=== PATIENT | female | born 1960 | race Hispanic/Latino ===

== ENCOUNTER 2016-10-03 04:25 | Observation (INO) | payer MEDICARE, OTHER ==
[2016-10-03] MEDS ORDERED: Albuterol-Ipratrop 3 mg / 0.5 (3 ml) UD IH STA (04:49)
--- NOTE | 2016-10-03 04:57 | ED PDOC ---
Arrival/HPI <Ruslan Berry - Last Filed: 10/03/16 06:00> - General Historian: Patient <Jeremy Wei - Last Filed: 10/03/16 06:11> - General Chief Complaint: Shortness Of Breath Time Seen by Provider: 10/03/16 04:28 - History of Present Illness Narrative History of Present Illness (Text): 10/03/16 04:51 56 y/o female with hx of COPD, tobacco use, asthma presenting with complaints of shortness of breath. Patient states she has been experiencing sinus congestion and rhinorrhea for the past 2 days. However earlier this evening the patient notes wheezing, shortness of breath and a non-productive cough. She denies fever, chills or sick contacts. Patient states she is up to date with both the flu and pneumococcal vaccines. Patient states she uses an Albuterol inhaler at home however this is infrequently. She states she has other inhalers at home but cannot remember the names of these. Patient further denies chest pain, sore throat, nausea, vomiting, diarrhea of urinary changes. (Jeremy Wei) Past Medical History - Provider Review Nursing Documentation Reviewed: Yes - Infectious Disease Hx of Infectious Diseases: None - Tetanus Immunization Tetanus Immunization: Unknown - Past Medical History Past Medical History: No Previous - Cardiac Hx Cardiac Disorders: No Hx Hypertension: No - Pulmonary Hx Asthma: Yes Hx Bronchitis: Yes Hx Chronic Obstructive Pulmonary Disease (COPD): Yes Hx Tuberculosis: No - Neurological Hx Neurological Disorder: No HX Cerebrovascular Accident: No Hx Seizures: No - HEENT Hx HEENT Disorder: No - Renal Hx Renal Disorder: No - Endocrine/Metabolic Hx Endocrine Disorders: No - Hematological/Oncological Hx Blood Disorders: No Hx Cancer: No - Integumentary Hx Dermatological Disorder: No - Musculoskeletal/Rheumatological Hx Back Pain: Yes - Gastrointestinal Hx Gastrointestinal Disorders: Yes ("LAST MONTH GASTROENTERITIS") Hx Gastritis: Yes - Genitourinary/Gynecological Hx Genitourinary Disorders: No Hx Sexually Transmitted Diseases: No - Psychiatric Hx Depression: Yes Hx Substance Use: No - Surgical History Hx Hysterectomy: Yes (partial) Hx Musculoskeletal Surgery: Yes Hx Orthopedic Surgery: Yes (neck and back WITH PLATES) Other/Comment: Herniated disc repair. SURGERY FOR: BUNIONS ON BOTH FEET. 02/02: PERCUTANEOUS PINNING K.WIRE 0.62 OF LEFT HAND DISTAL RADIUS FRACTURE AND APPLICATION OF SPLINT - Anesthesia Hx Anesthesia: Yes Hx Anesthesia Reactions: Yes (N&V) Hx Malignant Hyperthermia: No - Suicidal Assessment Feels Threatened In Home Enviroment: No <Jeremy Wei - Last Filed: 10/03/16 06:11> Family/Social History Family/Social History: Unknown Family HX Smoking Status: Heavy Smoker > 10 Cigarettes Daily Hx Alcohol Use: No Hx Substance Use: No Hx Substance Use Treatment: Yes (PPD) <Jeremy Wei - Last Filed: 10/03/16 06:11> Allergies/Home Meds <JujuRuslan gonzalez - Last Filed: 10/03/16 06:00> <Jeremy Wei - Last Filed: 10/03/16 06:11> Allergies/Adverse Reactions: Allergies No Known Allergies Allergy (Verified 10/03/16 04:29) Home Medications: Home Meds Medication Instructions Recorded Confirmed Pregabalin [Lyrica] 150 mg PO TID 10/03/16 10/03/16 oxyCODONE [oxyCODONE Immediate 10 mg PO TID 10/03/16 10/03/16 Release Tab] Review of Systems - Review of Systems Constitutional: absent: Fevers, Night Sweats Eyes: Normal ENT: Rhinorrhea, Sinus Congestion. absent: Tinnitus, Sore Throat Respiratory: Cough, Wheezing. absent: Sputum Cardiovascular: absent: Chest Pain, Palpitations Gastrointestinal: absent: Abdominal Pain, Diarrhea, Nausea, Vomiting Musculoskeletal: absent: Back Pain, Neck Pain Skin: absent: Rash Neurological: absent: Headache, Dizziness, Focal Weakness Endocrine: absent: Diaphoresis Psychiatric: absent: Anxiety <Jeremy Wei - Last Filed: 10/03/16 06:11> Physical Exam Mental Status: Positive for: Alert and Oriented X 3 - Systems Exam Head: Present: Atraumatic, Normocephalic Pupils: Present: PERRL Extroacular Muscles: Present: EOMI Conjunctiva: Present: Normal Mouth: Present: Moist Mucous Membranes Pharnyx: Present: Normal. No: ERYTHEMA, EXUDATE Neck: Present: Normal Range of Motion Respiratory/Chest: Present: Wheezes (scattered diffusely ). No: Clear to Auscultation, Respiratory Distress, Accessory Muscle Use, Rhonchi, Tachypneic Abdomen: Present: Normal Bowel Sounds. No: Tenderness, Distention Back: Present: Normal Inspection Upper Extremity: Present: Normal Inspection. No: Cyanosis, Edema Lower Extremity: Present: Normal Inspection. No: Edema, CALF TENDERNESS Neurological: Present: GCS=15, CN II-XII Intact, Speech Normal Skin: Present: Warm, Dry, Rashes, Normal Color Psychiatric: Present: Alert, Oriented x 3, Normal Insight, Normal Concentration <Jeremy Wei - Last Filed: 10/03/16 06:11> Vital Signs Temp Pulse Resp BP Pulse Ox 10/03/16 05:05 20 10/03/16 04:33 97.8 F 71 18 155/97 H 99 Medical Decision Making <Ruslan Berry - Last Filed: 10/03/16 06:00> <Jeremy Wei - Last Filed: 10/03/16 06:11> ED Course and Treatment: 10/03/16 06:00 Patient seen and evaluated with resident. Patient is a 56 year old female who presents to the ed complaining of URI symptoms for 2 days and developed wheezing , SOB and non-productive cough yesterday evening. Agree with HPI, clinical findings, plan and treatment. (Ruslan Berry) 10/03/16 05:01 56 y/o female with hx of COPD, asthma, prior hx of pneumonia, bronchitis presenting with shortness of breath 2/2 viral/bacterial CAP vs acute bronchitis vs COPD exacerbation - Duonebs PRN - chest xray - routine labs - EKG 10/03/16 06:06 - chest xray reviewed. no infiltrates seen. no evidence of pneumonia. - labs reviewed. no leukocytosis - EKG with NSR no evidence of ischemia. (Jeremy Wei) - Lab Interpretations Lab Results: 10/03/16 04:49 10/03/16 05:22 Lab Results 10/03/16 05:22: Sodium 142, Potassium 4.6, Chloride 109, Carbon Dioxide 25, Anion Gap 13, BUN 11, Creatinine 0.6, Est GFR ( Amer) > 60, Est GFR (Non- Af Amer) > 60, Random Glucose 116 H, Calcium 10.1, Total Bilirubin 0.5, AST 32, ALT 28, Alkaline Phosphatase 76, Total Protein 7.1, Albumin 3.9, Globulin 3.2, Albumin/Globulin Ratio 1.2 10/03/16 04:49: WBC 10.5, RBC 4.90, Hgb 12.8, Hct 39.4, MCV 80.4, MCH 26.1, MCHC 32.5, RDW 16.3 H, Plt Count 249, MPV 11.4 H, Gran % 62.5, Lymph % (Auto) 28.9, [place] % (Auto) 6.6 H, Eos % (Auto) 1.8, Baso % (Auto) 0.2, Gran # 6.54 H, Lymph # 3.0, [place] # 0.7 H, Eos # 0.2, Baso # 0.02 - RAD Interpretation Radiology Orders: 10/03/16 04:49 CHEST PORTABLE [RAD] Stat - Medication Orders Current Medication Orders: Albuterol/Ipratropium (Duoneb 3 Mg/0.5 Mg (3 Ml) Ud) 3 ml IH Q15M ROBERTA Stop: 10/03/16 06:16 Last Admin: 10/03/16 06:05 Dose: 3 ML Levofloxacin/Dextrose (Levaquin 750mg) 150 mls @ 100 mls/hr IVPB STAT STA Stop: 10/03/16 07:33 Discontinued Medications Albuterol/Ipratropium (Duoneb 3 Mg/0.5 Mg (3 Ml) Ud) 3 ml IH STAT STA Stop: 10/03/16 04:50 Last Admin: 10/03/16 05:25 Dose: 3 ML Methylprednisolone (Solu-Medrol) 125 mg IVP STAT STA Stop: 10/03/16 05:23 Last Admin: 10/03/16 05:35 Dose: 125 MG IVP Administration Document 10/03/16 05:35 MR (Rec: 10/03/16 05:35 MR [id number]) Charges for Administration # of IVP Administrations 1 Oxycodone HCl (Oxycodone Immediate Release Tab) 10 mg PO STAT STA Stop: 10/03/16 06:00 - PA / FREIGHT ENGINEER / Resident Statement / has reviewed & agrees with the documentation as recorded. / has examined the patient and agrees with the treatment plan. <Ruslan Berry - Last Filed: 10/03/16 06:00> <Jeremy Wei - Last Filed: 10/03/16 06:11> - Scribe Statement Roseline Muthuraman All medical record entries made by the Scribe were at my direction and personally dictated by me. I have reviewed the chart and agree that the record accurately reflects my personal performance of the history, physical exam, medical decision making, and the department course for this patient. I have also personally directed, reviewed, and agree with the discharge instructions and disposition. (Ruslan Berry) Disposition/Present on Arrival <Ruslan Berry - Last Filed: 10/03/16 06:00> - Present on Arrival Any Indicators Present on Arrival: No History of DVT/PE: No History of Uncontrolled Diabetes: No Urinary Catheter: No History of Decub. Ulcer: No History Surgical Site Infection Following: None - Disposition Have Diagnosis and Disposition been Completed?: No Disposition Time: 06:11 Patient Plan: Admission <Jeremy Wei - Last Filed: 10/03/16 06:11> - Disposition Diagnosis: Acute bronchitis with chronic obstructive pulmonary disease (COPD) Patient Problems: Current Active Problems Problem Status Diagnosed Asthma Acute COPD (chronic obstructive pulmonary disease) Acute Pneumonia Acute Condition: STABLE
[2016-10-03 05:37] LABS: ALB/GLOB RATIO 1.2 (1.1-1.8); ALKALINE PHOSPHATASE 76 U/L (38-133); ALT/SGPT 28 U/L (7-56); AST/SGOT 32 U/L (15-39); BILIRUBIN,TOTAL 0.5 mg/dL (0.2-1.3); BLOOD UREA NITROGEN 11 mg/dL (7-21); CALCIUM 10.1 mg/dL (8.4-10.5); CARBON DIOXIDE 25 mmol/L (21-33); CHLORIDE 109 mmol/L (95-110); GFR AFRICAN-AMERICAN > 60; GLUCOSE,RANDOM 116 mg/dL (70-110); POTASSIUM 4.6 mmol/L (3.6-5.0); SODIUM 142 mmol/L (132-148); TOTAL PROTEIN 7.1 g/dL (5.8-8.3)
[2016-10-03 05:39] LABS: ADD MANUAL DIFF? NO; BASO # 0.02 K/mm3 (0.0-2.0); BASO % 0.2 % (0.0-3.0); EOS # 0.2 (0.0-0.7); EOS % 1.8 % (1.5-5.0); GRAN # 6.54 (1.4-6.5); GRAN % 62.5 % (50.0-68.0); HEMATOCRIT 39.4 % (36.0-48.0); LYMPH % 28.9 % (22.0-35.0); MEAN CELL VOLUME 80.4 fL (80.0-105.0); MEAN CORPUSCULAR HEMOGLOBIN 26.1 pg (25.0-35.0); MEAN CORPUSCULAR HGB CONC 32.5 g/dl (31.0-37.0); MEAN PLATELET VOLUME 11.4 fl (7.0-11.0); MONO # 0.7 (0.1-0.6); MONO % 6.6 % (1.0-6.0); PLATELET COUNT 249 10^3/uL (120.0-450.0); RED CELL DISTRIBUTION WIDTH 16.3 % (11.5-14.5); WHITE BLOOD COUNT 10.5 10^3/ul (4.5-11.0)
[2016-10-03] MEDS ORDERED: oxyCODONE 10 mg Immediate Release Tab PO STA (05:59)
[2016-10-03] MEDS: Albuterol-Ipratrop 3 mg / 0.5 (3 ml) UD IH SCH ×5 (06:05→21:29)
[2016-10-03] MEDS ORDERED: Albuterol-Ipratrop 3 mg / 0.5 (3 ml) UD IH PRN ×2 (06:07→08:47)
--- NOTE | 2016-10-03 07:17 | RAD ---
HISTORY: respiratory distress r/o pneumonia COMPARISON: 08/15/2016 AT 5:26 A.M. FINDINGS: LUNGS: . There is interval increased pulmonary vascular markings symmetrical diffuse. . The inferolateral soft tissues appear prominent some of this is likely due to summation of breast tissues. no. Blunting of either costophrenic angle is noted. PLEURA: No significant pleural effusion identified, no pneumothorax apparent. Inferolateral pleural thickening or reaction is not excluded CARDIOVASCULAR: Normal. OSSEOUS STRUCTURES: No significant abnormalities. VISUALIZED UPPER ABDOMEN: Normal. OTHER FINDINGS: Anterior cervical fusion plate present-as before IMPRESSION: Interval increased pulmonary vascular congestion. Summation of chest wall and breast soft tissues versus inferolateral pleural thickening/ pleural pathology. No gross blunting of either costophrenic angle to suggest pleural effusions.
[2016-10-03] MEDS: oxyCODONE 10 mg Immediate Release Tab PO SCH ×3 (09:09→17:07)
[2016-10-03 13:35] VITALS: BMI 39.9
[2016-10-03] MEDS ORDERED: Influenza Vaccine 45 MCG/0.5 ml IM ONE (13:35)
[2016-10-03] MEDS ORDERED: Pneumococcal 23-Valent Vaccine IM ONE (13:35)
[2016-10-03] MEDS: MethylPREDNISolone 40 mg Vial IV SCH ×2 (13:42→22:43)
--- NOTE | 2016-10-03 16:35 | CARD ---
APPROVED REPORT EKG Measurement Heart [id number] <Conclusion> Normal sinus rhythm Normal ECG
--- NOTE | 2016-10-03 16:58 | HP ---
HISTORY OF PRESENT ILLNESS: The patient is a 56-year-old, known to me from my office practice. The patient states she has not been feeling well since Saturday. She has a runny and stuffy nose. She has cough and congestion and yesterday, she became more and more short of breath, so she came [facility] for further evaluation. She did have some fever and chills at home. She denies any hemoptys is, no hematemesis, no nausea, vomiting, no diarrhea. However, she was breathing harsh and she has n onproductive cough. The patient states she has been using her inhaler at home with no significant re lief, so she decided to come to the ER. She has significant past medical history of morbid obesity, hypertension. PAST MEDICAL HISTORY: Significant for: 1. Morbid obesity. 2. History of depression. 3. Degenerative disk disease, on narcotics. 4. Hypothyroidism. 5. Hypertension. 6. Active smoking. ALLERGIES: She is not allergic to any medications. MEDICATIONS AT HOME: She is on oxycodone 10 mg 3 times a day. She is on Lyrica 150 three times a da y and Flexeril 10 mg at bedtime. SOCIAL HISTORY: She is single, lives by herself. Actively smokes, almost half a pack to 1 pack on . REVIEW OF SYSTEMS: Significant for cough, congestion and shortness of breath with walking. No signi ficant chest pain. PHYSICAL EXAMINATION: GENERAL: She is awake and alert, communicative. VITAL SIGNS: She is afebrile, pulse 85, respirations 20, blood pressure 148/77. LUNGS: Bilateral fair airflow with a few expiratory rhonchi, no crackle. HEART: S1, S2 audible. No murmur. ABDOMEN: Soft, nontender. No rebound, no guarding. NEUROLOGIC: The patient is awake and alert, communicative. Moves all extremities. LABORATORY DATA: WBC is 10.5, hemoglobin 12.8, hematocrit 39, platelet of 249. Chemistry: Sodium 1 42, potassium 4.6, chloride 109, CO2 25, BUN 11, creatinine 0.6, blood sugar of 116. TSH 5.63. Urin e tox is negative. RPR is negative. X-ray chest: Interval increase in pulmonary vascular congestio n, inflammation of chest wall and breast soft tissue versus bilateral pleural thickening. ASSESSMENT: 1. Chronic obstructive pulmonary disease exacerbation. 2. Active smoker. 3. Hypertension. 4. Chronic back pain. 5. Morbid obesity. PLAN: Currently, the patient is on nebulizer treatment. She is on Levaquin and she is on PPI. She has been started on IV steroids and she is back on her analgesic as needed. I will order for CT scan of the chest. If it is negative, we will taper down her steroid quickly and discharge her in a day or 2. Hemodynamically, she is stable. I will discontinue her telemetry. Eliu Souza MD cc: [phone] TT: 10/03/2016 16:58:00 tn
[2016-10-03] MEDS: Levothyroxine 25 MCG TAB PO SCH (17:07)
[2016-10-03] MEDS ORDERED: Oxycodone/Acetaminophen 5/325 mg Tab PO STA (23:19)
[2016-10-04] MEDS: Albuterol-Ipratrop 3 mg / 0.5 (3 ml) UD IH SCH ×4 (02:40→20:16)
[2016-10-04] MEDS: MethylPREDNISolone 40 mg Vial IV SCH ×3 (06:23→22:14)
[2016-10-04] MEDS: oxyCODONE 10 mg Immediate Release Tab PO SCH ×3 (06:23→22:14)
--- NOTE | 2016-10-04 07:37 | CT ---
PROCEDURE: CT Chest without contrast HISTORY: sob COMPARISON: None. TECHNIQUE: Contiguous axial images were obtained through the chest without intravenous contrast enhancement. Sagittal and coronal reconstructions were performed. Radiation dose (DLP): 905.90 mGy-cm. FINDINGS: LUNGS: Minimal linear scar/atelectasis in both lower lobes. No pulmonary infiltrate. No pulmonary mass identified. MEDIASTINUM: Unremarkable thoracic aorta. No aneurysm. Normal-sized heart. No pericardial effusion. Coronary arterial calcification noted. Main pulmonary artery unremarkable. No vascular congestion. No lymphadenopathy. PLEURA: No pleural fluid. No pneumothorax. BONES: No fracture. No destructive lesion. UPPER ABDOMEN: Diffuse fatty infiltration of the liver. OTHER FINDINGS: None. IMPRESSION: No pulmonary infiltrate. Fatty liver. Minor findings as above.
[2016-10-04] MEDS: Levothyroxine 25 MCG TAB PO SCH (08:00)
[2016-10-04] MEDS: Pantoprazole 40 mg EC Tab PO SCH (08:00)
--- NOTE | 2016-10-04 18:17 | PN ---
DATE: 10/04/2016 The patient is a 56-year-old, seen and examined lying in bed. Still had cough and congestion with wh eezing; better than yesterday. VITAL SIGNS: She is afebrile, pulse 110, respirations 20, blood pressure 123/67. LUNGS: Bilateral expiratory rhonchi diffuse posteriorly, and scattered. HEART: S1, S2 audible. ABDOMEN: Soft, obese, nontender, no rebound, no guarding. NEUROLOGICALLY: The patient is awake and alert, communicative. She had CT scan of the chest done that shows no pulmonary infiltrate. ASSESSMENT AND PLAN: 1. Chronic obstructive pulmonary disease exacerbation. 2. Bronchospasm. 3. Asthmatic bronchitis. 4. Morbid obesity. 5. Chronic degenerative disk disease. PLAN: Currently the patient is on Levaquin. She is getting nebulizer treatment. She is on IV stero ids. I will cut down to keep q. 12 and will reevaluate the patient in a.m. If her bronchospasm has improved will make discharge plan in a.m. Eliu Souza MD cc: [phone] TT: 10/04/2016 18:16:52 Confirmation # [id number] Dictation # [id number]
[2016-10-05] MEDS: Albuterol-Ipratrop 3 mg / 0.5 (3 ml) UD IH SCH ×2 (02:08→08:48)
[2016-10-05] MEDS: oxyCODONE 10 mg Immediate Release Tab PO SCH (06:04)
[2016-10-05] MEDS: Pantoprazole 40 mg EC Tab PO SCH (06:04)
[2016-10-05] MEDS: Levothyroxine 25 MCG TAB PO SCH (07:53)
[2016-10-05 07:57] VITALS: BP 123/75; PULSE 77; RESP 22; TEMP 97.6; O2SAT 97
[2016-10-05] MEDS: MethylPREDNISolone 40 mg Vial IV SCH (09:47)
[2016-10-05] MEDS ORDERED: levoFLOXacin 500 MG TAB PO SCH (10:00)
--- NOTE | 2016-10-05 17:16 | DS ---
The patient is a 56-year-old who came to Emergency Room because of increasing cough, congestion, and shortness of breath. She was unable to catch breath, feeling very dizzy, so she came to Emergency Ro . She has been using nebulizer at home with no significant relief, so she came to Emergency Room 0 10/03. The patient was initially admitted in telemetry for 24 hours. She was started on IV steroid, IV antibiotic, and nebulizer treatments. Started to feel better, transferred to regular floor, tamra painting on medication; was seen and examined this morning, doing well. Awake, alert, oriented. Coughing and wheezing is much better. VITAL SIGNS: She is afebrile, pulse 77, respirations 22, blood pressure 123/75. LUNGS: Bilateral good airflow. No rhonchi or crackle. HEART: S1, S2 audible. ABDOMEN: Soft, nontender, no rebound, no guarding. NEUROLOGICALLY: She is awake and alert, communicative, ambulatory. ASSESSMENT AND PLAN: 1. Chronic obstructive pulmonary disease exacerbation. CT scan chest negative for infiltrate. 2. Hypertension. 3. Depression. 4. Degenerative disk disease. PLAN: The patient is being discharged home on prednisone 20 mg twice a day for 1 week, and she was g iven Levaquin 500 daily and DuoNeb. She has nebulizer machine at home. She is given Phenergan DM q. 6 p.r.n. for cough, and she will follow up in office in a week or two. Eliu Souza MD cc: [phone] TT: 10/05/2016 17:15:41 jn
== END 2016-10-05 15:07 | disposition home or self-care (01) ==
LOC: ED 04:25 → ERH 06:06 → 2RNO 06:39 → ERH 06:55 → 2RNO 08:12 → 5RSO 18:50
PROVIDERS: ADMIT Internal Medicine; ATTEND Internal Medicine
DX: J44.1 Chronic obstructive pulmonary disease with (acute) exacerbation (principal); I10 Essential (primary) hypertension; J45.909 Unspecified asthma, uncomplicated; F32.9 Major depressive disorder, single episode, unspecified; M51.9 Unspecified thoracic, thoracolumbar and lumbosacral intervertebral disc disorder; F17.200 Nicotine dependence, unspecified, uncomplicated; E03.9 Hypothyroidism, unspecified; E66.01 Morbid (severe) obesity due to excess calories; Z68.41 Body mass index [BMI] 40.0-44.9, adult
CPT/HCPCS: 71010; 71250; 80053; 85025; 93005; 94640; 94760; 96365; 96366; 96375; 96376; 99285; G0378; J2920; J2930

== ENCOUNTER 2016-11-05 13:53 | Emergency (ER) | payer MEDICARE, OTHER ==
[2016-11-05 13:54] VITALS: BMI 39.9
[2016-11-05 14:18] VITALS: BP 143/84; PULSE 95; RESP 19; TEMP 98.3; O2SAT 97
[2016-11-05] MEDS ORDERED: Albuterol-Ipratrop 3 mg / 0.5 (3 ml) UD IH STA (14:32)
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
== END 2016-11-05 14:40 | disposition home or self-care (01) ==
LOC: ED 13:53
DX: J44.0 Chronic obstructive pulmonary disease with (acute) lower respiratory infection (principal); F17.210 Nicotine dependence, cigarettes, uncomplicated

== ENCOUNTER 2016-11-06 02:40 | Observation (INO) | payer MEDICARE, OTHER ==
[2016-11-06] MEDS: Albuterol-Ipratrop 3 mg / 0.5 (3 ml) UD IH SCH ×5 (03:15→19:12)
--- NOTE | 2016-11-06 03:33 | ED PDOC ---
Arrival/HPI - General Chief Complaint: Cough, Cold, Congestion Time Seen by Provider: 11/06/16 02:45 Historian: Patient - History of Present Illness Narrative History of Present Illness (Text): 11/06/16 03:30 Patient is a 56 year old female, with a past medical history of pneumonia, asthma, bronchitis, and COPD, presents to the emergency department complaining of mild shortness of breath associated with non-productive cough, runny nose and congestion for past 4 days. States that daughter and grand daughter are sick with similar symptoms at home. Patient was evaluated yesterday at [facility] [place], but eloped the emergency department without getting the prescriptions. Denies any fever, chills, headache, dizziness, chest pain, nausea , vomiting, diarrhea, urinary symptoms, or any other complaints at this time. PMD: Time/Duration: < week (4 days ) Symptom Onset: Gradual Symptom Course: Unchanged Severity Level: Mild Activities at Onset: Light Context: Home Past Medical History - Provider Review Nursing Documentation Reviewed: Yes - Infectious Disease Hx of Infectious Diseases: None - Tetanus Immunization Tetanus Immunization: Unknown - Reproductive Menopause: Yes - Past Medical History Past Medical History: No Previous - Cardiac Hx Cardiac Disorders: No Hx Hypertension: No - Pulmonary Hx Asthma: Yes Hx Bronchitis: Yes Hx Chronic Obstructive Pulmonary Disease (COPD): Yes Hx Tuberculosis: No Other/Comment: asthmatic bronchitis - Neurological Hx Neurological Disorder: No HX Cerebrovascular Accident: No Hx Seizures: No - HEENT Hx HEENT Disorder: No - Renal Hx Renal Disorder: No - Endocrine/Metabolic Hx Endocrine Disorders: No Hx Diabetes Mellitus Type 2: Yes - Hematological/Oncological Hx Blood Disorders: No Hx Cancer: No - Integumentary Hx Dermatological Disorder: No - Musculoskeletal/Rheumatological Hx Falls: Yes (15 yrs ago and 03/2015) - Gastrointestinal Hx Gastrointestinal Disorders: Yes Other/Comment: pt denies gastroenteritis or gastritis - Genitourinary/Gynecological Hx Genitourinary Disorders: No Hx Sexually Transmitted Diseases: No - Psychiatric Hx Depression: Yes Hx Substance Use: No - Surgical History Hx Hysterectomy: Yes (partial) Hx Musculoskeletal Surgery: Yes (bunion) Hx Orthopedic Surgery: Yes (neck and back WITH PLATES) Other/Comment: Herniated disc repair. SURGERY FOR: BUNIONS ON BOTH FEET. 02/02: PERCUTANEOUS PINNING K.WIRE 0.62 OF LEFT HAND DISTAL RADIUS FRACTURE AND APPLICATION OF SPLINT, 03/2015, pt fell over [employer] football, hardware removed 05/2016 - Anesthesia Hx Anesthesia: Yes Hx Anesthesia Reactions: Yes (N&V) Hx Malignant Hyperthermia: No - Suicidal Assessment Feels Threatened In Home Enviroment: No Family/Social History - Physician Review Nursing Documentation Reviewed: Yes Family/Social History: No Known Family HX Smoking Status: Heavy Smoker > 10 Cigarettes Daily Hx Alcohol Use: No Hx Substance Use: No Hx Substance Use Treatment: Yes (PPD) Allergies/Home Meds Allergies/Adverse Reactions: Allergies No Known Allergies Allergy (Verified 11/06/16 02:44) Home Medications: Home Meds Medication Instructions Recorded Confirmed Simvastatin [Zocor] 20 mg PO HS 11/06/16 11/06/16 metFORMIN [glucOPHAGE] 500 mg PO BID 11/06/16 11/06/16 Review of Systems - Physician Review All systems were reviewed & negative as marked: Yes - Review of Systems Constitutional: Normal. absent: Fatigue, Fevers ENT: Rhinorrhea Respiratory: SOB (mild sob ), Cough. absent: Sputum Cardiovascular: absent: Chest Pain Gastrointestinal: absent: Abdominal Pain, Diarrhea, Nausea, Vomiting Neurological: Normal. absent: Headache, Dizziness Psychiatric: Normal Physical Exam Vital Signs Reviewed: Yes Vital Signs Temp Pulse Resp BP Pulse Ox 11/06/16 05:15 110 H 11/06/16 05:14 99 F 107 H 16 152/78 H 98 11/06/16 02:47 98.0 F 107 H 18 134/96 H 98 Temperature: Afebrile Blood Pressure: Normal Pulse: Tachycardic Respiratory Rate: Normal Appearance: Positive for: Well-Appearing, Non-Toxic, Comfortable Pain Distress: None Mental Status: Positive for: Alert and Oriented X 3 - Systems Exam Head: Present: Atraumatic, Normocephalic Pupils: Present: PERRL Conjunctiva: Present: Normal Respiratory/Chest: Present: Good Air Exchange, Wheezes. No: Respiratory Distress, Accessory Muscle Use Cardiovascular: Present: Regular Rate and Rhythm, Normal S1, S2. No: Murmurs Abdomen: Present: Normal Bowel Sounds. No: Tenderness, Distention, Peritoneal Signs Upper Extremity: Present: Normal Inspection. No: Cyanosis, Edema Lower Extremity: Present: Normal Inspection. No: Edema Neurological: Present: GCS=15, CN II-XII Intact, Speech Normal, Motor Func Grossly Intact, Normal Sensory Function Skin: Present: Warm, Dry, Normal Color. No: Rashes Psychiatric: Present: Alert, Oriented x 3, Normal Insight, Normal Concentration Medical Decision Making ED Course and Treatment: 11/06/16 03:32 Impression: A 56 year old female who presents to the ed complaining of cough, runny nose and congestion for past 4 days. Plan: -- EKG -- Labs, cardiac enzymes -- CXR -- Solumedrol -- Blood Culture Progress Notes: 11/06/16 04:46 EKG reviewed by me: Sinus Tachycardia @ 104 bpm. Normal Rochelle. Normal interval. case d/w dr hernandez\n will tele obs for copd 11/08/16 23:17 - Lab Interpretations Microbiology Results: Microbiology Results 11/06/16 03:30 Blood-Venous Blood Culture - Preliminary NO GROWTH AFTER 48 HOURS 11/06/16 03:10 Blood-Venous Blood Culture - Preliminary NO GROWTH AFTER 48 HOURS Lab Results: 11/06/16 03:10 11/06/16 03:10 Lab Results 11/06/16 03:10: WBC 8.4, RBC 5.50, Hgb 14.3, Hct 43.4, MCV 78.9 L, MCH 26.0, MCHC 32.9, RDW 17.5 H, Plt Count 223, MPV 12.1 H, Gran % 58.3, Lymph % (Auto) 27.1, Roane % (Auto) 10.6 H, Eos % (Auto) 3.6, Baso % (Auto) 0.4, Gran # 4.90, Lymph # 2.3, Roane # 0.9 H, Eos # 0.3, Baso # 0.03, pO2 183 H, VBG pH 7.38, VBG pCO2 33.0 L, VBG HCO3 19.5 L, VBG Total CO2 20.5 L, VBG O2 Sat (Calc) 99.3 H, VBG Base Excess -4.7 L, VBG Potassium 4.4, Glucose 130 H, Lactate 2.2 H, FiO2 21.0, Sodium 138.0, Potassium 4.4, Chloride 111.0 H, Carbon Dioxide 20 L, Anion Gap 13, BUN 14, Creatinine 0.7, Est GFR ( Amer) > 60, Est GFR (Non-Af Amer) > 60, Random Glucose 133 H, Calcium 10.3, Total Bilirubin 0.5, AST 35, ALT 49, Alkaline Phosphatase 106, Lactate Dehydrogenase 471, Total Creatine Kinase 63, Troponin I < 0.01, NT-Pro-B Natriuret Pep 15.8, Total Protein 7.5, Albumin 4.2, Globulin 3.3, Albumin/Globulin Ratio 1.3, Venous Blood Potassium 4.4 I have reviewed the lab results: Yes - RAD Interpretation Radiology Orders: 11/06/16 02:54 CHEST PORTABLE [RAD] Stat Shirt Closer: ED Physician - EKG Interpretation Interpreted by ED Physician: Yes Type: 12 lead EKG - Medication Orders Current Medication Orders: Discontinued Medications Acetaminophen (Tylenol 325mg Tab) 650 mg PO Q4H PRN PRN Reason: Fever >100.5 F Acetaminophen (Tylenol 325mg Tab) 650 mg PO Q6H PRN PRN Reason: Fever >100.4 F Last Admin: 11/06/16 12:38 Dose: 650 MG MAR Pain/Vitals Document 11/06/16 12:38 CLA (Rec: 11/06/16 12:39 CLA [id number]) Pain Reassessment Is This A Pain ReAssessment? Yes Sleep Is patient sleeping during reassessment? No Presence of Pain Presence of Pain No Pain Scale Used Pain Scale Used Numeric Location Pain Location Body Site Generalized Description Intermittent Intensity 5 Pain Behavior Irritability Restlessness Albuterol/Ipratropium (Duoneb 3 Mg/0.5 Mg (3 Ml) Ud) 3 ml IH Q15M ROBERTA Stop: 11/06/16 03:31 Last Admin: 11/06/16 04:00 Dose: 3 ML Albuterol/Ipratropium (Duoneb 3 Mg/0.5 Mg (3 Ml) Ud) 3 ml IH Q4H PRN PRN Reason: Shortness of Breath Stop: 11/06/16 09:19 Albuterol/Ipratropium (Duoneb 3 Mg/0.5 Mg (3 Ml) Ud) 3 ml IH Q2H PRN PRN Reason: Shortness of Breath Last Admin: 11/06/16 23:34 Dose: 3 ML Albuterol/Ipratropium (Duoneb 3 Mg/0.5 Mg (3 Ml) Ud) 3 ml IH [id number] ROBERTA Last Admin: 11/07/16 13:25 Dose: Atorvastatin Calcium (Lipitor) 10 mg PO HS [facility] Last Admin: 11/06/16 21:43 Dose: 10 MG Levofloxacin/Dextrose (Levaquin 750mg) 150 mls @ 100 mls/hr IVPB STAT STA Stop: 11/06/16 06:14 Last Admin: 11/06/16 05:08 Dose: 100 MLS/HR eMAR Start Stop Document 11/06/16 05:08 SRE (Rec: 11/06/16 05:08 SRE [id number]) Intravenous Solution Start Date 11/06/16 Start Time 05:08 End Date 11/06/16 End time 06:00 Total Infusion Time 52 Insulin Human Lispro (Humalog Med) 0 units SC [facility] PRN Reason: Protocol Last Admin: 11/07/16 08:35 Dose: Not Given Non-Admin Reason: Blood Sugar Parameter MAR Blood Glucose Document 11/07/16 08:35 RV (Rec: 11/07/16 08:35 RV [id number]) Blood Glucose Finger Stick Blood Glucose (70-120) 125 Insulin Human Regular (Humulin R Med) 0 units SC [facility] PRN Reason: Protocol Last Admin: 11/06/16 23:00 Dose: Not Given Non-Admin Reason: Blood Sugar Parameter Metformin HCl (Glucophage) 500 mg PO BID [facility] Last Admin: 11/07/16 10:28 Dose: 500 MG Methylprednisolone (Solu-Medrol) 125 mg IVP ONCE ONE Stop: 11/06/16 02:55 Last Admin: 11/06/16 03:15 Dose: 125 MG IVP Administration Document 11/06/16 03:15 SRE (Rec: 11/06/16 03:21 SRE [id number]) Charges for Administration # of IVP Administrations 1 Nicotine (Nicoderm Cq) 1 patch TD DAILY [facility] Last Admin: 11/07/16 10:29 Dose: 1 PATCH MAR Patch Placement/Removal Document 11/07/16 10:29 RV (Rec: 11/07/16 10:29 RV [id number]) Patch Removal Removal of previous patch done Yes Patch Placement Left, Right or Bilateral Left Pain Location Body Site Shoulder MAR Transdermal Patch Site Document 11/07/16 10:29 RV (Rec: 11/07/16 10:29 RV [id number]) Transdermal Patch Site Transdermal Patch Site Right Shoulder Oxycodone HCl (Oxycodone Immediate Release Tab) 10 mg PO Q6H PRN PRN Reason: Pain, moderate (4-7) Last Admin: 11/07/16 06:27 Dose: 10 MG [facility] Pain Assessment Document 11/07/16 06:27 JW (Rec: 11/07/16 06:27 JW [id number]) Pain Reassessment Is this a pain reassessment? No Sleep Is patient sleeping during reassessment? No Presence of Pain Presence of Pain Yes Re-Assess: [facility] Pain Assessment Document 11/07/16 07:27 RV (Rec: 11/07/16 10:29 RV [id number]) Pain Reassessment Is this a pain reassessment? No Sleep Is patient sleeping during reassessment? No Presence of Pain Presence of Pain No Pain Scale Used Pain Scale Used Numeric Oxycodone/Acetaminophen (Percocet 5/325 Mg Tab) 1 tab PO STAT STA Stop: 11/06/16 04:48 Last Admin: 11/06/16 05:08 Dose: 1 TAB Re-Assess: [facility] Pain Assessment Document 11/06/16 06:08 AMA (Rec: 11/06/16 06:24 AMA [id number]) Pain Reassessment Is this a pain reassessment? Yes Sleep Is patient sleeping during reassessment? Yes Pain Scale Used Pain Scale Used Numeric Oxycodone/Acetaminophen (Percocet 5/325 Mg Tab) 1 tab PO Q6H PRN PRN Reason: Pain, moderate (4-7) Stop: 11/09/16 10:13 Last Admin: 11/06/16 16:34 Dose: 1 TAB [facility] Pain Assessment Document 11/06/16 16:34 MLK (Rec: 11/06/16 16:34 MLK [id number]) Pain Reassessment Is this a pain reassessment? No Presence of Pain Presence of Pain Yes Pain Scale Used Pain Scale Used Numeric Location Upper or Lower Lower Pain Location Body Site Neck Back Description Description Intermittent Intensity of Pain at present 8 Pain Behavior Facial Grimacing Alleviating Factors/Management Medication Techniques Pantoprazole Sodium (Protonix Ec Tab) 40 mg PO 0630 [facility] Last Admin: 11/07/16 06:27 Dose: 40 MG Prednisone (Prednisone Tab) 20 mg PO BID [facility]ERT[facility] Last Admin: 11/07/16 10:28 Dose: 20 MG Promethazine HCl/Codeine (Phenergan/Codeine Oral Syrup) 5 ml PO Q6 PRN PRN Reason: Cough and congestion Last Admin: 11/07/16 06:27 Dose: 5 ML - Joelibe Statement The provider has reviewed the documentation as recorded by the Pasha Pulliam Provider Attestation: All medical record entries made by the Pasha were at my direction and personally dictated by me. I have reviewed the chart and agree that the record accurately reflects my personal performance of the history, physical exam, medical decision making, and the department course for this patient. I have also personally directed, reviewed, and agree with the discharge instructions and disposition. Disposition/Present on Arrival - Present on Arrival Any Indicators Present on Arrival: No History of DVT/PE: No History of Uncontrolled Diabetes: No Urinary Catheter: No History of Decub. Ulcer: No History Surgical Site Infection Following: None - Disposition Have Diagnosis and Disposition been Completed?: Yes Diagnosis: COPD (chronic obstructive pulmonary disease) Disposition: HOSPITALIZED Disposition Time: 06:00 Patient Problems: Current Active Problems Problem Status Diagnosed Asthma Acute COPD (chronic obstructive pulmonary disease) Acute Pneumonia Acute Condition: FAIR
[2016-11-06 03:38] LABS: VENOUS BLOOD GAS BASE EXCESS -4.7 mmol/L (0.0-2.0); VENOUS BLOOD PH 7.38 (7.32-7.43)
[2016-11-06 03:39] LABS: ADD MANUAL DIFF? NO
[2016-11-06 04:03] LABS: ALB/GLOB RATIO 1.3 (1.1-1.8); ALKALINE PHOSPHATASE 106 U/L (38-133); ALT/SGPT 49 U/L (7-56); AST/SGOT 35 U/L (15-39); BILIRUBIN,TOTAL 0.5 mg/dL (0.2-1.3); BLOOD UREA NITROGEN 14 mg/dL (7-21); CALCIUM 10.3 mg/dL (8.4-10.5); CARBON DIOXIDE 20 mmol/L (21-33); CHLORIDE 107 mmol/L (98-107); GFR AFRICAN-AMERICAN > 60; GLUCOSE,RANDOM 133 mg/dL (70-110); HEMATOCRIT 43.4 % (36.0-48.0); POTASSIUM 4.4 mmol/L (3.6-5.0); SODIUM 136 mmol/L (132-148); TOTAL PROTEIN 7.5 g/dL (5.8-8.3); WHITE BLOOD COUNT 8.4 10^3/ul (4.5-11.0)
[2016-11-06 04:04] LABS: GRAN % 58.3 % (50.0-68.0); LYMPH % 27.1 % (22.0-35.0); MEAN CELL VOLUME 78.9 fL (80.0-105.0); MEAN CORPUSCULAR HGB CONC 32.9 g/dl (31.0-37.0); MEAN PLATELET VOLUME 12.1 fl (7.0-11.0); PLATELET COUNT 223 10^3/uL (120.0-450.0); RED CELL DISTRIBUTION WIDTH 17.5 % (11.5-14.5)
[2016-11-06 04:05] LABS: BASO # 0.03 K/mm3 (0.0-2.0); BASO % 0.4 % (0.0-3.0); EOS # 0.3 (0.0-0.7); EOS % 3.6 % (1.5-5.0); LYMPH # 2.3 (1.2-3.4); MONO # 0.9 (0.1-0.6); MONO % 10.6 % (1.0-6.0)
[2016-11-06 04:22] LABS: TROPONIN I < 0.01 ng/mL
[2016-11-06] MEDS ORDERED: Oxycodone/Acetaminophen 5/325 mg Tab PO STA (04:47)
[2016-11-06] MEDS ORDERED: Albuterol-Ipratrop 3 mg / 0.5 (3 ml) UD IH PRN ×2 (05:18→10:12)
[2016-11-06 06:11] VITALS: BMI 41.0
[2016-11-06] MEDS ORDERED: Pantoprazole 40 mg EC Tab PO SCH (07:30)
[2016-11-06 07:57] LABS: VENOUS BLOOD GAS BASE EXCESS -7.7 mmol/L (0.0-2.0); VENOUS BLOOD PH 7.36 (7.32-7.43)
--- NOTE | 2016-11-06 09:14 | RAD ---
HISTORY: sob COMPARISON: 10/03/2016 FINDINGS: LUNGS: No active pulmonary disease. PLEURA: No significant pleural effusion identified, no pneumothorax apparent. CARDIOVASCULAR: Normal. OSSEOUS STRUCTURES: No significant abnormalities. VISUALIZED UPPER ABDOMEN: Normal. OTHER FINDINGS: None. IMPRESSION: No active disease.
[2016-11-06] MEDS: Oxycodone/Acetaminophen 5/325 mg Tab PO PRN ×2 (10:40→16:34)
--- NOTE | 2016-11-06 12:06 | CARD ---
APPROVED REPORT EKG Measurement Heart [id number] <Conclusion> Sinus tachycardia Otherwise normal ECG
[2016-11-06] MEDS: Insulin Reg-MEDIUM-Coverage SC SCH ×3 (12:38→23:00)
[2016-11-06 14:24] VITALS: O2SAT 96
--- NOTE | 2016-11-06 18:08 | HP ---
HISTORY OF PRESENT ILLNESS: The patient is a 56-year-old, seen and examined. The patient states she was having cough, congestion, shortness of breath. Her granddaughter was recently diagnosed with pn eumonia and her daughter has been coughing and she was taking care of her granddaughter. She started to have cough, congestion, shortness of breath. There was no documented fever. Denies any nausea o r vomiting. PAST MEDICAL HISTORY: Significant for: 1. Hypertension. 2. COPD. 3. Morbid obesity. 4. History of depression. 5. Degenerative disk disease. 6. Hypertension. 7. Recently diagnosed non-insulin dependent diabetes. 8. Hyperlipidemia. 9. Chronic degenerative disk disease. ALLERGIES: She is not allergic to any medications. MEDICATIONS AT HOME: 1. She was recently diagnosed with diabetes and started on metformin 500 twice a day. 2. Oxycodone 10 mg 3 times a day. 3. Lyrica 150 three times a day. 4. Flexeril 10 mg at bedtime. SOCIAL HISTORY: She is single, lives by herself. Actively smokes almost 1 pack certain days. REVIEW OF SYSTEMS: Significant for cough and congestion. PHYSICAL EXAMINATION: GENERAL: She is awake and alert, communicative. VITAL SIGNS: She is afebrile, pulse 106, respirations 20, blood pressure 128/71. LUNGS: Bilateral few expiratory rhonchi. HEART: S1, S2 audible. ABDOMEN: Soft, nontender, no rebound, no guarding. NEUROLOGIC: The patient is awake and alert, communicative. LABORATORY DATA: WBC 8.4, hemoglobin 14, hematocrit 43, platelet 223. Chemistry: Sodium 136, potas sium 4.4, chloride 107, CO2 20, BUN 14, creatinine 0.7, blood sugar of 133. Her EKG: Sinus tachycar mehrdad, otherwise normal EKG. X-ray chest shows no active disease. ASSESSMENT: 1. Chronic obstructive pulmonary disease exacerbation. 2. Active smoking. 3. Asthmatic bronchitis. PLAN: 1. I will start her on nebulizer treatment. 2. Started her on nicotine patch. 3. Percocet as needed. 4. Will give her Protonix. 5. Will monitor blood sugar. 6. Diabetic education has been requested. 7. Will follow up patient in a.m. Elui Souza MD cc: [phone] TT: 11/06/2016 18:08:14 dn
[2016-11-06] MEDS: oxyCODONE 10 mg Immediate Release Tab PO PRN (21:43)
[2016-11-06] MEDS: Promethazine/Cod 6.25mg-10mg/5ml Syr UD PO PRN (21:55)
[2016-11-06] MEDS: Insulin Lispro (humaLOG) MEDIUM Coverage SC SCH (23:00)
[2016-11-07] MEDS: Albuterol-Ipratrop 3 mg / 0.5 (3 ml) UD IH SCH ×3 (01:23→13:25)
[2016-11-07] MEDS: oxyCODONE 10 mg Immediate Release Tab PO PRN (06:27)
[2016-11-07] MEDS: Promethazine/Cod 6.25mg-10mg/5ml Syr UD PO PRN (06:27)
[2016-11-07] MEDS ORDERED: Pantoprazole 40 mg EC Tab PO SCH (06:30)
[2016-11-07] MEDS: Insulin Lispro (humaLOG) MEDIUM Coverage SC SCH (08:35)
[2016-11-07 09:23] VITALS: BP 144/71; PULSE 92; RESP 18; TEMP 97.8
--- NOTE | 2016-11-07 10:04 | CT ---
PROCEDURE: CT Chest without contrast HISTORY: SOB/COUGH COMPARISON: 10/03/2016 TECHNIQUE: Contiguous axial images were obtained through the chest without intravenous contrast enhancement. Sagittal and coronal reconstructions were performed. Radiation dose (DLP): 835 mGy-cm. This CT exam was performed using one or more of the following dose reduction techniques: Automated exposure control, adjustment of the mA and/or kV according to patient size, and/or use of iterative reconstruction technique. FINDINGS: LUNGS: There is trace right middle lobe bronchiectasis with a trace ground-glass nonspecific associated inflammatory changes. These findings are similar. No interval progressive infiltrate suggested Most of the few prior posterior lung base discoid like atelectatic changes have re-expanded MEDIASTINUM: Unremarkable thoracic aorta. No aneurysm. Normal sized heart. Main pulmonary artery unremarkable. No vascular congestion. No lymphadenopathy. Incidental coronary artery few calcifications noted PLEURA: No pleural fluid. No pneumothorax. BONES: No fracture. No destructive lesion. Cervical anterior fusion hardware UPPER ABDOMEN: Grossly unremarkable. OTHER FINDINGS: None. IMPRESSION: No interval infiltrate. The prior posterior scored like atelectatic changes appear re-expanded The minimal right middle lobe bronchiectatic changes with trace associated inflammatory changes appear similar.
--- NOTE | 2016-11-07 14:15 | DS ---
The patient is a 56-year-old, seen and examined, lying in bed, still has cough and congestion. No fe thalia, no chills, no nausea, no vomiting, no diarrhea. PHYSICAL EXAMINATION: VITAL SIGNS: She is afebrile, pulse 92, respirations 18, blood pressure 144/71. LUNGS: Bilateral good airflow, no rhonchi or crackle. A few expiratory rhonchi, diffusely scattered posteriorly. HEART: S1, S2 audible. ABDOMEN: Soft, nontender, no rebound, no guarding. NEUROLOGIC: The patient is awake and alert, communicative, ambulatory. LABORATORY EXAM: Blood sugar is 311. ASSESSMENT: 1. Chronic obstructive pulmonary disease exacerbation. 2. Active smoker. 3. Hypertension. 4. Degenerative disk disease. PLAN: The patient will be discharged home on Levaquin 500 daily. She is strongly advised to quit sm oking. Analgesic as needed. She is given prescription of prednisone 20 mg q. 12. She will be maint ained on metformin 500 twice a day and I will reevaluate the patient next week in the office. Eliu Souza MD cc: [phone] TT: 11/07/2016 14:14:57 lisa
== END 2016-11-07 13:37 | disposition home or self-care (01) ==
LOC: ED 02:40 → ERH 04:43 → CCU 05:41 → 3RNO 14:58
PROVIDERS: ADMIT Internal Medicine; ATTEND Internal Medicine
DX: J44.1 Chronic obstructive pulmonary disease with (acute) exacerbation (principal); J45.909 Unspecified asthma, uncomplicated; F17.200 Nicotine dependence, unspecified, uncomplicated; I10 Essential (primary) hypertension; E11.9 Type 2 diabetes mellitus without complications; E78.5 Hyperlipidemia, unspecified; M51.9 Unspecified thoracic, thoracolumbar and lumbosacral intervertebral disc disorder; F32.9 Major depressive disorder, single episode, unspecified; E66.01 Morbid (severe) obesity due to excess calories; Z68.41 Body mass index [BMI] 40.0-44.9, adult; Z79.84 Long term (current) use of oral hypoglycemic drugs
CPT/HCPCS: 71010; 71250; 80053; 82550; 82803; 82948; 83615; 83880; 84484; 85025; 87040; 93005; 94640; 96365; 96374; 99283; G0378; J2930

== ENCOUNTER 2016-11-10 19:58 | Observation (INO) | payer MEDICARE, OTHER ==
[~2016-11-10 19:58] MED LIST: Albuterol-Ipratrop 3 mg / 0.5 (3 ml) UD IH SCH
[2016-11-10 20:05] VITALS: BMI 38.7
--- NOTE | 2016-11-10 20:31 | ED PDOC ---
Arrival/HPI - General Chief Complaint: Shortness Of Breath Time Seen by Provider: 11/10/16 20:02 Historian: Patient - History of Present Illness Narrative History of Present Illness (Text): 11/10/16 20:17 Nannette Gandara is a 56 year old female, whose past medical history includes with a past medical history of pneumonia, asthma, bronchitis, and COPD, who presents to the emergency department complaining of wheezing since yesterday afternoon. Patient was recently discharged from recent admission for COPD exacerbation reportedly. She was discharged three days ago, admits that she has been smoking a pack a day since discharge, states she has been more short of breath since this morning and nebulizers at home are not helping her. Denies fever. Denies hemoptysis. Denies chest pain or pleuritic discomfort. Denies acute calf pain or swelling. PMD: Dr. Souza 11/10/16 22:26 Time/Duration: 24 hours Symptom Onset: Gradual Symptom Course: Worsening Severity Level: Mild Activities at Onset: Rest Context: Home Past Medical History - Provider Review Nursing Documentation Reviewed: Yes - Infectious Disease Hx of Infectious Diseases: None - Tetanus Immunization Tetanus Immunization: Unknown - Past Medical History Past Medical History: No Previous - Cardiac Hx Cardiac Disorders: No Hx Hypertension: No - Pulmonary Hx Asthma: Yes Hx Bronchitis: Yes Hx Chronic Obstructive Pulmonary Disease (COPD): Yes Hx Tuberculosis: No Other/Comment: asthmatic bronchitis - Neurological Hx Neurological Disorder: No HX Cerebrovascular Accident: No Hx Seizures: No - HEENT Hx HEENT Disorder: No - Renal Hx Renal Disorder: No - Endocrine/Metabolic Hx Endocrine Disorders: No Hx Diabetes Mellitus Type 2: Yes - Hematological/Oncological Hx Blood Disorders: No Hx Cancer: No - Integumentary Hx Dermatological Disorder: No - Musculoskeletal/Rheumatological Hx Falls: Yes (15 yrs ago and 03/2015) - Gastrointestinal Hx Gastrointestinal Disorders: Yes Other/Comment: pt denies gastroenteritis or gastritis - Genitourinary/Gynecological Hx Genitourinary Disorders: No Hx Sexually Transmitted Diseases: No - Psychiatric Hx Depression: Yes Hx Substance Use: No - Surgical History Hx Hysterectomy: Yes (partial) Hx Musculoskeletal Surgery: Yes (bunion) Hx Orthopedic Surgery: Yes (neck and back WITH PLATES) Other/Comment: Herniated disc repair. SURGERY FOR: BUNIONS ON BOTH FEET. 02/02: PERCUTANEOUS PINNING K.WIRE 0.62 OF LEFT HAND DISTAL RADIUS FRACTURE AND APPLICATION OF SPLINT, 03/2015, pt fell over grandson's football, hardware removed 05/2016 - Anesthesia Hx Anesthesia: Yes Hx Anesthesia Reactions: Yes (N&V) Hx Malignant Hyperthermia: No - Suicidal Assessment Feels Threatened In Home Enviroment: No Family/Social History - Physician Review Nursing Documentation Reviewed: Yes Family/Social History: No Known Family HX Smoking Status: Heavy Smoker > 10 Cigarettes Daily Hx Alcohol Use: No Hx Substance Use: No Hx Substance Use Treatment: Yes (PPD) Allergies/Home Meds Allergies/Adverse Reactions: Allergies No Known Allergies Allergy (Verified 11/06/16 02:44) Home Medications: Home Meds Medication Instructions Recorded Confirmed Simvastatin [Zocor] 20 mg PO HS 11/06/16 11/06/16 metFORMIN [glucOPHAGE] 500 mg PO BID 11/06/16 11/06/16 Review of Systems - Review of Systems Constitutional: Fatigue. absent: Fevers, Night Sweats Eyes: absent: Vision Changes, Eye Pain ENT: Rhinorrhea, Sinus Congestion. absent: Hearing Changes, Voice Changes, Sore Throat Respiratory: SOB, Cough, Sputum, Wheezing Cardiovascular: CHAIDEZ. absent: Chest Pain, Edema, Calf Pain, Syncope Gastrointestinal: absent: Abdominal Pain Genitourinary Female: absent: Dysuria, Frequency, Urine Output Changes Musculoskeletal: Back Pain. absent: Neck Pain Skin: absent: Rash Neurological: absent: Headache, Dizziness, Focal Weakness Hemo/Lymphatic: absent: Easy Bleeding Psychiatric: absent: Depression, Suicidal Ideation Physical Exam - Physical Exam Narrative Physical Exam (Text): Head: Atraumatic. Normocephalic. Eyes: PERRL. EOMI. Conjunctivae are not pale. ENT: Mucous membranes are moist and intact. Oropharynx is clear and symmetric. No pharyngeal erythema or exudates. Neck: Supple. Full ROM. No JVD. No lymphadenopathy. No meningeal signs. Cardiovascular: Regular rate. Regular rhythm. Systolic murmur. Distal pulses intact. Pulmonary/Chest: bilateral wheezing with rhonchi. No stridor. No accessory muscle usage. Abdominal: Soft and non-distended. There is no tenderness. No rebound, guarding, or rigidity. No organomegaly. Good bowel sounds. Back: No CVA tenderness. Paraspinal lumbar tenderness, no pain with straight leg testing. Extremities: No edema. No cyanosis. No clubbing. Full range of motion in all extremities. No calf tenderness. Skin: Skin is warm and dry. No petechiae. No purpura. Neurological: Alert, awake, and oriented to person, place, time, and situation. Normal speech. Motor and sensory intact. Ambulates with steady gait. Cranial nerves intact. Psychiatric: Good eye contact. Normal interaction, affect, and behavior. Denies suicidal ideation. Vital Signs Reviewed: Yes Vital Signs Temp Pulse Resp BP Pulse Ox 11/10/16 20:20 20 11/10/16 20:06 97.6 F 109 H 20 120/81 98 Temperature: Afebrile Blood Pressure: Hypertensive Pulse: Tachycardic Respiratory Rate: Normal Appearance: Positive for: Well-Appearing, Non-Toxic, Comfortable Pain Distress: Moderate Mental Status: Positive for: Alert and Oriented X 3 Medical Decision Making ED Course and Treatment: 11/10/16 Impression: 56 year old female complaining of cough and shortness of breath, hx of copd Differential Diagnosis included but are not limited to: Pneumonia vs. COPD exacerbation Plan: -- EKG -- Chest X-ray -- Blood Culture -- Labs -- Duoneb, Solu-medrol -- Reassess and disposition Prior Visits: Notes and results from previous visits were reviewed. Patient last seen in the ED on 11/06/16 for mild shortness of breath associated with non-productive cough , runny nose and congestion for past 4 days. Progress Notes: 11/10/16 20:45 Reviewed past radiology taken on 11/06/16, impression showed no interval infiltrate. The prior posterior scored like atelectatic changes appear re- expanded. The minimal right middle lobe bronchiectatic changes with trace associated inflammatory changes appear similar. 11/10/16 22:29 On evaluation patient with diffuse wheezing, sats 96% on supplemental oxygen. She has taken nebulizers at home without relief. On initial examination she has no chest pain or fever. Cannot exclude infiltrate vs. chronic changes on cxr. Multiple nebs and iv solumedrol given with persistent wheezing on re-examination. Case d/w Dr. Hunt covering for PMD, will admit patient to telemetry due to frequent nebulizer requirement. She has been extensively counseled on risks of continued smoking and need for smoking cessation. Currently persistent wheezing but no accessory muscle usage, no retractions, patient states she is feeling better. - Critical Care Critical Care Minutes: 30 minutes - Lab Interpretations Lab Results: 11/10/16 20:40 11/10/16 20:40 Lab Results 11/10/16 21:05: Influenza Typ A,B (EIA) Negative for flu a/b 11/10/16 20:40: WBC 13.3 H D, RBC 5.34, Hgb 14.3, Hct 41.8, MCV 78.3 L, MCH 26.8 , MCHC 34.2, RDW 16.0 H, Plt Count 258, MPV 11.3 H, Gran % 88.9 H, Lymph % (Auto ) 9.4 L, Terrell % (Auto) 1.5, Eos % (Auto) 0.1 L, Baso % (Auto) 0.1, Gran # 11.79 H, Lymph # 1.2, Terrell # 0.2, Eos # 0.0, Baso # 0.01, PT 9.9, INR 0.92 L, APTT 23.8, Sodium 141, Potassium 4.4, Chloride 105, Carbon Dioxide 22, Anion Gap 18, BUN 15, Creatinine 0.6, Est GFR ( Amer) > 60, Est GFR (Non-Af Amer) > 60 , Random Glucose 241 H, Calcium 10.5, Total Bilirubin 0.4, AST 28, ALT 42, Alkaline Phosphatase 91, Lactate Dehydrogenase 398, Total Creatine Kinase 29 L, Troponin I < 0.01, NT-Pro-B Natriuret Pep 22.1, Total Protein 7.4, Albumin 4.2, Globulin 3.2, Albumin/Globulin Ratio 1.3 I have reviewed the lab results: Yes - RAD Interpretation Radiology Orders: 11/10/16 20:26 CHEST PORTABLE [RAD] Stat - EKG Interpretation EKG Interpretation (Text): 11/10/16 22:29 EKG at 20:28 sinus tachycardia rate of 103, possible left atrial enlargement Interpreted by ED Physician: Yes Type: 12 lead EKG - Medication Orders Current Medication Orders: Azithromycin (Zithromax 500mg In Ns) 250 mls @ 166.667 mls/hr IVPB STAT STA PRN Reason: Protocol Stop: 11/10/16 23:51 Ceftriaxone Sodium (Rocephin 1 Gram Ivpb) 100 mls @ 200 mls/hr IVPB ONCE STA PRN Reason: Protocol Stop: 11/10/16 22:51 Discontinued Medications Albuterol/Ipratropium (Duoneb 3 Mg/0.5 Mg (3 Ml) Ud) 3 ml IH Q15M ROBERTA Stop: 11/10/16 21:01 Last Admin: 11/10/16 21:13 Dose: 3 ML Methylprednisolone (Solu-Medrol) 125 mg IVP STAT STA Stop: 11/10/16 20:28 Last Admin: 11/10/16 20:51 Dose: 125 MG IVP Administration Document 11/10/16 20:51 OCS (Rec: 11/10/16 20:51 OCS [id number]) Charges for Administration # of IVP Administrations 1 - Scribe Statement The provider has reviewed the documentation as recorded by the Scribe Patito Masterson Provider Scribe Attestation: All medical record entries made by the Scribe were at my direction and personally dictated by me. I have reviewed the chart and agree that the record accurately reflects my personal performance of the history, physical exam, medical decision making, and the department course for this patient. I have also personally directed, reviewed, and agree with the discharge instructions and disposition. Disposition/Present on Arrival - Present on Arrival Any Indicators Present on Arrival: No History of DVT/PE: No History of Uncontrolled Diabetes: No Urinary Catheter: No History of Decub. Ulcer: No History Surgical Site Infection Following: None - Disposition Have Diagnosis and Disposition been Completed?: Yes Diagnosis: COPD (chronic obstructive pulmonary disease) with acute bronchitis Disposition Time: 22:34 Patient Plan: Admission, Telemetry Patient Problems: Current Active Problems Problem Status Diagnosed Asthma Acute COPD (chronic obstructive pulmonary disease) with acute bronchitis Acute Pneumonia Acute Condition: SERIOUS
[2016-11-10] MEDS: Albuterol-Ipratrop 3 mg / 0.5 (3 ml) UD IH SCH ×2 (20:51→21:13)
[2016-11-10 20:58] LABS: ADD MANUAL DIFF? NO
[2016-11-10 21:05] LABS: BASO # 0.01 K/mm3 (0.0-2.0); BASO % 0.1 % (0.0-3.0); EOS % 0.1 % (1.5-5.0); GRAN # 11.79 (1.4-6.5); GRAN % 88.9 % (50.0-68.0); HEMATOCRIT 41.8 % (36.0-48.0); LYMPH # 1.2 (1.2-3.4); LYMPH % 9.4 % (22.0-35.0); MEAN CELL VOLUME 78.3 fL (80.0-105.0); MEAN CORPUSCULAR HEMOGLOBIN 26.8 pg (25.0-35.0); MEAN CORPUSCULAR HGB CONC 34.2 g/dl (31.0-37.0); MEAN PLATELET VOLUME 11.3 fl (7.0-11.0); MONO # 0.2 (0.1-0.6); MONO % 1.5 % (1.0-6.0); PLATELET COUNT 258 10^3/uL (120.0-450.0); WHITE BLOOD COUNT 13.3 10^3/ul (4.5-11.0)
[2016-11-10 21:18] LABS: ALB/GLOB RATIO 1.3 (1.1-1.8); ALKALINE PHOSPHATASE 91 U/L (38-133); ALT/SGPT 42 U/L (7-56); AST/SGOT 28 U/L (15-39); BILIRUBIN,TOTAL 0.4 mg/dL (0.2-1.3); BLOOD UREA NITROGEN 15 mg/dL (7-21); CALCIUM 10.5 mg/dL (8.4-10.5); CARBON DIOXIDE 22 mmol/L (21-33); CHLORIDE 105 mmol/L (98-107); GFR AFRICAN-AMERICAN > 60; GLUCOSE,RANDOM 241 mg/dL (70-110); POTASSIUM 4.4 mmol/L (3.6-5.0); SODIUM 141 mmol/L (132-148); TOTAL PROTEIN 7.4 g/dL (5.8-8.3)
[2016-11-10 21:24] LABS: INR 0.92 (0.93-1.08); PARTIAL THROMBOPLASTIN TIME 23.8 Seconds (23.7-30.8)
[2016-11-10 21:43] LABS: TROPONIN I < 0.01 ng/mL
[2016-11-10] MEDS ORDERED: Azithromycin 500MG/NS 250ml 250 ML IVPB STA (22:22)
[2016-11-10] MEDS ORDERED: cefTRIAXone 1 gm 100 ML IVPB STA (22:22)
[2016-11-10] MEDS ORDERED: Non Formulary Medication (Simvastatin [Zocor] 20 MG) PO SCH (22:45)
[2016-11-10] MEDS ORDERED: Albuterol-Ipratrop 3 mg / 0.5 (3 ml) UD IH PRN (22:48)
[2016-11-10 23:50] LABS: IRON 83 ug/dL (45-180)
--- NOTE | 2016-11-11 00:22 | CP.PCM.PN ---
Subjective - Date & Time of Evaluation Date of Evaluation: 11/11/16 Time of Evaluation: 00:08 - Subjective Subjective: States that she has history of neck pain and lower back pain, sometimes there is tingling in left hip area. Gets Oxycodone 10 mg at Home for pain, has pain management physician (?) who gives her this pain medication, had recently steroid injection in right shoulder.Has no other acute symptoms now. 56 year old woman was admitted for cough , congestion, sob, COPD exacerbation. Has PMH of COPD,asthmatic bronchitis, chronic back pain, tobacco dependence. Objective - Vital Signs/Intake and Output Vital Signs (last 24 hours): Temp Pulse Resp BP Pulse Ox 97.6 F 109 H 20 120/81 98 11/10/16 20:06 11/10/16 20:06 11/10/16 20:20 11/10/16 20:06 11/10/16 20:06 - Medications Medications: Current Medications Albuterol/Ipratropium (Duoneb 3 Mg/0.5 Mg (3 Ml) Ud) 3 ml IH Q2 PRN PRN Reason: Cough and congestion Stop: 11/11/16 04:01 Atorvastatin Calcium (Lipitor) 10 mg PO HS ROBERTA Azithromycin (Zithromax) 250 mg PO DAILY ROBERTA PRN Reason: Protocol Stop: 11/14/16 10:00 Famotidine (Pepcid) 20 mg IVP DAILY ROBERTA Ceftriaxone Sodium (Rocephin 1 Gram Ivpb) 100 mls @ 100 mls/hr IVPB DAILY ROBERTA PRN Reason: Protocol Insulin Human Lispro (Humalog Med) 0 units SC ACHS ROBERTA PRN Reason: Protocol Metformin HCl (Glucophage) 500 mg PO BID ROBERTA Methylprednisolone (Solu-Medrol) 20 mg IVP Q12 ROBERTA - Labs Labs: PT 9.9 Seconds (9.9-11.8) 11/10/16 20:40 INR 0.92 (0.93-1.08) L 11/10/16 20:40 APTT 23.8 Seconds (23.7-30.8) 11/10/16 20:40 - Constitutional Appears: Well, No Acute Distress - Head Exam Head Exam: ATRAUMATIC, NORMAL INSPECTION, NORMOCEPHALIC - Eye Exam Eye Exam: Normal appearance - ENT Exam ENT Exam: Normal External Ear Exam - Neck Exam Neck Exam: Normal Inspection - Respiratory Exam Respiratory Exam: NORMAL BREATHING PATTERN - Cardiovascular Exam Cardiovascular Exam: absent: JVD - GI/Abdominal Exam GI & Abdominal Exam: absent: Distended - Rectal Exam Rectal Exam: Deferred - Extremities Exam Extremities Exam: Normal Inspection - Back Exam Back Exam: NORMAL INSPECTION - Neurological Exam Neurological Exam: Alert, Awake, Oriented x3 - Psychiatric Exam Psychiatric exam: Normal Affect, Normal Mood - Skin Skin Exam: Normal Color Assessment and Plan - Assessment and Plan (Free Text) Assessment: A/P:Low back pain. COPD exacerbation. Asthmatic bronchitis. Oxycodone 10 mg PO now. Continue present medications.
[2016-11-11] MEDS ORDERED: oxyCODONE 10 mg Immediate Release Tab PO STA (00:27)
[2016-11-11 06:43] LABS: ADD MANUAL DIFF? NO
[2016-11-11 06:53] LABS: BASO # 0.01 K/mm3 (0.0-2.0); BASO % 0.1 % (0.0-3.0); EOS % 0.1 % (1.5-5.0); GRAN % 89.4 % (50.0-68.0); HEMATOCRIT 40.6 % (36.0-48.0); LYMPH # 1.6 (1.2-3.4); LYMPH % 8.9 % (22.0-35.0); MEAN CELL VOLUME 79.3 fL (80.0-105.0); MEAN CORPUSCULAR HEMOGLOBIN 26.2 pg (25.0-35.0); MEAN PLATELET VOLUME 11.1 fl (7.0-11.0); MONO # 0.3 (0.1-0.6); MONO % 1.5 % (1.0-6.0); PLATELET COUNT 237 10^3/uL (120.0-450.0); RED CELL DISTRIBUTION WIDTH 16.3 % (11.5-14.5); WHITE BLOOD COUNT 17.8 10^3/ul (4.5-11.0)
[2016-11-11 07:02] LABS: BLOOD UREA NITROGEN 13 mg/dL (7-21); CALCIUM 10.5 mg/dL (8.4-10.5); CARBON DIOXIDE 20 mmol/L (21-33); CHLORIDE 107 mmol/L (98-107); GFR AFRICAN-AMERICAN > 60; GLUCOSE,RANDOM 188 mg/dL (70-110); POTASSIUM 5.2 mmol/L (3.6-5.0); SODIUM 141 mmol/L (132-148)
[2016-11-11] MEDS: Insulin Lispro (humaLOG) MEDIUM Coverage SC SCH ×4 (08:12→21:49)
--- NOTE | 2016-11-11 08:26 | RAD ---
PROCEDURE: CHEST RADIOGRAPH, 1 VIEW HISTORY: sob COMPARISON: None available. FINDINGS: LUNGS: Clear. PLEURA: No pneumothorax or pleural fluid seen. CARDIOVASCULAR: Normal. OSSEOUS STRUCTURES: No significant abnormalities. VISUALIZED UPPER ABDOMEN: Normal. OTHER FINDINGS: Status post cervical spine surgery. IMPRESSION: No active disease.
[2016-11-11] MEDS ORDERED: Albuterol-Ipratrop 3 mg / 0.5 (3 ml) UD IH PRN (08:32)
[2016-11-11] MEDS: oxyCODONE 10 mg Immediate Release Tab PO PRN ×2 (09:15→16:59)
[2016-11-11] MEDS: cefTRIAXone 1 gm 100 ML IVPB SCH (09:17)
[2016-11-11] MEDS: MethylPREDNISolone 40 mg Vial IVP SCH ×2 (09:17→21:44)
--- NOTE | 2016-11-11 12:11 | HP ---
HISTORY OF PRESENT ILLNESS: The patient is a 56-year-old female, presented to the ED with shortness of breath. She was recently discharged for COPD exacerbation. She was on oral steroids at home. She was found to have diffuse bronchospasm bilaterally. She is a chronic smoker, smokes 1 pack a day and has been smoking until admission. She also has history of chronic anemia with microcytosis. Denies any chest pain. She has history of recurrent pneumonia. She also has history of diabetes mellitus type 2. Sugars are not controlled because she is on oral steroids at home. She has chronic back pain, has herniated disk repair. She takes oxycodone 10 mg 3 times a day p.r.n. for pain. Complaining of back pain now. Shortness of breath has improved since admission. PAST MEDICAL HISTORY: COPD, recurrent pneumonias, diabetes mellitus type 2, chronic back pain, herniated disk, recurrent falls, depression. PAST SURGICAL HISTORY: Hysterectomy, bunion repair, herniated disk repair. PERSONAL HISTORY: Heavy smoker, smokes more than 10 cigarettes a day. No history of alcohol abuse. FAMILY HISTORY: Not pertinent mother, father. ALLERGIES: No known drug allergies. SOCIAL HISTORY: Lives at home. HOME MEDICATIONS: Zocor 20 mg at bedtime, metformin 500 mg p.o. b.i.d., prednisone 40 mg daily, nebulizer p.r.n. REVIEW OF SYSTEMS: As per HPI. Rest of 12-point reviewed and negative. PHYSICAL EXAMINATION: GENERAL: Comfortable in bed, in no acute distress. VITAL SIGNS: Heart rate is 98 per minute, blood pressure 120/80, respiratory rate 20 per minute, temperature 98.7. HEENT: Normal. NECK: No lymphadenopathy. CHEST: Air entry present, equal bilateral. No added sound. CARDIOVASCULAR: S1, S2 normal. No murmur, no gallop. ABDOMEN: Soft, nontender, no hepatosplenomegaly. EXTREMITIES: No edema. CENTRAL NERVOUS SYSTEM: Alert, oriented x 3. No sensorimotor deficit. SKIN: No petechia, no rash. LABORATORIES: White count 13.3, hemoglobin 14.1, hematocrit 41.8, platelet count 258. Sodium 141, potassium 4.1, BUN 15, creatinine 0.6, glucose 241. INR 0.9. Creatine kinase 29. LDH 398. Chest x-ray: No infiltrate. EKG: Sinus tachycardia at heart rate of 103 per minute. ASSESSMENT: 1. Chronic obstructive pulmonary disease exacerbation. 2. Leukocytosis. 3. Microcytosis. 4. Recurrent pneumonia. 5. Uncontrolled diabetes mellitus. 6. Chronic back pain, herniated disk. PLAN: She will be admitted on telemetry. We will give Solu-Medrol 20 mg IV q. 12. She received 1 dose of Solu-Medrol 125 mg IV in the ER. We will give empiric antibiotic for chronic obstructive pulmonary disease exacerbation, ceftriaxone 1 gram daily and Zithromax 250 mg p.o. daily. She received a dose in the ER. Continue Lipitor 10 mg daily, DuoNeb q. 6 hours scheduled and q. 2 hours p.r.n., oxycodone 10 mg 3 times a day p.r.n. for back pain. We will give metformin 500 mg twice a day. Glucose fingerstick at bedtime, medium dose sliding scale coverage with Humalog. Dai Hunt MD cc: [id number] TT: 11/11/2016 12:11:20 en MTDD
[2016-11-11 12:21] LABS: FOLATE 16.6 ng/mL
--- NOTE | 2016-11-11 13:28 | CARD ---
APPROVED REPORT EKG Measurement Heart [id number] MD [id number] <Conclusion> Sinus tachycardia Possible Left atrial enlargement Borderline ECG
[2016-11-11] MEDS: Albuterol-Ipratrop 3 mg / 0.5 (3 ml) UD IH SCH ×2 (14:06→19:35)
[2016-11-12] MEDS: oxyCODONE 10 mg Immediate Release Tab PO PRN ×3 (00:52→16:52)
[2016-11-12] MEDS: Albuterol-Ipratrop 3 mg / 0.5 (3 ml) UD IH SCH ×4 (01:26→19:54)
[2016-11-12 06:19] VITALS: RESP 20
[2016-11-12] MEDS: MethylPREDNISolone 40 mg Vial IVP SCH ×2 (09:20→22:05)
[2016-11-12] MEDS: Insulin Lispro (humaLOG) MEDIUM Coverage SC SCH ×4 (09:21→22:05)
[2016-11-12] MEDS: cefTRIAXone 1 gm 100 ML IVPB SCH (09:22)
[2016-11-12] MEDS ORDERED: Sod Polystyrene Sulf 15 gm/60 ml Oral Susp PO ONE (11:53)
--- NOTE | 2016-11-12 12:38 | PN ---
DATE: 11/12/2016 The patient is a 56-year-old, seen and examined. Still has cough and congestion with harsh expirator y wheezing. No chest pain, no dizziness. PHYSICAL EXAMINATION: VITAL SIGNS: She is afebrile, pulse 91, respirations 20, blood pressure 109/71. 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 HEART: S1, S2 audible. ABDOMEN: Soft, obese, nontender. No hepatosplenomegaly. NEUROLOGIC: The patient is awake and alert, communicative, ambulatory. LABORATORY EXAMINATION: WBCs 17.8, hemoglobin 13, hematocrit 40, platelets 237. Chemistry: Sodium 141, potassium 5. , chloride 107, CO2 20, BUN 13, creatinine 0.6, blood sugar of 188. Influenza test is negative. Blood cultures are negative. X-ray chest is negative for pneumonia. ASSESSMENT: 1. Chronic obstructive pulmonary disease exacerbation. 2. Asthmatic bronchitis. 3. Hypertension. 4. Morbid obesity. 5. Degenerative disk disease. 6. Anxiety disorder. 7. Asthmatic bronchitis. PLAN: Continue patient on nebulizer treatment. She is on statin. She is on Pepcid. Continue her o n Rocephin and Zithromax. She is getting metformin. I will give her 1 dose of Kayexalate. She will use Percocet as needed. Eliu Souza MD cc: [phone] TT: 11/12/2016 12:38:41 Confirmation # [id number] Dictation # [id number] en
[2016-11-13] MEDS: oxyCODONE 10 mg Immediate Release Tab PO PRN ×3 (00:54→17:01)
[2016-11-13] MEDS: Albuterol-Ipratrop 3 mg / 0.5 (3 ml) UD IH SCH ×4 (01:45→20:50)
[2016-11-13 07:25] LABS: ADD MANUAL DIFF? NO
[2016-11-13 07:30] LABS: BASO # 0.02 K/mm3 (0.0-2.0); BASO % 0.1 % (0.0-3.0); GRAN # 13.97 (1.4-6.5); GRAN % 82.8 % (50.0-68.0); HEMATOCRIT 38.2 % (36.0-48.0); LYMPH # 2.3 (1.2-3.4); LYMPH % 13.4 % (22.0-35.0); MEAN CELL VOLUME 79.6 fL (80.0-105.0); MEAN CORPUSCULAR HEMOGLOBIN 25.6 pg (25.0-35.0); MEAN CORPUSCULAR HGB CONC 32.2 g/dl (31.0-37.0); MONO # 0.6 (0.1-0.6); MONO % 3.7 % (1.0-6.0); PLATELET COUNT 243 10^3/uL (120.0-450.0); RED CELL DISTRIBUTION WIDTH 16.6 % (11.5-14.5); WHITE BLOOD COUNT 16.9 10^3/ul (4.5-11.0)
[2016-11-13] MEDS: Insulin Lispro (humaLOG) MEDIUM Coverage SC SCH ×4 (07:54→21:29)
[2016-11-13 08:15] LABS: ALB/GLOB RATIO 1.4 (1.1-1.8); ALKALINE PHOSPHATASE 77 U/L (38-133); ALT/SGPT 28 U/L (7-56); AST/SGOT 19 U/L (15-39); BILIRUBIN,TOTAL 0.3 mg/dL (0.2-1.3); BLOOD UREA NITROGEN 18 mg/dL (7-21); CALCIUM 10.1 mg/dL (8.4-10.5); CARBON DIOXIDE 26 mmol/L (21-33); CHLORIDE 103 mmol/L (95-110); GFR AFRICAN-AMERICAN > 60; GLUCOSE,RANDOM 125 mg/dL (70-110); POTASSIUM 4.5 mmol/L (3.6-5.0); SODIUM 140 mmol/L (132-148); TOTAL PROTEIN 6.8 g/dL (5.8-8.3)
[2016-11-13] MEDS: MethylPREDNISolone 40 mg Vial IVP SCH ×2 (09:15→21:29)
[2016-11-13] MEDS: cefTRIAXone 1 gm 100 ML IVPB SCH (09:16)
[2016-11-13 16:44] VITALS: O2SAT 94
--- NOTE | 2016-11-13 20:11 | PN ---
DATE: 11/13/2016 SUBJECTIVE: The patient is a 56-year-old, seen and examined, lying in bed, still coughing, has harsh wheezing audible. PHYSICAL EXAMINATION: VITAL SIGNS: She is afebrile, pulse 77, respirations 20, blood pressure 123/83. LUNGS: Bilateral good airflow, no rhonchi or crackle. HEART: S1, S2 audible. ABDOMEN: Soft, nontender, no rebound, no guarding. NEUROLOGIC: The patient is awake and alert, communicative. LABORATORY EXAMINATION: WBC 16.9, hemoglobin 12.3, hematocrit 38.2, platelet 243. Chemistry: Sodiu m 140, potassium 4.5, chloride 103, CO2 of 26, BUN 18, creatinine 0.86, blood sugar 125. ASSESSMENT AND PLAN: 1. Asthma exacerbation. 2. Asthmatic bronchitis. 3. Hypertension. 4. Hyperlipidemia. PLAN: We will continue the patient on nebulizer treatment. Continue her on metformin. Continue on nebulizer treatment. Continue on steroid. We will follow up the patient in a.m. Eliu Souza MD cc: [phone] TT: 11/13/2016 20:10:21 Confirmation # [id number] Dictation # [id number] stefania
[2016-11-14] MEDS: oxyCODONE 10 mg Immediate Release Tab PO PRN ×2 (01:21→09:15)
[2016-11-14] MEDS: Albuterol-Ipratrop 3 mg / 0.5 (3 ml) UD IH SCH ×3 (01:31→13:15)
[2016-11-14] MEDS: Insulin Lispro (humaLOG) MEDIUM Coverage SC SCH ×2 (07:30→11:53)
[2016-11-14 07:32] VITALS: BP 136/83; PULSE 69; TEMP 97.5
[2016-11-14] MEDS: MethylPREDNISolone 40 mg Vial IVP SCH (09:16)
[2016-11-14] MEDS: cefTRIAXone 1 gm 100 ML IVPB SCH (09:19)
--- NOTE | 2016-11-15 08:03 | DS ---
The patient is a 56-year-old, seen and examined, doing much better. No more cough or congestion. Bernardo s some expiratory wheezes. PHYSICAL EXAMINATION: VITAL SIGNS: The patient is afebrile, pulse 69, respirations 20, blood pressure 136/83. LUNGS: Bilateral few occasional expiratory rhonchi. HEART: S1, S2 audible. ABDOMEN: Soft, nontender, no rebound, no guarding. NEUROLOGIC: The patient is awake and alert, communicative, ambulatory. ASSESSMENT: 1. Chronic obstructive pulmonary disease exacerbation. 2. Bronchospasm. 3. Resolving bronchitis. 4. Hypertension. 5. Degenerative disk disease. 6. Anxiety disorder. PLAN: The patient is being discharged home. She has already antibiotic that was given on her last a dmission, that is Levaquin 500 daily, Medrol Dosepak and antitussive. She will take her usual medica tion as prior to admission including Xanax and Percocet. She will follow up with me in a week or so. Eliu Souza MD cc: [phone] TT: 11/15/2016 08:03:14 en
== END 2016-11-14 14:25 | disposition home or self-care (01) ==
LOC: ED 19:58 → ERH 22:24 → INTOOBSV 22:24 → ERH 22:44 → 2RNO 23:56 → 5RNO 11-12 12:42
PROVIDERS: ADMIT Internal Medicine Medical Oncology; ATTEND Internal Medicine
DX: J44.1 Chronic obstructive pulmonary disease with (acute) exacerbation (principal); J45.901 Unspecified asthma with (acute) exacerbation; E11.65 Type 2 diabetes mellitus with hyperglycemia; I10 Essential (primary) hypertension; F17.210 Nicotine dependence, cigarettes, uncomplicated; F41.9 Anxiety disorder, unspecified; E66.01 Morbid (severe) obesity due to excess calories; M51.9 Unspecified thoracic, thoracolumbar and lumbosacral intervertebral disc disorder; E78.5 Hyperlipidemia, unspecified; Z68.38 Body mass index [BMI] 38.0-38.9, adult; Z79.84 Long term (current) use of oral hypoglycemic drugs
CPT/HCPCS: 36415; 71010; 80048; 80053; 82550; 82607; 82728; 82746; 82948; 83540; 83550; 83615; 83880; 84484; 85025; 85610; 85730; 87040; 87804; 93005; 94640; 94760; 96374; 99285; G0378; G0480; J0456; J0696; J2920; J2930

== ENCOUNTER 2017-01-27 20:21 | Inpatient (IN) | payer MEDICARE, OTHER ==
[2017-01-27 20:22] VITALS: BMI 38.7
--- NOTE | 2017-01-27 21:08 | ED PDOC ---
Arrival/HPI - General Chief Complaint: Shortness Of Breath Time Seen by Provider: 01/27/17 20:36 Historian: Patient - History of Present Illness Narrative History of Present Illness (Text): 01/27/17 20:50 Nannette Gandara is a 56 year old female, whose past medical history includes pneumonia, asthma, bronchitis, and COPD, who presents to the Emergency department complaining of fever and shortness of breath. Patient notes she recently had a stimulator placed in her back last week. Patient denies any chest pain, nausea, vomiting, diarrhea, urinary symptoms, back pain, neck pain, headache, dizziness, or any other complaints. PMD: Dr. Souza Symptom Onset: Gradual Symptom Course: Unchanged Activities at Onset: Rest, Light Context: Home Past Medical History - Provider Review Nursing Documentation Reviewed: Yes - Infectious Disease Hx of Infectious Diseases: None - Tetanus Immunization Tetanus Immunization: Unknown - Past Medical History Past Medical History: No Previous - Cardiac Hx Cardiac Disorders: No Hx Hypertension: No - Pulmonary Hx Asthma: Yes Hx Bronchitis: Yes Hx Chronic Obstructive Pulmonary Disease (COPD): Yes Hx Tuberculosis: No Other/Comment: asthmatic bronchitis - Neurological Hx Neurological Disorder: No HX Cerebrovascular Accident: No Hx Seizures: No - HEENT Hx HEENT Disorder: No - Renal Hx Renal Disorder: No - Endocrine/Metabolic Hx Endocrine Disorders: No Hx Diabetes Mellitus Type 2: Yes - Hematological/Oncological Hx Blood Disorders: No Hx Cancer: No - Integumentary Hx Dermatological Disorder: No - Musculoskeletal/Rheumatological Hx Falls: Yes - Gastrointestinal Hx Gastrointestinal Disorders: Yes - Genitourinary/Gynecological Hx Genitourinary Disorders: No Hx Sexually Transmitted Diseases: No - Psychiatric Hx Depression: Yes Hx Substance Use: Yes - Surgical History Hx Hysterectomy: Yes (partial) Hx Musculoskeletal Surgery: Yes (bunion) Hx Orthopedic Surgery: Yes (neck and back WITH PLATES) Other/Comment: Herniated disc repair. SURGERY FOR: BUNIONS ON BOTH FEET. 02/02: PERCUTANEOUS PINNING K.WIRE 0.62 OF LEFT HAND DISTAL RADIUS FRACTURE AND APPLICATION OF SPLINT, 03/2015, pt fell over [employer], hardware removed 05/2016. Spinal stimulator 01/23/17 - Anesthesia Hx Anesthesia: Yes Hx Anesthesia Reactions: Yes (N&V) Hx Malignant Hyperthermia: No - Suicidal Assessment Feels Threatened In Home Enviroment: No Family/Social History - Physician Review Nursing Documentation Reviewed: Yes Family/Social History: Unknown Family HX Smoking Status: Heavy Smoker > 10 Cigarettes Daily Hx Alcohol Use: No Hx Substance Use: Yes Hx Substance Use Treatment: Yes (PPD) Allergies/Home Meds Allergies/Adverse Reactions: Allergies No Known Allergies Allergy (Verified 01/27/17 20:46) Home Medications: Home Meds Medication Instructions Recorded Confirmed Simvastatin [Zocor] 20 mg PO HS 11/06/16 11/11/16 metFORMIN [glucOPHAGE] 500 mg PO BID 11/06/16 11/11/16 oxyCODONE 10 mg PO TID PRN 11/11/16 11/11/16 buPROPion [Wellbutrin] 01/27/17 traZODone [Desyrel] 150 PO HS 01/28/17 Review of Systems - Physician Review All systems were reviewed & negative as marked: Yes - Review of Systems Constitutional: Fevers Eyes: Normal ENT: Normal Respiratory: SOB Cardiovascular: Normal. absent: Chest Pain Gastrointestinal: Normal. absent: Abdominal Pain, Diarrhea, Nausea, Vomiting Genitourinary Female: Normal. absent: Dysuria, Hematuria, Urine Output Changes Musculoskeletal: Normal. absent: Neck Pain Skin: Normal Neurological: Normal. absent: Headache, Dizziness Endocrine: Normal Hemo/Lymphatic: Normal Psychiatric: Normal Physical Exam Vital Signs Reviewed: Yes Vital Signs Temp Pulse Resp BP Pulse Ox 01/27/17 23:19 99.7 F H 99 H 17 101/59 L 95 01/27/17 21:20 20 97 01/27/17 21:00 101.8 F H 01/27/17 20:47 101.9 F H 119 H 18 115/56 L 81 L Temperature: Febrile Blood Pressure: Normal Pulse: Regular Respiratory Rate: Normal Appearance: Positive for: Well-Appearing, Non-Toxic, Comfortable Pain Distress: None Mental Status: Positive for: Alert and Oriented X 3 - Systems Exam Head: Present: Atraumatic, Normocephalic Pupils: Present: PERRL Extroacular Muscles: Present: EOMI Conjunctiva: Present: Normal Mouth: Present: Moist Mucous Membranes Neck: Present: Normal Range of Motion Respiratory/Chest: Present: Clear to Auscultation, Good Air Exchange. No: Respiratory Distress, Accessory Muscle Use Cardiovascular: Present: Regular Rate and Rhythm, Normal S1, S2. No: Murmurs Abdomen: Present: Normal Bowel Sounds. No: Tenderness, Distention, Peritoneal Signs Back: Present: Normal Inspection Upper Extremity: Present: Normal Inspection. No: Cyanosis, Edema Lower Extremity: Present: Normal Inspection. No: Edema Neurological: Present: GCS=15, CN II-XII Intact, Speech Normal Skin: Present: Warm, Dry, Normal Color. No: Rashes Psychiatric: Present: Alert, Oriented x 3, Normal Insight, Normal Concentration Medical Decision Making ED Course and Treatment: 01/27/17 20:50 Impression: 56 year old female complaining of fever and shortness of breath. Differential Diagnosis included but are not limited to: sepsis vs. COPD vs. pneumonia Plan: -- EKG -- CXR -- Labs, VBG, troponin, blood cultures -- UA, urine culture -- IV fluids -- Reassess and disposition Prior Visits: Notes and results from previous visits were reviewed. On 11/10/2016, pt was seen in the Emergency department for wheezing and shortness of breath. Pt was admitted to the hospital for further evaluation. Progress Notes: Reviewed EKG, sinus tachycardia at [address]-segment elevations or depressions, no T-wave inversions, normal intervals. 01/27/17 21:43 Reviewed radiology, Chest X-ray shows questionable right lower lobe infiltrate. 01/27/17 23:[address] Souza, who is aware and agrees with plan. Accepts pt in to her service. Pt will be admitted to Telemetry for sepsis and COPD. Requests Dr. Morgan on consult. Pt in stable condition. Discussed results and hospital admission plan with pt, who is aware and verbalizes understanding. - Lab Interpretations Microbiology Results: Microbiology Results 01/27/17 21:35 Blood Blood Culture - Preliminary NO GROWTH AFTER 24 HOURS 01/27/17 21:19 Blood Blood Culture - Preliminary NO GROWTH AFTER 24 HOURS Lab Results: 01/27/17 21:19 01/27/17 21:19 Lab Results 01/27/17 21:19: Sodium 134, Chloride 99, Potassium 4.4, Carbon Dioxide 26, Anion Gap 13, BUN 13, Creatinine 0.7, Est GFR ( Amer) > 60, Est GFR (Non- Af Amer) > 60, Random Glucose 160 H, Calcium 10.2, Phosphorus 2.4 L, Magnesium 1.8, Total Bilirubin 1.0, AST 84 H, ALT 40, Alkaline Phosphatase 77, Total Protein 7.0, Albumin 4.1, Globulin 3.0, Albumin/Globulin Ratio 1.4 01/27/17 21:19: pO2 45, VBG pH 7.40, VBG pCO2 43.0, VBG HCO3 26.6, VBG Total CO2 27.9, VBG O2 Sat (Calc) 86.9 H, VBG Base Excess 1.5, VBG Potassium 4.4, Sodium 133.0, Chloride 102.0, Glucose 161 H, Lactate 1.7, FiO2 21.0, Venous Blood Potassium 4.4 01/27/17 21:19: PT 12.0 H, INR 1.11 H, APTT 29.6 01/27/17 21:19: WBC 20.5 H D, RBC 4.32, Hgb 11.3 L, Hct 34.2 L, MCV 79.2 L, MCH 26.2, MCHC 33.0, RDW 14.5, Plt Count 197, MPV 11.1 H, Neutrophils % (Manual) 86 H, Band Neutrophils % 2, Lymphocytes % (Manual) 7 L, Atypical Lymphs % 0, Monocytes % (Manual) 4, Eosinophils % (Manual) 1 I have reviewed the lab results: Yes - RAD Interpretation Radiology Orders: 01/27/17 20:52 CHEST PORTABLE [RAD] Stat Bindery Cutter Operator: ED Physician - EKG Interpretation Interpreted by ED Physician: Yes Type: 12 lead EKG - Medication Orders Current Medication Orders: Acetaminophen (Tylenol 325mg Tab) 650 mg PO Q4H PRN PRN Reason: Fever >100.5 F Albuterol/Ipratropium (Duoneb 3 Mg/0.5 Mg (3 Ml) Ud) 3 ml IH Q2H PRN PRN Reason: Shortness of Breath Last Admin: 01/28/17 16:43 Dose: 3 ml Albuterol/Ipratropium (Duoneb 3 Mg/0.5 Mg (3 Ml) Ud) 3 ml IH [id number] ROBERTA Last Admin: 01/28/17 19:36 Dose: 3 ml Atorvastatin Calcium (Lipitor) 10 mg PO HS ROBERTA Last Admin: 01/28/17 21:07 Dose: 10 mg Azithromycin (Zithromax) 500 mg PO DAILY ROBERTA PRN Reason: Protocol Last Admin: 01/28/17 10:50 Dose: 500 mg Bupropion HCl (Wellbutrin) 75 mg PO BID ROBERTA Last Admin: 01/28/17 17:50 Dose: 75 mg Sodium Chloride (Sodium Chloride 0.9%) 1,000 mls @ 80 mls/hr IV .[id number] ROBERTA Last Admin: 01/28/17 16:00 Dose: 80 mls/hr Cefepime HCl (Maxipime 2gm) 2 gm in 100 mls @ 100 mls/hr IVPB Q8 ROBERTA PRN Reason: Protocol Stop: 02/04/17 06:16 Last Admin: 01/28/17 23:17 Dose: 100 mls/hr Vancomycin HCl (Vancomycin 1gm) 1 gm in 250 mls @ 167 mls/hr IVPB Q12H ROBERTA PRN Reason: Protocol Last Admin: 01/28/17 21:14 Dose: 167 mls/hr Insulin Human Lispro (Humalog Med) 0 units SC ACHS ROBERTA PRN Reason: Protocol Last Admin: 01/28/17 22:04 Dose: Not Given Non-Admin Reason: Blood Sugar Parameter Oxycodone HCl (Oxycodone Immediate Release Tab) 10 mg PO Q6H PRN PRN Reason: Pain, moderate (4-7) Last Admin: 01/28/17 20:09 Dose: 10 mg Re-Assess: [facility] Pain Assessment Document 01/28/17 21:09 BM (Rec: 01/29/17 00:57 BM [id number]) Pain Reassessment Is this a pain reassessment? Yes Sleep Is patient sleeping during reassessment? No Presence of Pain Presence of Pain No Pantoprazole Sodium (Protonix Ec Tab) 40 mg PO 0630 REPLACED BY [facility] Discontinued Medications Acetaminophen (Tylenol 325mg Tab) 650 mg PO STAT STA Stop: 01/27/17 22:32 Last Admin: 01/27/17 22:53 Dose: 650 mg Re-Assess: [facility] Pain/Vitals Document 01/27/17 23:53 RD (Rec: 01/28/17 00:22 RD [id number]) Pain Reassessment Is This A Pain ReAssessment? No Sleep Is patient sleeping during reassessment? Yes Albuterol/Ipratropium (Duoneb 3 Mg/0.5 Mg (3 Ml) Ud) 3 ml IH Q4H PRN PRN Reason: Shortness of Breath Last Admin: 01/28/17 08:11 Dose: 3 ml Vancomycin HCl (Vancomycin 1gm) 1 gm in 250 mls @ 167 mls/hr IVPB STAT STA PRN Reason: Protocol Stop: 01/27/17 23:12 Last Admin: 01/27/17 22:22 Dose: 167 mls/hr Piperacillin Sod/Tazobactam Sod (Zosyn 3.375 In Ns 100ml) 100 mls @ 200 mls/hr IVPB STAT STA PRN Reason: Protocol Stop: 01/28/17 00:36 Last Admin: 01/28/17 00:46 Dose: 200 mls/hr Insulin Human Regular (Humulin R Low) 0 units SC ACHS ROBERTA PRN Reason: Protocol Last Admin: 01/28/17 07:55 Dose: Not Given Non-Admin Reason: Blood Sugar Parameter Nicotine (Nicoderm Cq) 1 patch TD ONCE ONE Stop: 01/28/17 10:01 Last Admin: 01/28/17 10:48 Dose: 1 patch Oxycodone HCl (Oxycodone Immediate Release Tab) 10 mg PO STAT STA Stop: 01/28/17 03:13 Last Admin: 01/28/17 03:22 Dose: 10 mg Re-Assess: [facility] Pain Assessment Document 01/28/17 04:22 FDE (Rec: 01/28/17 04:29 FDE [id number]) Pain Reassessment Is this a pain reassessment? Yes Sleep Is patient sleeping during reassessment? Yes Oxycodone/Acetaminophen (Percocet 5/325 Mg Tab) 1 tab PO Q4H PRN PRN Reason: Pain, moderate (4-7) Stop: 01/31/17 09:25 Last Admin: 01/28/17 10:48 Dose: 1 tab Re-Assess: MAR Pain Assessment Document 01/28/17 11:48 RDS (Rec: 01/28/17 14:01 RDS [id number]) Pain Reassessment Is this a pain reassessment? Yes Sleep Is patient sleeping during reassessment? No Presence of Pain Presence of Pain Yes Description Pain not relieved and LIP/MD was Yes: Pain management was notified changed to Oxycodone 10mg every 6 hours PRN - Scribe Statement The provider has reviewed the documentation as recorded by the Scribe Jory Cano All medical record entries made by the Scribe were at my direction and personally dictated by me. I have reviewed the chart and agree that the record accurately reflects my personal performance of the history, physical exam, medical decision making, and the department course for this patient. I have also personally directed, reviewed, and agree with the discharge instructions and disposition. Disposition/Present on Arrival - Present on Arrival Any Indicators Present on Arrival: No History of DVT/PE: No History of Uncontrolled Diabetes: Yes Urinary Catheter: No History of Decub. Ulcer: No History Surgical Site Infection Following: None - Disposition Have Diagnosis and Disposition been Completed?: Yes Diagnosis: COPD (chronic obstructive pulmonary disease), Pneumonia, Sepsis Disposition: HOSPITALIZED Disposition Time: 01:00 Condition: FAIR
[2017-01-27] MEDS: Sodium Chloride 0.9% 1,000 ML IV SCH (21:27)
[2017-01-27 21:34] LABS: HEMOGLOBIN 11.3 gm/dL (12.0-16.0); MEAN CELL VOLUME 79.2 fL (80.0-105.0); MEAN CORPUSCULAR HEMOGLOBIN 26.2 pg (25.0-35.0); MEAN PLATELET VOLUME 11.1 fl (7.0-11.0); PLATELET COUNT 197 10^3/uL (120.0-450.0); RBC 4.32 10^6/uL (3.5-6.1); RED CELL DISTRIBUTION WIDTH 14.5 % (11.5-14.5); WHITE BLOOD COUNT 20.5 10^3/ul (4.5-11.0)
[2017-01-27 21:39] LABS: VENOUS BLOOD GAS BASE EXCESS 1.5 mmol/L (0.0-2.0); VENOUS BLOOD GAS PO2 45 mm/Hg (30-55)
[2017-01-27] MEDS ORDERED: Vancomycin 1gm in NS 250ml 1 GM/250 ML BAG IVPB STA (21:43)
[2017-01-27 21:48] LABS: ALB/GLOB RATIO 1.4 (1.1-1.8); ALBUMIN 4.1 g/dL (3.0-4.8); ALT/SGPT 40 U/L (7-56); AST/SGOT 84 U/L (15-39); BLOOD UREA NITROGEN 13 mg/dL (7-21); CALCIUM 10.2 mg/dL (8.4-10.5); GFR AFRICAN-AMERICAN > 60; GFR NON-AFRICAN AMERICAN > 60; MAGNESIUM 1.8 mg/dL (1.7-2.2)
[2017-01-27 21:52] LABS: INR 1.11 (0.93-1.08); PARTIAL THROMBOPLASTIN TIME 29.6 Seconds (23.7-30.8)
[2017-01-27 22:18] LABS: ATYPICAL LYMPHOCYTE 0 % (0.0-0.0); BAND 2 % (0-2); LYMPHOCYTE 7 % (22.0-35.0); MONOCYTE 4 % (1.0-6.0); NEUTROPHIL 86 % (50.0-70.0)
[2017-01-27 22:19] LABS: EOSINOPHIL 1 % (0.0-3.0)
[2017-01-28] MEDS ORDERED: Piperacillin/Tazobact 3.375 gm 100 ML IVPB STA (00:07)
[2017-01-28] MEDS ORDERED: Naloxone 0.4 mg/ml Inj (Adult) IVP STA (00:57)
[2017-01-28 01:43] LABS: PH,URINE 6.5 (4.7-8.0); URINE BILIRUBIN NEGATIVE (NEGATIVE); URINE BLOOD TRACE-LYSED (NEGATIVE); URINE GLUCOSE (UA) NEGATIVE (NEGATIVE); URINE LEUKOCYTE ESTERASE SMALL Leu/uL (NEGATIVE); URINE NITRATE NEGATIVE (NEGATIVE); URINE PROTEIN NEGATIVE mg/dL (<30 mg/dL); URINE UROBILINOGEN 0.2 E.U./dL (<1 E.U./dL)
[2017-01-28 01:46] LABS: URINE APPEARANCE SL CLOUDY (CLEAR); URINE COLOR YELLOW (YELLOW)
[2017-01-28 02:00] LABS: URINE BACTERIA RARE (NEG); URINE RBC 0 - 2 /hpf (0-2)
[2017-01-28] MEDS: Albuterol-Ipratrop 3 mg / 0.5 (3 ml) UD IH PRN ×3 (02:20→16:43)
[2017-01-28] MEDS ORDERED: oxyCODONE 10 mg Immediate Release Tab PO STA (03:12)
--- NOTE | 2017-01-28 03:20 | CP.PCM.PN ---
Subjective - Date & Time of Evaluation Date of Evaluation: 01/28/17 Time of Evaluation: 03:11 - Subjective Subjective: Patient was seen at bedside. Complains of low back pain, chronic pain. States that she had TENS stimulator inserted in lower back. Takes oxycodone at home for pain. This 56 year old white woman came in with sob ,cough congestion, fever ,?PNA. Has PMH of DM II , recurrent PNA, COPD, chronic back pain, herniated disc, depression, obesity. Objective - Vital Signs/Intake and Output Vital Signs (last 24 hours): Temp Pulse Resp BP Pulse Ox 98.7 F 87 20 144/73 91 L 01/28/17 02:26 01/28/17 02:26 01/28/17 02:26 01/28/17 02:26 01/28/17 02:19 - Medications Medications: Current Medications Acetaminophen (Tylenol 325mg Tab) 650 mg PO Q4H PRN PRN Reason: Fever >100.5 F Albuterol/Ipratropium (Duoneb 3 Mg/0.5 Mg (3 Ml) Ud) 3 ml IH Q4H PRN PRN Reason: Shortness of Breath Last Admin: 01/28/17 02:20 Dose: 3 ml Sodium Chloride (Sodium Chloride 0.9%) 1,000 mls @ 80 mls/hr IV .[id number] ROBERTA Last Admin: 01/27/17 21:27 Dose: 80 mls/hr Insulin Human Regular (Humulin R Low) 0 units SC ACHS ROBERTA PRN Reason: Protocol - Labs Labs: PT 12.0 Seconds (9.9-11.8) H 01/27/17 21:19 INR 1.11 (0.93-1.08) H 01/27/17 21:19 APTT 29.6 Seconds (23.7-30.8) 01/27/17 21:19 Most Recent Lab Values WBC 20.5 10^3/ul (4.5-11.0) H D 01/27/17 21:19 RBC 4.32 10^6/uL (3.5-6.1) 01/27/17 21:19 Hgb 11.3 gm/dL (12.0-16.0) L 01/27/17 21:19 Hct 34.2 % (36.0-48.0) L 01/27/17 21:19 MCV 79.2 fL (80.0-105.0) L 01/27/17 21: MCH 26.2 pg (25.0-35.0) 01/27/17 21: MCHC 33.0 g/dl (31.0-37.0) 01/27/17 21:19 RDW 14.5 % (11.5-14.5) 01/27/17 21:19 Plt Count 197 10^3/uL (120.0-450.0) 01/27/17 21:19 MPV 11.1 fl (7.0-11.0) H 01/27/17 21:19 Neutrophils % (Manual) 86 % (50.0-70.0) H 01/27/17 21: Band Neutrophils % 2 % (0-2) 01/27/17 21:19 Lymphocytes % (Manual) 7 % (22.0-35.0) L 01/27/17 21: Atypical Lymphs % 0 % (0.0-0.0) 01/27/17 21:19 Monocytes % (Manual) 4 % (1.0-6.0) 01/27/17 21:19 Eosinophils % (Manual) 1 % (0.0-3.0) 01/27/17 21: PT 12.0 Seconds (9.9-11.8) H 01/27/17 21: INR 1.11 (0.93-1.08) H 01/27/17 21: APTT 29.6 Seconds (23.7-30.8) 01/27/17 21: pO2 45 mm/Hg (30-55) 01/27/17 21:19 VBG pH 7.40 (7.32-7.43) 01/27/17 21: VBG pCO2 43.0 (40-60) 01/27/17 21: VBG HCO3 26.6 mmol/l (21-28) 01/27/17 21: VBG Total CO2 27.9 mmol.L (22-28) 01/27/17 21:19 VBG O2 Sat (Calc) 86.9 % (40-65) H 01/27/17 21: VBG Base Excess 1.5 mmol/L (0.0-2.0) 01/27/17 21:19 VBG Potassium 4.4 mmol/L (3.6-5.2) 01/27/17 21:19 Sodium 133.0 mmol/L (132-148) 01/27/17 21:19 Chloride 102.0 mmol/L (98-107) 01/27/17 21:19 Glucose 161 mg/dl (65-105) H 01/27/17 21:19 Lactate 1.7 mmol/L (0.7-2.1) 01/27/17 21:19 FiO2 21.0 % 01/27/17 21:19 Sodium 134 mmol/L (132-148) 01/27/17 21:19 Potassium 4.4 mmol/L (3.6-5.0) 01/27/17 21:19 Chloride 99 mmol/L (98-107) 01/27/17 21:19 Carbon Dioxide 26 mmol/L (21-33) 01/27/17 21:19 Anion Gap 13 (10-20) 01/27/17 21:19 BUN 13 mg/dL (7-21) 01/27/17 21:19 Creatinine 0.7 mg/dL (0.5-1.4) 01/27/17 21:19 Est GFR ( Amer) > 60 01/27/17 21:19 Est GFR (Non-Af Amer) > 60 01/27/17 21:19 Random Glucose 160 mg/dL (70-110) H 01/27/17 21:19 Calcium 10.2 mg/dL (8.4-10.5) 01/27/17 21:19 Phosphorus 2.4 mg/dL (2.5-4.5) L 01/27/17 21:19 Magnesium 1.8 mg/dL (1.7-2.2) 01/27/17 21:19 Total Bilirubin 1.0 mg/dL (0.2-1.3) 01/27/17 21:19 AST 84 U/L (15-39) H 01/27/17 21:19 ALT 40 U/L (7-56) 01/27/17 21:19 Alkaline Phosphatase 77 U/L (38-133) 01/27/17 21:19 Total Protein 7.0 g/dL (5.8-8.3) 01/27/17 21:19 Albumin 4.1 g/dL (3.0-4.8) 01/27/17 21:19 Globulin 3.0 gm/dL 01/27/17 21:19 Albumin/Globulin Ratio 1.4 (1.1-1.8) 01/27/17 21:19 Venous Blood Potassium 4.4 mmol/L (3.6-5.2) 01/27/17 21:19 Urine Color Yellow (YELLOW) 01/28/17 01:30 Urine Appearance Sl cloudy (CLEAR) 01/28/17 01:30 Urine pH 6.5 (4.7-8.0) 01/28/17 01:30 Ur Specific [place] <= 1.005 (1.005-1.035) 01/28/17 01:30 Urine Protein Negative mg/dL (<30 mg/dL) 01/28/17 01:30 Urine Glucose (UA) Negative mg/dL (NEGATIVE) 01/28/17 01:30 Urine Ketones Negative mg/dL (NEGATIVE) 01/28/17 01:30 Urine Blood Trace-lysed (NEGATIVE) H 01/28/17 01:30 Urine Nitrate Negative (NEGATIVE) 01/28/17 01:30 Urine Bilirubin Negative (NEGATIVE) 01/28/17 01:30 Urine Urobilinogen 0.2 E.U./dL (<1 E.U./dL) 01/28/17 01:30 Ur Leukocyte Esterase Small Peg/uL (NEGATIVE) H 01/28/17 01:30 Urine RBC 0 - 2 /hpf (0-2) 01/28/17 01:30 Urine WBC 1 - 3 /hpf (0-6) 01/28/17 01:30 Ur Epithelial Cells 1 - 3 /hpf (0-5) 01/28/17 01:30 Urine Bacteria Rare (NEG) 01/28/17 01:30 - Constitutional Appears: Well, No Acute Distress - Head Exam Head Exam: ATRAUMATIC, NORMAL INSPECTION, NORMOCEPHALIC Additional comments: Obese. - Eye Exam Eye Exam: Normal appearance - ENT Exam ENT Exam: Normal External Ear Exam - Neck Exam Neck Exam: Normal Inspection - Respiratory Exam Respiratory Exam: NORMAL BREATHING PATTERN - Cardiovascular Exam Cardiovascular Exam: absent: JVD - GI/Abdominal Exam GI & Abdominal Exam: absent: Distended - Rectal Exam Rectal Exam: Deferred - Exam Additional comments: Deferred. - Extremities Exam Extremities Exam: Normal Inspection - Back Exam Additional comments: Surgical scar in lower back. - Neurological Exam Neurological Exam: Alert, Oriented x3 - Psychiatric Exam Psychiatric exam: Normal Affect, Normal Mood - Skin Skin Exam: Normal Color Assessment and Plan - Assessment and Plan (Free Text) Assessment: Lower back pain. PNA. Obesity. DM II. COPD. Herniated disc history. Plan: Oxycodone 10 mg PO stat. Continue management as per PMD.
[2017-01-28] MEDS ORDERED: Insulin Reg-LOW-Coverage SC SCH (07:30)
[2017-01-28] MEDS: Cefepime IV 2 gm in NS 2 GM/100 ML BAG IVPB SCH ×3 (07:44→23:17)
--- NOTE | 2017-01-28 08:21 | RAD ---
HISTORY: Sepsis Patient COMPARISON: 11/10/2016 FINDINGS: LUNGS: The central pulmonary vasculature is increased. Rule out pulmonary edema/ CHF versus atelectasis developing pneumonia could be excluded with followup radiographs. PLEURA: No significant pleural effusion identified, no pneumothorax apparent. CARDIOVASCULAR: Normal. OSSEOUS STRUCTURES: Re- demonstrated is multilevel ACDF plate again noted over the cervical spine . Questionable overlying artifact versus in situ spine stimulator electrodes over the mid thoracic region VISUALIZED UPPER ABDOMEN: Normal. OTHER FINDINGS: None. IMPRESSION: The central pulmonary vasculature is increased. Rule out pulmonary edema/ CHF versus pneumonia.
[2017-01-28] MEDS ORDERED: Oxycodone/Acetaminophen 5/325 mg Tab PO PRN (09:24)
[2017-01-28] MEDS: Sodium Chloride 0.9% 1,000 ML IV SCH ×2 (09:30→16:00)
--- NOTE | 2017-01-28 10:04 | CARD ---
APPROVED REPORT EKG Measurement Heart [id number] <Conclusion> Sinus tachycardia No change
[2017-01-28] MEDS: Vancomycin 1gm in NS 250ml 1 GM/250 ML BAG IVPB SCH ×2 (10:49→21:14)
--- NOTE | 2017-01-28 10:49 | CT ---
PROCEDURE: CT Chest without contrast HISTORY: fever/sob COMPARISON: 11/06/2016 TECHNIQUE: Contiguous axial images were obtained through the chest without intravenous contrast enhancement. Sagittal and coronal reconstructions were performed. Radiation dose (DLP): 895 mGy-cm. This CT exam was performed using one or more of the following dose reduction techniques: Automated exposure control, adjustment of the mA and/or kV according to patient size, and/or use of iterative reconstruction technique. FINDINGS: LUNGS: Extensive bilateral interstitial infiltrates are seen. Findings are consistent with pneumonia. The previous study was unremarkable. MEDIASTINUM: Unremarkable thoracic aorta. No aneurysm. Coronary artery calcifications are seen. The heart is normal in size Main pulmonary artery unremarkable. No vascular congestion. No lymphadenopathy. PLEURA: No pleural fluid. No pneumothorax. BONES: No fracture. No destructive lesion. UPPER ABDOMEN: Grossly unremarkable. OTHER FINDINGS: None. IMPRESSION: Extensive bilateral interstitial infiltrates consistent with pneumonia
[2017-01-28] MEDS: Insulin Lispro (humaLOG) MEDIUM Coverage SC SCH ×3 (11:52→22:04)
[2017-01-28] MEDS: oxyCODONE 10 mg Immediate Release Tab PO PRN ×2 (14:01→20:09)
[2017-01-28] MEDS: Albuterol-Ipratrop 3 mg / 0.5 (3 ml) UD IH SCH ×2 (14:39→19:36)
--- NOTE | 2017-01-28 18:10 | CP.PCM.CON ---
History of Present Illness - History of Present Illness History of Present Illness: 56 year old female with PMH of asthma, history of bronchitis, history of pneumonia, COPD, S/P stimulator implantation in her back last week, DM, lumbar disc herniation, obesity with BMI 37 came in to [facility] complaining of fever and SOB associated with cough. She denies headache or dizziness, no chest pain, no abdominal pain, no diarrhea, no dysuria, no sore throat, no rhinorrhea. CT chest has been done which shows bilateral interstitial infiltrates. Infectious Diseases consult is requested to further evaluate and manage. Review of Systems - Review of Systems All systems: reviewed and no additional remarkable complaints except (as per HPI ) Past Patient History - Infectious Disease Hx of Infectious Diseases: None - Tetanus Immunizations Tetanus Immunization: Unknown - Past Medical History & Family History Past Medical History?: Yes - Past Social History Smoking Status: Current Some Days Smoker - CARDIAC Hx Cardiac Disorders: No Hx Hypercholesterolemia: Yes - PULMONARY Hx Respiratory Disorders: Yes Hx Asthma: Yes Hx Bronchitis: Yes Hx Chronic Obstructive Pulmonary Disease (COPD): Yes Hx Tuberculosis: No - NEUROLOGICAL Hx Neurological Disorder: No - HEENT Hx HEENT Problems: No - RENAL Hx Chronic Kidney Disease: No - ENDOCRINE/METABOLIC Hx Endocrine Disorders: Yes Hx Diabetes Mellitus Type 2: Yes - HEMATOLOGICAL/ONCOLOGICAL Hx Blood Disorders: No - INTEGUMENTARY Hx Dermatological Problems: No - MUSCULOSKELETAL/RHEUMATOLOGICAL Hx Falls: No - GASTROINTESTINAL Hx Gastrointestinal Disorders: No - GENITOURINARY/GYNECOLOGICAL Hx Genitourinary Disorders: No Hx Sexually Transmitted Disorders: No - PSYCHIATRIC Hx Substance Use: No - SURGICAL HISTORY Hx Surgeries: Yes Hx Hysterectomy: Yes (partial) Hx Orthopedic Surgery: Yes (neck and back WITH PLATES) Other/Comment: Herniated disc repair. SURGERY FOR: BUNIONS ON BOTH FEET. 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 Spinal stimulator 01/23/17 - ANESTHESIA Hx Anesthesia: Yes Hx Anesthesia Reactions: Yes (N&V) Hx Malignant Hyperthermia: No Meds Allergies/Adverse Reactions: Allergies Allergy/AdvReac Type Severity Reaction Status Date / Time No Known Allergies Allergy Verified 01/27/17 20:46 - Medications Medications: Current Medications Acetaminophen (Tylenol 325mg Tab) 650 mg PO Q4H PRN PRN Reason: Fever >100.5 F Albuterol/Ipratropium (Duoneb 3 Mg/0.5 Mg (3 Ml) Ud) 3 ml IH Q4H PRN PRN Reason: Shortness of Breath Last Admin: 01/28/17 02:20 Dose: 3 ml Sodium Chloride (Sodium Chloride 0.9%) 1,000 mls @ 80 mls/hr IV .[id number] ROBERTA Last Admin: 01/27/17 21:27 Dose: 80 mls/hr Insulin Human Regular (Humulin R Low) 0 units SC ACHS ROBERTA PRN Reason: Protocol Physical Exam - Constitutional Appears: Non-toxic, No Acute Distress - Head Exam Head Exam: NORMAL INSPECTION - Neck Exam Neck exam: Negative for: Meningismus - Respiratory Exam Respiratory Exam: Decreased Breath Sounds - Cardiovascular Exam Cardiovascular Exam: +S1, +S2 - GI/Abdominal Exam GI & Abdominal Exam: Soft. absent: Tenderness Results - Vital Signs Recent Vital Signs: Last Vital Signs Temp 98.7 F 01/28/17 02:26 Pulse 90 01/28/17 05:30 Resp 20 01/28/17 02:26 BP 144/73 01/28/17 02:26 Pulse Ox 91 L 01/28/17 02:19 - Labs Result Diagrams: 01/27/17 21:19 01/27/17 21:19 Labs: Laboratory Results - last 24 hr 01/28/17 01:30 Urine Color Yellow Urine Appearance Sl cloudy Urine pH 6.5 Ur Specific [place] <= 1.005 Urine Protein Negative Urine Glucose (UA) Negative Urine Ketones Negative Urine Blood Trace-lysed H Urine Nitrate Negative Urine Bilirubin Negative Urine Urobilinogen 0.2 Ur Leukocyte Esterase Small H Urine RBC 0 - 2 Urine WBC 1 - 3 Ur Epithelial Cells 1 - 3 Urine Bacteria Rare Assessment & Plan - Assessment and Plan (Free Text) Plan: Assessment Sepsis due to bilateral healthcare-associated pneumonia with possible gram positive cocci and/or gram negative bacilli asthma history of bronchitis history of pneumonia COPD S/P stimulator implantation in her back last week DM lumbar disc herniation obesity with BMI 37 Plan started patient on Cefepime, Vancomycin and Zithromax pending blood, sputum cx, PCT, urine Legionella Ag; reviewed CT chest results will follow clinically
[2017-01-29 00:48] VITALS: RESP 20
[2017-01-29] MEDS: oxyCODONE 10 mg Immediate Release Tab PO PRN ×2 (02:09→08:17)
[2017-01-29] MEDS: Albuterol-Ipratrop 3 mg / 0.5 (3 ml) UD IH SCH ×4 (02:25→20:26)
[2017-01-29] MEDS: Albuterol-Ipratrop 3 mg / 0.5 (3 ml) UD IH PRN ×2 (06:15→17:51)
[2017-01-29] MEDS: Sodium Chloride 0.9% 1,000 ML IV SCH ×2 (06:23→22:47)
[2017-01-29] MEDS: Pantoprazole 40 mg EC Tab PO SCH (06:24)
[2017-01-29] MEDS: Cefepime IV 2 gm in NS 2 GM/100 ML BAG IVPB SCH ×3 (06:24→22:00)
[2017-01-29] MEDS: Insulin Lispro (humaLOG) MEDIUM Coverage SC SCH ×4 (08:59→22:24)
[2017-01-29] MEDS: Vancomycin 1gm in NS 250ml 1 GM/250 ML BAG IVPB SCH ×2 (09:03→22:02)
[2017-01-29 09:20] LABS: BASO # 0.01 K/mm3 (0.0-2.0); BASO % 0.1 % (0.0-3.0); EOS # 0.2 (0.0-0.7); EOS % 2.2 % (1.5-5.0); GRAN # 7.83 (1.4-6.5); GRAN % 82.4 % (50.0-68.0); HEMOGLOBIN 10.6 gm/dL (12.0-16.0); LYMPH % 10.9 % (22.0-35.0); MEAN CELL VOLUME 79.4 fL (80.0-105.0); MEAN CORPUSCULAR HEMOGLOBIN 26.6 pg (25.0-35.0); MEAN CORPUSCULAR HGB CONC 33.4 g/dl (31.0-37.0); MEAN PLATELET VOLUME 10.9 fl (7.0-11.0); MONO # 0.4 (0.1-0.6); MONO % 4.4 % (1.0-6.0); PLATELET COUNT 149 10^3/uL (120.0-450.0); RBC 3.99 10^6/uL (3.5-6.1); RED CELL DISTRIBUTION WIDTH 14.6 % (11.5-14.5); WHITE BLOOD COUNT 9.5 10^3/ul (4.5-11.0)
[2017-01-29 09:31] LABS: ALB/GLOB RATIO 1.1 (1.1-1.8); ALBUMIN 3.2 g/dL (3.0-4.8); ALT/SGPT 37 U/L (7-56); AST/SGOT 48 U/L (15-39); BLOOD UREA NITROGEN 6 mg/dL (7-21); CALCIUM 9.2 mg/dL (8.4-10.5); GFR AFRICAN-AMERICAN > 60; GFR NON-AFRICAN AMERICAN > 60
--- NOTE | 2017-01-29 11:06 | CP.PCM.PN ---
Subjective - Date & Time of Evaluation Date of Evaluation: 01/29/17 Time of Evaluation: 10:15 - Subjective Subjective: Comfortable in bed, afebrile, not in distress. Objective - Vital Signs/Intake and Output Vital Signs (last 24 hours): Temp Pulse Resp BP Pulse Ox 99.2 F 93 H 20 140/67 91 L 01/29/17 00:01 01/29/17 00:01 01/29/17 00:01 01/29/17 00:01 01/28/17 06:00 Intake and Output: 01/28/17 01/29/17 18:59 06:59 Intake Total 100 Output Total 0 Balance 100 - Medications Medications: Current Medications Acetaminophen (Tylenol 325mg Tab) 650 mg PO Q4H PRN PRN Reason: Fever >100.5 F Albuterol/Ipratropium (Duoneb 3 Mg/0.5 Mg (3 Ml) Ud) 3 ml IH Q2H PRN PRN Reason: Shortness of Breath Last Admin: 01/29/17 06:15 Dose: 3 ml Albuterol/Ipratropium (Duoneb 3 Mg/0.5 Mg (3 Ml) Ud) 3 ml IH [id number] ROBERTA Last Admin: 01/29/17 02:25 Dose: 3 ml Atorvastatin Calcium (Lipitor) 10 mg PO HS ROBERTA Last Admin: 01/28/17 21:07 Dose: 10 mg Azithromycin (Zithromax) 500 mg PO DAILY ROBERTA PRN Reason: Protocol Last Admin: 01/28/17 10:50 Dose: 500 mg Bupropion HCl (Wellbutrin) 75 mg PO BID ROBERTA Last Admin: 01/28/17 17:50 Dose: 75 mg Sodium Chloride (Sodium Chloride 0.9%) 1,000 mls @ 80 mls/hr IV .[id number] ROBERTA Last Admin: 01/28/17 16:00 Dose: 80 mls/hr Cefepime HCl (Maxipime 2gm) 2 gm in 100 mls @ 100 mls/hr IVPB Q8 ROBERTA PRN Reason: Protocol Stop: 02/04/17 06:16 Last Admin: 01/28/17 23:17 Dose: 100 mls/hr Vancomycin HCl (Vancomycin 1gm) 1 gm in 250 mls @ 167 mls/hr IVPB Q12H ROBERTA PRN Reason: Protocol Last Admin: 01/28/17 21:14 Dose: 167 mls/hr Insulin Human Lispro (Humalog Med) 0 units SC ACHS ROBERTA PRN Reason: Protocol Last Admin: 01/28/17 22:04 Dose: Not Given Oxycodone HCl (Oxycodone Immediate Release Tab) 10 mg PO Q6H PRN PRN Reason: Pain, moderate (4-7) Last Admin: 01/29/17 02:09 Dose: 10 mg Pantoprazole Sodium (Protonix Ec Tab) 40 mg PO 0630 [facility] - Labs Labs: PT 12.0 Seconds (9.9-11.8) H 01/27/17 21:19 INR 1.11 (0.93-1.08) H 01/27/17 21:19 APTT 29.6 Seconds (23.7-30.8) 01/27/17 21:19 - Constitutional Appears: Non-toxic, No Acute Distress - Head Exam Head Exam: NORMAL INSPECTION - Respiratory Exam Respiratory Exam: Decreased Breath Sounds - Cardiovascular Exam Cardiovascular Exam: +S1, +S2 - GI/Abdominal Exam GI & Abdominal Exam: Soft. absent: Tenderness Assessment and Plan - Assessment and Plan (Free Text) Plan: Assessment Sepsis due to bilateral healthcare-associated pneumonia with possible gram positive cocci and/or gram negative bacilli asthma history of bronchitis history of pneumonia COPD S/P stimulator implantation in her back last week DM lumbar disc herniation obesity with BMI 37 Plan continue Cefepime, Vancomycin and Zithromax pending final blood, sputum cx results; PCT is elevated at 0.92; will also follow up urine Legionella Ag; reviewed CT chest results will continue to follow clinically
[2017-01-29] MEDS: oxyCODONE 15 mg Immediate Release Tab PO PRN ×2 (12:20→18:35)
[2017-01-29] MEDS: MethylPREDNISolone 40 mg Vial IV SCH ×2 (12:58→22:01)
[2017-01-30] MEDS: oxyCODONE 15 mg Immediate Release Tab PO PRN ×5 (00:49→23:51)
[2017-01-30] MEDS: Albuterol-Ipratrop 3 mg / 0.5 (3 ml) UD IH SCH ×4 (02:00→20:20)
[2017-01-30] MEDS: Albuterol-Ipratrop 3 mg / 0.5 (3 ml) UD IH PRN ×3 (03:57→17:02)
--- NOTE | 2017-01-30 04:09 | CP.PCM.PN ---
Subjective - Date & Time of Evaluation Date of Evaluation: 01/30/17 Time of Evaluation: 04:09 - Subjective Subjective: Patient was seen because she requested cough medicine with codeine. States that she can't get her cough out. Denies sob , chest pain. Has no other complaints. ROS:Negative except as mentioned above. Medical record was reviewed. This 56 year old white woman is here with sob ,cough congestion, fever ,?PNA. Has PMH of DM II , COPD, obesity , recurrent PNA, chronic back pain, herniated disc, depression. Objective - Vital Signs/Intake and Output Vital Signs (last 24 hours): Temp Pulse Resp BP Pulse Ox 98.3 F 83 20 136/74 97 01/29/17 18:00 01/29/17 18:00 01/29/17 18:00 01/29/17 18:00 01/29/17 06:00 Intake and Output: 01/29/17 01/30/17 18:59 06:59 Intake Total 720 Balance 720 - Medications Medications: Current Medications Acetaminophen (Tylenol 325mg Tab) 650 mg PO Q4H PRN PRN Reason: Fever >100.5 F Albuterol/Ipratropium (Duoneb 3 Mg/0.5 Mg (3 Ml) Ud) 3 ml IH Q2H PRN PRN Reason: Shortness of Breath Last Admin: 01/30/17 03:57 Dose: 3 ml Albuterol/Ipratropium (Duoneb 3 Mg/0.5 Mg (3 Ml) Ud) 3 ml IH [id number] [facility] Last Admin: 01/30/17 02:00 Dose: Not Given Atorvastatin Calcium (Lipitor) 10 mg PO HS [facility] Last Admin: 01/29/17 22:01 Dose: 10 mg Azithromycin (Zithromax) 500 mg PO DAILY ROBERTA PRN Reason: Protocol Last Admin: 01/29/17 10:38 Dose: 500 mg Bupropion HCl (Wellbutrin) 75 mg PO BID [facility] Last Admin: 01/29/17 17:00 Dose: 75 mg Cefepime HCl (Maxipime 2gm) 2 gm in 100 mls @ 100 mls/hr IVPB Q8 ROBERTA PRN Reason: Protocol Stop: 02/04/17 06:16 Last Admin: 01/29/17 22:00 Dose: 100 mls/hr Vancomycin HCl (Vancomycin 1gm) 1 gm in 250 mls @ 167 mls/hr IVPB Q12H ROBERTA PRN Reason: Protocol Last Admin: 01/29/17 22:02 Dose: 167 mls/hr Sodium Chloride (Sodium Chloride 0.9%) 1,000 mls @ 60 mls/hr IV .[id number] [facility] Last Admin: 01/29/17 22:47 Dose: 60 mls/hr Insulin Human Lispro (Humalog Med) 0 units SC ACHS [facility] PRN Reason: Protocol Last Admin: 01/29/17 22:24 Dose: Not Given Methylprednisolone (Solu-Medrol) 30 mg IV Q12 [facility] Last Admin: 01/29/17 22:01 Dose: 30 mg Oxycodone HCl (Oxycodone Immediate Release Tab) 15 mg PO Q6H PRN PRN Reason: Pain, moderate (4-7) Last Admin: 01/30/17 00:49 Dose: 15 mg Pantoprazole Sodium (Protonix Ec Tab) 40 mg PO 0630 [facility] Last Admin: 01/29/17 06:24 Dose: 40 mg - Labs Labs: 01/29/17 09:00 01/29/17 09:00 PT 12.0 Seconds (9.9-11.8) H 01/27/17 21:19 INR 1.11 (0.93-1.08) H 01/27/17 21:19 APTT 29.6 Seconds (23.7-30.8) 01/27/17 21:19 Microbiology Studies 01/27/17 21:35 Blood Culture - Preliminary Blood NO GROWTH AFTER 48 HOURS 01/27/17 21:19 Blood Culture - Preliminary Blood NO GROWTH AFTER 48 HOURS 01/28/17 01:30 Urine Culture - Final Urine,Clean Catch No Growth (<1,000 CFU/ML) Lab Studies 01/29/17 01/29/17 01/29/17 Range/Units 16:11 11:24 09:00 WBC (4.5-11.0) 10^3/ul RBC (3.5-6.1) 10^6/uL Hgb (12.0-16.0) gm/dL Hct (36.0-48.0) % MCV (80.0-105.0) fL MCH (25.0-35.0) pg MCHC (31.0-37.0) g/dl RDW (11.5-14.5) % Plt Count (120.0-450.0) 10^3/uL MPV (7.0-11.0) fl Gran % (50.0-68.0) % Lymph % (Auto) (22.0-35.0) % Cotton % (Auto) (1.0-6.0) % Eos % (Auto) (1.5-5.0) % Baso % (Auto) (0.0-3.0) % Gran # (1.4-6.5) Lymph # (1.2-3.4) Cotton # (0.1-0.6) Eos # (0.0-0.7) Baso # (0.0-2.0) K/mm3 Sodium 142 (132-148) mmol/L Potassium 3.3 L (3.6-5.0) mmol/L Chloride 110 H (98-107) mmol/L Carbon Dioxide 22 (21-33) mmol/L Anion Gap 13 (10-20) BUN 6 L (7-21) mg/dL Creatinine 0.5 (0.5-1.4) mg/dL Est GFR ( Amer) > 60 Est GFR (Non-Af Amer) > 60 POC Glucose (mg/dL) 231 H 156 H (65-110) mg/dL Random Glucose 146 H (70-110) mg/dL Calcium 9.2 (8.4-10.5) mg/dL Total Bilirubin 0.5 (0.2-1.3) mg/dL AST 48 H (15-39) U/L ALT 37 (7-56) U/L Alkaline Phosphatase 69 (38-133) U/L Total Protein 6.0 (5.8-8.3) g/dL Albumin 3.2 (3.0-4.8) g/dL Globulin 2.9 gm/dL Albumin/Globulin Ratio 1.1 (1.1-1.8) 01/29/17 01/29/17 Range/Units 09:00 08:02 WBC 9.5 D (4.5-11.0) 10^3/ul RBC 3.99 (3.5-6.1) 10^6/uL Hgb 10.6 L (12.0-16.0) gm/dL Hct 31.7 L (36.0-48.0) % MCV 79.4 L (80.0-105.0) fL MCH 26.6 (25.0-35.0) pg MCHC 33.4 (31.0-37.0) g/dl RDW 14.6 H (11.5-14.5) % Plt Count 149 (120.0-450.0) 10^3/uL MPV 10.9 (7.0-11.0) fl Gran % 82.4 H (50.0-68.0) % Lymph % (Auto) 10.9 L (22.0-35.0) % Cotton % (Auto) 4.4 (1.0-6.0) % Eos % (Auto) 2.2 (1.5-5.0) % Baso % (Auto) 0.1 (0.0-3.0) % Gran # 7.83 H (1.4-6.5) Lymph # 1.0 L (1.2-3.4) Cotton # 0.4 (0.1-0.6) Eos # 0.2 (0.0-0.7) Baso # 0.01 (0.0-2.0) K/mm3 Sodium (132-148) mmol/L Potassium (3.6-5.0) mmol/L Chloride (98-107) mmol/L Carbon Dioxide (21-33) mmol/L Anion Gap (10-20) BUN (7-21) mg/dL Creatinine (0.5-1.4) mg/dL Est GFR ( Amer) Est GFR (Non-Af Amer) POC Glucose (mg/dL) 118 H (65-110) mg/dL Random Glucose (70-110) mg/dL Calcium (8.4-10.5) mg/dL Total Bilirubin (0.2-1.3) mg/dL AST (15-39) U/L ALT (7-56) U/L Alkaline Phosphatase (38-133) U/L Total Protein (5.8-8.3) g/dL Albumin (3.0-4.8) g/dL Globulin gm/dL Albumin/Globulin Ratio (1.1-1.8) - Constitutional Appears: Well, In Acute Distress - Head Exam Head Exam: NORMAL INSPECTION, NORMOCEPHALIC - Eye Exam Eye Exam: Normal appearance - ENT Exam ENT Exam: Normal External Ear Exam - Neck Exam Neck Exam: Normal Inspection - Respiratory Exam Respiratory Exam: NORMAL BREATHING PATTERN - Cardiovascular Exam Cardiovascular Exam: absent: JVD - GI/Abdominal Exam GI & Abdominal Exam: absent: Distended - Rectal Exam Rectal Exam: Deferred - Exam Additional comments: Deferred. - Extremities Exam Extremities Exam: Normal Inspection - Back Exam Back Exam: NORMAL INSPECTION - Neurological Exam Neurological Exam: Alert, Awake, Oriented x3 - Psychiatric Exam Psychiatric exam: Normal Affect, Normal Mood - Skin Skin Exam: Normal Color Assessment and Plan - Assessment and Plan (Free Text) Assessment: Cough . PNA. Obesity. DM II. COPD. Back pain. Depression. Plan: Robitussin with codeine 10 ml PO now. Continue present management as per PMD.
[2017-01-30] MEDS ORDERED: guaiFENesin-Codeine 100-10mg/5ml Syrup (5 ml) UD PO STA (04:11)
[2017-01-30] MEDS: Cefepime IV 2 gm in NS 2 GM/100 ML BAG IVPB SCH ×3 (05:46→23:51)
[2017-01-30] MEDS: Pantoprazole 40 mg EC Tab PO SCH (05:47)
[2017-01-30] MEDS: Insulin Lispro (humaLOG) MEDIUM Coverage SC SCH ×4 (08:30→23:33)
[2017-01-30] MEDS: Vancomycin 1gm in NS 250ml 1 GM/250 ML BAG IVPB SCH (08:57)
[2017-01-30] MEDS: MethylPREDNISolone 40 mg Vial IV SCH (09:03)
--- NOTE | 2017-01-30 11:13 | CP.PCM.PN ---
Subjective - Date & Time of Evaluation Date of Evaluation: 01/30/17 Time of Evaluation: 10:15 - Subjective Subjective: Comfortable in bed, afebrile, not in distress. Objective - Vital Signs/Intake and Output Vital Signs (last 24 hours): Temp Pulse Resp BP Pulse Ox 98.3 F 83 20 136/74 97 01/29/17 18:00 01/29/17 18:00 01/29/17 18:00 01/29/17 18:00 01/29/17 06:00 Intake and Output: 01/30/17 01/30/17 06:59 18:59 Intake Total 1040 Balance 1040 - Medications Medications: Current Medications Acetaminophen (Tylenol 325mg Tab) 650 mg PO Q4H PRN PRN Reason: Fever >100.5 F Albuterol/Ipratropium (Duoneb 3 Mg/0.5 Mg (3 Ml) Ud) 3 ml IH Q2H PRN PRN Reason: Shortness of Breath Last Admin: 01/30/17 03:57 Dose: 3 ml Albuterol/Ipratropium (Duoneb 3 Mg/0.5 Mg (3 Ml) Ud) 3 ml IH [id number] ROBERTA Last Admin: 01/30/17 07:20 Dose: 3 ml Atorvastatin Calcium (Lipitor) 10 mg PO HS [facility] Last Admin: 01/29/17 22:01 Dose: 10 mg Azithromycin (Zithromax) 500 mg PO DAILY ROBERTA PRN Reason: Protocol Last Admin: 01/29/17 10:38 Dose: 500 mg Bupropion HCl (Wellbutrin) 75 mg PO BID [facility] Last Admin: 01/29/17 17:00 Dose: 75 mg Cefepime HCl (Maxipime 2gm) 2 gm in 100 mls @ 100 mls/hr IVPB Q8 ROBERTA PRN Reason: Protocol Stop: 02/04/17 06:16 Last Admin: 01/30/17 05:46 Dose: 100 mls/hr Vancomycin HCl (Vancomycin 1gm) 1 gm in 250 mls @ 167 mls/hr IVPB Q12H ROBERTA PRN Reason: Protocol Last Admin: 01/29/17 22:02 Dose: 167 mls/hr Sodium Chloride (Sodium Chloride 0.9%) 1,000 mls @ 60 mls/hr IV .[id number] ROBERTA Last Admin: 01/29/17 22:47 Dose: 60 mls/hr Insulin Human Lispro (Humalog Med) 0 units SC ACHS ROBERTA PRN Reason: Protocol Last Admin: 01/29/17 22:24 Dose: Not Given Methylprednisolone (Solu-Medrol) 30 mg IV Q12 [facility] Last Admin: 01/29/17 22:01 Dose: 30 mg Oxycodone HCl (Oxycodone Immediate Release Tab) 15 mg PO Q6H PRN PRN Reason: Pain, moderate (4-7) Last Admin: 01/30/17 05:51 Dose: 15 mg Pantoprazole Sodium (Protonix Ec Tab) 40 mg PO 0630 [facility] Last Admin: 01/30/17 05:47 Dose: 40 mg - Labs Labs: 01/29/17 09:00 01/29/17 09:00 PT 12.0 Seconds (9.9-11.8) H 01/27/17 21:19 INR 1.11 (0.93-1.08) H 01/27/17 21:19 APTT 29.6 Seconds (23.7-30.8) 01/27/17 21:19 - Constitutional Appears: Non-toxic, No Acute Distress - Head Exam Head Exam: NORMAL INSPECTION - Respiratory Exam Respiratory Exam: Decreased Breath Sounds - Cardiovascular Exam Cardiovascular Exam: +S1, +S2 - GI/Abdominal Exam GI & Abdominal Exam: Soft. absent: Tenderness Assessment and Plan - Assessment and Plan (Free Text) Plan: Assessment Sepsis due to bilateral healthcare-associated pneumonia asthma history of bronchitis history of pneumonia COPD S/P stimulator implantation in her back last week DM lumbar disc herniation obesity with BMI 37 Plan continue Cefepime and Zithromax day 3; blood cx are negative - will d/c IV Vancomycin; PCT is elevated at 0.92; will also follow up urine Legionella Ag; reviewed CT chest results - should target 4-7 days of therapy will continue to follow clinically
[2017-01-30] MEDS: guaiFENesin DM 100 mg-10 mg/5 ml UD PO PRN ×2 (13:21→22:01)
[2017-01-30] MEDS: Sodium Chloride 0.9% 1,000 ML IV SCH ×2 (17:40→21:00)
[2017-01-30 20:38] LABS: URINE BILIRUBIN NEGATIVE (NEGATIVE); URINE BLOOD NEGATIVE (NEGATIVE); URINE GLUCOSE (UA) NEGATIVE (NEGATIVE); URINE LEUKOCYTE ESTERASE NEGATIVE Leu/uL (NEGATIVE); URINE NITRATE NEGATIVE (NEGATIVE); URINE PROTEIN NEGATIVE mg/dL (<30 mg/dL); URINE UROBILINOGEN 0.2 E.U./dL (<1 E.U./dL)
[2017-01-30 20:40] LABS: URINE APPEARANCE CLEAR (CLEAR); URINE COLOR YELLOW (YELLOW)
[2017-01-31] MEDS: Albuterol-Ipratrop 3 mg / 0.5 (3 ml) UD IH SCH ×4 (01:41→20:40)
[2017-01-31] MEDS: MethylPREDNISolone 40 mg Vial IV SCH ×3 (03:55→21:21)
[2017-01-31] MEDS: Albuterol-Ipratrop 3 mg / 0.5 (3 ml) UD IH PRN ×2 (04:57→10:11)
[2017-01-31] MEDS: Cefepime IV 2 gm in NS 2 GM/100 ML BAG IVPB SCH ×3 (04:59→21:21)
[2017-01-31] MEDS: guaiFENesin DM 100 mg-10 mg/5 ml UD PO PRN (05:00)
[2017-01-31] MEDS: Pantoprazole 40 mg EC Tab PO SCH (05:51)
[2017-01-31] MEDS: oxyCODONE 15 mg Immediate Release Tab PO PRN ×3 (05:51→18:22)
[2017-01-31] MEDS: Insulin Lispro (humaLOG) MEDIUM Coverage SC SCH ×4 (07:59→22:42)
[2017-01-31] MEDS ORDERED: Acetylcysteine 20% Inhal Sol (30ml) IH SCH (11:45)
--- NOTE | 2017-01-31 12:38 | CT ---
PROCEDURE: CT Lumbar Spine without contrast HISTORY: s/p stimulter placement r/oabcess COMPARISON: None. TECHNIQUE: Axial computed tomography images were obtained of the lumbar spine without the use of intravenous contrast. Coronal and sagittal reformatted images were created and reviewed. Radiation dose: Total exam DLP = 1436 mGy-cm. This CT exam was performed using one or more of the following dose reduction techniques: Automated exposure control, adjustment of the mA and/or kV according to patient size, and/or use of iterative reconstruction technique. FINDINGS: VERTEBRAE: Unremarkable. No fracture. Normal alignment. DISCS/SPINAL CANAL/NEURAL FORAMINA: L1-2: Unremarkable. L2-3: Unremarkable. L3-4: Unremarkable. L4-5: There is moderate facet arthropathy L5-S1: There is fusion at L5-S1 with pedicle screws and intradiscal fusion. There is also a laminectomy. PARASPINAL SOFT TISSUES: Epidural leads are seen entering the spinal canal at the L1 level directed superiorly. No evidence of abscess formation OTHER FINDINGS: None. IMPRESSION: No evidence of abscess. Fusion and laminectomy at L5-S1
[2017-01-31] MEDS: Acetylcysteine 20% Inhal Soln (4ml) IH SCH ×3 (15:46→20:40)
[2017-01-31] MEDS: Sodium Chloride 0.9% 1,000 ML IV SCH (16:58)
[2017-02-01] MEDS: oxyCODONE 15 mg Immediate Release Tab PO PRN ×5 (00:21→23:27)
[2017-02-01] MEDS: Acetylcysteine 20% Inhal Soln (4ml) IH SCH ×2 (01:12→07:18)
[2017-02-01] MEDS: Albuterol-Ipratrop 3 mg / 0.5 (3 ml) UD IH SCH ×4 (01:12→20:39)
[2017-02-01] MEDS: Pantoprazole 40 mg EC Tab PO SCH (05:55)
[2017-02-01] MEDS: Cefepime IV 2 gm in NS 2 GM/100 ML BAG IVPB SCH ×3 (05:55→21:22)
[2017-02-01] MEDS: Albuterol-Ipratrop 3 mg / 0.5 (3 ml) UD IH PRN ×2 (06:19→11:09)
[2017-02-01] MEDS: Insulin Lispro (humaLOG) MEDIUM Coverage SC SCH ×4 (08:33→22:31)
--- NOTE | 2017-02-01 09:05 | PN ---
HISTORY: The patient is 56 years old, seen and examined, says that she is still coughing a lot; complaining of chest discomfort on coughing; complaining of poor appetite, but feels better than before. PHYSICAL EXAMINATION: VITAL SIGNS: She is afebrile, pulse 77, respirations 20, blood pressure 151/81. LUNGS: Bilateral fair air flow; however, she has scattered rhonchi and crackles posteriorly middle and the low lung area. HEART: S1 and S2 audible. ABDOMEN: Soft, nontender; no rebound; no guarding. NEUROLOGIC: The patient is awake and alert, *------*, ambulatory. LABORATORY DATA: Blood sugar is 231. Her blood culture and urine cultures are negative. ASSESSMENT: 1. Bilateral interstitial pneumonia. 2. Asthmatic bronchitis. 3. Active smoker. 4. Recent spine stimulator placement. 5. Srp-llzipyg-exvybydxr diabetes. PLAN: We will add Mucomyst. She had CT scan of the lumbar area done. There is no *------* noted. We will continue the patient on current antibiotic, nebulizer treatment and analgesic as needed and we will reevaluate the patient in a.m.
--- NOTE | 2017-02-01 09:15 | PN ---
SUBJECTIVE: The patient is in bed. No acute distress. In room #568, bed 1. No fevers and chills. PHYSICAL EXAMINATION VITAL SIGNS: Temperature is 97, blood pressure is 150/80, respiratory rate of 18. HEENT: Unremarkable. NECK: Supple. CARDIOPULMONARY: Heart sounds normal S1, S2. LUNGS: Decreased breath sounds. ABDOMEN: Soft, nontender. No organomegaly. No rebound. No guarding. LABORATORY DATA: Reveals a white count is around at 9.5, hemoglobin of 10, platelets of 149. Chemistry has revealed BUN of 6, creatinine of 0.5 and a procalcitonin of 0.92. Urinalysis is noted, and urine for leaking nil. Antigen is negative. Blood cultures no growth in three days. Urine culture is negative. The patient had a CAT scan of the lumbar spine today which showed no evidence of abscess or effusion of laminectomy at L5 and S1. The patient also had a CAT scan of the chest, extensive bilateral interstitial infiltrates consistent with pneumonia. Review of orders reveals the patient to have p.o. azithromycin and IV cefepime. The patient is also on Solu-Medrol. ASSESSMENT AND PLAN: This is a 56-year-old female with sepsis, bilateral healthcare associated probable bacterial gram-positive versus gram-negative kaitlynn elevated procalcitonin pneumonia in a patient with asthma and history of bronchitis and history of pneumonia and history of diabetes, lumbar disc herniation, obesity, BMI of 37 with a status post stimulator implantation last week, on day #4 of Zithromax and cefepime and target 4-7 days of antibiotic. We will repeat a procalcitonin today to guide her duration and we will follow with you. Mendez Morgan MD
[2017-02-01] MEDS: MethylPREDNISolone 40 mg Vial IV SCH ×2 (10:03→21:23)
[2017-02-01] MEDS: Sodium Chloride 0.9% 1,000 ML IV SCH (10:24)
[2017-02-01 10:48] LABS: HEMOGLOBIN 10.3 gm/dL (12.0-16.0); MEAN CELL VOLUME 79.1 fL (80.0-105.0); MEAN CORPUSCULAR HEMOGLOBIN 25.7 pg (25.0-35.0); MEAN CORPUSCULAR HGB CONC 32.5 g/dl (31.0-37.0); MEAN PLATELET VOLUME 11.2 fl (7.0-11.0); RBC 4.01 10^6/uL (3.5-6.1); WHITE BLOOD COUNT 10.6 10^3/ul (4.5-11.0)
[2017-02-01 10:53] LABS: ALB/GLOB RATIO 1.1 (1.1-1.8); ALBUMIN 3.2 g/dL (3.0-4.8); ALT/SGPT 44 U/L (7-56); AST/SGOT 21 U/L (15-39); BLOOD UREA NITROGEN 13 mg/dL (7-21); CALCIUM 9.5 mg/dL (8.4-10.5); GFR AFRICAN-AMERICAN > 60; GFR NON-AFRICAN AMERICAN > 60
--- NOTE | 2017-02-01 11:22 | CP.PCM.PN ---
Subjective - Date & Time of Evaluation Date of Evaluation: 02/01/17 Time of Evaluation: 10:25 - Subjective Subjective: Comfortable, afebrile, not in distress, breathing better, feeling better. Objective - Vital Signs/Intake and Output Vital Signs (last 24 hours): Temp Pulse Resp BP Pulse Ox 98.1 F 74 20 169/87 H 95 01/31/17 16:30 01/31/17 16:30 01/31/17 16:30 01/31/17 16:30 01/31/17 16:30 Intake and Output: 02/01/17 02/01/17 06:59 18:59 Intake Total 660 Balance 660 - Medications Medications: Current Medications Acetaminophen (Tylenol 325mg Tab) 650 mg PO Q4H PRN PRN Reason: Fever >100.5 F Acetylcysteine (Acetylcysteine 20%) 4 ml IH [id number] [facility] Last Admin: 02/01/17 07:18 Dose: Not Given Albuterol/Ipratropium (Duoneb 3 Mg/0.5 Mg (3 Ml) Ud) 3 ml IH Q2H PRN PRN Reason: Shortness of Breath Last Admin: 02/01/17 06:19 Dose: 3 ml Albuterol/Ipratropium (Duoneb 3 Mg/0.5 Mg (3 Ml) Ud) 3 ml IH [id number] [facility] Last Admin: 02/01/17 07:19 Dose: Not Given Atorvastatin Calcium (Lipitor) 10 mg PO HS [facility] Last Admin: 01/31/17 21:22 Dose: 10 mg Azithromycin (Zithromax) 500 mg PO DAILY [facility] PRN Reason: Protocol Last Admin: 01/31/17 09:49 Dose: 500 mg Bupropion HCl (Wellbutrin) 75 mg PO BID [facility] Last Admin: 01/31/17 16:59 Dose: 75 mg Guaifenesin/Dextromethorphan (Robitussin Dm) 10 ml PO Q4H PRN PRN Reason: Cough Last Admin: 01/31/17 05:00 Dose: 10 ml Cefepime HCl (Maxipime 2gm) 2 gm in 100 mls @ 100 mls/hr IVPB Q8 [facility] PRN Reason: Protocol Stop: 02/04/17 06:16 Last Admin: 02/01/17 05:55 Dose: 100 mls/hr Sodium Chloride (Sodium Chloride 0.9%) 1,000 mls @ 60 mls/hr IV .[id number] [facility] Last Admin: 01/31/17 16:58 Dose: 60 mls/hr Insulin Human Lispro (Humalog Med) 0 units SC ACHS [facility] PRN Reason: Protocol Last Admin: 02/01/17 08:33 Dose: Not Given Methylprednisolone (Solu-Medrol) 30 mg IV Q12 [facility] Last Admin: 01/31/17 21:21 Dose: 30 mg Nicotine (Nicoderm Cq) 1 patch TD DAILY [facility] Last Admin: 01/31/17 09:49 Dose: 1 patch Oxycodone HCl (Oxycodone Immediate Release Tab) 15 mg PO Q6H PRN PRN Reason: Pain, moderate (4-7) Last Admin: 02/01/17 06:32 Dose: 15 mg Pantoprazole Sodium (Protonix Ec Tab) 40 mg PO 0630 [facility] Last Admin: 02/01/17 05:55 Dose: 40 mg - Labs Labs: 01/29/17 09:00 01/29/17 09:00 PT 12.0 Seconds (9.9-11.8) H 01/27/17 21:19 INR 1.11 (0.93-1.08) H 01/27/17 21:19 APTT 29.6 Seconds (23.7-30.8) 01/27/17 21:19 - Constitutional Appears: Non-toxic, No Acute Distress - Head Exam Head Exam: NORMAL INSPECTION - ENT Exam ENT Exam: Mucous Membranes Moist - Neck Exam Neck Exam: absent: Meningismus - Respiratory Exam Respiratory Exam: Decreased Breath Sounds - Cardiovascular Exam Cardiovascular Exam: +S1, +S2 - GI/Abdominal Exam GI & Abdominal Exam: Soft. absent: Tenderness Assessment and Plan - Assessment and Plan (Free Text) Plan: Assessment Sepsis due to bilateral healthcare-associated pneumonia, clinically improving asthma history of bronchitis history of pneumonia COPD S/P stimulator implantation in her back last week DM lumbar disc herniation obesity with BMI 37 Plan continue Cefepime and Zithromax day 5; blood cx are negative - PCT was elevated at 0.92; reviewed CT chest results - should target 4-7 days of therapy - if she continue to improve by tomorrow, we can switch to PO Levaquin for another 2- 3 days will continue to follow clinically while the patient is in the hospital
[2017-02-01] MEDS: guaiFENesin DM 100 mg-10 mg/5 ml UD PO PRN (21:22)
[2017-02-02] MEDS: Albuterol-Ipratrop 3 mg / 0.5 (3 ml) UD IH SCH ×4 (03:50→18:59)
[2017-02-02] MEDS: oxyCODONE 15 mg Immediate Release Tab PO PRN ×4 (05:34→23:46)
[2017-02-02] MEDS: Cefepime IV 2 gm in NS 2 GM/100 ML BAG IVPB SCH ×3 (05:34→21:33)
[2017-02-02] MEDS: Pantoprazole 40 mg EC Tab PO SCH (05:34)
[2017-02-02] MEDS: guaiFENesin DM 100 mg-10 mg/5 ml UD PO PRN (05:36)
[2017-02-02] MEDS: Insulin Lispro (humaLOG) MEDIUM Coverage SC SCH ×4 (07:45→21:33)
[2017-02-02] MEDS: MethylPREDNISolone 40 mg Vial IV SCH ×2 (09:20→21:32)
--- NOTE | 2017-02-02 11:41 | PN ---
DATE: 02/01/2017 SUBJECTIVE: The patient is 57 years old seen and examined for coughing, congestion, and short of breath. Did not like Mucomyst, still very congested. PHYSICAL EXAMINATION: VITAL SIGNS: She is afebrile, pulse 68, respiration 20, blood pressure 169/85. LUNGS: Bilateral diffuse rhonchi anteriorly and more pronounced posteriorly. HEART: S1 and S2 audible. ABDOMEN: Soft, obese, nontender. No rebound, no guarding. NEUROLOGIC: The patient is awake and alert, communicative, ambulatory. LABORATORY EXAMINATION: WBC is 10.6, hemoglobin 10.3, hematocrit 31.7, platelet 195. Chemistry: Sodium 139, potassium 3.7, chloride 108, CO2 22, BUN 13, creatinine 0.6, blood sugar 166, procalcitonin is 0.11. Legionella titers are negative. ASSESSMENT: 1. Community-acquired pneumonia. 2. Non-insulin dependent diabetes. 3. Recent spinal stimulator placement. 4. Morbid obesity. 5. Hypertension. PLAN: We will continue the patient on current medical regimen. We will monitor her blood sugar. The patient is on nebulizer treatment. She is refusing to have Mucomyst. Continue her on nebulizer treatment. Continue on Lipitor. She is on cefepime and discontinue her IV fluid. She is on 30 mg twice a day of Solu-Medrol, we will continue that. She is on Zithromax and we will reevaluate the patient in a.m. and make discharge plan if she is better than today. Eliu Souza MD
[2017-02-02] MEDS: POLYETHYLENE GLYCOL 3350 17 GM/Dose PACKET PO SCH (11:51)
--- NOTE | 2017-02-02 12:33 | CP.PCM.PN ---
Subjective - Date & Time of Evaluation Date of Evaluation: 02/02/17 Time of Evaluation: 11:40 - Subjective Subjective: Feeling better, afebrile, not in distress. Objective - Vital Signs/Intake and Output Vital Signs (last 24 hours): Temp Pulse Resp BP Pulse Ox 98.5 F 70 20 160/62 H 94 L 02/02/17 07:46 02/02/17 07:46 02/02/17 07:46 02/02/17 07:46 02/02/17 07:46 Intake and Output: 02/02/17 02/02/17 06:59 18:59 Intake Total 560 Balance 560 - Medications Medications: Current Medications Acetaminophen (Tylenol 325mg Tab) 650 mg PO Q4H PRN PRN Reason: Fever >100.5 F Albuterol/Ipratropium (Duoneb 3 Mg/0.5 Mg (3 Ml) Ud) 3 ml IH Q2H PRN PRN Reason: Shortness of Breath Last Admin: 02/01/17 11:09 Dose: 3 ml Albuterol/Ipratropium (Duoneb 3 Mg/0.5 Mg (3 Ml) Ud) 3 ml IH [id number] [facility] Last Admin: 02/02/17 07:28 Dose: 3 ml Atorvastatin Calcium (Lipitor) 10 mg PO HS [facility] Last Admin: 02/01/17 21:23 Dose: 10 mg Azithromycin (Zithromax) 500 mg PO DAILY [facility] PRN Reason: Protocol Last Admin: 02/02/17 09:19 Dose: 500 mg Bupropion HCl (Wellbutrin) 75 mg PO BID [facility] Last Admin: 02/02/17 09:19 Dose: 75 mg Guaifenesin/Dextromethorphan (Robitussin Dm) 10 ml PO Q4H PRN PRN Reason: Cough Last Admin: 02/02/17 05:36 Dose: 10 ml Cefepime HCl (Maxipime 2gm) 2 gm in 100 mls @ 100 mls/hr IVPB Q8 [facility] PRN Reason: Protocol Stop: 02/04/17 06:16 Last Admin: 02/02/17 05:34 Dose: 100 mls/hr Insulin Human Lispro (Humalog Med) 0 units SC ACHS [facility] PRN Reason: Protocol Last Admin: 02/02/17 07:45 Dose: Not Given Methylprednisolone (Solu-Medrol) 30 mg IV Q12 [facility] Last Admin: 02/02/17 09:20 Dose: 30 mg Nicotine (Nicoderm Cq) 1 patch TD DAILY [facility] Last Admin: 02/02/17 09:21 Dose: 1 patch Oxycodone HCl (Oxycodone Immediate Release Tab) 15 mg PO Q6H PRN PRN Reason: Pain, moderate (4-7) Last Admin: 02/02/17 05:34 Dose: 15 mg Pantoprazole Sodium (Protonix Ec Tab) 40 mg PO 0630 [facility] Last Admin: 02/02/17 05:34 Dose: 40 mg - Labs Labs: 02/01/17 10:30 02/01/17 10:30 PT 12.0 Seconds (9.9-11.8) H 01/27/17 21:19 INR 1.11 (0.93-1.08) H 01/27/17 21:19 APTT 29.6 Seconds (23.7-30.8) 01/27/17 21:19 - Constitutional Appears: Non-toxic, No Acute Distress - Head Exam Head Exam: NORMAL INSPECTION - Respiratory Exam Respiratory Exam: Decreased Breath Sounds - Cardiovascular Exam Cardiovascular Exam: +S1, +S2 - GI/Abdominal Exam GI & Abdominal Exam: Soft. absent: Tenderness Assessment and Plan - Assessment and Plan (Free Text) Plan: Assessment Sepsis due to bilateral healthcare-associated pneumonia, clinically improving asthma history of bronchitis history of pneumonia COPD S/P stimulator implantation in her back last week DM lumbar disc herniation obesity with BMI 37 Plan on Cefepime and Zithromax day 6; blood cx are negative - PCT was elevated at 0.92; reviewed CT chest results - should target 4-7 days of therapy - we can switch to PO Levaquin for another 2-3 days will continue to follow clinically while the patient is in the hospital
[2017-02-03] MEDS: Albuterol-Ipratrop 3 mg / 0.5 (3 ml) UD IH SCH ×3 (02:03→13:19)
[2017-02-03] MEDS: Pantoprazole 40 mg EC Tab PO SCH (05:56)
[2017-02-03] MEDS: oxyCODONE 15 mg Immediate Release Tab PO PRN ×2 (05:56→12:27)
[2017-02-03] MEDS: Cefepime IV 2 gm in NS 2 GM/100 ML BAG IVPB SCH (06:09)
[2017-02-03 07:37] VITALS: BP 115/84; PULSE 57; TEMP 98.1; O2SAT 96
[2017-02-03] MEDS: Insulin Lispro (humaLOG) MEDIUM Coverage SC SCH ×2 (07:56→12:29)
[2017-02-03] MEDS: MethylPREDNISolone 40 mg Vial IV SCH (09:44)
[2017-02-03] MEDS: POLYETHYLENE GLYCOL 3350 17 GM/Dose PACKET PO SCH (09:44)
--- NOTE | 2017-02-03 10:54 | PN ---
SUBJECTIVE: The patient is 57-year-old seen and examined. She states she feels a lot better and anxious to take shower; otherwise, her appetite seems to be improving. Cough is less. Able to ambulate without getting much short of breath. PHYSICAL EXAMINATION: VITAL SIGNS: She is afebrile. Pulse 74, respiration 20, blood pressure 158/68. CARDIOPULMONARY: Heart has S1 and S2 audible. LUNGS: Bilateral end-expiratory rhonchi. ABDOMEN: Soft, obese, and nontender. No rebound, no guarding. NEUROLOGIC: The patient is awake and alert, communicable. EXTREMITIES: Bilateral legs, no edema, no ulcers. LABORATORY DATA: Blood culture and urine cultures are negative. ASSESSMENT: 1. Community-acquired pneumonia. 2. Asthmatic bronchitis. 3. Active smoker. 4. Chronic obstructive pulmonary distress. 5. Ist-btlovus-okuggmhbv diabetes. PLAN: Currently, the patient is on IV steroid. She is on cefepime. She complained of constipation probably secondary to being on narcotic. I will give her a dose of Relistor and maintain her on MiraLax, and she is allowed to take shower and I will reevaluate the patient in a.m. If her respiratory status is stable, possible discharge in a.m. or Saturday. Eliu Souza MD
[2017-02-03] MEDS ORDERED: Magnesium Citrate Oral SOL (300 ml) PO ONE (11:00)
--- NOTE | 2017-02-04 06:17 | DS ---
HISTORY OF PRESENT ILLNESS: The patient is 57 years old seen and examined, doing well, eating and tolerating, ambulating. PHYSICAL EXAMINATION: VITAL SIGNS: The patient is afebrile, pulse 57, respirations 20, and blood pressure 115/84. LUNGS: Bilateral fair airflow. No rhonchi or crackle. HEART: S1 and S2 audible. ABDOMEN: Soft and nontender. No rebound. No guarding. NEUROLOGIC: She is awake and alert, communicative, and ambulatory. LABORATORY DATA: Blood culture and urine cultures are negative. ASSESSMENT: 1. Community-acquired pneumonia. 2. Zcr-liaxeie-eviodzpeb diabetes. 3. Asthmatic bronchitis. 4. Constipation secondary to narcotics. PLAN: The patient was given Relistor and magnesium citrate. She has good bowel movement. She is being discharged home on p.o. Levaquin. She will resume her nebulizer treatment, and I will follow her as an outpatient. Eliu Souza MD
== END 2017-02-03 16:03 | disposition home or self-care (01) | DRG 871 ==
LOC: ED 20:21 → ERH 01-28 00:10 → 2RNO 01-28 01:36 → 5RNO 01-29 21:07
PROVIDERS: ADMIT Internal Medicine; ATTEND Internal Medicine
DX: A41.9 Sepsis, unspecified organism (principal); J18.9 Pneumonia, unspecified organism; J44.0 Chronic obstructive pulmonary disease with (acute) lower respiratory infection; E11.9 Type 2 diabetes mellitus without complications; I10 Essential (primary) hypertension; K59.03 Drug induced constipation; T40.605A Adverse effect of unspecified narcotics, initial encounter; M51.26 Other intervertebral disc displacement, lumbar region; G89.29 Other chronic pain; F17.200 Nicotine dependence, unspecified, uncomplicated; E78.00 Pure hypercholesterolemia, unspecified; F32.9 Major depressive disorder, single episode, unspecified; E66.01 Morbid (severe) obesity due to excess calories; Z68.37 Body mass index [BMI] 37.0-37.9, adult; Y95 Nosocomial condition; Z79.84 Long term (current) use of oral hypoglycemic drugs

== ENCOUNTER 2017-05-03 04:27 | Emergency (ER) | payer MEDICARE, OTHER ==
[2017-05-03 04:28] VITALS: BMI 38.7
[2017-05-03] MEDS ORDERED: Albuterol-Ipratrop 3 mg / 0.5 (3 ml) UD ONE (04:37)
--- NOTE | 2017-05-03 04:48 | ED PDOC ---
Arrival/HPI - General Chief Complaint: Cough, Cold, Congestion Time Seen by Provider: 05/03/17 04:31 Historian: Patient - History of Present Illness Narrative History of Present Illness (Text): Nannette Gandara is a 57 year old female, whose past medical history includes COPD and pneumonia, who presents to the emergency department complaining of sinus congestion, rhinorrhea, cough, and chest congestions for one week. Patient states that she just got her flu shot last week around the time her sx started. She saw her pmd at that time and was rx levaquin which she just finished. Patient states that she has been using breathing treatments and her inhaler. Patient denies any fevers or any other complaints at this time. Time/Duration: 1 week Symptom Onset: Gradual Symptom Course: Worsening Severity Level: Mild Activities at Onset: Light Context: Home Past Medical History - Provider Review Nursing Documentation Reviewed: Yes - Infectious Disease Hx of Infectious Diseases: None - Tetanus Immunization Tetanus Immunization: Unknown - Past Medical History Past Medical History: No Previous - Cardiac Hx Cardiac Disorders: No Hx Hypertension: No - Pulmonary Hx Chronic Obstructive Pulmonary Disease (COPD): Yes - Neurological HX Cerebrovascular Accident: No - HEENT Hx HEENT Disorder: No - Renal Hx Renal Disorder: No - Endocrine/Metabolic Hx Diabetes Mellitus Type 2: Yes - Hematological/Oncological Hx Blood Disorders: No Hx Cancer: No - Integumentary Hx Dermatological Disorder: No - Musculoskeletal/Rheumatological Hx Falls: Yes - Gastrointestinal Hx Gastrointestinal Disorders: Yes - Genitourinary/Gynecological Hx Genitourinary Disorders: No Hx Sexually Transmitted Diseases: No - Psychiatric Hx Depression: Yes Hx Substance Use: Yes - Surgical History Hx Hysterectomy: Yes (partial) Hx Musculoskeletal Surgery: Yes (bunion) Hx Orthopedic Surgery: Yes (neck and back WITH PLATES) Other/Comment: Herniated disc repair. SURGERY FOR: BUNIONS ON BOTH FEET. 02/02: PERCUTANEOUS PINNING K.WIRE 0.62 OF LEFT HAND DISTAL RADIUS FRACTURE AND APPLICATION OF SPLINT, 03/2015, pt fell over [employer] football, hardware removed 05/2016. Spinal stimulator 01/23/17 - Anesthesia Hx Anesthesia: Yes Hx Anesthesia Reactions: Yes (N&V) Hx Malignant Hyperthermia: No - Suicidal Assessment Feels Threatened In Home Enviroment: No Family/Social History - Physician Review Nursing Documentation Reviewed: Yes Family/Social History: No Known Family HX Smoking Status: Heavy Smoker > 10 Cigarettes Daily Hx Alcohol Use: No Hx Substance Use: Yes Hx Substance Use Treatment: Yes (PPD) Allergies/Home Meds Allergies/Adverse Reactions: Allergies No Known Allergies Allergy (Verified 01/27/17 20:46) Home Medications: Home Meds Medication Instructions Recorded Confirmed Simvastatin [Zocor] 20 mg PO HS 11/06/16 05/03/17 buPROPion [Wellbutrin] 150 mg PO BID 01/27/17 05/03/17 traZODone [Desyrel] 150 mg PO HS 01/28/17 05/03/17 Glimepiride [amaRYL] 2 mg PO ACBD 02/03/17 05/03/17 Meclizine [Antivert] 12.5 mg PO TID 02/03/17 05/03/17 Review of Systems - Review of Systems Constitutional: absent: Fevers, Night Sweats Eyes: absent: Vision Changes ENT: Rhinorrhea, Sinus Congestion. absent: Hearing Changes Respiratory: Cough, Wheezing Cardiovascular: absent: Chest Pain Gastrointestinal: absent: Abdominal Pain Genitourinary Female: absent: Dysuria, Frequency, Urine Output Changes Musculoskeletal: absent: Arthralgias, Back Pain, Neck Pain Skin: absent: Rash, Pruritis Neurological: absent: Headache Endocrine: absent: Diaphoresis Hemo/Lymphatic: absent: Adenopathy Psychiatric: absent: Anxiety, Depression Physical Exam Vital Signs Temp Pulse Resp BP Pulse Ox 05/03/17 06:42 86 18 132/78 98 05/03/17 04:48 98.1 F 98 H 18 134/80 98 - Systems Exam Head: Present: Atraumatic, Normocephalic Pupils: Present: PERRL Extroacular Muscles: Present: EOMI Conjunctiva: Present: Normal Mouth: Present: Moist Mucous Membranes Neck: Present: Normal Range of Motion Respiratory/Chest: Present: Wheezes (bilaterally) Cardiovascular: Present: Regular Rate and Rhythm, Normal S1, S2. No: Murmurs Abdomen: Present: Normal Bowel Sounds. No: Tenderness, Distention, Peritoneal Signs Back: Present: Normal Inspection Upper Extremity: Present: Normal Inspection. No: Cyanosis, Edema Lower Extremity: Present: Normal Inspection. No: Edema Neurological: Present: GCS=15, CN II-XII Intact, Speech Normal Skin: Present: Warm, Dry, Normal Color. No: Rashes Psychiatric: Present: Alert, Oriented x 3, Normal Insight, Normal Concentration Medical Decision Making ED Course and Treatment: 05/03/17 06:20 pt reports feeling better and is comfortable w going home. she already has an appt w her pmd today and will return if worse. - Lab Interpretations Lab Results: 05/03/17 05:20 05/03/17 05:20 Lab Results 05/03/17 05:20: Influenza Typ A,B (EIA) Negative for flu a/b 05/03/17 05:20: Sodium 142, Potassium 4.3, Chloride 109, Carbon Dioxide 26, Anion Gap 11, BUN 17, Creatinine 0.6 L, Est GFR ( Amer) > 60, Est GFR ( Non-Af Amer) > 60, Random Glucose 108, Calcium 9.6, Total Bilirubin 0.5, AST 40 H, ALT 32, Alkaline Phosphatase 74, Total Protein 6.5, Albumin 3.9, Globulin 2.5 , Albumin/Globulin Ratio 1.6 05/03/17 05:20: WBC 10.8, RBC 4.34, Hgb 11.4 L, Hct 34.8 L, MCV 80.2, MCH 26.3, MCHC 32.8, RDW 16.8 H, Plt Count 157, MPV 10.6, Gran % 57.6, Lymph % (Auto) 31.4 , [place] % (Auto) 6.5 H, Eos % (Auto) 4.2, Baso % (Auto) 0.3, Gran # 6.24, Lymph # 3.4, [place] # 0.7 H, Eos # 0.5, Baso # 0.03 - RAD Interpretation Radiology Orders: 05/03/17 04:44 CHEST PORTABLE [RAD] Stat - Medication Orders Current Medication Orders: Discontinued Medications Albuterol/Ipratropium (Duoneb 3 Mg/0.5 Mg (3 Ml) Ud) 3 ml IH Q15M [facility] Stop: 05/03/17 05:16 Last Admin: 05/03/17 05:30 Dose: 3 ml Methylprednisolone (Solu-Medrol) 125 mg IVP STAT STA Stop: 05/03/17 04:45 Last Admin: 05/03/17 05:06 Dose: 125 mg IVP Administration Document 05/03/17 05:06 SC (Rec: 05/03/17 05:06 [place] [id number]) Charges for Administration # of IVP Administrations 1 - Scribe Statement The provider has reviewed the documentation as recorded by the Joelibaliza Masterson Provider Scribe Attestation: All medical record entries made by the Scribe were at my direction and personally dictated by me. I have reviewed the chart and agree that the record accurately reflects my personal performance of the history, physical exam, medical decision making, and the department course for this patient. I have also personally directed, reviewed, and agree with the discharge instructions and disposition. Disposition/Present on Arrival - Present on Arrival Any Indicators Present on Arrival: Yes History of DVT/PE: No History of Uncontrolled Diabetes: Yes Urinary Catheter: No History of Decub. Ulcer: No History Surgical Site Infection Following: None - Disposition Have Diagnosis and Disposition been Completed?: Yes Diagnosis: COPD exacerbation Disposition: HOME/ ROUTINE Disposition Time: 06:20 Condition: IMPROVED Additional Instructions: Please follow up with your doctor today. Return to the ER for any worsening symptoms or for any other concerns. Prescriptions: Prednisone 50 mg PO DAILY #4 tab Referrals: Eliu Souza MD [Primary Care Provider] - Follow up with primary Forms: [employer] (Serbian)
[2017-05-03 04:49] VITALS: RESP 18; TEMP 98.1; O2SAT 98
[2017-05-03] MEDS: Albuterol-Ipratrop 3 mg / 0.5 (3 ml) UD IH SCH ×3 (05:06→05:30)
[2017-05-03 05:39] LABS: BASO # 0.03 K/mm3 (0.0-2.0); BASO % 0.3 % (0.0-3.0); EOS # 0.5 (0.0-0.7); EOS % 4.2 % (1.5-5.0); GRAN # 6.24 (1.4-6.5); GRAN % 57.6 % (50.0-68.0); HEMATOCRIT 34.8 % (36.0-48.0); LYMPH # 3.4 (1.2-3.4); LYMPH % 31.4 % (22.0-35.0); MEAN CELL VOLUME 80.2 fl (80.0-105.0); MEAN CORPUSCULAR HEMOGLOBIN 26.3 pg (25.0-35.0); MEAN CORPUSCULAR HGB CONC 32.8 g/dl (31.0-37.0); MEAN PLATELET VOLUME 10.6 fl (7.0-11.0); MONO # 0.7 (0.1-0.6); MONO % 6.5 % (1.0-6.0); RED CELL DISTRIBUTION WIDTH 16.8 % (11.5-14.5); WHITE BLOOD COUNT 10.8 10^3/ul (4.5-11.0)
[2017-05-03 05:48] LABS: ALB/GLOB RATIO 1.6 (1.1-1.8); ALKALINE PHOSPHATASE 74 U/L (38-126); ALT/SGPT 32 U/L (7-56); AST/SGOT 40 U/L (14-36); BILIRUBIN,TOTAL 0.5 mg/dL (0.2-1.3); BLOOD UREA NITROGEN 17 mg/dL (7-21); CALCIUM 9.6 mg/dL (8.4-10.5); CARBON DIOXIDE 26 mmol/L (21-33); CHLORIDE 109 mmol/L (95-110); GFR AFRICAN-AMERICAN > 60; GLUCOSE,RANDOM 108 mg/dL (70-110); POTASSIUM 4.3 mmol/L (3.6-5.0); SODIUM 142 mmol/L (132-148); TOTAL PROTEIN 6.5 g/dL (5.8-8.3)
[2017-05-03 06:43] VITALS: BP 132/78; PULSE 86
--- NOTE | 2017-05-03 08:13 | RAD ---
HISTORY: cough COMPARISON: Chest x-ray performed 01/27/17 TECHNIQUE: Chest, one view. FINDINGS: Examination limited by habitus. LUNGS: Mild bilateral interstitial infiltrates. Please note that chest x-ray has limited sensitivity for the detection of pulmonary masses. PLEURA: No significant pleural effusion identified. No definite pneumothorax . CARDIOVASCULAR: Heart size appears top normal. OSSEOUS STRUCTURES: Cervical fusion hardware. Dorsal thoracic spinal stimulator. Degenerative changes of the spine. VISUALIZED UPPER ABDOMEN: Unremarkable. OTHER FINDINGS: None. IMPRESSION: Mild bilateral interstitial infiltrates.
== END 2017-05-03 06:46 | disposition home or self-care (01) ==
LOC: ED 04:27
DX: J44.1 Chronic obstructive pulmonary disease with (acute) exacerbation (principal); F17.210 Nicotine dependence, cigarettes, uncomplicated
CPT/HCPCS: 71010; 80053; 85025; 87804; 96374; 99283; J2930

== ENCOUNTER 2017-05-05 14:21 | Inpatient (IN) | payer MEDICARE, OTHER ==
[2017-05-05 14:31] VITALS: BMI 37.4
[2017-05-05] MEDS ORDERED: guaiFENesin 200 mg/10 ml Syrup UD PO STA (15:04)
[2017-05-05] MEDS ORDERED: Levalbuterol 1.25 MG/3 ML Inhal Soln UD IH STA ×2 (15:04→15:05)
[2017-05-05] MEDS ORDERED: Ipratropium 0.02% Inhal Soln (0.5 mg/2.5 ml) UD IH STA (15:05)
--- NOTE | 2017-05-05 15:07 | ED PDOC ---
Arrival/HPI - General Chief Complaint: Shortness Of Breath Time Seen by Provider: 05/05/17 14:32 Historian: Patient - History of Present Illness Narrative History of Present Illness (Text): 05/05/17 15:05 57 year old female, whose past medical history includes COPD, diabetes, and pneumonia, presents to the emergency department complaining of shortness of breath associated with coughing, that has worsen over the past 9 days. Patient was seen in the ED on 05/03/17 with similar symptoms and was given iv solumedrol and a script for prednisone, which she did not fill. She did just finish 7 days of levaquin 2 days ago. Patient reports her sob and CHAIDEZ have worsened even more over the past 2 days. She states to have a appetite change, but denies any fever, chills, rihinorrhea, shortness of breath, nausea, vomiting , diarrhea, urinary symptoms, back pain, neck pain, headache, dizziness, or any other complaints. PMD: Dr. Souza Time/Duration: Other (9 days ago) Symptom Onset: Gradual Symptom Course: Unchanged, Worsening Activities at Onset: Light Context: Home Past Medical History - Provider Review Nursing Documentation Reviewed: Yes - Infectious Disease Hx of Infectious Diseases: None - Tetanus Immunization Tetanus Immunization: Unknown - Past Medical History Past Medical History: No Previous - Cardiac Hx Cardiac Disorders: Yes Hx Hypertension: No - Pulmonary Hx Respiratory Disorders: Yes Hx Asthma: Yes Hx Bronchitis: Yes Hx Chronic Obstructive Pulmonary Disease (COPD): Yes - Neurological HX Cerebrovascular Accident: No - HEENT Hx HEENT Disorder: No - Renal Hx Renal Disorder: No - Endocrine/Metabolic Hx Diabetes Mellitus Type 2: Yes Hx Hypothyroidism: Yes - Hematological/Oncological Hx Blood Disorders: No Hx Cancer: No - Integumentary Hx Dermatological Disorder: No - Musculoskeletal/Rheumatological Hx Falls: Yes - Gastrointestinal Hx Gastrointestinal Disorders: Yes - Genitourinary/Gynecological Hx Genitourinary Disorders: No Hx Sexually Transmitted Diseases: No - Psychiatric Hx Depression: Yes Hx Substance Use: Yes - Surgical History Hx Hysterectomy: Yes (partial) Hx Musculoskeletal Surgery: Yes (bunion) Hx Orthopedic Surgery: Yes (neck and back WITH PLATES) Other/Comment: Herniated disc repair. SURGERY FOR: BUNIONS ON BOTH FEET. 02/02: PERCUTANEOUS PINNING K.WIRE 0.62 OF LEFT HAND DISTAL RADIUS FRACTURE AND APPLICATION OF SPLINT, 03/2015, pt fell over [employer] football, hardware removed 05/2016. Spinal stimulator 01/23/17 - Anesthesia Hx Anesthesia: Yes Hx Anesthesia Reactions: Yes (N&V) Hx Malignant Hyperthermia: No - Suicidal Assessment Feels Threatened In Home Enviroment: No Family/Social History - Physician Review Nursing Documentation Reviewed: Yes Family/Social History: No Known Family HX Smoking Status: Heavy Smoker > 10 Cigarettes Daily Hx Alcohol Use: No Hx Substance Use: Yes Hx Substance Use Treatment: Yes (PPD) Allergies/Home Meds Allergies/Adverse Reactions: Allergies No Known Allergies Allergy (Verified 05/05/17 14:31) Home Medications: Home Meds Medication Instructions Recorded Confirmed Simvastatin [Zocor] 20 mg PO HS 11/06/16 05/05/17 Glimepiride [amaRYL] 2 mg PO ACBD 02/03/17 05/05/17 Albuterol HFA [Ventolin HFA 90 2 puff IH PRN PRN 05/05/17 05/05/17 mcg/actuation (8 g)] Levothyroxine [Synthroid] 1 tab PO DAILY 05/05/17 05/05/17 oxyCODONE [oxyCODONE Immediate 5 mg PO TID 05/05/17 05/05/17 Release Tab] Review of Systems - Physician Review All systems were reviewed & negative as marked: Yes - Review of Systems Constitutional: absent: Fevers, Other (Chills) ENT: absent: Rhinorrhea, Sinus Congestion Respiratory: SOB, Cough Cardiovascular: CHAIDEZ. absent: Chest Pain Gastrointestinal: Appetite Changes. absent: Diarrhea, Nausea, Vomiting Musculoskeletal: absent: Back Pain, Neck Pain Neurological: absent: Headache, Dizziness Physical Exam Vital Signs Reviewed: Yes Vital Signs Temp Pulse Resp BP Pulse Ox 05/05/17 18:00 74 18 145/71 97 05/05/17 16:22 75 18 148/75 97 05/05/17 14:53 20 05/05/17 14:50 98.3 F 84 18 153/89 H 95 Temperature: Afebrile Blood Pressure: Normal Pulse: Regular Respiratory Rate: Normal Appearance: Positive for: Well-Appearing, Non-Toxic, Comfortable Pain Distress: None Mental Status: Positive for: Alert and Oriented X 3 - Systems Exam Head: Present: Atraumatic, Normocephalic Pupils: Present: PERRL Conjunctiva: Present: Normal Mouth: Present: Moist Mucous Membranes Pharnyx: Present: Normal. No: ERYTHEMA, EXUDATE Neck: Present: Normal Range of Motion Respiratory/Chest: Present: Wheezes (Diffuse wheezing bilaterally ), Decreased Breath Sounds, Rhonchi (scattered), Tachypneic. No: Accessory Muscle Use Cardiovascular: Present: Regular Rate and Rhythm, Normal S1, S2. No: Murmurs Abdomen: Present: Normal Bowel Sounds. No: Tenderness, Distention, Peritoneal Signs Back: Present: Normal Inspection Upper Extremity: Present: Normal Inspection. No: Cyanosis, Edema Lower Extremity: Present: Normal Inspection. No: Edema Neurological: Present: GCS=15, CN II-XII Intact, Speech Normal Skin: Present: Warm, Dry, Normal Color. No: Rashes Psychiatric: Present: Alert, Oriented x 3, Normal Insight, Normal Concentration Medical Decision Making ED Course and Treatment: 05/05/17 15:05 Impression: 57 year old female presents with shortness of breath associated with coughing s/ p finishing levaquin course and not filling steroids prescribed. Differential: pneumonia vs COPD exacerbation Plan: -- CT Chest -- EKG -- Atrovent -- Robitussin -- SOLU-Medrol -- Xopenex -- Reassess and disposition Prior Visits: Notes and results from previous visits were reviewed. On 05/03/17 patient came in complaining of sinus congestion, rhinorrhea, cough, and chest congestions for one week. Patient was admitted. Progress Notes: EKG shows NSR at 80 BPM with normal intervals, normal axis. No ST/T changes. Interpreted by me. PROCEDURE: CT chest dated 05/05/2017 Dictated: Ricardo Marion MD Report Date : 05/05/2017 17:06:53 IMPRESSION: There are scattered bilateral upper and lower lobe ground-glass opacities. Rule out air trapping. Rule out pneumonitis. Early mild interstitial edema should be at considered. Atelectatic and or scarring changes both lung bases left greater than right including the left lingular region. 05/05/17 18:[address] with no definite pneumonia; having already just finished a 7 day course of levaquin, will hold on additional abx. Patient with sob and wheezing consistent with copd exacerbation; given iv steroids in the ED and nebs in the ED with minimal improvement - she will need further evaluation and treatment in the hospital as well as pulmonary consult. Discussed with Dr. Coffey for placement on her service. - Lab Interpretations Lab Results: 05/05/17 15:12 05/05/17 15:12 Lab Results 05/05/17 15:12: Sodium 142, Potassium 4.4, Chloride 107, Carbon Dioxide 28, Anion Gap 11, BUN 12, Creatinine 0.6 L, Est GFR ( Amer) > 60, Est GFR ( Non-Af Amer) > 60, Random Glucose 115 H, Calcium 10.0, Magnesium 2.0, Total Bilirubin 0.4, AST 32, ALT 32, Alkaline Phosphatase 80, Lactate Dehydrogenase 567, Total Creatine Kinase 99, Troponin I < 0.01, NT-Pro-B Natriuret Pep 272, Total Protein 6.9, Albumin 4.0, Globulin 2.9, Albumin/Globulin Ratio 1.4, Lipase 19 L 05/05/17 15:12: WBC 7.4 D, RBC 4.84, Hgb 12.6, Hct 38.3, MCV 79.1 L, MCH 26.0, MCHC 32.9, RDW 16.5 H, Plt Count 198, MPV 10.1, Gran % 56.9, Lymph % (Auto) 30.8 , [place] % (Auto) 5.4, Eos % (Auto) 6.6 H, Baso % (Auto) 0.3, Gran # 4.21, Lymph # 2.3, [place] # 0.4, Eos # 0.5, Baso # 0.02 05/05/17 15:12: PT 10.4, INR 0.96, APTT 26.1 - RAD Interpretation Radiology Orders: 05/05/17 15:05 CHEST W/O CONTRAST [CT] Stat - EKG Interpretation Interpreted by ED Physician: Yes Type: 12 lead EKG - Medication Orders Current Medication Orders: Discontinued Medications Guaifenesin (Robitussin) 400 mg PO ONCE STA Stop: 05/05/17 15:05 Last Admin: 05/05/17 15:30 Dose: 400 mg Ipratropium [place] (Atrovent) 0.5 mg IH STAT STA Stop: 05/05/17 15:06 Last Admin: 05/05/17 15:18 Dose: 0.5 mg Levalbuterol HCl (Xopenex) 1.25 mg IH STAT STA Stop: 05/05/17 15:05 Last Admin: 05/05/17 15:18 Dose: 1.25 mg Levalbuterol HCl (Xopenex) 1.25 mg IH STAT STA Stop: 05/05/17 15:06 Last Admin: 05/05/17 15:30 Dose: 1.25 mg Methylprednisolone (Solu-Medrol) 125 mg IVP STAT STA Stop: 05/05/17 15:05 Last Admin: 05/05/17 15:30 Dose: 125 mg IVP Administration Document 05/05/17 15:30 GMD (Rec: 05/05/17 15:30 GMD [facility] [id number] Charges for Administration # of IVP Administrations 1 Oxycodone HCl (Oxycodone Immediate Release Tab) 5 mg PO STAT STA Stop: 05/05/17 18:19 - Scribe Statement The provider has reviewed the documentation as recorded by the Pasha Arellano All medical record entries made by the Joelibaliza were at my direction and personally dictated by me. I have reviewed the chart and agree that the record accurately reflects my personal performance of the history, physical exam, medical decision making, and the department course for this patient. I have also personally directed, reviewed, and agree with the discharge instructions and disposition. Disposition/Present on Arrival - Present on Arrival Any Indicators Present on Arrival: Yes History of DVT/PE: No History of Uncontrolled Diabetes: Yes Urinary Catheter: No History of Decub. Ulcer: No History Surgical Site Infection Following: None - Disposition Have Diagnosis and Disposition been Completed?: Yes Diagnosis: COPD exacerbation Disposition: HOSPITALIZED Disposition Time: 17:40 Patient Plan: Observation Condition: FAIR
[2017-05-05 15:26] LABS: BASO # 0.02 K/mm3 (0.0-2.0); BASO % 0.3 % (0.0-3.0); EOS # 0.5 (0.0-0.7); EOS % 6.6 % (1.5-5.0); GRAN # 4.21 (1.4-6.5); GRAN % 56.9 % (50.0-68.0); HEMATOCRIT 38.3 % (36.0-48.0); LYMPH # 2.3 (1.2-3.4); LYMPH % 30.8 % (22.0-35.0); MEAN CELL VOLUME 79.1 fl (80.0-105.0); MEAN CORPUSCULAR HGB CONC 32.9 g/dl (31.0-37.0); MEAN PLATELET VOLUME 10.1 fl (7.0-11.0); MONO # 0.4 (0.1-0.6); MONO % 5.4 % (1.0-6.0); RED CELL DISTRIBUTION WIDTH 16.5 % (11.5-14.5); WHITE BLOOD COUNT 7.4 10^3/ul (4.5-11.0)
[2017-05-05 15:38] LABS: INR 0.96 (0.93-1.08); PARTIAL THROMBOPLASTIN TIME 26.1 Seconds (23.7-30.8)
[2017-05-05 15:40] LABS: ALB/GLOB RATIO 1.4 (1.1-1.8); ALKALINE PHOSPHATASE 80 U/L (38-126); ALT/SGPT 32 U/L (7-56); AST/SGOT 32 U/L (14-36); BILIRUBIN,TOTAL 0.4 mg/dL (0.2-1.3); BLOOD UREA NITROGEN 12 mg/dL (7-21); CARBON DIOXIDE 28 mmol/L (21-33); CHLORIDE 107 mmol/L (98-107); GFR AFRICAN-AMERICAN > 60; GLUCOSE,RANDOM 115 mg/dL (70-110); LIPASE 19 U/L (23-300); POTASSIUM 4.4 mmol/L (3.6-5.0); SODIUM 142 mmol/L (132-148); TOTAL PROTEIN 6.9 g/dL (5.8-8.3)
[2017-05-05 16:02] LABS: TROPONIN I < 0.01 ng/mL
--- NOTE | 2017-05-05 17:17 | CT ---
PROCEDURE: CT chest dated 05/05/2017 HISTORY: sob despite abx; h/o pna - r/o pneumonia COMPARISON: Comparison made with CT chest 01/28/2017 and chest radiograph dated 05/03/2017 TECHNIQUE: Contiguous axial images were obtained through the chest without intravenous contrast enhancement. Sagittal and coronal reconstructions were performed. Radiation dose (DLP): 819.16 mGy-cm. This CT exam was performed using one or more of the following dose reduction techniques: Automated exposure control, adjustment of the mA and/or kV according to patient size, and/or use of iterative reconstruction technique. FINDINGS: LUNGS: Current study reveals patchy ground-glass opacities seen in the upper and lower lobes bilaterally nonspecific. Rule out air trapping and/or pneumonitis. Possibility of mild early interstitial pulmonary edema to be excluded. Clinical correlation recommended. Minor atelectasis and or scarring changes both lung bases left greater than right including the lingular region. MEDIASTINUM: Heart size is within range of normal. No significant pericardial effusion. Ascending thoracic aorta measures approximately 3.0 cm and descending thoracic aorta measures approximately 2.4 cm. Pulmonary trunk measures approximately 2.8 cm. Central airways are midline and patent with no significant endoluminal lesions. There are a few small nonspecific mediastinal lymph nodes. Evaluation for hilar adenopathy limited due to the lack of circulating intravenous contrast material. No significant central endoluminal lesions Small hiatal hernia with slight wall thickening of the distal esophagus likely due to protrusion of gastric mucosa. Possibility of esophagitis not excluded. Clinical correlation recommended PLEURA: No pleural fluid. No pneumothorax. BONES: Re- demonstrated is a multi level ACDF plate in the lower cervical spine. . Additionally, there is an in situ metallic pain stimulator electrode which appears to enter the dorsal aspect of the spinal canal at approximately the L1 level and extends superiorly to approximately upper T6 level. . Mild multilevel degenerative spondylosis of the thoracic spine. There are no acute compression fractures nor retropulsed fragments. UPPER ABDOMEN: There appears to be some minimal fatty hepatic infiltration however the remaining visualized upper abdominal structures otherwise unremarkable. Visualized upper abdominal structures appear grossly unremarkable. OTHER FINDINGS: None. IMPRESSION: There are scattered bilateral upper and lower lobe ground-glass opacities. Rule out air trapping. Rule out pneumonitis. Early mild interstitial edema should be at considered. Atelectatic and or scarring changes both lung bases left greater than right including the left lingular region See above discussion for additional details and findings. .
[2017-05-05] MEDS ORDERED: oxyCODONE 5 mg Immediate Release Tab PO STA (18:18)
[2017-05-05] MEDS ORDERED: Albuterol-Ipratrop 3 mg / 0.5 (3 ml) UD IH STA (18:41)
[2017-05-05 19:53] LABS: URINE BILIRUBIN NEGATIVE (NEGATIVE); URINE BLOOD NEGATIVE (NEGATIVE); URINE GLUCOSE (UA) NEGATIVE (NEGATIVE); URINE KETONE NEGATIVE (NEGATIVE); URINE LEUKOCYTE ESTERASE NEGATIVE Leu/uL (NEGATIVE); URINE PROTEIN NEGATIVE mg/dL (<30 mg/dL); URINE UROBILINOGEN 0.2 E.U./dL (<1 E.U./dL)
[2017-05-05 20:03] LABS: URINE APPEARANCE CLEAR (CLEAR); URINE COLOR YELLOW (YELLOW)
[2017-05-05] MEDS ORDERED: Albuterol-Ipratrop 3 mg / 0.5 (3 ml) UD IH PRN (21:54)
[2017-05-05] MEDS: Insulin Reg-HIGH-Coverage SC SCH (22:23)
[2017-05-06] MEDS ORDERED: Albuterol-Ipratrop 3 mg / 0.5 (3 ml) UD IH SCH (02:00)
[2017-05-06] MEDS: Levalbuterol 1.25 MG/3 ML Inhal Soln UD IH SCH ×4 (03:00→20:00)
[2017-05-06] MEDS: oxyCODONE 5 mg Immediate Release Tab PO PRN ×4 (03:03→21:47)
--- NOTE | 2017-05-06 03:17 | HP ---
HISTORY OF PRESENT ILLNESS: The patient is a 57-year-old known to me from multiple previous admission, was seen in my office almost 2-week ago with cough, congestion. No hemoptysis. No fever. She was given tapering dose of steroid. She finish her Levaquin and has been using her nebulizer, but the patient is heavy active smoker, smokes more than 1 pack a day. She states she felt a little better, but started to have shortness of breath again to the point that she was unable to catch her breath, so she came to emergency room for further evaluation. Cough is productive. The patient came to emergency room on 05/03/2017 with similar complaints. She was given IV steroid and tapering dose of steroid. She states she never felt has been using her nebulizers with no significant relief. No history of fever or chills. No history of nausea or vomiting. Does complain of generalized weakness. PAST MEDICAL HISTORY: Significant for: 1. Noninsulin-dependent diabetes. 2. History of depression. 3. Chronic degenerative disk disease, recently had diskectomy done. 4. Hypothyroidism. 5. Hyperlipidemia. ALLERGIES: SHE IS NOT ALLERGIC TO ANY MEDICATIONS. MEDICATIONS AT HOME: She is on Zocor 20 mg daily, levothyroxine 25 mcg daily, glimepiride 2 mg twice a day, oxycodone 5 mg q. 6 hours p.r.n. SOCIAL HISTORY: She lives with her daughter, actively smoke, socially drinks. REVIEW OF SYSTEMS: Significant for cough, congestion and shortness of breath. PHYSICAL EXAMINATION: GENERAL: She is awake, alert, oriented, mild shortness of breath. VITAL SIGNS: She is afebrile, pulse 83, respirations 20, blood pressure 122/72. HEART: S1 and S2, audible. LUNGS: Bilateral expiratory rhonchi. ABDOMEN: Soft, nontender. No rebound. No guarding. NEUROLOGIC: She is awake, alert, oriented, communicative. LABORATORY DATA: WBC 7.4, hemoglobin 12.6, hematocrit 38.3, platelets 199. PT 10.4 and INR 0.96. Chemistry; sodium 142, potassium 4.4, chloride 107, CO2 of 28, BUN 12, creatinine 0.6, blood sugar of 115. LFTs are within normal limit. Urinalysis is unremarkable. CT scan of the chest that shows patchy ground-glass opacity in the upper and lower lobe bilaterally, mild interstitial edema. ASSESSMENT: 1. Heavy active smoker. 2. Chronic obstructive pulmonary disease. 3. Hypothyroidism. 4. Chronic degenerative disk disease. 5. Noninsulin-dependent diabetes. PLAN: The patient will be admitted, will give IV steroid, IV antibiotic, nebulizer treatment. I will start IV steroid. Monitor her blood sugar. Pulmonary consult by Dr. Beard has been requested and will reevaluate the patient in a.m. Eliu Souza MD
[2017-05-06 05:38] VITALS: RESP 20
[2017-05-06] MEDS: Pantoprazole 40 mg EC Tab PO SCH (05:56)
[2017-05-06] MEDS: Levothyroxine 25 MCG TAB PO SCH (05:56)
[2017-05-06] MEDS: Insulin Reg-HIGH-Coverage SC SCH ×4 (07:52→23:13)
[2017-05-06] MEDS: MethylPREDNISolone 40 mg Vial IV SCH ×2 (09:49→22:47)
[2017-05-06] MEDS ORDERED: Levothyroxine 25 MCG TAB PO SCH (10:00)
[2017-05-06] MEDS: Fluticasone Nasal 50 mcg/Spray NS SCH (11:15)
[2017-05-06] MEDS: cefTRIAXone 1 gm 1 GM/100 ML BAG IVPB SCH (11:16)
--- NOTE | 2017-05-06 11:22 | CON ---
PULMONARY CONSULTATION DATE: 05/06/2017 REFERRING PHYSICIAN: Eliu Souza MD REASON FOR CONSULTATION: Chronic obstructive pulmonary disease. HISTORY OF PRESENT ILLNESS: The patient is a 57-year-old female, with past medical history significant for chronic obstructive pulmonary disease, extensive smoking history - still smokes, severe bilateral pneumonia (01/2017), fibroid disease, and diabetes mellitus, who presents to [facility] with a 1-week history of worsening shortness of breath at rest, dyspnea on exertion, cough, and sputum production. There is no history of chest pain, coughing up of blood, or chest pain - made worse with deep respirations. There is no history of temperatures, chills, or infectious exposure. There is no history of night sweats, weight loss, or appetite change prior to the above events. No history of leg or calf pains. No history of syncope or diaphoresis. No history of recent travel or trauma. REVIEW OF SYSTEMS: The patient does complain of a runny nose with postnasal drip over the past week. No nausea, vomiting, or diarrhea. No acute urinary symptoms. No new neurological or musculoskeletal complaints. Rest of the review of systems is negative. ALLERGIES: NO KNOWN DEMONSTRABLE ALLERGIES. SOCIAL HISTORY: Positive for extensive tobacco usage - still smokes, also positive for social alcohol usage. FAMILY HISTORY: No inheritable diseases. HOME MEDICATIONS: Include Zocor, Synthroid, Amaryl, albuterol HFA, and oxycodone. PHYSICAL EXAMINATION: GENERAL: The patient appears comfortable at rest. She is not short of breath. She is not using accessory muscles for breathing. VITAL SIGNS: Temperature is 97.5, pulse on the monitor is 78, respiratory rate 18, and blood pressure 129/68. Oxygen saturation on nasal cannula is 95%. HEENT: Normocephalic and atraumatic. NECK: No JVD. CARDIOVASCULAR: Positive S1 and S2. No S3 or gallop. LUNGS: Decreased breath sounds at the bases. Scattered bilateral rhonchi and wheezing are appreciated. EXTREMITIES: No clubbing, cyanosis, or edema. Calves are nontender to palpation. GASTROINTESTINAL: Abdomen is soft, nontender, and nondistended. Bowel sounds are positive. SKIN: No acute rash. NEUROLOGIC: Limited at the present time. PERTINENT LABORATORY DATA: CAT scan of the chest was done yesterday and reviewed. There are some mild bilateral interstitial infiltrates noted. There is no significant lymphadenopathy. When compared with the CAT scan of 01/28/2017, the most current CAT scan is significantly improved. There are significantly less infiltrates noted on the current CAT scan, compared to the CAT scan of 01/28/2017. CBC: White count 7.4, hemoglobin 12.6, hematocrit 38.3, and platelets of 198. Complete metabolic profile: Glucose 115. Rest of the metabolic profiles within normal limits. IMPRESSION: 1. Acute, recurrent bronchitis. 2. Chronic obstructive pulmonary disease. 3. Acute rhinitis. 4. Diabetes mellitus. PLAN: The patient presents to [facility] with a 1-week history of worsening pulmonary symptoms. In addition, she also complains of a runny nose with postnasal drip over the past week. There is no history of fevers. There is no history of infectious exposure. There is no history of weight loss. I did review the CAT scan of the chest done yesterday. Compared to the CAT scan of 01/28/2017, the most current CAT scan is significantly improved - with significantly less infiltrates. As above, there is no significant adenopathy. On physical exam, there is [id number] bronchospasm noted. I will continue with the current nebulizer treatments and current intravenous steroids for now. I will also add inhaled steroids (Pulmicort), as well as nasal steroids. Again, there is no history of temperatures. There is no leukocytosis. The patient has been started on antibiotic therapy. Cultures are pending. I will also order a procalcitonin level to be done on a stat basis. The patient does feel better, and is clinically improved this morning. She is strongly advised to stop smoking. Additional pulmonary intervention will be based on the clinical status of the patient. I will discuss the above with Dr. Souza later this morning. Thank you very much for this pulmonary consultation. Didier Beard MD KATIE
--- NOTE | 2017-05-06 12:22 | CARD ---
APPROVED REPORT EKG Measurement Heart [id number] <Conclusion> Normal sinus rhythm Normal ECG
--- NOTE | 2017-05-06 15:05 | PN ---
SUBJECTIVE: The patient is 57 years old seen and examined today, still has cough, congestion and wheezing. The patient admits actively smoking, heavy almost one pack a day. PHYSICAL EXAMINATION: VITAL SIGNS: She is afebrile, pulse 72, respirations 20, blood pressure 129/68. LUNGS: Bilateral fair airflow, but has bilateral soft crackles and expiratory rhonchi. HEART: S1 and S2, audible. ABDOMEN: Soft, obese, nontender. No rebound. No guarding. NEUROLOGIC: The patient is awake, alert, oriented, communicative and ambulatory. LABORATORY DATA: Blood sugar is 148. She had CT scan of the chest done that shows ground-glass appearance in upper lung regions along with lower lobes. ASSESSMENT: 1. Chronic obstructive pulmonary disease exacerbation. 2. Bronchospasm. 3. Asthmatic bronchitis. 4. Active smoking. 5. Non-insulin dependent diabetes. PLAN: The patient is hemodynamically stable. Discontinue telemetry. We will continue her on steroid, nebulizer treatment, out of bed to chair. Advised her to quit smoking. She states she is seriously thinking about it and we will start Chantix as soon as she get out of the hospital. We will reevaluate the patient in a.m. Eliu Souza MD
[2017-05-06] MEDS: Budesonide 0.5 mg/2 ml Inhal Susp UD IH SCH (20:00)
[2017-05-07] MEDS: Levalbuterol 1.25 MG/3 ML Inhal Soln UD IH SCH (01:45)
[2017-05-07] MEDS: oxyCODONE 5 mg Immediate Release Tab PO PRN ×4 (03:39→22:06)
[2017-05-07] MEDS: Levothyroxine 25 MCG TAB PO SCH (06:29)
[2017-05-07] MEDS: Pantoprazole 40 mg EC Tab PO SCH (06:32)
[2017-05-07] MEDS ORDERED: Albuterol-Ipratrop 3 mg / 0.5 (3 ml) UD IH PRN (07:01)
[2017-05-07] MEDS: Budesonide 0.5 mg/2 ml Inhal Susp UD IH SCH ×2 (07:16→19:55)
[2017-05-07] MEDS: Albuterol-Ipratrop 3 mg / 0.5 (3 ml) UD IH SCH ×3 (07:16→19:55)
[2017-05-07] MEDS: Insulin Reg-HIGH-Coverage SC SCH ×4 (07:34→22:31)
--- NOTE | 2017-05-07 07:55 | PN ---
SUBJECTIVE: The patient appears comfortable this morning. She is not short of breath at rest. PHYSICAL EXAMINATION: VITAL SIGNS: Temperature is 98.0, pulse is 79, respirations 18-20, blood pressure 134/90. Oxygen saturation on nasal cannula is 94% to 95%. HEENT: Normocephalic, atraumatic. NECK: No JVD. CARDIOVASCULAR: Positive S1, S2. No S3 gallop. LUNGS: Improved breath sounds at the bases. Still with scattered bilateral rhonchi and wheezing-possibly slightly less. EXTREMITIES: No clubbing, cyanosis or edema. Calves are nontender to palpation. GASTROINTESTINAL: Abdomen is soft, nontender and nondistended. Bowel sounds are positive. SKIN: No acute rash. NEUROLOGIC: Limited at the present time. IMPRESSION: 1. Acute, recurrent bronchitis. 2. Chronic obstructive pulmonary disease. 3. Acute rhinitis. 4. Diabetes mellitus. PLAN: The patient appears comfortable this morning. She is not short of breath at rest. She does state to feeling better overall. On physical exam, her bronchospasm is possibly slightly less. I will continue the current intravenous steroids for now. However, the patient has not been tachycardic, and I will change the nebulizer treatments to DuoNeb (instead of Xopenex). I will also continue with the nasal steroids and inhaled steroids. The patient remains on antibiotic therapy. Procalcitonin done yesterday is negative. We can probably shorten the course of antibiotic therapy at this point in time. Cultures are so far negative. Clinical status of the patient is certainly improved-compared to her initial presentation. The patient is advised again to be out of bed as much as possible. I will discuss the above with the attending physician later this morning. Didier Beard MD MTDOsvaldo
[2017-05-07] MEDS: MethylPREDNISolone 40 mg Vial IV SCH ×2 (09:03→21:27)
[2017-05-07] MEDS: cefTRIAXone 1 gm 1 GM/100 ML BAG IVPB SCH (09:05)
[2017-05-07] MEDS: guaiFENesin DM 200 mg-20 mg/10 ml UD PO PRN ×2 (09:08→21:33)
[2017-05-07] MEDS: Fluticasone Nasal 50 mcg/Spray NS SCH (12:36)
--- NOTE | 2017-05-07 14:49 | IP.NPCORE ---
COPD Progress Note - COPD Progress Note Spirometry Assessment Completed:: No Symptoms:: Increase in Dyspnea, Cough Nebulizers Q2-4 hrs:: Duonebs/Albuterol Therapy Antibiotics (Name/Dose/Frequency):: Rocephin 1gm IV daily/Doxycycline 100mg IVC q12h Systemic Steroids w/ methylprednisolone Name/Dose/Frequency:: Solumedrol 30mg q12h Oxygen Delivery Method: Nasal Cannula Oxygen Flow Rate: 2 Smoking cessation counseling all stages copd exacerbation: Yes
--- NOTE | 2017-05-07 20:07 | PN ---
DATE: SUBJECTIVE: The patient is 57-year-old seen and examined. Still has cough, congestion, still short of breath. PHYSICAL EXAMINATION: VITAL SIGNS: She is afebrile, pulse 82, respiration 20, blood pressure 133/83. LUNGS: Bilateral dense crackles, both posteriorly and inferiorly. Few expiratory rhonchi. HEART: S1 and S2 audible. ABDOMEN: Soft and nontender. No rebound and no guarding. NEUROLOGIC: The patient is awake, alert, and oriented, communicative. LABORATORY DATA: Her blood sugar is 176. ASSESSMENT: 1. Chronic obstructive pulmonary disease exacerbation. 2. Bronchospasm. 3. Non-insulin dependent diabetes. 4. Morbid obesity. 5. Degenerative disk disease. PLAN: Currently, the patient is on doxycycline. She is getting nebulizer treatment. She is on Rocephin. She is on IV steroids. She is being followed by the newspaper journalist also. We will continue current management. We will reevaluate in a.m. Eliu Souza MD
[2017-05-08] MEDS: Albuterol-Ipratrop 3 mg / 0.5 (3 ml) UD IH SCH ×4 (01:32→19:34)
[2017-05-08] MEDS: oxyCODONE 5 mg Immediate Release Tab PO PRN ×4 (04:29→23:30)
[2017-05-08] MEDS: Levothyroxine 25 MCG TAB PO SCH (06:01)
[2017-05-08] MEDS: Pantoprazole 40 mg EC Tab PO SCH (06:01)
[2017-05-08] MEDS: Budesonide 0.5 mg/2 ml Inhal Susp UD IH SCH ×2 (07:23→19:34)
[2017-05-08] MEDS: Insulin Reg-HIGH-Coverage SC SCH ×4 (07:45→21:23)
--- NOTE | 2017-05-08 08:51 | PN ---
SUBJECTIVE: The patient appears comfortable this morning. She is not short of breath at rest. PHYSICAL EXAMINATION: VITAL SIGNS: Temperature is 97.7, pulse 68, respirations 18, blood pressure 120/63. Oxygen saturation on room air is 94% to 97%. HEENT: Normocephalic, atraumatic. NECK: No JVD. CARDIOVASCULAR: Positive S1, S2. No S3 gallop. LUNGS: Improved breath sounds at the bases. Significant decrease in the rhonchi and wheezing bilaterally. EXTREMITIES: No clubbing, cyanosis or edema. Calves are nontender to palpation. GASTROINTESTINAL: Abdomen is soft, nontender and nondistended. Bowel sounds are positive. SKIN: No acute rash. NEUROLOGIC: Limited at the present time. IMPRESSION: 1. Acute, recurrent bronchitis. 2. Chronic obstructive pulmonary disease. 3. Acute rhinitis. 4. Diabetes mellitus. PLAN: The patient appears very comfortable this morning. She is not short of breath at rest. Her cough is much less. She does state to feeling much better overall. On physical exam, there is significantly less bronchospasm. In addition, there is no significant alveolar-arterial gradient. I will continue with the current nebulizer treatments, and decrease the intravenous steroids this morning. The patient remains on nasal and inhaled steroids. The patient also remains on antibiotic therapy. There are no temperatures noted. There is no leukocytosis. Clinical status of the patient is significantly improved. The patient is advised to be out of bed and ambulating today. Hopefully, she can be discharged in the near future. I will discuss the above with Dr. Souza. Didire Beard MD MTDD
[2017-05-08] MEDS: guaiFENesin DM 200 mg-20 mg/10 ml UD PO PRN (09:59)
[2017-05-08] MEDS: Fluticasone Nasal 50 mcg/Spray NS SCH (09:59)
[2017-05-08] MEDS: MethylPREDNISolone 40 mg Vial IVP SCH ×2 (09:59→21:23)
[2017-05-08] MEDS: cefTRIAXone 1 gm 1 GM/100 ML BAG IVPB SCH (10:00)
[2017-05-08] MEDS: POLYETHYLENE GLYCOL 3350 17 GM/Dose PACKET PO SCH (12:00)
--- NOTE | 2017-05-08 18:51 | PN ---
DATE: SUBJECTIVE: The patient is a 57-year-old lying in bed, seems to be comfortable. Still has cough, congestion, bilateral wheezing, otherwise, she is eating and tolerating. PHYSICAL EXAMINATION: VITAL SIGNS: She is afebrile, pulse 60, respiration 20, blood pressure 119/75. LUNGS: Bilateral crackles. Bilateral expiratory rhonchi. HEART: S1 and S2 audible. ABDOMEN: Soft, obese, and nontender. No rebound. No guarding. NEUROLOGIC: She is awake, alert, and oriented. Communicative and ambulatory. LABORATORY DATA: Blood sugar is 197. ASSESSMENT: 1. Chronic obstructive lung disease exacerbation. 2. Active smoker. 3. Eqa-dinzgpk-fackrplli diabetes. 4. Hyperlipidemia. 5. Degenerative disk disease. PLAN: The patient is still wheezing and coughing and get hypoxic on ambulation, pulse ox of 90%, so plan is we will continue the patient on steroids, IV antibiotic, nebulizer treatment. I will reevaluate in a.m. Next, we can switch to p.o. and send her home. If she is still having crackles, she might need prolonged IV steroid and inhaler. Eliu Souza MD
[2017-05-09] MEDS: Albuterol-Ipratrop 3 mg / 0.5 (3 ml) UD IH SCH ×3 (01:34→13:24)
[2017-05-09] MEDS: Levothyroxine 25 MCG TAB PO SCH (05:24)
[2017-05-09] MEDS: oxyCODONE 5 mg Immediate Release Tab PO PRN ×2 (05:25→11:34)
[2017-05-09] MEDS: Pantoprazole 40 mg EC Tab PO SCH (05:25)
[2017-05-09] MEDS: Budesonide 0.5 mg/2 ml Inhal Susp UD IH SCH (07:25)
[2017-05-09] MEDS: Insulin Reg-HIGH-Coverage SC SCH ×2 (08:38→12:12)
[2017-05-09] MEDS: Fluticasone Nasal 50 mcg/Spray NS SCH (09:03)
[2017-05-09] MEDS: cefTRIAXone 1 gm 1 GM/100 ML BAG IVPB SCH (09:03)
[2017-05-09] MEDS: POLYETHYLENE GLYCOL 3350 17 GM/Dose PACKET PO SCH (09:03)
[2017-05-09] MEDS: MethylPREDNISolone 40 mg Vial IVP SCH (09:35)
--- NOTE | 2017-05-09 09:45 | PN ---
DATE: 05/09/2017 PULMONARY PROGRESS NOTE SUBJECTIVE: The patient appears comfortable this morning. She is not short of breath at rest. She is still somewhat dyspneic on exertion. PHYSICAL EXAMINATION: VITAL SIGNS: Temperature is 97.9, pulse is 57, respirations are 18/20, and blood pressure is 122/73. Oxygen saturation on nasal cannula is 95%. HEENT: Normocephalic and atraumatic. NECK: No JVD. CARDIOVASCULAR: Positive S1 and S2. No S3 gallop. LUNGS: Still with mild rhonchi and wheezing bilaterally - but overall less. EXTREMITIES: No clubbing, cyanosis or edema. Calves are nontender to palpation. GASTROINTESTINAL: Abdomen is soft, nontender and nondistended. Bowel sounds are positive. SKIN: No acute rash. NEUROLOGIC: Exam limited at the present time. IMPRESSION 1. Acute, recurrent bronchitis. 2. Chronic obstructive pulmonary disease. 3. Acute rhinitis. 4. Diabetes mellitus. PLAN: The patient appears comfortable this morning. She is not short of breath at rest. She is still somewhat dyspneic on exertion. She does state to feeling much better overall. On physical exam, her bronchospasm persists - although less overall. In addition, upon review of the vitals, the patient's oxygen saturation did drop to 90% on room air yesterday. Thus, I will continue the current nebulizer treatments and current intravenous steroids for now. The patient remains on antibiotic therapy. There are no temperatures noted. There is no leukocytosis. Culture results are negative. Clinical status of the patient continues to slowly improve. The patient is advised to be out of bed most of the day. I will discuss the above with Dr. Souza. Didier Beard MD MTDD
--- NOTE | 2017-05-09 15:16 | DS ---
HISTORY OF PRESENT ILLNESS: The patient is a 57 years old, seen and examined, lying in bed, still has cough, congestion and shortness of breath. PHYSICAL EXAMINATION: VITAL SIGNS: She is afebrile. Pulse 58, respirations 20, blood pressure 141/85. LUNGS: Bilateral fair airflow. Positive bilateral soft crackles and expiratory rhonchi. HEART: S1 and S2, audible. ABDOMEN: Soft, nontender. No rebound. No guarding. NEUROLOGIC: The patient is awake, alert, oriented, communicative and ambulatory. LABORATORY DATA: Blood sugar is 115. ASSESSMENT: 1. Chronic obstructive pulmonary disease exacerbation. 2. Active smoker. 3. Asthmatic bronchitis. 4. Non-insulin dependent diabetes. PLAN: The patient is a very heavy smoke. She need IV steroid and antibiotic. I am afraid if she gets discharged, she is going to go back to smoking and then it will be hard to monitor her blood sugar, so she presented to TCU. She is accepted, she can be transferred to TCU, where we can monitor her closely and that might help her habit of smoking also. We will taper down steroids slowly and revaluate. Eliu Souza MD
[2017-05-09 16:56] VITALS: BP 119/74; PULSE 73; TEMP 98.1; O2SAT 93
== END 2017-05-09 18:10 | DRG 192 ==
LOC: ED 14:21 → ERH 17:51 → 2RNO 05-06 06:07 → OBSVTOIN 05-06 11:20 → 5RSO 05-06 14:37
PROVIDERS: ADMIT Internal Medicine; ATTEND Internal Medicine
DX: J44.1 Chronic obstructive pulmonary disease with (acute) exacerbation (principal); E66.01 Morbid (severe) obesity due to excess calories; E03.9 Hypothyroidism, unspecified; E11.9 Type 2 diabetes mellitus without complications; E78.5 Hyperlipidemia, unspecified; F17.210 Nicotine dependence, cigarettes, uncomplicated; J00 Acute nasopharyngitis [common cold]; Z79.84 Long term (current) use of oral hypoglycemic drugs; Z79.899 Other long term (current) drug therapy; Z90.710 Acquired absence of both cervix and uterus; M51.36 Other intervertebral disc degeneration, lumbar region; Z87.01 Personal history of pneumonia (recurrent); Z68.37 Body mass index [BMI] 37.0-37.9, adult

== ENCOUNTER 2017-05-09 18:16 | Inpatient (IN) | payer MEDICARE, OTHER ==
[2017-05-09] MEDS ORDERED: Albuterol-Ipratrop 3 mg / 0.5 (3 ml) UD IH PRN (18:38)
[2017-05-09] MEDS ORDERED: guaiFENesin DM 200 mg-20 mg/10 ml UD PO PRN (18:50)
[2017-05-09 19:12] VITALS: BMI 37.2
[2017-05-09] MEDS: Insulin Reg-HIGH-Coverage SC SCH (21:56)
[2017-05-09] MEDS ORDERED: Non Formulary Medication (Doxycycline Hyclate [Vibramycin] 100 MG) IVPB SCH (22:00)
[2017-05-09] MEDS ORDERED: MethylPREDNISolone 40 mg Vial IVP SCH (22:00)
[2017-05-09] MEDS: oxyCODONE 5 mg Immediate Release Tab PO PRN (22:42)
[2017-05-10] MEDS: Albuterol-Ipratrop 3 mg / 0.5 (3 ml) UD IH SCH ×4 (01:35→20:18)
[2017-05-10] MEDS: Levothyroxine 25 MCG TAB PO SCH (05:12)
[2017-05-10] MEDS: Pantoprazole 40 mg EC Tab PO SCH (05:12)
[2017-05-10] MEDS: MethylPREDNISolone 40 mg Vial IVP SCH ×2 (05:13→17:02)
[2017-05-10] MEDS: oxyCODONE 5 mg Immediate Release Tab PO PRN ×3 (05:13→18:15)
[2017-05-10] MEDS ORDERED: Levothyroxine 25 MCG TAB PO SCH (06:00)
[2017-05-10] MEDS: Insulin Reg-HIGH-Coverage SC SCH ×4 (06:39→21:59)
[2017-05-10] MEDS: Budesonide 0.5 mg/2 ml Inhal Susp UD IH SCH ×2 (07:12→20:18)
--- NOTE | 2017-05-10 09:07 | PN ---
DATE: 05/10/2017 SUBJECTIVE: The patient appears comfortable at rest. She is not short of breath. OBJECTIVE: VITALS (last noted in the computer): Temperature is 98.5, pulse 82, respirations 18, blood pressure 120/67. Last oxygen saturation measured on room air - 93%. HEENT: Normocephalic, atraumatic. No JVD. CARDIOVASCULAR: Positive S1, S2. No S3 gallop. LUNGS: Minimal rhonchi, minimal wheezing - less overall. EXTREMITIES: No clubbing, cyanosis or edema. Calves are nontender to palpation. GASTROINTESTINAL: Abdomen is soft, nontender and nondistended. Bowel sounds are positive. SKIN: No acute rash. NEUROLOGIC EXAM: Limited at the present time. IMPRESSION: 1. Acute, recurrent bronchitis. 2. Chronic obstructive pulmonary disease. 3. Acute rhinitis. 4. Diabetes mellitus. PLAN: The patient appears comfortable this morning. She is not short of breath at rest. She is less dyspneic on exertion. She does state to feeling much better overall. On physical exam, mild bronchospasm persists. Thus, I will continue the current nebulizer treatments and intravenous steroids for now. The patient remains on antibiotic therapy. There are no temperatures noted. There is no leukocytosis. Clinical status of the patient continues to slowly improve. The patient is now on the transitional unit-- where she will participate with physical therapy. I have reminded her to be out of bed most of the day. I will discuss the above with Dr. Souza. Didier Beard MD MTDD
[2017-05-10] MEDS: POLYETHYLENE GLYCOL 3350 17 GM/Dose PACKET PO SCH (10:28)
[2017-05-10] MEDS: cefTRIAXone 1 gm 1 GM/100 ML BAG IVPB SCH (10:29)
[2017-05-10] MEDS: Fluticasone Nasal 50 mcg/Spray NS SCH (12:23)
--- NOTE | 2017-05-10 18:12 | HP ---
HISTORY OF PRESENT ILLNESS: The patient is a 57 years old, seen and examined, still has cough, congestion, shortness of breath, better than before. The patient was admitted because of COPD exacerbation. She is also having asthmatic bronchitis. PAST MEDICAL HISTORY: She has past medical history of non-insulin dependent diabetes, morbid obesity, active smoking and hypertension. ALLERGIES: SHE IS NOT ALLERGIC TO ANY MEDICATIONS. PHYSICAL EXAMINATION: GENERAL: Today, she is ambulatory, eating and tolerating. VITAL SIGNS: She is afebrile, pulse 82, respirations 18, blood pressure 120/67. LUNGS: Bilateral expiratory rhonchi. HEART: S1 and S2, audible. ABDOMEN: Soft, obese, nontender. No rebound. No guarding. NEUROLOGIC: She is awake, alert, oriented, communicative, ambulatory. LABORATORY DATA: Blood sugar is 130. ASSESSMENT: 1. Chronic obstructive pulmonary disease exacerbation. 2. Bilateral basal infiltrate. 3. Asthmatic bronchitis. 4. Hypertension. 5. Hyperlipidemia. 6. Noninsulin-dependent diabetes. PLAN: We will continue the patient on nebulizer treatment and oral hypoglycemic. We will slowly taper down her steroid analgesic as needed. We will followup this patient in a.m. Eliu Souza MD
[2017-05-11 00:43] VITALS: BP 112/62; PULSE 68; TEMP 99.2; O2SAT 94
[2017-05-11] MEDS: oxyCODONE 5 mg Immediate Release Tab PO PRN ×2 (00:48→06:40)
[2017-05-11] MEDS: Albuterol-Ipratrop 3 mg / 0.5 (3 ml) UD IH SCH ×2 (03:16→07:22)
[2017-05-11] MEDS: MethylPREDNISolone 40 mg Vial IVP SCH (06:11)
[2017-05-11] MEDS: Pantoprazole 40 mg EC Tab PO SCH (06:14)
[2017-05-11] MEDS: Levothyroxine 25 MCG TAB PO SCH (06:15)
[2017-05-11] MEDS: Insulin Reg-HIGH-Coverage SC SCH ×2 (06:49→12:05)
[2017-05-11] MEDS: Budesonide 0.5 mg/2 ml Inhal Susp UD IH SCH (07:22)
--- NOTE | 2017-05-11 07:53 | PN ---
DATE: 05/11/2017 PULMONARY PROGRESS NOTE SUBJECTIVE: The patient appears very comfortable this morning. She is not short of breath at rest. PHYSICAL EXAMINATION: VITAL SIGNS (Last noted in the computer): Temperature is 99.2, pulse is 68, respirations are 18, blood pressure is 112/62. Oxygen saturation on room air is 94% to 98%. HEENT: Normocephalic and atraumatic. NECK: No JVD. CARDIOVASCULAR: Positive S1 and S2. No S3 gallop. LUNGS: Much less/minimal rhonchi. No wheezing this morning. EXTREMITIES: No clubbing, cyanosis or edema. Calves are nontender to palpation. GASTROINTESTINAL: Abdomen is soft, nontender and nondistended. Bowel sounds are positive. SKIN: No acute rash. NEUROLOGIC: Exam is limited at the present time. IMPRESSION 1. Acute, recurrent bronchitis. 2. Chronic obstructive pulmonary disease. 3. Acute rhinitis. 4. Diabetes mellitus. PLAN: The patient appears very comfortable this morning. She is not short of breath at rest. She is much less dyspneic on exertion. She also states to feeling much much better overall. On physical exam, her bronchospasm is significantly less. In addition, the alveolar arterial gradient is also significantly less. I will continue with the current nebulizer treatments, and change to oral steroids this morning. The patient remains on antibiotic therapy - as per Dr. Souza. We did do a procalcitonin during this admission - negative. We can probably taper the antibiotic regimen at this point in time. Clinical status of the patient is significantly improved overall. I will discuss the above with Dr. Souza. Didier Beard MD KATIE
[2017-05-11] MEDS: POLYETHYLENE GLYCOL 3350 17 GM/Dose PACKET PO SCH (09:14)
[2017-05-11] MEDS: Fluticasone Nasal 50 mcg/Spray NS SCH (09:15)
[2017-05-11] MEDS: cefTRIAXone 1 gm 1 GM/100 ML BAG IVPB SCH (10:20)
[2017-05-11 12:02] VITALS: RESP 20
--- NOTE | 2017-05-12 04:50 | DS ---
HISTORY OF PRESENT ILLNESS: The patient is 57-year-old, seen and examined, doing well, eating and tolerating, ambulating, scanty cough. PHYSICAL EXAMINATION: VITAL SIGNS: She has temperature 99.2, pulse 68, respirations 18 and blood pressure 112/62. LUNGS: Bilateral fair airflow. No rhonchi. Scattered occasional crackle now posteriorly. HEART: S1 and S2 audible. ABDOMEN: Soft, obese and nontender. No rebound. No guarding. NEUROLOGIC: She is awake, alert, oriented, communicative and ambulatory. ASSESSMENT: 1. Asthmatic bronchitis. 2. Active smoker. 3. Hypertension. 4. Qxb-sweobgj-honnhmqxc diabetes. PLAN: The patient is going to be discharged home on doxycycline 500 twice a day, tapering dose of prednisone 20 twice a day for 3 days and then 20 daily for 5 days. She is given prescription of Chantix and Nicoderm patch. She will follow up in the office in a week or two. Eliu Souza MD
== END 2017-05-11 13:12 | disposition home or self-care (01) | DRG 192 ==
LOC: TRCU 18:16
PROVIDERS: ADMIT Internal Medicine; ATTEND Internal Medicine
PROC: F07Z9ZZ Gait Training/Functional Ambulation Treatment (ICD-10-PCS; principal; 2017-05-10)
PROC: F07M6ZZ Therapeutic Exercise Treatment of Musculoskeletal System - Whole Body (ICD-10-PCS; 2017-05-10)
DX: J44.1 Chronic obstructive pulmonary disease with (acute) exacerbation (principal); E66.01 Morbid (severe) obesity due to excess calories; I10 Essential (primary) hypertension; E11.9 Type 2 diabetes mellitus without complications; E78.5 Hyperlipidemia, unspecified; F17.200 Nicotine dependence, unspecified, uncomplicated; J00 Acute nasopharyngitis [common cold]; Z79.84 Long term (current) use of oral hypoglycemic drugs; Z68.37 Body mass index [BMI] 37.0-37.9, adult; R91.8 Other nonspecific abnormal finding of lung field

== ENCOUNTER 2017-06-15 04:16 | Observation (INO) | payer MEDICARE, OTHER ==
[2017-06-15 04:16] VITALS: BMI 40.6
--- NOTE | 2017-06-15 04:28 | ED PDOC ---
Arrival/HPI - General Time Seen by Provider: 06/15/17 04:23 Historian: Patient - History of Present Illness Narrative History of Present Illness (Text): 06/15/17 04:28 Nannette Gandara is a 57 year old female, whose past medical history includes COPD , diabetes, hypertension, and hyperlipidemia, presents to the Emergency department brought in by EMS complaining of abdominal pain since yesterday. Patient states she has been experiencing right upper abdominal pain after eating yesterday with recurrent episodes of nausea and diarrhea. Patient denies any vomiting, fever, chills, chest pain, shortness of breath, urinary problems, headache, dizziness, or any other complaints. Time/Duration: 24 hours Symptom Onset: Gradual Symptom Course: Unchanged Quality: Aching Activities at Onset: Eating Context: Home Past Medical History - Provider Review Nursing Documentation Reviewed: Yes - Infectious Disease Hx of Infectious Diseases: None - Tetanus Immunization Tetanus Immunization: Unknown - Past Medical History Past Medical History: No Previous - Cardiac Hx Cardiac Disorders: Yes - Pulmonary Hx Respiratory Disorders: Yes Hx Asthma: Yes Hx Bronchitis: Yes Hx Chronic Obstructive Pulmonary Disease (COPD): Yes Hx Pneumonia: Yes - Neurological HX Cerebrovascular Accident: No - HEENT Hx HEENT Disorder: No - Renal Hx Renal Disorder: No - Endocrine/Metabolic Hx Diabetes Mellitus Type 2: Yes Hx Hypothyroidism: Yes - Hematological/Oncological Hx Blood Disorders: No Hx Cancer: No - Integumentary Hx Dermatological Disorder: No - Musculoskeletal/Rheumatological Hx Musculoskeletal Disorders: Yes Hx Back Pain: Yes Hx Degenerative Joint Disease: Yes Hx Falls: No Other/Comment: spinal cord stimulator - Gastrointestinal Hx Gastrointestinal Disorders: No - Genitourinary/Gynecological Hx Reproductive Disorders: No - Psychiatric Hx Anxiety: Yes Hx Depression: Yes Hx Substance Use: No - Surgical History Hx Hysterectomy: Yes (partial) Hx Orthopedic Surgery: Yes (back/neck) - Anesthesia Hx Anesthesia: Yes Hx Anesthesia Reactions: Yes (N&V) Hx Malignant Hyperthermia: No - Suicidal Assessment Feels Threatened In Home Enviroment: No Family/Social History - Physician Review Nursing Documentation Reviewed: Yes Family/Social History: No Known Family HX Smoking Status: Current Some Days Smoker Hx Alcohol Use: No Hx Substance Use: No Hx Substance Use Treatment: Yes (PPD) Allergies/Home Meds Allergies/Adverse Reactions: Allergies No Known Allergies Allergy (Verified 05/05/17 14:31) Home Medications: Home Meds Medication Instructions Recorded Confirmed Glimepiride [amaRYL] 2 mg PO ACBD 02/03/17 06/15/17 Levothyroxine [Synthroid] 1 tab PO DAILY 05/05/17 06/15/17 Review of Systems - Physician Review All systems were reviewed & negative as marked: Yes - Review of Systems Constitutional: Normal. absent: Fevers (vomiting ) Eyes: Normal ENT: Normal Respiratory: Normal. absent: SOB, Cough, Wheezing Cardiovascular: Normal. absent: Chest Pain Gastrointestinal: Abdominal Pain, Diarrhea, Nausea. absent: Vomiting Genitourinary Female: Normal. absent: Dysuria, Frequency, Hematuria, Urine Output Changes Musculoskeletal: Normal. absent: Neck Pain Skin: Normal. absent: Rash Neurological: Normal. absent: Headache, Dizziness Endocrine: Normal. absent: Diaphoresis Psychiatric: Normal Physical Exam Vital Signs Reviewed: Yes Vital Signs Temp Pulse Resp BP Pulse Ox 06/15/17 06:47 81 18 134/77 95 06/15/17 06:05 84 16 143/56 L 95 06/15/17 04:25 98.1 F 93 H 18 125/86 97 Temperature: Afebrile Blood Pressure: Normal Pulse: Regular Respiratory Rate: Normal Appearance: Positive for: Well-Appearing, Non-Toxic, Comfortable Pain Distress: None Mental Status: Positive for: Alert and Oriented X 3 - Systems Exam Head: Present: Atraumatic, Normocephalic. No: Tenderness Pupils: Present: PERRL Extroacular Muscles: Present: EOMI Conjunctiva: Present: Normal Mouth: Present: Moist Mucous Membranes. No: Dry Neck: Present: Normal Range of Motion Respiratory/Chest: Present: Clear to Auscultation, Good Air Exchange. No: Respiratory Distress, Accessory Muscle Use Cardiovascular: Present: Regular Rate and Rhythm, Normal S1, S2. No: Murmurs Abdomen: Present: Tenderness (RUQ tenderness), Normal Bowel Sounds. No: Distention, Peritoneal Signs Upper Extremity: Present: Normal Inspection. No: Cyanosis, Edema Lower Extremity: Present: Normal Inspection. No: Edema Neurological: Present: GCS=15, CN II-XII Intact, Speech Normal Skin: Present: Warm, Dry, Normal Color. No: Rashes Psychiatric: Present: Alert, Oriented x 3, Normal Insight, Normal Concentration Medical Decision Making ED Course and Treatment: 06/15/17 04:28 Impression: 57 year old female presents to the Emergency department complaining of diarrhea and localized abdominal pain. Differential Diagnosis included but are not limited to: biliary colic vs. gastritis vs. gastroenteritis Plan: -- CT Abdomen and Pelvis -- Labs, Lipase -- IV Fluids -- Toradol -- Zofran -- Urinalysis -- US Gallbladder and Pancreas -- Reassess and disposition Prior Visits: Notes and results from previous visits were reviewed. On 05/29/17 patient presented to the Emergency department complaining of cough resulting from COPD. Patient was hopsitalized for further observation. Progress Notes: 06/15/17 06:23 US Abdomen reviewed, shows: Liver: Enlarged, 18.7 cm. Fatty infiltration. No mass. No intrahepatic ductal dilatation. Gallbladder: No gallstones. No wall thickening. No pericholecystic fluid. No sonographic Cruz's sign. Common bile duct: No dilatation. No stones. Pancreas: Unremarkable as visualized. Right kidney: Normal echogenicity. No hydronephrosis. IMPRESSION: 1. No acute findings. 2. Non-acute findings are described above. 06/15/17 06:33 CT Abdomen and Pelvis reviewed, shows: Limitations: Lack of intravenous contrast. Lower thorax: Minimal atelectasis/scarring. Coronary artery calcifications. Probable small hiatal hernia. ABDOMEN: Liver: Fatty infiltration. Gallbladder and bile ducts: No calcified stones. No ductal dilation. Pancreas: Unremarkable. No ductal dilation. Spleen: No splenomegaly. Adrenals: No mass. Kidneys and ureters: No renal calculi. No hydronephrosis. Stomach and bowel: Fluid within small bowel. Fluid/loose stool within colon. Apparent mild mural/fold thickening vs underdistention of few jejunal loops. No associated inflammatory stranding. Few scattered diverticula within colon. No associated inflammatory stranding. Few mildly distended loops of small bowel, likely ileus. Appendix: Normal caliber. No inflammation. PELVIS: Bladder: Unremarkable. No stones. Reproductive: Unremarkable as visualized. ABDOMEN and PELVIS: Intraperitoneal space: No significant fluid collection. No free air. Bones/joints: No acute fracture. Postsurgical changes of lumbar spine. No acute fracture. Soft tissues: Moderate-sized paraumbilical hernia containing fat. Vasculature: Mild atherosclerotic disease. No aneurysm. Lymph nodes: No pathologically enlarged lymph nodes. Tubes, lines and devices: Spinal stimulator device. IMPRESSION: 1. Possible mild enteritis. Clinical correlation is needed. 2. Incidental/non-acute findings are described above. 06/15/17 06:[address] Tobias, who is aware and agrees with plan. Accepts pt in to his service. Pt will go to [facility] observation for intractable abdominal pain. Requests Dr. Dukes on consult. - Lab Interpretations Lab Results: 06/15/17 04:35 06/15/17 04:35 Lab Results 06/15/17 04:35: WBC 10.3 D, RBC 5.48, Hgb 14.5 D, Hct 44.1, MCV 80.5, MCH 26.5 , MCHC 32.9, RDW 17.0 H, Plt Count 241, MPV 11.1 H 06/15/17 04:35: Sodium 140, Potassium 4.3, Chloride 110 H, Carbon Dioxide 18 L, Anion Gap 16, BUN 13, Creatinine 0.7, Est GFR ( Amer) > 60, Est GFR (Non- Af Amer) > 60, Random Glucose 129 H, Calcium 10.4, Total Bilirubin 0.8, AST 25, ALT 32, Alkaline Phosphatase 75, Total Protein 7.2, Albumin 4.3, Globulin 2.9, Albumin/Globulin Ratio 1.5, Lipase 112 I have reviewed the lab results: Yes - RAD Interpretation Radiology Orders: 06/15/17 04:32 GALLBLADDER & PANCREAS [US] Stat 06/15/17 05:04 ABD & PELVIS W/O PO OR IV CONT [CT] Stat [facility] Counselor: Radiologist - Medication Orders Current Medication Orders: Sodium Chloride (Sodium Chloride 0.9%) 1,000 mls @ 100 mls/hr IV .Q10H STA Stop: 06/15/17 16:40 Discontinued Medications Hydromorphone HCl (Dilaudid) 1 mg IVP STAT STA Stop: 06/15/17 06:40 Last Admin: 06/15/17 06:54 Dose: 1 mg COURTNEY Pain Assessment Document 06/15/17 06:54 YP (Rec: 06/15/17 06:54 YP [id number]) Pain Reassessment Is this a pain reassessment? Yes Sleep Is patient sleeping during reassessment? No Presence of Pain Presence of Pain Yes IVP Administration Document 06/15/17 06:54 YP (Rec: 06/15/17 06:54 YP [id number]) Charges for Administration # of IVP Administrations 1 Sodium Chloride (Sodium Chloride 0.9%) 1,000 mls @ 999 mls/hr IV .Q1H1M STA Stop: 06/15/17 05:32 Last Admin: 06/15/17 04:43 Dose: 999 mls/hr eMAR Start Stop Document 06/15/17 04:43 YP (Rec: 06/15/17 04:44 YP [id number]) Intravenous Solution Start Date 06/15/17 Start Time 04:44 End Date 06/15/17 End time 05:44 Total Infusion Time 60 Ketorolac Tromethamine (Toradol) 30 mg IVP ONCE ONE Stop: 06/15/17 04:33 Last Admin: 06/15/17 04:44 Dose: 30 mg MAR Pain Assessment Document 06/15/17 04:44 YP (Rec: 06/15/17 04:44 YP [id number]) Pain Reassessment Is this a pain reassessment? No Sleep Is patient sleeping during reassessment? No Presence of Pain Presence of Pain Yes IVP Administration Document 06/15/17 04:44 YP (Rec: 06/15/17 04:44 YP [id number]) Charges for Administration # of IVP Administrations 1 Re-Assess: MAR Pain Assessment Document 06/15/17 05:44 YP (Rec: 06/15/17 06:37 YP [id number]) Pain Reassessment Is this a pain reassessment? Yes Sleep Is patient sleeping during reassessment? No Presence of Pain Presence of Pain Yes Ondansetron HCl (Zofran Inj) 4 mg IVP ONCE ONE Stop: 06/15/17 04:33 Last Admin: 06/15/17 04:44 Dose: 4 mg IVP Administration Document 06/15/17 04:44 YP (Rec: 06/15/17 04:44 YP [id number]) Charges for Administration # of IVP Administrations 1 - Scribe Statement The provider has reviewed the documentation as recorded by the Scribe Jamil Friedman under supervision of Jory Cano. All medical record entries made by the Scribe were at my direction and personally dictated by me. I have reviewed the chart and agree that the record accurately reflects my personal performance of the history, physical exam, medical decision making, and the department course for this patient. I have also personally directed, reviewed, and agree with the discharge instructions and disposition. Disposition/Present on Arrival - Present on Arrival Any Indicators Present on Arrival: No History of DVT/PE: No History of Uncontrolled Diabetes: No Urinary Catheter: No History of Decub. Ulcer: No History Surgical Site Infection Following: None - Disposition Have Diagnosis and Disposition been Completed?: Yes Diagnosis: Intractable abdominal pain, Gastroenteritis Disposition: HOSPITALIZED Disposition Time: 06:42 Patient Plan: Observation Patient Problems: Current Active Problems Problem Status Onset Gastroenteritis Acute Intractable abdominal pain Acute Condition: STABLE
[2017-06-15] MEDS ORDERED: Sodium Chloride 0.9% 1,000 ML IV STA ×2 (04:32→06:41)
[2017-06-15 05:03] LABS: ALB/GLOB RATIO 1.5 (1.1-1.8); ALKALINE PHOSPHATASE 75 U/L (38-126); ALT/SGPT 32 U/L (7-56); AST/SGOT 25 U/L (14-36); BILIRUBIN,TOTAL 0.8 mg/dL (0.2-1.3); BLOOD UREA NITROGEN 13 mg/dL (7-21); CALCIUM 10.4 mg/dL (8.4-10.5); CARBON DIOXIDE 18 mmol/L (21-33); CHLORIDE 110 mmol/L (98-107); GFR AFRICAN-AMERICAN > 60; GLUCOSE,RANDOM 129 mg/dL (70-110); LIPASE 112 U/L (23-300); POTASSIUM 4.3 mmol/L (3.6-5.0); SODIUM 140 mmol/L (132-148); TOTAL PROTEIN 7.2 g/dL (5.8-8.3)
[2017-06-15 05:08] LABS: HEMATOCRIT 44.1 % (36.0-48.0); MEAN CELL VOLUME 80.5 fl (80.0-105.0); MEAN CORPUSCULAR HEMOGLOBIN 26.5 pg (25.0-35.0); MEAN CORPUSCULAR HGB CONC 32.9 g/dl (31.0-37.0); MEAN PLATELET VOLUME 11.1 fl (7.0-11.0); WHITE BLOOD COUNT 10.3 10^3/ul (4.5-11.0)
--- NOTE | 2017-06-15 06:20 | US ---
EXAM: US Abdomen Limited, Right Upper Quadrant CLINICAL HISTORY: 57 years old, female; Pain; Abdominal pain; Generalized; Additional info: Right upper abdominal pain TECHNIQUE: Real-time ultrasound of the right upper quadrant with image documentation. COMPARISON: CT - ABD PELVIS W/O PO OR IV CONT 2017-06-15 05:24 FINDINGS: Liver: Enlarged, 18.7 cm. Fatty infiltration. No mass. No intrahepatic ductal dilatation. Gallbladder: No gallstones. No wall thickening. No pericholecystic fluid. No sonographic Cruz's sign. Common bile duct: No dilatation. No stones. Pancreas: Unremarkable as visualized. Right kidney: Normal echogenicity. No hydronephrosis. IMPRESSION: 1.No acute findings. 2.Non-acute findings are described above.
--- NOTE | 2017-06-15 06:31 | CT ---
EXAM: CT Abdomen and Pelvis Without Intravenous Contrast CLINICAL HISTORY: 57 years old, female; Pain; Abdominal pain TECHNIQUE: Axial computed tomography images of the abdomen and pelvis without intravenous contrast. All CT scans at this facility use one or more dose reduction techniques, viz.: automated exposure control; ma/kV adjustment per patient size (including targeted exams where dose is matched to indication; i.e. head); or iterative reconstruction technique. Coronal and sagittal reformatted images were created and reviewed. COMPARISON: No relevant prior studies available. FINDINGS: Limitations: Lack of intravenous contrast. Lower thorax: Minimal atelectasis/scarring. Coronary artery calcifications. Probable small hiatal hernia. ABDOMEN: Liver: Fatty infiltration. Gallbladder and bile ducts: No calcified stones. No ductal dilation. Pancreas: Unremarkable. No ductal dilation. Spleen: No splenomegaly. Adrenals: No mass. Kidneys and ureters: No renal calculi. No hydronephrosis. Stomach and bowel: Fluid within small bowel. Fluid/loose stool within colon. Apparent mild mural/fold thickening vs underdistention of few jejunal loops. No associated inflammatory stranding. Few scattered diverticula within colon. No associated inflammatory stranding. Few mildly distended loops of small bowel, likely ileus. Appendix: Normal caliber. No inflammation. PELVIS: Bladder: Unremarkable. No stones. Reproductive: Unremarkable as visualized. ABDOMEN and PELVIS: Intraperitoneal space: No significant fluid collection. No free air. Bones/joints: No acute fracture. Postsurgical changes of lumbar spine. No acute fracture. Soft tissues: Moderate-sized paraumbilical hernia containing fat. Vasculature: Mild atherosclerotic disease. No aneurysm. Lymph nodes: No pathologically enlarged lymph nodes. Tubes, lines and devices: Spinal stimulator device. IMPRESSION: 1. Possible mild enteritis. Clinical correlation is needed. 2. Incidental/non-acute findings are described above.
[2017-06-15] MEDS ORDERED: HYDROmorphone 1 mg/ml ISec IVP STA (06:39)
[2017-06-15] MEDS ORDERED: Albuterol-Ipratrop 3 mg / 0.5 (3 ml) UD IH PRN (10:57)
[2017-06-15] MEDS: oxyCODONE 5 mg Immediate Release Tab PO PRN ×2 (11:33→17:57)
[2017-06-15] MEDS: Albuterol-Ipratrop 3 mg / 0.5 (3 ml) UD IH SCH ×2 (13:31→19:16)
[2017-06-15] MEDS: Budesonide 0.5 mg/2 ml Inhal Susp UD IH SCH (19:16)
[2017-06-15 19:29] LABS: URINE BILIRUBIN NEGATIVE (NEGATIVE); URINE BLOOD NEGATIVE (NEGATIVE); URINE GLUCOSE (UA) NEGATIVE (NEGATIVE); URINE KETONE NEGATIVE (NEGATIVE); URINE LEUKOCYTE ESTERASE NEGATIVE Leu/uL (NEGATIVE); URINE PROTEIN NEGATIVE mg/dL (<30 mg/dL); URINE UROBILINOGEN 0.2 E.U./dL (<1 E.U./dL)
[2017-06-15 19:33] LABS: URINE APPEARANCE CLEAR (CLEAR); URINE COLOR STRAW (YELLOW)
[2017-06-15] MEDS: INSULIN REGULAR SC SCH (21:41)
[2017-06-16] MEDS: oxyCODONE 5 mg Immediate Release Tab PO PRN ×4 (00:33→18:02)
[2017-06-16] MEDS: Albuterol-Ipratrop 3 mg / 0.5 (3 ml) UD IH SCH ×3 (03:00→13:39)
[2017-06-16] MEDS ORDERED: Pantoprazole 40 mg EC Tab PO SCH (06:00)
[2017-06-16] MEDS: Budesonide 0.5 mg/2 ml Inhal Susp UD IH SCH (08:10)
[2017-06-16] MEDS: INSULIN REGULAR SC SCH ×3 (08:29→17:51)
[2017-06-16 08:43] VITALS: BP 127/76; PULSE 68; RESP 20; TEMP 97.9; O2SAT 99
[2017-06-16] MEDS ORDERED: Levothyroxine 25 MCG TAB PO SCH ×2 (10:00)
[2017-06-16 10:53] LABS: INR 0.98 (0.93-1.08); PARTIAL THROMBOPLASTIN TIME 27.9 Seconds (25.1-36.5)
--- NOTE | 2017-06-16 12:48 | CON ---
DATE: 06/15/2017 REASON FOR CONSULTATION: Right upper quadrant and umbilical pain associated with nausea and diarrhea. HISTORY OF PRESENT ILLNESS: This is a 57-year-old obese female presented to the emergency room with diarrhea and nausea. No vomiting, but periumbilical and right upper quadrant pain. She came into the emergency room. She denies any other symptoms. No fever. No chills. PAST MEDICAL HISTORY: Diabetes mellitus and COPD. PAST SURGICAL HISTORY: She had cervical, sacral, and lumbar fusion, as well as left wrist surgery. ALLERGIES: NONE. MEDICATIONS AT HOME: She is using multiple inhalers. She does not remember the names. FAMILY HISTORY: Her mom of lung cancer. SOCIAL HISTORY: She smokes 5 cigarettes daily, but she used to smoke way more than that before. REVIEW OF SYSTEMS: A 15-point review of systems mainly consistent of the periumbilical pain with nausea and diarrhea. PHYSICAL EXAMINATION: GENERAL: She is alert and oriented x3 in no acute distress. VITAL SIGNS: Text. HEENT: No pallor or jaundice. NECK: Supple. Trachea in midline. No lymphadenopathy. No thyromegaly. CHEST: Clear to auscultation bilaterally. No wheezes. No crepitations. CARDIOVASCULAR: S1 and S2. No murmur. No gallop. ABDOMEN: Tender in the periumbilical area and right upper quadrant, but no rebound. No guarding. No peritonitis. EXTREMITIES: All within normal limits. LABORATORY DATA: The patient had a CT scan that was consistent with incarcerated fat inside the umbilical hernia, but no bowel. No obstruction. The plan for this patient, she want to have the surgery done, so we will proceed with the umbilical hernia repair with a mesh, possible open. Risks and benefits explained to the patient including bowel injury, possible recurrence, she understands risks and benefits and she elected the proceed. Clem Linda MD cc: Ricardo Tobias MD
--- NOTE | 2017-06-16 17:21 | PN ---
DATE: 06/16/2017 SUBJECTIVE: This patient is doing very well now. The patient is tolerating the liquid diet. No further episodes of diarrhea or vomiting. No abdominal pain now. PHYSICAL EXAMINATION: VITAL SIGNS: She remains afebrile 98.3, blood pressure is 149/59, and pulse 56. HEENT: Atraumatic. Anicteric. NECK: Supple. HEART: S1 and S2 heard. LUNGS: Bilateral air entry present. ABDOMEN: Soft. There is no tenderness. EXTREMITIES: No edema. No cyanosis. LABORATORY DATA: Hemoglobin 9.7, hematocrit 29.2, WBC 3.9, and platelets 120. BUN 7 and creatinine 0.9. IMPRESSION: This is a 57-year-old patient with history of diabetes mellitus admitted with the following dinner at the Thanksgiving at daughter's place; had an acute onset of abdominal pain, nausea, and also diarrhea. Now the pain is slowly subsiding. The patient is tolerating liquid. The patient has CAT scan done, which was reviewed, has some mild thickening of the proximal intestinal area suggestive of possible mild enteritis. reported a small paraumbilical hernia containing fat. The patient had an ultrasound scan of the abdomen done, which showed no gallstones or wall thickening, CBD normal. This patient clinically has an acute gastroenteritis, which is improved. Other comorbidities include chronic obstructive pulmonary disease, diabetes mellitus, and chronic back pain. Clinically, this patient is improved, mainly on gastrointestinal, prospective the patient can be followed up as an outpatient. The patient never had an endoscopy and colonoscopy. The patient was advised to have this done as an outpatient. We will sign off and re-consult as necessary. Colette Dukes MD
--- NOTE | 2017-06-17 00:17 | HP ---
CHIEF COMPLAINT: Abdominal pain. HISTORY OF PRESENT ILLNESS: A 57-year-old female, obese, COPD, diabetes, hypertension, hyperlipidemia, came to the Emergency Room Department complaining of abdominal pain for 1 day 24 hours. She experienced right upper quadrant pain since day before. She says that the pain is more in the right upper quadrant. She has nausea. She has vomiting. She has diarrhea, recurrent episodes, which seems resolved when she was in the Emergency Room. The patient denies any fever, any chills, any chest pain or any short of breath. PAST MEDICAL HISTORY: As I mentioned, morbid obesity, COPD, hypertension, diabetes, hypercholesterolemia, neck surgery with neck fixation, history of pneumonia in the past, bronchitis, asthma, diabetes type 2, anxiety, depression, and degenerative joint disease, she also had spinal cord stimulator. ALLERGIES: SHE HAS NO KNOWN ALLERGIES. SOCIAL HISTORY: She is a smoker, 10 cigarettes a day. She does not use any alcohol or any drugs. HOME MEDICATIONS: She does take Protonix 40 mg one a day, she takes Prednisone 20 mg b.i.d., unknown why, she has been on that. She also taking Oxycodone q. 6 hours p.r.n., Chantix, Lyrica 150 mg b.i.d., MiraLax, Protonix, Nicoderm patch recently was given while she is in the hospital, Synthroid, insulin coverage, Amaryl, nasal spray, Flonase, Colace, Pulmicort, Lipitor, nebulizer treatment, Tylenol. PHYSICAL EXAMINATION: GENERAL: The patient seems sitting comfortable. No distress. VITAL SIGNS: On that admission, temperature 98, heart rate 73, blood pressure 118/71, respirations 19, saturation 98%. HEAD AND NECK: Normal. No JVD. No thyromegaly. CHEST: Clear. Good air entry. CARDIAC: First sound and second sound normal. ABDOMEN: Obese, mild tender in the right upper quadrant. EXTREMITIES: No edema. NEUROLOGIC: Normal. LABORATORY STUDIES: Shows white count 10.3, hemoglobin 14.5, hematocrit 44.1, platelets 241. Her PTT and PT was normal. Her chemistry noted for blood sugar 129, sodium 140, potassium 4.3, chloride 110, bicarbonate 18, BUN 13, creatinine 0.7. Liver function test is normal. Lipase is normal. The patient also had a urinalysis, which was normal. While she is in Emergency Room, she had CT abdomen and pelvis, which was noted for umbilical hernia. We may just mention here. Possible mild enteritis and no acute findings. There is umbilical hernia noted on the CAT scan, but no strangulation. No other problems. Also liver shows fatty liver. Gallbladder is negative No calcified stones. No ductal dilations. Pancreas looks normal. Kidney looks normal. The stomach and bowel, no obstructions, which was within normal. Just noted moderate sized umbilical hernia containing fat and vascular mild atherosclerotic disease. There is no aneurysm. The patient had ultrasound of the liver and gallbladder, which noted . Ultrasound and gallbladder reported as no gallstones. No ductal dilatations. No Cruz sign just a fatty infiltration of the liver. No acute findings. IMPRESSION AND PLAN: This is a 57-year-old female with history of diabetes, morbid obesity, chronic obstructive pulmonary disease, on multiple medication. She is a smoker. Came with abdominal pain, nausea, vomiting, diarrhea, which seems slow down probably the patient has mild acute gastroenteritis. We will give the patient IV fluids, IV Protonix, GI consult. Also surgical consult. Evaluations ordered also hernia, which not an emergency and we will continue observation. Resume all her medications. We will keep the patient may be on clear liquid diet as per GI and will follow up with GI Dr. Dukes and surgical consult Dr. Linda. Ricardo Tobias MD
--- NOTE | 2017-06-17 03:19 | DS ---
HISTORY OF PRESENT ILLNESS AND HOSPITAL COURSE: A 57-year-old female admitted with abdominal pain. CT of the abdomen was negative for any acute findings. Ultrasound of the liver and gallbladder was negative for acute cholecystitis, negative Cruz's sign, seen by GI consultation, inpatient gastroenteritis, surgical consult. She had a fatty paraumbilical hernia, need to be done as outpatient. No emergency surgery here. The patient was clinically feeling better. No new symptoms and was discharged home to be followed in the office. PHYSICAL EXAMINATION: VITAL SIGNS: Temperature 97.9, heart rate 68, blood pressure 127/76, respirations 20, saturation 99%. HEAD AND NECK: Normal. No JVD. No thyromegaly. CHEST: Good air entry. CARDIAC: First sound and second sound normal. ABDOMEN: Soft, obese, nontender. EXTREMITIES: No edema. NEUROLOGIC: Normal. LABORATORY DATA: No further labs. DISCHARGE DIAGNOSES: 1. Acute gastroenteritis. 2. Paraumbilical hernia, containing fat. 3. Morbid obesity. 4. Possible obstructive sleep apnea, need further evaluation as outpatient by Dr. Reis's consult. 5. Chronic osteoarthritis. 6. Degenerative disk disease, seems stable. We will follow up as outpatient. 7. Chronic obstructive pulmonary disease. 8. Diabetes, type 2. 9. Hypertension. 10. Hypercholesterolemia. The patient will be discharged. Continue Protonix. Continue all other previous medications. No change. I will follow up in the office in a couple of days. Ricardo Tobias MD
--- NOTE | 2017-06-17 09:46 | CON ---
DATE: 06/15/2017 HISTORY OF PRESENT ILLNESS: This patient was seen and evaluated earlier today. This is a 57-year-old patient with a past medical history of diabetes mellitus, COPD and dyslipidemia, had an episode of acute onset of abdominal pain, nausea, vomiting, and diarrhea after she ate some lunch in her daughter's place with a turkey. No other family members had this similar problem. She had severe symptoms of diarrhea, nausea and some abdominal discomfort, presented to the emergency room. Since admission, now the patient did not have any further episodes of diarrhea, but still has some nausea. She has been started on liquid diet now. The patient has never had endoscopies and colonoscopies in the past. PAST MEDICAL HISTORY: Her other medical history significant as above, history of [id number] diabetes mellitus, COPD, diabetic neuropathy and chronic back pain. ALLERGIES: SHE HAS NO KNOWN ALLERGIES. FAMILY HISTORY: Noncontributory. SOCIAL HISTORY: Positive for smoking, alcohol socially. REVIEW OF SYSTEMS: Positive as above. Other systems reviewed negative. PHYSICAL EXAMINATION: GENERAL: The patient lying on the bed, not in acute distress. VITAL SIGNS: Temperature is 98, blood pressure is 118/71, pulse 73 , respirations 19 and O2 saturation 98%. HEENT: Atraumatic. Anicteric. NECK: Supple. HEART: S1 and S2 heard. LUNGS: Bilateral air entry present. ABDOMEN: Soft. There is a mild tenderness present in the epigastric region on deep palpation, otherwise unremarkable. EXTREMITIES: No cyanosis. No clubbing. No edema. NEUROLOGIC: Alert, oriented. Moves all the extremities LABORATORY DATA: Hemoglobin is 14.5, hematocrit 44.1, WBC 10.3, platelets 241. Chemistry is essentially unremarkable except chloride is [address] scan of the abdomen and pelvis done without p.o. or IV contrast was reviewed, which showed some mild thickening of the proximal small bowel loops noticed, acute diverticulosis, otherwise unremarkable. IMPRESSION: Probable acute gastroenteritis, clinically improving. Other comorbidities include diabetes mellitus, chronic obstructive pulmonary disease, and chronic back pain. RECOMMENDATION: The patient is to start on a clear liquid diet, slowly advance the diet as tolerated. The patient is on PPI, continue that. The patient also has history of hypothyroidism and diabetes mellitus, would recommend stool for C. diff. I had a detailed discussion with the patient, recommended elective colonoscopic evaluation. Since the patient has been on short courses of prednisone, it is reasonable to endoscopy, and she is also on chronic PPI therapy, both the endoscopy and the colonoscopy can be considered as an outpatient. Thank you very much for allowing us to participate in the care of the patient. We will continue to closely follow up her care and suggest further management based on the clinical course. Colette Dukes MD
== END 2017-06-16 19:18 | disposition home or self-care (01) ==
LOC: ED 04:16 → ERH 06:40 → 3RNO 08:20
PROVIDERS: ADMIT Internal Medicine; ATTEND Internal Medicine
DX: K52.9 Noninfective gastroenteritis and colitis, unspecified (principal); K42.9 Umbilical hernia without obstruction or gangrene; E66.01 Morbid (severe) obesity due to excess calories; G47.33 Obstructive sleep apnea (adult) (pediatric); M19.90 Unspecified osteoarthritis, unspecified site; M51.36 Other intervertebral disc degeneration, lumbar region; J44.9 Chronic obstructive pulmonary disease, unspecified; E11.40 Type 2 diabetes mellitus with diabetic neuropathy, unspecified; E03.9 Hypothyroidism, unspecified; E78.00 Pure hypercholesterolemia, unspecified; E78.5 Hyperlipidemia, unspecified; F17.210 Nicotine dependence, cigarettes, uncomplicated; G89.29 Other chronic pain; I10 Essential (primary) hypertension; I25.10 Atherosclerotic heart disease of native coronary artery without angina pectoris; K44.9 Diaphragmatic hernia without obstruction or gangrene; K56.7 Ileus, unspecified; K76.0 Fatty (change of) liver, not elsewhere classified; Z80.1 Family history of malignant neoplasm of trachea, bronchus and lung; Z87.01 Personal history of pneumonia (recurrent); Z90.710 Acquired absence of both cervix and uterus; R40.2412 Glasgow coma scale score 13-15, at arrival to emergency department; K57.90 Diverticulosis of intestine, part unspecified, without perforation or abscess without bleeding
CPT/HCPCS: 36415; 74176; 76705; 80053; 81003; 82948; 83690; 85027; 85610; 85730; 94640; 96361; 96374; 96375; 99285; G0378; J1170; J1885; J2405; J7040

== ENCOUNTER 2017-07-29 06:27 | Day surgery (SDC) | payer MEDICARE ==
[2017-07-24 08:03] VITALS: BMI 35.8
[2017-07-29 07:18] LABS: BLOOD UREA NITROGEN 15 mg/dL (7-21); CALCIUM 9.7 mg/dL (8.4-10.5); GFR AFRICAN-AMERICAN > 60; GFR NON-AFRICAN AMERICAN > 60
[2017-07-29 07:21] LABS: INR 0.89 (0.93-1.08); PARTIAL THROMBOPLASTIN TIME 27.8 Seconds (25.1-36.5); PROTHROMBIN TIME 10.2 SECONDS (9.4-12.5)
[2017-07-29] MEDS ORDERED: Bupivacaine 0.5% Inj(30mL) ONE (07:27)
[2017-07-29 07:47] LABS: BASO # 0.02 K/mm3 (0.0-2.0); BASO % 0.2 % (0.0-3.0); EOS # 0.5 (0.0-0.7); EOS % 5.1 % (1.5-5.0); GRAN # 6.17 (1.4-6.5); GRAN % 65.4 % (50.0-68.0); HEMOGLOBIN 11.8 g/dL (12.0-16.0); LYMPH # 2.2 (1.2-3.4); LYMPH % 23.8 % (22.0-35.0); MEAN CELL VOLUME 81.5 fl (80.0-105.0); MEAN CORPUSCULAR HEMOGLOBIN 26.3 pg (25.0-35.0); MEAN CORPUSCULAR HGB CONC 32.2 g/dl (31.0-37.0); MEAN PLATELET VOLUME 11.2 fl (7.0-11.0); MONO # 0.5 (0.1-0.6); MONO % 5.5 % (1.0-6.0); RBC 4.49 10^6/uL (3.5-6.1); RED CELL DISTRIBUTION WIDTH 16.2 % (11.5-14.5); WHITE BLOOD COUNT 9.4 10^3/ul (4.5-11.0)
[2017-07-29] MEDS ORDERED: Propofol 10 mg/ml Inj (20 ML) ONE (08:14)
[2017-07-29] MEDS ORDERED: Midazolam 2 MG/2 ML VIAL ONE (08:15)
[2017-07-29] MEDS ORDERED: Rocuronium 10 mg/ml (5 ml) ONE (08:27)
[2017-07-29] MEDS ORDERED: Neostigmine Methylsulfate 3mg/3ml Syringe IV ONE (08:50)
[2017-07-29] MEDS ORDERED: Glycopyrrolate 0.2 mg/ml (2ml vial) ONE (09:13)
[2017-07-29] MEDS ORDERED: Morphine 2 mg/ml ISec IVP PRN (09:21)
[2017-07-29] MEDS ORDERED: Lactated Ringer's 1,000 ML IV SCH (09:30)
--- NOTE | 2017-07-29 09:39 | PCM.SURG1 ---
Surgeon's Initial Post Op Note - Surgeon's Notes Surgeon: Dr. Howard Manufacturing Team Leader: Dr. Alarcon, PGY-3 Type of Anesthesia: General Endo Anesthesia Administered By: Dr. Benavides Pre-Operative Diagnosis: Incarcerated Incisional Hernia Operative Findings: see operative report Post-Operative Diagnosis: Same Operation Performed: Laparoscopic Incisional Hernia Repair with Mesh Specimen/Specimens Removed: none Estimated Blood Loss: EBL {In ML}: 5 Blood Products Given: N/A Drains Used: No Drains Post-Op Condition: Good Date of Surgery/Procedure: 07/29/17 Time of Surgery/Procedure: 09:39
[2017-07-29] MEDS ORDERED: Levalbuterol 1.25 MG/3 ML Inhal Soln UD ONE (09:40)
[2017-07-29] MEDS ORDERED: Oxycodone/Acetaminophen 5/325 mg Tab PO PRN (09:43)
[2017-07-29] MEDS ORDERED: Albuterol HFA 90 mcg/actuation (8 g) ONE (09:44)
[2017-07-29] MEDS ORDERED: Levalbuterol 1.25 MG/3 ML Inhal Soln UD IH ONE (09:45)
[2017-07-29] MEDS ORDERED: HYDROmorphone 0.5 mg/0.5 ml ISec ONE ×2 (09:54→11:04)
[2017-07-29] MEDS ORDERED: HYDROmorphone 0.5 mg/0.5 ml ISec IVP ONE ×3 (09:55→11:10)
[2017-07-29] MEDS ORDERED: Levalbuterol 1.25 MG/3 ML Inhal Soln UD IH STA (10:01)
[2017-07-29] MEDS ORDERED: HYDROmorphone 0.5 mg/0.5 ml ISec IVP PRN (10:01)
[2017-07-29] MEDS ORDERED: Morphine 2 mg/ml ISec ONE ×2 (10:04→10:19)
[2017-07-29] MEDS ORDERED: Morphine 2 mg/ml ISec IVP ONE ×2 (10:10→10:25)
[2017-07-29] MEDS ORDERED: HYDROmorphone 0.5 mg/0.5 ml ISec IM STA (10:38)
[2017-07-29 14:01] VITALS: RESP 20; TEMP 98; O2SAT 94
[2017-07-29] MEDS ORDERED: Oxycodone/Acetaminophen 5/325 mg Tab ONE (14:04)
[2017-07-29 15:00] VITALS: BP 134/69; PULSE 99
--- NOTE | 2017-07-29 20:04 | OP ---
PROCEDURE DATE: 07/29/2017 PREOPERATIVE DIAGNOSIS: Incarcerated incisional hernia. POSTOPERATIVE DIAGNOSIS: Incarcerated incisional hernia. PROCEDURE: Laparoscopic repair of the incarcerated incisional hernia with Symbotex mesh. SURGEON: Joseph Howard MD DOWN FILLER: Dr. Alarcon. ANESTHESIA ADMINISTERED BY: Dr. Benavides. TYPE OF ANESTHESIA: General endotracheal anesthesia. ESTIMATED BLOOD LOSS: Minimal. SPECIMEN: None. INDICATIONS FOR PROCEDURE: The patient is a 57-year-old morbidly obese female with history of laparoscopic tubal ligation who comes in with a large incarcerated incisional hernia at the port site. The patient was scheduled for the laparoscopic repair of the hernia. DESCRIPTION OF PROCEDURE: The patient was brought to the operating room and placed on the operating table in a supine position. The patient was connected to the EKG, blood pressure, and pulse oximetry monitors. The patient then underwent general endotracheal anesthesia and was prepped and draped in usual sterile fashion. First, a standard time-out procedure took place and everybody in the room agreed as to the patient's identity, diagnosis, and procedure to be performed. Using lidocaine mixed with Marcaine, the area of the left upper subcostal margin was infiltrated and an incision was made in the skin in order to access the abdominal cavity with 10-mm Visiport trocar under direct visualization with the scope. Careful incision was done through the last layers and into the abdominal cavity. Once the tip of the trocar was in the abdominal cavity, pneumoperitoneum was obtained and a careful evaluation of abdominal cavity revealed presence of the incarcerated incisional hernia through the trocar site with contents of omentum. There was no other abnormalities noted within in the abdominal cavity. The second 5-mm trocar was inserted in the anterior axillary line just below the costal margin and careful dissection was done in order to free up the omentum from the edges of the hernia sac. Once this was done, the omentum was carefully teased out and removed from the hernia sac. The hernia sac itself was cauterized in the multiple places with Harmonic scalpel in order to improve the chance of scarring and closing the defect. I then proceeded placing a 12-mm Symbotex round mesh into the abdominal cavity with attached suture and then pulled it with a rasp surface towards the abdominal wall using the closure needle. Once this was done, I then pulled the mesh against the defect and placed three rows of absorbable tackers around the defect and around the edges of the mesh and in between in order to hold it in place. There was excellent repair noted. No bleeding was noted. The abdominal cavity was carefully evaluated for the trocar sites and there was no bleeding from the trocars sites and therefore pneumoperitoneum was released, trocars removed, and the wounds were closed using 0 Vicryl for the fascia, 3-0 Vicryl for subcutaneous tissue and 4-0 Monocryl for skin. A sterile Dermabond dressing was applied to all the wounds. The patient tolerated the procedure well, and there was no complications. The patient was awakened and transferred to the recovery room for further observation. Joseph Howard MD [facility] # [id number]
== END 2017-07-29 16:00 | disposition home or self-care (01) ==
LOC: SDS 06:27
PROVIDERS: ATTEND General Practice
DX: K43.0 Incisional hernia with obstruction, without gangrene (principal); E66.01 Morbid (severe) obesity due to excess calories; E11.9 Type 2 diabetes mellitus without complications; Z98.51 Tubal ligation status
CPT/HCPCS: 36415; 49655; 80048; 85025; 85610; 85730; C1781; J0690; J1170; J2001; J2250; J2270; J2405; J2704; J2710; J3010; J7120 ×2

== ENCOUNTER 2017-08-02 08:15 | Inpatient (IN) | payer MEDICARE, OTHER ==
[2017-08-02 08:21] VITALS: BMI 36.2
[2017-08-02] MEDS ORDERED: Albuterol 0.083% Inhal Sol (2.5 mg/3 mL) UD INH STA (08:37)
[2017-08-02] MEDS ORDERED: cefTRIAXone 1 gm 1 GM/100 ML BAG IVPB STA (08:39)
[2017-08-02] MEDS ORDERED: Azithromycin 500MG/NS 250ml 500 MG/250 ML BAG IVPB STA (08:39)
--- NOTE | 2017-08-02 08:40 | ED PDOC ---
Arrival/HPI - General Chief Complaint: Cough, Cold, Congestion Time Seen by Provider: 08/02/17 08:34 Historian: Patient - History of Present Illness Narrative History of Present Illness (Text): 08/02/17 08:30 Nannette Gandara is a 57 year old female, whose past medical history includes COPD , diabetes, and hypothyroidism, who presents to the emergency department complaining of coughing and shortness of breath since last night. Patient reports she had surgery for her hernia 4 days ago and admits to smoking recently. Patient denies fever, chest pain, abdominal pain, headache, dysuria, nausea, vomiting, or other complaints. Patient also reports using nebulizer at home. PMD: Dr. Tobias Time/Duration: 24 hours Symptom Onset: Sudden Symptom Course: Unchanged Context: Home Past Medical History - Provider Review Nursing Documentation Reviewed: Yes - Infectious Disease Hx of Infectious Diseases: None - Tetanus Immunization Tetanus Immunization: Unknown - Reproductive Menopause: Yes - Past Medical History Past Medical History: No Previous - Cardiac Hx Pacemaker: No - Pulmonary Hx Respiratory Disorders: Yes Hx Asthma: Yes Hx Bronchitis: Yes Hx Chronic Obstructive Pulmonary Disease (COPD): Yes Hx Pneumonia: Yes - Neurological Hx Paralysis: No - HEENT Hx HEENT Disorder: No - Renal Hx Renal Disorder: No - Endocrine/Metabolic Hx Diabetes Mellitus Type 2: Yes Hx Hypothyroidism: Yes - Hematological/Oncological Hx Blood Transfusions: No - Integumentary Hx Dermatological Disorder: No - Musculoskeletal/Rheumatological Hx Musculoskeletal Disorders: Yes - Gastrointestinal Hx Gastrointestinal Disorders: No - Genitourinary/Gynecological Hx Genitourinary Disorders: No - Psychiatric Hx Substance Use: No - Surgical History Hx Hysterectomy: Yes (partial) Hx Orthopedic Surgery: Yes (back/neck) - Anesthesia Hx Anesthesia Reactions: Yes (N&V) Hx Malignant Hyperthermia: No - Suicidal Assessment Feels Threatened In Home Enviroment: No Family/Social History - Physician Review Nursing Documentation Reviewed: Yes Family/Social History: Unknown Family HX Smoking Status: Light Smoker < 10 Cigarettes Daily Hx Alcohol Use: No Hx Substance Use: No Hx Substance Use Treatment: Yes (PPD) Allergies/Home Meds Allergies/Adverse Reactions: Allergies No Known Allergies Allergy (Verified 05/05/17 14:31) Home Medications: Home Meds Medication Instructions Recorded Confirmed Glimepiride [amaRYL] 4 mg PO ACBD PRN 02/03/17 07/29/17 Levothyroxine [Synthroid] 25 mcg PO QAM 07/18/17 07/29/17 Simvastatin [Zocor] 20 mg PO QPM 07/18/17 07/29/17 Albuterol/Ipratropium [Duoneb 3 1 inh INH Q6 PRN 07/29/17 07/29/17 mg/0.5 mg (3 ml) UD] Docusate [Colace] 100 mg PO BID 07/29/17 07/29/17 Fluticasone/Vilanterol [Breo 1 inh INH DAILY 07/29/17 07/29/17 Ellipta 100-25 Mcg INH] Gabapentin [Neurontin] 800 mg PO TID 07/29/17 07/29/17 Pantoprazole Sodium [Protonix] 40 mg PO DAILY 07/29/17 07/29/17 Umeclidinium [place] [Incruse 1 inh INH DAILY 07/29/17 07/29/17 Ellipta] traMADol [Ultram] 50 mg PO Q6H PRN 07/29/17 07/29/17 Review of Systems - Review of Systems Constitutional: absent: Fevers ENT: absent: Sore Throat, Sinus Congestion Respiratory: SOB, Cough Cardiovascular: absent: Chest Pain Gastrointestinal: absent: Abdominal Pain, Diarrhea, Vomiting Genitourinary Female: absent: Dysuria, Frequency Musculoskeletal: absent: Back Pain Skin: absent: Rash Neurological: absent: Headache, Dizziness Endocrine: absent: Diaphoresis Physical Exam Vital Signs Reviewed: Yes Vital Signs Temp Pulse Resp BP Pulse Ox 08/02/17 11:15 90 18 129/77 96 08/02/17 08:16 98.4 F 74 19 164/95 H 95 Temperature: Afebrile Blood Pressure: Hypertensive Pulse: Regular Respiratory Rate: Normal Appearance: Positive for: Well-Appearing, Non-Toxic, Comfortable Pain Distress: None Mental Status: Positive for: Alert and Oriented X 3 - Systems Exam Head: Present: Atraumatic, Normocephalic Pupils: Present: PERRL Extroacular Muscles: Present: EOMI Conjunctiva: Present: Normal Mouth: Present: Moist Mucous Membranes Respiratory/Chest: Present: Wheezes (bilateral wheezing). No: Clear to Auscultation, Good Air Exchange, Respiratory Distress, Accessory Muscle Use, Retracting, Rhonchi Cardiovascular: Present: Regular Rate and Rhythm, Normal S1, S2. No: Murmurs Abdomen: Present: Normal Bowel Sounds, Hernias. No: Tenderness, Distention, Peritoneal Signs, Rebound, Guarding Upper Extremity: Present: Normal Inspection, Normal ROM, NORMAL PULSES, Neurovascularly Intact, Capillary Refill < 2s. No: Cyanosis, Edema, Tenderness , Swelling, Erythema, Deformity Neurological: Present: GCS=15, CN II-XII Intact, Speech Normal, Normal Sensory Function, Normal Cerebellar Funct, Memory Normal Skin: Present: Warm, Dry, Normal Color. No: Rashes Psychiatric: Present: Alert, Oriented x 3, Normal Insight, Normal Concentration Medical Decision Making ED Course and Treatment: 08/02/17 Impression: 57 year old with bilateral wheezing on exam complaining of coughing and shortness of breath since last night. Differential Diagnosis included but are not limited to: bronchitis Plan: -- Chest X-ray -- Labs -- Albuterol, Rocephin, Solumedrol, Zithromax -- Reassess and disposition Progress Notes: 08/02/17 10:15 Chest X-ray: Creator : Flavio Boland MD COMPARISON: 05/31/2017 FINDINGS: LUNGS: No active pulmonary disease. PLEURA: No significant pleural effusion identified. No pneumothorax apparent. CARDIOVASCULAR: Normal. OSSEOUS STRUCTURES: No significant abnormalities. VISUALIZED UPPER ABDOMEN: Normal. OTHER FINDINGS: Spinal stimulator leads are seen IMPRESSION: No active disease. 08/02/17 11:[address] Tobias, who is aware of plan and treatment. He advices because patient is still wheezing we can admit her for exacerbation COPD. - Lab Interpretations Lab Results: 08/02/17 09:05 08/02/17 09:05 Lab Results 08/02/17 09:05: Sodium 141, Potassium 4.2, Chloride 106, Carbon Dioxide 26, Anion Gap 14, BUN 9, Creatinine 0.6 L, Est GFR ( Amer) > 60, Est GFR (Non -Af Amer) > 60, Random Glucose 117 H, Calcium 9.7, Total Bilirubin 0.4, AST 24, ALT 30, Alkaline Phosphatase 79, Total Protein 6.2, Albumin 3.7, Globulin 2.6, Albumin/Globulin Ratio 1.4 08/02/17 09:05: WBC 6.3 D, RBC 4.80, Hgb 12.7, Hct 39.1, MCV 81.5, MCH 26.5, MCHC 32.5, RDW 15.8 H, Plt Count 184, MPV 11.4 H, Gran % 74.4 H, Lymph % (Auto) 12.5 L, [place] % (Auto) 7.1 H, Eos % (Auto) 5.7 H, Baso % (Auto) 0.3, Gran # 4.71 , Lymph # 0.8 L, [place] # 0.5, Eos # 0.4, Baso # 0.02 I have reviewed the lab results: Yes - RAD Interpretation Radiology Orders: 08/02/17 08:39 CHEST TWO VIEWS (PA/LAT) [RAD] Stat Visual Educator: Radiologist - Medication Orders Current Medication Orders: Discontinued Medications Albuterol Sulfate (Albuterol 0.083% Inhal Wilma (2.5 Mg/3 Ml) Ud) 7.5 mg INH STAT STA Stop: 08/02/17 08:38 Last Admin: 08/02/17 09:27 Dose: 7.5 mg Ceftriaxone Sodium (Rocephin 1 Gram Ivpb) 1 gm in 100 mls @ 200 mls/hr IVPB STAT STA PRN Reason: Protocol Stop: 08/02/17 09:08 Last Admin: 08/02/17 09:25 Dose: 200 mls/hr eMAR Start Stop Document 08/02/17 09:25 SRE (Rec: 08/02/17 09:25 SRE [id number]) Intravenous Solution Start Date 08/02/17 Start Time 09:00 End Date 08/02/17 End time 10:00 Total Infusion Time 60 Azithromycin (Zithromax 500mg In Ns) 500 mg in 250 mls @ 167 mls/hr IVPB STAT STA PRN Reason: Protocol Stop: 08/02/17 10:08 Last Admin: 08/02/17 09:45 Dose: 167 mls/hr eMAR Start Stop Document 08/02/17 09:45 SRE (Rec: 08/02/17 09:46 SRE [id number]) Intravenous Solution Start Date 08/02/17 Start Time 09:45 End Date 08/02/17 End time 10:45 Total Infusion Time 60 Methylprednisolone (Solu-Medrol) 125 mg IVP STAT STA Stop: 08/02/17 08:40 Last Admin: 08/02/17 09:27 Dose: 125 mg IVP Administration Document 08/02/17 09:27 SRE (Rec: 08/02/17 09:27 SRE [id number]) Charges for Administration # of IVP Administrations 1 - PA / REWORK MACHINE OPERATOR / Resident Statement MD/DO has reviewed & agrees with the documentation as recorded. - Scribe Statement The provider has reviewed the documentation as recorded by the Scribe Ella Mariee Provider Scribe Attestation: All medical record entries made by the Scribe were at my direction and personally dictated by me. I have reviewed the chart and agree that the record accurately reflects my personal performance of the history, physical exam, medical decision making, and the department course for this patient. I have also personally directed, reviewed, and agree with the discharge instructions and disposition. Disposition/Present on Arrival - Present on Arrival Any Indicators Present on Arrival: No History of DVT/PE: No History of Uncontrolled Diabetes: No Urinary Catheter: No History of Decub. Ulcer: No History Surgical Site Infection Following: None - Disposition Have Diagnosis and Disposition been Completed?: Yes Diagnosis: COPD (chronic obstructive pulmonary disease), COPD (chronic obstructive pulmonary disease) with acute bronchitis, COPD exacerbation Disposition: HOSPITALIZED Disposition Time: 11:17 Patient Plan: Admission Condition: IMPROVED Referrals: Ricardo Tobias MD [Primary Care Provider] - Follow up with primary Forms: [employer] (Kiswahili)
[2017-08-02 09:20] LABS: BASO # 0.02 K/mm3 (0.0-2.0); BASO % 0.3 % (0.0-3.0); EOS # 0.4 (0.0-0.7); EOS % 5.7 % (1.5-5.0); GRAN # 4.71 (1.4-6.5); GRAN % 74.4 % (50.0-68.0); HEMOGLOBIN 12.7 g/dL (12.0-16.0); LYMPH # 0.8 (1.2-3.4); LYMPH % 12.5 % (22.0-35.0); MEAN CELL VOLUME 81.5 fl (80.0-105.0); MEAN CORPUSCULAR HEMOGLOBIN 26.5 pg (25.0-35.0); MEAN CORPUSCULAR HGB CONC 32.5 g/dl (31.0-37.0); MEAN PLATELET VOLUME 11.4 fl (7.0-11.0); MONO # 0.5 (0.1-0.6); MONO % 7.1 % (1.0-6.0); RBC 4.8 10^6/uL (3.5-6.1); RED CELL DISTRIBUTION WIDTH 15.8 % (11.5-14.5); WHITE BLOOD COUNT 6.3 10^3/ul (4.5-11.0)
[2017-08-02 09:41] LABS: ALB/GLOB RATIO 1.4 (1.1-1.8); ALBUMIN 3.7 g/dL (3.0-4.8); ALT/SGPT 30 U/L (7-56); AST/SGOT 24 U/L (14-36); BLOOD UREA NITROGEN 9 mg/dL (7-21); CALCIUM 9.7 mg/dL (8.4-10.5); GFR AFRICAN-AMERICAN > 60; GFR NON-AFRICAN AMERICAN > 60
--- NOTE | 2017-08-02 10:13 | RAD ---
HISTORY: COUGH COMPARISON: 05/31/2017 TECHNIQUE: Chest PA and lateral FINDINGS: LUNGS: No active pulmonary disease. PLEURA: No significant pleural effusion identified. No pneumothorax apparent. CARDIOVASCULAR: Normal. OSSEOUS STRUCTURES: No significant abnormalities. VISUALIZED UPPER ABDOMEN: Normal. OTHER FINDINGS: Spinal stimulator leads are seen IMPRESSION: No active disease.
[2017-08-02] MEDS ORDERED: Albuterol-Ipratrop 3 mg / 0.5 (3 ml) UD INH PRN (13:51)
[2017-08-02] MEDS ORDERED: Non Formulary Medication (Gabapentin [Neurontin] 800 MG) PO SCH (14:00)
--- NOTE | 2017-08-02 14:57 | CP.PCM.CON ---
History of Present Illness - History of Present Illness History of Present Illness: 57 year old female with PMH of history of bronchitis, history of pneumonia, COPD , S/P stimulator implantation in her back, DM, lumbar disc herniation, obesity with BMI 36, S/P abdominal hernia repair 4 days ago came in to [facility] [place] complaining of cough and dyspnea on exertion since yesterday. She denies sputum production, no vomiting, no nausea, no headache or dizziness, no chest pain, no rhinorrhea, no blurring of vision, no sore throat, no abdominal pain, no diarrhea, on dysuria. She also denies fever or chills or known sick contacts. Infectious Diseases consult is requested to further evaluate and manage. Review of Systems - Review of Systems All systems: reviewed and no additional remarkable complaints except (as per HPI ) Past Patient History - Infectious Disease Hx of Infectious Diseases: None - Tetanus Immunizations Tetanus Immunization: Unknown - Past Medical History & Family History Past Medical History?: Yes - Past Social History Smoking Status: Light Smoker < 10 Cigarettes Daily - CARDIAC Hx Pacemaker: No - PULMONARY Hx Respiratory Disorders: Yes Hx Asthma: Yes Hx Bronchitis: Yes Hx Chronic Obstructive Pulmonary Disease (COPD): Yes Hx Pneumonia: Yes - NEUROLOGICAL Hx Paralysis: No - HEENT Hx HEENT Problems: No - RENAL Hx Chronic Kidney Disease: No - ENDOCRINE/METABOLIC Hx Diabetes Mellitus Type 2: Yes Hx Hypothyroidism: Yes - HEMATOLOGICAL/ONCOLOGICAL Hx Blood Transfusions: No - INTEGUMENTARY Hx Dermatological Problems: No - MUSCULOSKELETAL/RHEUMATOLOGICAL Hx Musculoskeletal Disorders: Yes - GASTROINTESTINAL Hx Gastrointestinal Disorders: No - GENITOURINARY/GYNECOLOGICAL Hx Genitourinary Disorders: No - PSYCHIATRIC Hx Substance Use: No - SURGICAL HISTORY Hx Hysterectomy: Yes (partial) Hx Orthopedic Surgery: Yes (back/neck) - ANESTHESIA Hx Anesthesia Reactions: Yes (N&V) Hx Malignant Hyperthermia: No Meds Allergies/Adverse Reactions: Allergies Allergy/AdvReac Type Severity Reaction Status Date / Time No Known Allergies Allergy Verified 05/05/17 14:31 - Medications Medications: Current Medications Albuterol/Ipratropium (Duoneb 3 Mg/0.5 Mg (3 Ml) Ud) 3 ml INH Q6 ROBERTA Albuterol/Ipratropium (Duoneb 3 Mg/0.5 Mg (3 Ml) Ud) 3 ml IH Q2H PRN PRN Reason: Shortness of Breath Atorvastatin Calcium (Lipitor) 10 mg PO DIN ROBERTA Docusate Sodium (Colace) 100 mg PO BID ROBERTA Gabapentin (Neurontin) 800 mg PO TID ROBERTA Glimepiride (Amaryl) 4 mg PO ACBD PRN PRN Reason: Serum glucose Insulin Human Regular (Humulin R Low) 0 units SC ACHS ROBERTA PRN Reason: Protocol Levothyroxine Sodium (Synthroid) 25 mcg PO QAM ROBERTA Methylprednisolone (Solu-Medrol) 40 mg IVP Q12 ROBERTA Pantoprazole Sodium (Protonix Ec Tab) 40 mg PO DAILY ROBERTA Physical Exam - Constitutional Appears: Non-toxic - Head Exam Head Exam: NORMAL INSPECTION - ENT Exam ENT Exam: Mucous Membranes Moist - Neck Exam Neck exam: Negative for: Meningismus - Respiratory Exam Respiratory Exam: Wheezes (expiratory, diffuse) - Cardiovascular Exam Cardiovascular Exam: +S1, +S2 - GI/Abdominal Exam GI & Abdominal Exam: Soft. absent: Tenderness Results - Vital Signs Recent Vital Signs: Last Vital Signs Temp 98.4 F 08/02/17 08:16 Pulse 90 08/02/17 11:15 Resp 18 08/02/17 11:15 BP 129/77 08/02/17 11:15 Pulse Ox 96 08/02/17 11:15 - Labs Result Diagrams: 08/02/17 09:05 08/02/17 09:05 Assessment & Plan - Assessment and Plan (Free Text) Plan: Assessment consider acute COPD exacerbation S/P abdominal hernia repair 4 days ago history of bronchitis history of pneumonia COPD S/P stimulator implantation in her back DM lumbar disc herniation obesity with BMI 36 Plan reviewed CXR which does not show pneumonia; will check blood cx, sputum cx, PCT ; patient has been given a dose of Rocephin and will give and continue Zithromax ; patient has also been started on systemic steroids follow up Pulmonary evaluation and recommendations will monitor clinically rapid HIV screen in 2013 was negative
[2017-08-02] MEDS: Albuterol-Ipratrop 3 mg / 0.5 (3 ml) UD INH SCH ×2 (15:17→22:30)
[2017-08-02] MEDS: Oxycodone/Acetaminophen 5/325 mg Tab PO PRN ×2 (16:13→22:25)
[2017-08-02] MEDS: Insulin Reg-LOW-Coverage SC SCH ×2 (16:37→21:32)
[2017-08-02] MEDS ORDERED: Pneumococcal 23-Valent Vaccine IM ONE (17:43)
[2017-08-02] MEDS ORDERED: Influenza Vaccine 60 mcg/0.5 mL SYR (4YR UP) IM ONE (17:43)
[2017-08-02] MEDS ORDERED: Non Formulary Medication (Simvastatin [Zocor] 20 MG) PO SCH (18:00)
[2017-08-02] MEDS: MethylPREDNISolone 40 mg Vial IVP SCH (21:36)
[2017-08-03] MEDS: Albuterol-Ipratrop 3 mg / 0.5 (3 ml) UD INH SCH ×4 (02:17→19:32)
--- NOTE | 2017-08-03 03:03 | CON ---
PULMONARY CONSULTATION DATE: 08/02/2017 REFERRING PHYSICIAN: Dr. Tobias. REASON FOR CONSULTATION: Cough, shortness of breath, wheezing. HISTORY OF PRESENT ILLNESS: This is a 57-year-old female with known history of chronic obstructive lung disease, diabetes, hypothyroid, obesity, may have sleep apnea syndrome, has been having URI symptom, did not get relieved at home with the home remedies, comes to the emergency room, was admitted for further workup, had IV and inhaled bronchodilator with some benefit, persistent wheezing and shortness of breath. No nausea, no vomiting or diarrhea. No leg pain or leg swelling. PAST MEDICAL HISTORY: As per history of present illness. FAMILY HISTORY: No significant cardiopulmonary disease reported. SOCIAL HISTORY: She is active smoker. Denies any alcohol abuse. ALLERGIES: NONE KNOWN. MEDICATIONS: She is on Amaryl 4 mg a.c. , Colace 100 mg twice a day, DuoNeb q. 12 hours p.r.n. q. 6 hours, [id number] insulin coverage, Lipitor 10 mg daily, gabapentin 800 mg three times a day, Nicoderm patch daily, Percocet 5/325 one tablet q. 6 hours. p.r.n, Protonix 40 mg daily, Solu-Medrol 40 mg q. 12 hours, Synthroid 75 mcg daily, Zithromax 500 mg daily. REVIEW OF SYSTEMS: No headache, has some rhinitis, postnasal drip, cough, shortness of breath, wheezing. No nausea, no vomiting, or diarrhea. No leg pain or leg swelling. Admit to snoring, daytime sleepy and tired. PHYSICAL EXAMINATION: VITAL SIGNS: Temperature is 98, heart rate 90, respiratory rate is 20, blood pressure 129/77, pulse ox 96% on room air. HEENT: Moist mucous membranes. Crowded airway. NECK: Supple. No JVD. LUNGS: Has expiratory wheezing. HEART: S1 and S2. ABDOMEN: Soft, nontender. No organomegaly. EXTREMITIES: There is no edema. NEUROLOGIC: Awake and alert. Follows simple commands. LABORATORY DATA: Shows hemoglobin 12.7, hematocrit 39.1, WBC 6.3, and platelets is 184. Sodium 141, potassium 4.2, chloride 106, bicarbonate 26, BUN 9, creatinine 0.6, glucose 117, calcium 9.7. AST 24, ALT 30. Albumin is 3.7. Chest x-ray is done on admission, shows no infiltrate or effusion. IMPRESSION AND PLAN: Chronic obstructive lung disease exacerbation, may have got triggered with the viral syndrome, diabetes, hypertension, obesity, may have sleep apnea syndrome. The patient is to stop smoking, continue IV and inhaled bronchodilator, continue antibiotics. Spoke to the nursing staff, will place on NicoDerm patch. Outpatient pulmonary function test, sleep study. Will also need cancer screening. Thank you, and we will follow with you. Mirlande Reis MD
[2017-08-03] MEDS ORDERED: guaiFENesin 200 mg/10 ml Syrup UD PO PRN (03:06)
--- NOTE | 2017-08-03 03:15 | CP.PCM.PN ---
Subjective - Date & Time of Evaluation Date of Evaluation: 08/03/17 Time of Evaluation: 03:10 - Subjective Subjective: Patient was seen for coughing . States that she has been coughing since she has come here. Cough is dry. Denies chest pain,sob. Also complains of crams in both legs.States that she takes muscle relaxant for that and requests muscle relaxant for now. Gives history of COPD,smoking. Medical record was reviewed. This 57 year old white woman was admitted with coughing ,sob,exacerbation of COPD. Has PMH of COPD ,DM II, hypothyroidism, obesity, former smoker, back and neck surgery. Objective - Vital Signs/Intake and Output Vital Signs (last 24 hours): Temp Pulse Resp BP Pulse Ox 98.4 F 90 18 129/77 96 08/02/17 17:28 08/02/17 17:28 08/02/17 17:28 08/02/17 17:28 08/02/17 11:15 Intake and Output: 08/02/17 08/03/17 18:59 06:59 Intake Total 720 Balance 720 - Medications Medications: Current Medications Albuterol/Ipratropium (Duoneb 3 Mg/0.5 Mg (3 Ml) Ud) 3 ml INH [id number] [facility] Last Admin: 08/03/17 02:17 Dose: Not Given Albuterol/Ipratropium (Duoneb 3 Mg/0.5 Mg (3 Ml) Ud) 3 ml IH Q2H PRN PRN Reason: Shortness of Breath Atorvastatin Calcium (Lipitor) 10 mg PO DIN [facility] Last Admin: 08/02/17 17:28 Dose: 10 mg Cyclobenzaprine HCl (Flexeril) 10 mg PO STAT STA Stop: 08/03/17 03:10 Docusate Sodium (Colace) 100 mg PO BID [facility] Last Admin: 08/02/17 17:28 Dose: 100 mg Gabapentin (Neurontin) 800 mg PO TID [facility] Last Admin: 08/02/17 17:23 Dose: Not Given Glimepiride (Amaryl) 4 mg PO ACBD PRN PRN Reason: Serum glucose Guaifenesin (Robitussin) 200 mg PO Q4H PRN PRN Reason: Cough and congestion Azithromycin (Zithromax 500mg In Ns) 500 mg in 250 mls @ 167 mls/hr IVPB DAILY [facility] PRN Reason: Protocol Insulin Human Regular (Humulin R Low) 0 units SC ACHS ROBERTA PRN Reason: Protocol Last Admin: 08/02/17 21:32 Dose: Not Given Levothyroxine Sodium (Synthroid) 25 mcg PO QAM ROBERTA Methylprednisolone (Solu-Medrol) 40 mg IVP Q12 ROBERTA Last Admin: 08/02/17 21:36 Dose: 40 mg Nicotine (Nicoderm Cq) 1 patch TD DAILY ROBERTA Oxycodone/Acetaminophen (Percocet 5/325 Mg Tab) 1 tab PO Q6H PRN PRN Reason: Pain, moderate (4-7) Stop: 08/05/17 15:59 Last Admin: 08/02/17 22:25 Dose: 1 tab Pantoprazole Sodium (Protonix Ec Tab) 40 mg PO DAILY [facility] - Labs Labs: Most Recent Lab Values WBC 6.3 10^3/ul (4.5-11.0) D 08/02/17 09:05 RBC 4.80 10^6/uL (3.5-6.1) 08/02/17 09:05 Hgb 12.7 g/dL (12.0-16.0) 08/02/17 09:05 Hct 39.1 % (36.0-48.0) 08/02/17 09:05 MCV 81.5 fl (80.0-105.0) 08/02/17 09:05 MCH 26.5 pg (25.0-35.0) 08/02/17 09:05 MCHC 32.5 g/dl (31.0-37.0) 08/02/17 09:05 RDW 15.8 % (11.5-14.5) H 08/02/17 09:05 Plt Count 184 10^3/uL (120.0-450.0) 08/02/17 09:05 MPV 11.4 fl (7.0-11.0) H 08/02/17 09:05 Gran % 74.4 % (50.0-68.0) H 08/02/17 09:05 Lymph % (Auto) 12.5 % (22.0-35.0) L 08/02/17 09:05 [place] % (Auto) 7.1 % (1.0-6.0) H 08/02/17 09:05 Eos % (Auto) 5.7 % (1.5-5.0) H 08/02/17 09:05 Baso % (Auto) 0.3 % (0.0-3.0) 08/02/17 09:05 Gran # 4.71 (1.4-6.5) 08/02/17 09:05 Lymph # 0.8 (1.2-3.4) L 08/02/17 09:05 [place] # 0.5 (0.1-0.6) 08/02/17 09:05 Eos # 0.4 (0.0-0.7) 08/02/17 09:05 Baso # 0.02 K/mm3 (0.0-2.0) 08/02/17 09:05 Sodium 141 mmol/L (132-148) 08/02/17 09:05 Potassium 4.2 mmol/L (3.6-5.0) 08/02/17 09:05 Chloride 106 mmol/L (98-107) 08/02/17 09:05 Carbon Dioxide 26 mmol/L (21-33) 08/02/17 09:05 Anion Gap 14 (10-20) 08/02/17 09:05 BUN 9 mg/dL (7-21) 08/02/17 09:05 Creatinine 0.6 mg/dl (0.7-1.2) L 08/02/17 09:05 Est GFR ( Amer) > 60 08/02/17 09:05 Est GFR (Non-Af Amer) > 60 08/02/17 09:05 POC Glucose (mg/dL) 170 mg/dL (65-110) H 08/02/17 21:14 Random Glucose 117 mg/dL (70-110) H 08/02/17 09:05 Calcium 9.7 mg/dL (8.4-10.5) 08/02/17 09:05 Total Bilirubin 0.4 mg/dL (0.2-1.3) 08/02/17 09:05 AST 24 U/L (14-36) 08/02/17 09:05 ALT 30 U/L (7-56) 08/02/17 09:05 Alkaline Phosphatase 79 U/L (38-126) 08/02/17 09:05 Total Protein 6.2 g/dL (5.8-8.3) 08/02/17 09:05 Albumin 3.7 g/dL (3.0-4.8) 08/02/17 09:05 Globulin 2.6 gm/dL 08/02/17 09:05 Albumin/Globulin Ratio 1.4 (1.1-1.8) 08/02/17 09:05 - Constitutional Appears: Well, No Acute Distress - Head Exam Head Exam: ATRAUMATIC, NORMAL INSPECTION, NORMOCEPHALIC - Eye Exam Eye Exam: Normal appearance - ENT Exam ENT Exam: Normal External Ear Exam - Neck Exam Neck Exam: Normal Inspection - Respiratory Exam Respiratory Exam: NORMAL BREATHING PATTERN - Cardiovascular Exam Cardiovascular Exam: absent: JVD - GI/Abdominal Exam GI & Abdominal Exam: absent: Distended - Rectal Exam Rectal Exam: Deferred - Exam Additional comments: Deferred. - Extremities Exam Extremities Exam: Normal Inspection - Back Exam Back Exam: NORMAL INSPECTION - Neurological Exam Neurological Exam: Alert, Awake, Oriented x3 - Psychiatric Exam Psychiatric exam: Normal Affect, Normal Mood - Skin Skin Exam: Normal Color Assessment and Plan - Assessment and Plan (Free Text) Assessment: Coughing. Exacerbation of COPD. Leg muscle spasm. DM II. Obesity. Hypothyroidism. Former smoker. Plan: Robitussin 10 ml PO Q4H prn cough. Flexaril 10 mg PO x 1. Continue present management.
[2017-08-03] MEDS: Oxycodone/Acetaminophen 5/325 mg Tab PO PRN ×4 (04:19→22:53)
[2017-08-03] MEDS: Albuterol-Ipratrop 3 mg / 0.5 (3 ml) UD IH PRN ×2 (05:28→11:30)
[2017-08-03] MEDS: Insulin Reg-LOW-Coverage SC SCH ×4 (08:43→22:47)
[2017-08-03] MEDS: Promethazine/Cod 6.25mg-10mg/5ml Syr UD PO PRN ×4 (09:32→22:40)
[2017-08-03] MEDS: Pantoprazole 40 mg EC Tab PO SCH (09:45)
[2017-08-03] MEDS: Levothyroxine 25 MCG TAB PO SCH (09:45)
[2017-08-03] MEDS: MethylPREDNISolone 40 mg Vial IVP SCH ×2 (09:47→22:40)
[2017-08-03] MEDS ORDERED: Azithromycin 500MG/NS 250ml 500 MG/250 ML BAG IVPB SCH (10:00)
[2017-08-03] MEDS: Enoxaparin 40 mg Syringe SC SCH (10:01)
--- NOTE | 2017-08-03 19:53 | HP ---
REASON FOR ADMISSION: A 57-year-old female who came to the Emergency Room because of cough, wheezing, and feeling sick. HISTORY OF PRESENT ILLNESS: A 57-year-old female diabetic, hypertensive, chronic back pain. She had recently abdominal wall hernia fixed laparoscopically by Dr. Howard. She came in complaining of coughing, wheezing, short of breath, and having difficult time breathing. There is no fever. May be chills occasionally, but no fever. No nausea. No vomiting. No diarrhea. No chest pain. PAST MEDICAL HISTORY: As I mentioned, she does have a history of diabetes type 2, chronic back pain, chronic osteoarthritis, disk disease, hypothyroidism, peripheral neuropathy, COPD and possible obstructive sleep apnea. ALLERGIES: SHE HAS NO KNOWN ALLERGIES. SOCIAL HISTORY: She smoke less than 10 cigarettes a day for 43 years. No alcohol. No other drug abuse. REVIEW OF SYSTEMS: She does get short of breath. She does have back pain, neck pain, arthritis of the knees. She does also have wheezing on and off because of underlying COPD. No urine incontinence. No focal weakness. She is otherwise negative. PHYSICAL EXAMINATION VITAL SIGNS: Temperature is 98.4, heart rate 74, blood pressure 129/77, respirations 18 and saturation 96% on room air. HEAD AND NECK: Normal. No JVD. No thyromegaly. CHEST: Bilateral wheezing in both lungs. CARDIAC: First sound and second sound are normal. ABDOMEN: Tender at the surgery site. There are two holes from the laparoscopic site in the left upper quadrant. Bowel sounds intact. EXTREMITIES: No edema. NEUROLOGIC: Normal. LABORATORY DATA: As follows: Her white count is 6.3, hemoglobin 12.7, hematocrit 39.1 and platelets 184. Chemistry: Sodium 141, potassium 4.2, chloride 106, bicarb 26, BUN 9, creatinine 0.6 and blood sugar 117. Liver enzymes are normal. The patient also had reports which include chest x-ray. Chest x-ray which shows no active pulmonary disease. IMPRESSION AND PLAN: 1. Acute chronic obstructive pulmonary disease exacerbation by dyspnea, wheezing. We will start the patient on IV steroids and inhaled bronchodilators. Dr. Reis will see the patient. Infectious Disease consult will see the patient. Continue current therapy for now. 2. Recent history of abdominal wall hernia, abdominal pain, chronic back pain, neck pain. We will give her Percocet p.r.n. 3. Diabetes. Resume her diabetic medication. Insulin coverage 4 times a day. 4. Hypothyroidism. Continue levothyroxine 25 mcg daily. PLAN: Continue current therapy. Continue Amaryl 4 mg a.c., breakfast, and dinner, Colace, DuoNeb, insulin coverage, Lipitor 10 mg, Neurontin, Nicoderm patch for smoking, Percocet, Protonix, and Solu-Medrol 40 IV q. 12 hours, Synthroid 25, and we will give her Zithromax IV. Continue current therapy. Continue GI and DVT prophylaxis. Followup clinically. Ricardo Tobias MD
--- NOTE | 2017-08-03 20:42 | PN ---
DATE: 08/03/2017 SUBJECTIVE: The patient is in bed, in no acute distress, nontoxic. PHYSICAL EXAMINATION: VITAL SIGNS: Temperature is 98, blood pressure is 150/70, and respiratory rate of 18. HEENT: Unremarkable. NECK: Supple. LUNGS: Decreased breath sounds. HEART: Normal S1, S2. ABDOMEN: Soft, nontender. LABORATORY DATA: Reveals a white count is 6.3 hemoglobin of 12, and platelets of 184. Chemistries are noted. Serology for influenza is positive. Microbiology reveals the blood cultures are negative. ASSESSMENT AND PLAN: This is a 57-year-old female who was seen earlier this morning with a history of bronchitis, history of pneumonia, history of chronic obstructive pulmonary disease, history of status post stimulator implant in the back, lumbar disc herniation, diabetes mellitus, obesity with a BMI of 36, abdominal hernia repair 5 days ago, complaining with cough, dyspnea exertion, and acute chronic obstructive lung disease exacerbation with influenza positive. We will isolate the patient and start the patient on Tamiflu. The patient is also on Zithromax. Infectious Disease will discontinue the IV Zithromax. The patient's chest x-ray, no active lung disease. Dr. Reis's consultation is noted. The patient had an EKG in 05/29/2017, which showed acute QTc of 418. We will place the patient on p.o. Zithromax at 250 mg dose with complete 5 days of Tamiflu. The patient may be discharge from Infectious Disease point of view. Mendez Morgan MD
[2017-08-03 22:32] VITALS: RESP 22
--- NOTE | 2017-08-03 23:54 | PN ---
DATE: 08/03/2017 PULMONARY PROGRESS NOTE REFERRING PHYSICIAN: Nisa Diego MD SUBJECTIVE: She is lying in the bed, isolated, is influenza A positive, still has cough and sputum production. No nausea, no vomiting, no diarrhea. No leg pain or leg swelling. OBJECTIVE: GENERAL: In no acute distress. VITAL SIGNS: Temperature is 98, heart rate is 52, respiratory rate is 20, blood pressure is 150/70, pulse oximetry 96% on 2 L nasal cannula. HEENT: Moist mucous membranes. Crowded airway, Mallampati score is IV. NECK: Supple. No JVD. LUNGS: Has scattered rhonchi and wheezing. HEART: S1 and S2. ABDOMEN: Soft and nontender. No organomegaly. EXTREMITIES: There is no edema. NEUROLOGIC: Awake, alert, and follows simple commands. MEDICATIONS: She is on Amaryl 4 mg a.c. p.r.n., Colace 100 mg twice a day, DuoNeb q. 12 hours p.r.n. q. 6 hours round the clock, Lipitor 10 mg daily, Lovenox 40 mg subcu daily, gabapentin 800 mg three times a day, Nicoderm patch daily, Percocet 5/325 1 tab q.6 hours. p.r.n, promethazine 5 mL q. 4 hours p.r.n, Protonix 40 mg daily, Solu-Medrol 25 daily, Tamiflu 75 mg twice a day, Zithromax 250 mg daily. LABORATORY DATA: Reviewed, noted blood sugar this morning is 155. Serology shows influenza A antibody positive. Microbiology, blood culture has been negative. IMPRESSION AND PLAN: Influenza A infection with exacerbation of chronic obstructive lung disease,diabetes, hypertension, obesity, sleep apnea syndrome. Pulmonary point of view doing okay. Continue IV and inhaled bronchodilator. Continue Tamiflu. Gastric prophylaxis. SCD to lower extremity. Thank you and we will follow with you. Mirlande Reis MD
[2017-08-04] MEDS: Albuterol-Ipratrop 3 mg / 0.5 (3 ml) UD INH SCH ×3 (01:07→14:22)
[2017-08-04] MEDS: Promethazine/Cod 6.25mg-10mg/5ml Syr UD PO PRN ×2 (04:29→12:42)
[2017-08-04] MEDS: Oxycodone/Acetaminophen 5/325 mg Tab PO PRN ×2 (06:01→12:42)
[2017-08-04 06:35] VITALS: BP 150/80; PULSE 99; TEMP 98.6; O2SAT 98
[2017-08-04] MEDS: Insulin Reg-LOW-Coverage SC SCH ×2 (08:04→13:05)
[2017-08-04] MEDS: Levothyroxine 25 MCG TAB PO SCH (11:08)
[2017-08-04] MEDS: Pantoprazole 40 mg EC Tab PO SCH (11:09)
[2017-08-04] MEDS: MethylPREDNISolone 40 mg Vial IVP SCH (11:25)
[2017-08-04] MEDS: Enoxaparin 40 mg Syringe SC SCH (12:47)
--- NOTE | 2017-08-04 21:29 | PN ---
DATE: 08/04/2017 PULMONARY PROGRESS NOTE REFERRING PHYSICIAN: Ricardo Tobias MD SUBJECTIVE: She is out of bed to chair. Feels much better. No more fever. No headache. No rhinitis. Still has a cough. No nausea or vomiting. No diarrhea. No leg pain or leg swelling. PHYSICAL EXAMINATION GENERAL: In no acute distress. VITAL SIGNS: Temperature is 98, heart rate is 99, respiratory rate is 20, blood pressure is 150/80 and pulse oximetry 98% on 2 L nasal cannula. HEENT: Moist mucous membranes. Crowded airway. NECK: Supple. No JVD. LUNGS: Has a fair air flow with few rhonchi. HEART: S1 and S2. ABDOMEN: Soft and nontender. No organomegaly. EXTREMITIES: There is no edema. NEUROLOGIC: Awake, alert and follows simple commands. MEDICATIONS: Reviewed. No new changes reported since yesterday. LABORATORY DATA: Reviewed. Blood sugar this morning is 155. IMPRESSION AND PLAN: Influenza A infection with exacerbation of chronic obstructive lung disease,diabetes, hypertension, obesity, sleep apnea syndrome. Pulmonary point of view, she is doing okay. Wants go home, being discharged. Advised her and informed her that she has influenza A virus positive. Need to avoid contact as much possible. Need to complete Tamiflu. She also urge to stop smoking. Continue gastric prophylaxis. Outpatient pulmonary function test and sleep study. High risk for sleep apnea. Has a snoring, daytime sleepy. Thank you and we will follow with you. Mirlande Reis MD
--- NOTE | 2017-08-05 00:27 | PN ---
DATE: 08/04/2017 SUBJECTIVE: The patient was seen earlier this morning. Doing better. No fever. No chills. PHYSICAL EXAMINATION: VITAL SIGNS: Temperature is 98, blood pressure is 150/80, and respirations 22. HEENT: Unremarkable. NECK: Supple. LUNGS: Decreased breath sounds. HEART: Normal S1 and S2. ABDOMEN: Soft. Nontender. LABORATORY DATA: White count is 6.3, hemoglobin 5, and platelets of 184. BUN of 9, creatinine of 0.6, and procalcitonin 0.05. Microbiology is noted. ASSESSMENT AND PLAN: This is a 57-year-old female who is seen earlier this morning in 572, bed 2, history of bronchitis, history of pneumonia, history of chronic obstructive lung disease status post stimulator implant in the back, lumbar disk herniation, diabetes, obesity with body mass index of 36, abdominal hernia and complaining of pulmonary symptoms and found to have influenza positive and would complete the p.o. Tamiflu 5 days. Mendez Morgan MD
--- NOTE | 2017-08-05 10:33 | PN ---
DATE: 08/04/2017 SUBJECTIVE: The patient is stable. No complaints. Cough is less, still coughing. No chest pain. No short of breath. No nausea. No vomiting. The patient is otherwise stable. PHYSICAL EXAMINATION: VITAL SIGNS: Temperature is 98.6, heart rate is 99, blood pressure is 150/80, respirations 22, and O2 saturation 98% on room air. HEAD AND NECK: Normal. No JVD. No thyromegaly. CHEST: Clear with good air entry. CARDIAC: First sound and second sound are normal. ABDOMEN: Soft and nontender. There is tenderness in the periumbilical area surgical site. EXTREMITIES: No edema. NEUROLOGIC: Normal. LABORATORY DATA: Chest x-ray, there is no active disease. The patient had a flu positive for the flu serology. IMPRESSION: 1. Flu syndrome or acute influenza. We will continue Tamiflu b.i.d. Continue symptomatic treatment with cough medicine . 2. Acute chronic obstructive pulmonary disease exacerbations improving, is doing much better. We will continue her steroids 20 mg to be tapered over several days. Continue inhaled bronchodilators at home. Continue cough medicine. 3. Diabetes type 2. Continue to monitor the sugar. 4. Morbid obesity. 5. Chronic back pain. Continue current medications for her hypothyroidism and followup in the office within a day or two. CURRENT MEDICATIONS: She will be getting continued oxycodone at home. Continue Zanaflex, Zocor 20 mg, Lyrica 150 b.i.d., Protonix 40, Synthroid 25 mcg a day, Amaryl 4 mg p.o. twice a day, Breo Ellipta 1 inhalation daily, Neurontin was discontinued, Colace 100 b.i.d., nebulizer treatment albuterol, prednisone 20 mg to be tapered over few days and Tamiflu 75 b.i.d. PLAN: The patient would be discharged probably tomorrow, if it is okay with IV or reevaluate tomorrow with IV, if it is okay with her. She seems doing very well. Ricardo Tobias MD
== END 2017-08-04 18:29 | disposition home or self-care (01) | DRG 192 ==
LOC: ED 08:15 → ERH 11:18 → 5RSO 13:28
PROVIDERS: ADMIT Internal Medicine; ATTEND Internal Medicine
DX: J44.1 Chronic obstructive pulmonary disease with (acute) exacerbation (principal); J10.1 Influenza due to other identified influenza virus with other respiratory manifestations; E03.9 Hypothyroidism, unspecified; M51.26 Other intervertebral disc displacement, lumbar region; E66.01 Morbid (severe) obesity due to excess calories; F17.210 Nicotine dependence, cigarettes, uncomplicated; E11.42 Type 2 diabetes mellitus with diabetic polyneuropathy; M19.90 Unspecified osteoarthritis, unspecified site; I10 Essential (primary) hypertension; G47.30 Sleep apnea, unspecified; M62.838 Other muscle spasm; Z68.36 Body mass index [BMI] 36.0-36.9, adult; Z87.01 Personal history of pneumonia (recurrent); Z79.84 Long term (current) use of oral hypoglycemic drugs

== ENCOUNTER 2017-09-07 12:33 | Emergency (ER) | payer MEDICARE, OTHER ==
[2017-09-07 12:34] VITALS: BMI 36.2
== END 2017-09-07 12:54 | disposition left against medical advice (07) ==
LOC: ED 12:33
DX: Z02.89 Encounter for other administrative examinations (principal); R11.0 Nausea

== ENCOUNTER 2017-09-08 11:33 | Inpatient (IN) | payer MEDICARE, OTHER ==
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
[2017-09-08] MEDS: Sodium Chloride 0.9% 1,000 ML IV SCH ×2 (13:15→23:00)
[2017-09-08 13:33] LABS: BASO # 0.01 K/mm3 (0.0-2.0); BASO % 0.1 % (0.0-3.0); EOS % 0.3 % (1.5-5.0); GRAN # 9.32 (1.4-6.5); GRAN % 80.6 % (50.0-68.0); LYMPH # 1.5 (1.2-3.4); LYMPH % 13.1 % (22.0-35.0); MEAN CELL VOLUME 76.1 fl (80.0-105.0); MEAN CORPUSCULAR HEMOGLOBIN 26.3 pg (25.0-35.0); MEAN CORPUSCULAR HGB CONC 34.6 g/dl (31.0-37.0); MEAN PLATELET VOLUME 11.7 fl (7.0-11.0); MONO # 0.7 (0.1-0.6); MONO % 5.9 % (1.0-6.0); RBC 5.93 10^6/uL (3.5-6.1); RED CELL DISTRIBUTION WIDTH 15.3 % (11.5-14.5); WHITE BLOOD COUNT 11.6 10^3/ul (4.5-11.0)
[2017-09-08 13:40] LABS: ALB/GLOB RATIO 1.2 (1.1-1.8); ALBUMIN 4.6 g/dL (3.0-4.8); ALT/SGPT 20 U/L (7-56); AST/SGOT 20 U/L (14-36); BLOOD UREA NITROGEN 83 mg/dL (7-21); CALCIUM 7.9 mg/dL (8.4-10.5); GFR AFRICAN-AMERICAN 13; GFR NON-AFRICAN AMERICAN 11; HEMOGLOBIN 15.6 g/dL (12.0-16.0)
[2017-09-08] MEDS ORDERED: Sodium Chloride 0.9% 1,000 ML IV STA (13:41)
[2017-09-08] MEDS ORDERED: Potassium Chloride 20 mEq ER Tab PO STA (13:41)
[2017-09-08 13:51] LABS: TROPONIN I < 0.01 ng/mL
[2017-09-08 13:58] LABS: LIPASE 4450 U/L (23-300)
--- NOTE | 2017-09-08 14:09 | CT ---
PROCEDURE: CT scan abdomen and pelvis dated 09/08/2017 HISTORY: Vomiting in a patient status post recent hernia repair COMPARISON: Comparison made with prior CT scan of the abdomen pelvis 06/15/2017. TECHNIQUE: Contiguous helical/transaxial images of the abdomen and pelvis. Oral contrast was administered. No IV contrast given. Coronal and Sagittal reformats generated. Radiation dose: Total exam DLP = This CT exam was performed using one or more of the following dose reduction techniques: Automated exposure control, adjustment of the mA and/or kV according to patient size, and/or use of iterative reconstruction technique. FINDINGS: LOWER THORAX: Mild localized bronchiectasis seen medial aspect right middle lobe. There also appears to be some minor localized scarring left lingular region. Small hiatal hernia with slight wall thickening of distal esophagus likely due to protrusion of gastric mucosa. Possibility of esophagitis not excluded. Heart size within range of normal. No significant pericardial effusion. 1st Lung bases are otherwise clear without focal consolidation or effusion. LIVER: Liver is mildly enlarged measuring just over 19 cm in CC dimension. GALLBLADDER AND BILE DUCTS: Gallbladder is markedly distended likely fasting state. PANCREAS: The pancreas is somewhat atrophic and fatty replaced. No obvious pancreatic masses collections or calcifications. SPLEEN: Unremarkable. No splenomegaly. ADRENALS: No adrenal lesions. KIDNEYS AND URETERS: Kidneys demonstrate relatively symmetric size. No evidence of nephrolithiasis or hydronephrosis. Some minor infiltration changes seen in the perinephric fat bilaterally left greater than right nonspecific. BLADDER: Urinary bladder is markedly distended ; rule out urinary retention REPRODUCTIVE: The uterus is compressed posterolaterally by the distended urinary bladder though is otherwise unremarkable. APPENDIX: Normal-appearing appendix best seen on coronal sequence image number [id number]. No periappendiceal inflammatory changes. BOWEL: Evaluation of the bowel is limited due to the lack of oral contrast. Stomach is collapsed which presumably acute accounts for for thick-walled appearance. Visualized loops of small bowel exhibit normal contour and caliber. No evidence of acute mechanical small bowel obstruction. There is a moderate amount of stool seen throughout of most of the colon particularly the cecum and at ascending colon suggesting mild fecal retention/constipation. Scattered colonic diverticular are present including few scattered right-sided colonic diverticula. No definitive radiographic evidence of acute diverticulitis. PERITONEUM: No gross free intraperitoneal air. There are no drainable intraperitoneal fluid collections. . Previously noted large right umbilical/para umbilical hernia which contained mesenteric fat on the prior study contains fluid at this time. This measures approximately 6.7 cc x 6 .3 trans x 4 .8 AP LYMPH NODES: There are a few small nonspecific retroperitoneal lymph nodes. VASCULATURE: Unremarkable. No aortic aneurysm. BONES: Bilateral laminectomy vertebral body fusion changes the 2 vertebral body accomplished by placement of short segment [place] rods which are attached to the right and left posterior elements of L5 and S1 segments. Fusion appears solid. Multilevel degenerative spondylosis of the lumbar and lower thoracic spine. Again noted is an in situ pain stimulator electrode which enters the at posterior spinal canal at the T12-L1 level on the left side and extends superiorly into the lower thoracic region. The battery pack is located within the subcutaneous fat/ soft tissues right upper buttock region OTHER FINDINGS: None. IMPRESSION: Mild hepatomegaly. The markedly distended gallbladder which could be due to nonfasting state. Scattered colonic diverticula however no radiographic evidence of acute diverticulitis. Min. No evidence of obstruction. No evidence of acute appendicitis. Markedly distended urinary bladder; rule out urinary retention. Previously noted large right parasagittal umbilical/ paraumbilical hernia which contain mesenteric fat now contains fluid. Clinical correlation recommended. Postoperative fusion and posterior fixation at changes L5-S1 level. There is an in situ spinal canal pain stimulator electrodes as above.
[2017-09-08] MEDS ORDERED: Morphine 2 mg/ml ISec IVP STA (14:23)
[2017-09-08 15:13] LABS: URINE BILIRUBIN NEGATIVE (NEGATIVE); URINE BLOOD NEGATIVE (NEGATIVE); URINE GLUCOSE (UA) 100 mg/dL (NEGATIVE); URINE LEUKOCYTE ESTERASE NEGATIVE Leu/uL (NEGATIVE); URINE NITRATE NEGATIVE (NEGATIVE); URINE PROTEIN 100 mg/dL (<30 mg/dL); URINE UROBILINOGEN 0.2 E.U./dL (<1 E.U./dL)
[2017-09-08 15:24] LABS: URINE COLOR YELLOW (YELLOW)
[2017-09-08 15:43] LABS: URINE APPEARANCE SL CLOUDY (CLEAR); URINE RBC NEGATIVE /hpf (0-2); URINE WBC 20 - 25 /hpf (0-6)
[2017-09-08 15:44] LABS: URINE BACTERIA MOD (NEG); URINE EPITHELIAL CELLS MANY /hpf (0-5)
[2017-09-08] MEDS ORDERED: cefTRIAXone 1 gm 1 GM/100 ML BAG IVPB STA (16:44)
--- NOTE | 2017-09-08 16:53 | US ---
HISTORY: Upper r abdominal pain COMPARISON: None. TECHNIQUE: Sonographic evaluation of the abdomen. FINDINGS: LIVER: Liver is enlarged measuring nearly 18 cm in CC dimension on this study. Liver demonstrates smooth contour and normal echotexture of. No obvious hepatic mass or collection seen on images presented. . No intrahepatic bile duct dilatation. GALLBLADDER: Distended. . No gallstones. COMMON BILE DUCT: Measures 4.4 mm. No stones. No dilatation. PANCREAS: Unremarkable as visualized. No mass. No ductal dilatation. RIGHT KIDNEY: Right kidney measures approximate 11.4 x 5.4 x 6.1cm. Normal echogenicity. No calculus, mass, or hydronephrosis. LEFT KIDNEY: Left kidney measures approximately 11.7 x 6.4 x 7.0cm. Normal echogenicity. No calculus, mass, or hydronephrosis. SPLEEN: Normal in size and contour. No mass. AORTA: No aneurysmal dilatation. IVC: Unremarkable. OTHER FINDINGS: None. IMPRESSION: Mild hepatomegaly. The
[2017-09-08 16:56] VITALS: BMI 31.7
[2017-09-08] MEDS: Insulin Reg-LOW-Coverage SC SCH ×2 (19:01→23:53)
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
[2017-09-08] MEDS: Morphine 2 mg/ml ISec IVP PRN (22:50)
[2017-09-09] MEDS: Morphine 2 mg/ml ISec IVP PRN ×4 (04:34→22:14)
[2017-09-09 07:19] LABS: CALCIUM 7.8 mg/dL (8.4-10.5)
[2017-09-09] MEDS: Insulin Reg-LOW-Coverage SC SCH ×4 (07:54→21:49)
[2017-09-09] MEDS: Albuterol-Ipratrop 3 mg / 0.5 (3 ml) UD IH SCH ×4 (07:54→22:19)
[2017-09-09] MEDS ORDERED: Sodium Chloride 0.9% 1,000 ML IV SCH (09:21)
--- NOTE | 2017-09-09 09:25 | CP.PCM.PN ---
Subjective - Date & Time of Evaluation Date of Evaluation: 09/09/17 Time of Evaluation: 07:30 - Subjective Subjective: Patient seen and examined at bedside in the ER. Patient states she still has epigastric abdominal pain but it is improved. Patient denies any nausea and vomiting, fevers or chills. Objective - Vital Signs/Intake and Output Vital Signs (last 24 hours): Temp Pulse Resp BP Pulse Ox 98.3 F 78 17 120/72 100 09/08/17 11:42 09/09/17 06:38 09/09/17 06:38 09/09/17 06:38 09/09/17 06:38 - Medications Medications: Current Medications Albuterol/Ipratropium (Duoneb 3 Mg/0.5 Mg (3 Ml) Ud) 3 ml IH QIDRESP [facility] Last Admin: 09/09/17 07:54 Dose: 3 ml Heparin Sodium (Porcine) (Heparin) 5,000 units SC Q12 ROBERTA PRN Reason: Protocol Last Admin: 09/08/17 22:50 Dose: 5,000 units Potassium Chloride (Potassium Chloride 20 Meq/100 Ml) 20 meq in 100 mls @ 50 mls/hr IVPB Q2H [facility] Stop: 09/09/17 11:29 Last Admin: 09/09/17 07:54 Dose: 50 mls/hr Sodium Chloride (Sodium Chloride 0.9%) 1,000 mls @ 200 mls/hr IV .Q5H [facility] Insulin Human Regular (Humulin R Low) 0 units SC ACHS ROBERTA PRN Reason: Protocol Last Admin: 09/09/17 07:54 Dose: Not Given Morphine Sulfate (Morphine) 2 mg IVP Q4 PRN PRN Reason: Pain, moderate (4-7) Last Admin: 09/09/17 04:34 Dose: 2 mg Pantoprazole Sodium (Protonix Inj) 40 mg IVP DAILY [facility] Last Admin: 09/08/17 19:00 Dose: 40 mg - Labs Labs: 09/09/17 05:40 - Constitutional Appears: Non-toxic, No Acute Distress - Head Exam Head Exam: ATRAUMATIC, NORMOCEPHALIC - Eye Exam Eye Exam: Normal appearance. absent: Conjunctival injection, Scleral icterus - ENT Exam ENT Exam: Mucous Membranes Moist, Normal Oropharynx - Respiratory Exam Respiratory Exam: NORMAL BREATHING PATTERN. absent: Accessory Muscle Use, Respiratory Distress - Cardiovascular Exam Cardiovascular Exam: RRR - GI/Abdominal Exam GI & Abdominal Exam: Soft, Tenderness (epigastrium>RUQ>LUQ), Mass (round mass in the right tristen-umbilical area). absent: Distended, Rebound - Extremities Exam Extremities Exam: absent: Calf Tenderness, Pedal Edema, Tenderness - Neurological Exam Neurological Exam: Alert, Awake, Oriented x3 - Psychiatric Exam Psychiatric exam: Normal Affect, Normal Mood - Skin Skin Exam: Dry, Intact, Normal Color, Warm Assessment and Plan - Assessment and Plan (Free Text) Assessment: 57F with abdominal pain and influenza. Pancreatitis vs. Gastroenteritis Elevated lipase, elevated Cr CT: no pancreatitis Plan: -Aggressive IV hydration--elevated lipase may be due to AB -No surgical intervention indicated at this time -Tamiflu for the flu -Follow up GI recs -May advance diet as tolerated from a surgical standpoint -Trend labs including lipase and amylase tomorrow -Patient has a seroma from remnant hernia sac from hernia repair which resolve with time without intervention Discussed with Dr. Lee Dejesus, PGY2
--- NOTE | 2017-09-09 09:46 | CARD ---
APPROVED REPORT EKG Measurement Heart [id number] [id number] <Conclusion> Normal sinus rhythm NSSTW changes Prolonged QT
[2017-09-09 10:45] LABS: BASO # 0.01 K/mm3 (0.0-2.0); BASO % 0.1 % (0.0-3.0); EOS # 0.2 (0.0-0.7); GRAN # 5.64 (1.4-6.5); GRAN % 76.7 % (50.0-68.0); LYMPH % 13.7 % (22.0-35.0); MEAN CELL VOLUME 74.5 fl (80.0-105.0); MEAN CORPUSCULAR HEMOGLOBIN 25.7 pg (25.0-35.0); MEAN CORPUSCULAR HGB CONC 34.5 g/dl (31.0-37.0); MEAN PLATELET VOLUME 11.2 fl (7.0-11.0); MONO # 0.6 (0.1-0.6); MONO % 7.5 % (1.0-6.0); RBC 5.02 10^6/uL (3.5-6.1); RED CELL DISTRIBUTION WIDTH 15.1 % (11.5-14.5); WHITE BLOOD COUNT 7.4 10^3/ul (4.5-11.0)
[2017-09-09 10:51] LABS: HEMOGLOBIN 12.9 g/dL (12.0-16.0)
[2017-09-09] MEDS: Sodium Chloride 0.9% 1,000 ML IV SCH (21:51)
--- NOTE | 2017-09-09 22:23 | CON ---
DATE: 09/09/[address] for Dr. Ricardo Tobias. REFERRING PHYSICIAN: Ricardo Tobias MD. REASON FOR CONSULTATION: Evaluation of a patient unknown to me who presents with acute renal failure in the setting of abdominal pain, nausea, and vomiting. The patient is diagnosed with acute pancreatitis. HISTORY OF PRESENT ILLNESS: The patient is a pleasant 57-year-old white female with a history of chronic neck pain and chronic lumbar spine pain in the setting of degenerative disk disease, status post surgeries. History of NIDDM, hypothyroidism, history of ASHD, COPD, currently smoking half a pack per day, history of depression and anxiety, who presents to the hospital with abdominal pain, nausea, and vomiting of several days' duration associated with decreased urine output. Initial workup shows an elevated amylase and lipase. The patient is diagnosed with acute pancreatitis and is noted to have a BUN of 83 and a creatinine of 4.3. Her baseline BUN is less than 20 with a creatinine of less than 1. She is diagnosed with acute renal failure, thought to be volume related. We are asked to evaluate the patient for elevated BUN and creatinine. Of note, the patient is also noted to be moderately hypokalemic. PAST MEDICAL HISTORY: Significant for NIDDM; history of hypothyroidism; history of ASHD with a remote NM; history of COPD, present cigarette smoker half pack per day; history of depression and anxiety; history of lumbar spine and cervical spine degenerative disk disease, status post surgeries. MEDICATIONS AT HOME: Include that of Ultram, prednisone, oxycodone, Ellipta inhaler, Zanaflex, Zocor, Lyrica, Protonix, Tamiflu, Synthroid, Amaryl, Neurontin, Breo Ellipta, Colace, and albuterol. ALLERGIES: THE PATIENT HAS NO KNOWN ALLERGIES TO MEDICATIONS. CURRENT MEDICATIONS IN HOSPITAL: Include that of normal saline at 200 mL an hour, Protonix, morphine, sliding scale insulin, subcu heparin, and DuoNeb inhaler. SOCIAL HISTORY: Positive history of cigarette smoking half-a-pack per day for greater than 40 years. No history of alcohol use. No history of substance abuse. FAMILY HISTORY: Reviewed with patient, is noncontributory. REVIEW OF SYSTEMS: GENERAL: The patient states until recent episode, appetite and weight have been stable. ENT: Denies any hearing or visual problems. PULMONARY: History of COPD but no shortness of breath. CARDIAC: History as noted above. No chest pain or palpitations. GASTROINTESTINAL: Positive for nausea, vomiting, and abdominal pain of several days' duration. No diarrhea. GENITOURINARY: No history of chronic kidney disease. No history of UTI. No history of urinary retention. GYNECOLOGIC: Postmenopausal. ENDOCRINE: History of diabetes mellitus, controlled with oral medication. MUSCULOSKELETAL: Pain in her neck and back as noted above. NEUROLOGIC: No history of CVA, TIA, seizures, or syncope. HEMATOLOGY AND ONCOLOGY: No history of anemia. PSYCHIATRIC: History is positive for depression and anxiety. PHYSICAL EXAMINATION: GENERAL: The patient is currently seen in the emergency room holding area. VITAL SIGNS: Blood pressure 116/71, temperature is 98.3, pulse is 68, respiratory rate is 80 with a pulse ox of 100%. HEENT: Shows her to be normocephalic, atraumatic. Pupils equal, reactive to light and accommodation. Conjunctivae are pink. Sclerae are nonicteric. Posterior pharynx is normal. NECK: Supple. No neck vein distention. No lymphadenopathy. No bruits. Well-healed scar over the posterior cervical spine. CHEST: Clear to auscultation and percussion with scattered rhonchi. No rales or wheezing. CARDIOVASCULAR: Shows a regular rate and rhythm without audible murmurs, rubs, or gallops. ABDOMEN: Soft. Bowel sounds normal. Minimal tenderness on palpation of the mid epigastric and upper quadrant area. No lower quadrant tenderness. No suprapubic dullness and no suprapubic tenderness on palpation. BACK: No CVAT. No spinal tenderness. EXTREMITIES: Show no cyanosis, no clubbing or edema. Lower extremity pulses are 2+ bilaterally. NEUROLOGIC: Shows her to be alert, oriented x3 with no gross focal motor or sensory deficits noted. LABORATORY DATA AND IMAGING: Admitting abdominal CT shows mildly enlarged liver, distended bladder, atrophic pancreas with fatty infiltration. Kidneys are unremarkable. Abdominal ultrasound shows normal kidneys, enlarged liver. Gallbladder is distended with no gallstones. CBC: White blood cell count 11.6 on admission, currently 7.4; hemoglobin down from 15.6 to 12.9 with hydration; platelet count is 236,000. Chemistries on admission showed a potassium of 3.0. With initial IV fluid administration, the potassium had dropped to 2.5. The patient is currently receiving potassium supplements in her IV fluids. CO2 level was 13 on admission, it is currently 15. Her BUN is dropped from 83 to 58 with hydration. Creatinine down from 4.3 to 1.9. Anion gap is 18. Glucose is 190 with calcium of 7.8. Magnesium is 2.0. Liver enzymes are normal. Albumin is 4.6. Her baseline BUN is less than 10 with a baseline creatinine of less than 1. Urine showed 20 to 25 white blood cells per high-power field, 2+ protein, positive glucose. Serologies were positive for influenza A. Microbiology, no specimens available for comment. ASSESSMENT: 1. Acute renal failure, prerenal azotemia likely in the setting of volume depletion in the setting of nausea and vomiting and abdominal pain of several days' duration. The patient is diagnosed with acute pancreatitis as she has an elevated lipase and amylase. The patient has received IV fluid hydration over the last several hours with a fall in her BUN and creatinine. The patient should continue IV fluid hydration. 2. Hypokalemia. The patient should receive IV fluid hydration with potassium. Magnesium level was normal. 3. Anion gap metabolic acidosis on admission, likely secondary to acute renal failure. This will likely resolve quickly. We will avoid giving the patient any bicarbonate as this will likely further lower her potassium level. 4. History of chronic obstructive lung disease secondary to cigarette smoking. I have cautioned the patient about the need to discontinue cigarette smoking. 5. History of arteriosclerotic heart disease with myocardial infarction. No ongoing issues. 6. History of hypothyroidism. The patient will continue on thyroid replacement therapy. 7. History of diabetes mellitus. The patient will continue on sliding scale insulin. 8. History of cervical spine and lumbar spine degenerative disk disease, status post surgeries. The patient should try and limit pain medications, which are narcotic in nature. 9. Pyuria with perhaps mild urinary retention on admission. Check urine culture and sensitivity and antibiotics accordingly. 10. Pancreatitis as noted above. Exact etiology is uncertain. The patient denies alcohol use. No history of hyperlipidemia. Perhaps, GI evaluation. PLAN: 1. Accurate I's and O's. 2. Continue IV fluid hydration with potassium chloride supplementation. 3. We will start the patient on oral sodium bicarbonate therapy if CO2 level does not increase. 4. Check urine C and S and antibiotics if necessary. 5. Continue to monitor labs on a daily basis with successive followup of amylase and lipase levels. Reassured the patient that her renal parameters will likely return to normal in the next 24 to 48 hours. Thank you for letting me partake and share in the care of your patient. Kaushal Farley MD
[2017-09-10] MEDS: Morphine 2 mg/ml ISec IVP PRN ×5 (01:42→19:53)
[2017-09-10 06:40] VITALS: O2SAT 98
[2017-09-10 07:37] LABS: BASO # 0.02 K/mm3 (0.0-2.0); BASO % 0.3 % (0.0-3.0); EOS # 0.3 (0.0-0.7); EOS % 4.9 % (1.5-5.0); GRAN # 3.41 (1.4-6.5); GRAN % 52.1 % (50.0-68.0); LYMPH # 2.3 (1.2-3.4); LYMPH % 35.2 % (22.0-35.0); MEAN CELL VOLUME 75.1 fl (80.0-105.0); MEAN CORPUSCULAR HEMOGLOBIN 25.2 pg (25.0-35.0); MEAN CORPUSCULAR HGB CONC 33.5 g/dl (31.0-37.0); MEAN PLATELET VOLUME 11.4 fl (7.0-11.0); MONO # 0.5 (0.1-0.6); MONO % 7.5 % (1.0-6.0); RBC 4.25 10^6/uL (3.5-6.1); RED CELL DISTRIBUTION WIDTH 15.1 % (11.5-14.5); WHITE BLOOD COUNT 6.5 10^3/ul (4.5-11.0)
[2017-09-10 07:50] LABS: HEMOGLOBIN 10.7 g/dL (12.0-16.0)
[2017-09-10 08:04] LABS: ALB/GLOB RATIO 1.2 (1.1-1.8); ALBUMIN 2.9 g/dL (3.0-4.8); ALT/SGPT 18 U/L (7-56); AMYLASE 111 U/L (35-125); AST/SGOT 12 U/L (14-36); BLOOD UREA NITROGEN 21 mg/dL (7-21); CALCIUM 9.1 mg/dL (8.4-10.5); GFR AFRICAN-AMERICAN > 60; GFR NON-AFRICAN AMERICAN > 60; HDL CHOLESTEROL 21 mg/dL (29-60); LIPASE 954 U/L (23-300); MAGNESIUM 1.4 mg/dL (1.7-2.2)
[2017-09-10 08:13] LABS: LDL CHOLESTEROL 102 mg/dL (0-129)
--- NOTE | 2017-09-10 08:36 | PN ---
DATE: 09/09/2017 SUBJECTIVE: This a 57-year-old female. She is doing better clinically, she is not vomiting, tolerated liquid diet. No other complaints. PHYSICAL EXAMINATION: As follows; VITAL SIGNS: Temperature 98, heart rate 78, blood pressure 120/72, respirations 17, saturation 100%. HEAD AND NECK: Normal. No JVD. No thyromegaly. CHEST: Clear. Good air entry. CARDIAC: First sound and second sound normal. ABDOMEN: Soft and nontender. EXTREMITIES: No edema. NEUROLOGIC: Normal. LABORATORY DATA: As follows. Chemistry noted for sodium 139, potassium 2.5, chloride 109, bicarbonate 15, BUN 58, creatinine 1.9, blood sugar 190, calcium 7.8, magnesium 2. CBC: White count 7.4, hemoglobin 12.9, hematocrit 37.4, platelets 236. IMPRESSION: 1. Acute abdominal pain, probably secondary to acute pancreatitis. Ultrasound negative for gallstones. We will follow up with the GI consult. Continue Zofran, Protonix for now. IV fluids. 2. Acute renal failure. Continue IV fluids. Urine culture shows probable contaminations. Patient got Rocephin. We will follow up with ID consult. 3. History of diabetes type 2. We will continue insulin coverage. We may hold off on any medications that may the pancreatitis. Does not seem to be, but we will discuss with the GI about that. 4. Chronic back pain. Continue oxycodone 5 mg q.6 hour p.r.n. Continue Zanaflex. 5. Chronic obstructive pulmonary disease. Continue DuoNeb. PLAN: Continue current therapy. Continue pain management towards morphine for now, Protonix, insulin coverage and DuoNeb. We will follow up clinically. Patient seems tolerating the diet well, liquid diet. We will follow up on that. We will discuss with GI about the etiology of her pancreatitis. Ricardo Tobias MD
[2017-09-10] MEDS: Albuterol-Ipratrop 3 mg / 0.5 (3 ml) UD IH SCH ×4 (09:09→21:05)
--- NOTE | 2017-09-10 09:33 | HP ---
DATE: 09/08/2017 REASON FOR ADMISSION: Persistent vomiting and abdominal pain. HISTORY OF PRESENT ILLNESS: This is a 57-year-old female. She came into the office with the persistent nausea. She was given Zofran. At that time, she was coughing and was given cough medicine; however, in a day or two she called that she still have symptoms of nausea and cannot keep anything down and vomiting. Patient advised to go to the ER for evaluation. Apparently, she went, then she left, and because of her persistent symptoms, she went back and she was evaluated. Patient was seen in the emergency room for her persistent nausea, epigastric and upper abdominal pain and found to have high creatinine of 4 and above. There was no fever at that time. No other complaint. No dysuria. PAST MEDICAL HISTORY: As I mentioned before, 1. She just had a month ago abdominal wall hernia repair by Dr. Howard. 2. COPD. 3. Diabetes type 2 on medicines, p.o. pills, also chronic neck pain, chronic back pain with history of back surgery with metal placement. 4. Patient also had histories of flu. ALLERGIES: NO KNOWN ALLERGY. HOME MEDICATIONS: She is taking tramadol, oxycodone immediate release 5 mg, Incruse Ellipta, Zanaflex, Zocor 20 mg, Lyrica 150 b.i.d., Protonix, Synthroid 75 mcg once a day, Amaryl 4 mg b.i.d., Neurontin 800 mg t.i.d., Colace, and nebulizer treatment. REVIEW OF SYSTEMS: As in the present illness, abdominal pain, recent surgery, cough from smoking, chronic back pain, arthritis, otherwise negative rest of the review of systems. PHYSICAL EXAMINATION: GENERAL: Patient was lying supine, was seen in the emergency room. She seems in no respiratory distress. She is very anxious. VITAL SIGNS: As follows; temperature 98, heart rate 78, blood pressure 142/80, respirations 20, and saturation 99%. HEAD AND NECK: Normal. No JVD. No thyromegaly. CHEST: Clear. Good air entry. CARDIAC: First sound and second sound normal. ABDOMEN: There is tenderness in the epigastric area. Bowel sounds intact. Abdomen is obese. EXTREMITIES: No edema. NEUROLOGIC: Normal. LABORATORY STUDY: White count 11.6, hemoglobin 15.6, hematocrit 45.1, platelets 313. Chemistry noted for sodium 136, potassium 3, chloride 98, bicarb 13, BUN 83, creatinine 4.3, blood sugar 157, calcium 7.9. Troponin 0.01, low. Also, patient's lipase is 4450. Patient also had a urinalysis, shows a lot of white cells and lot of epithelial cells, moderate bacteria. Patient also underwent liver ultrasound, abdominal ultrasound, which is noted for fatty hepatomegaly, no gallbladder stones. IMPRESSION AND PLAN: 1. A 57-year-old female with diabetes, obesity, hypertension, came in with persistent vomiting, found to have acute renal failure secondary to dehydration. Patient was explained her problem and ultrasound of her kidney was negative and she was given urine culture and sensitivity. Intravenous fluid was given and we will repeat lab in the morning. 2. Abdominal pain, high lipase. Etiology of her abdominal pain unclear. We will get a Surgical consult Dr. Howard. GI consult, Dr. Dukes. CT abdomen and pelvis, negative for any pancreatitis. 3. Chronic back pain, neck pain. Continue Zofran, continue Percocet and continue morphine 2 mg intravenous q. 6 hours p.r.n. and continue Protonix 40 intravenous daily, and we will follow up clinically. 4. For diabetes, continue insulin coverage, we will start the patient probably if she is stable on liquid diet or clear liquid diet. Follow up clinically. Continue gastrointestinal and deep venous thrombosis prophylaxis. Ricardo Tobias MD
--- NOTE | 2017-09-10 09:45 | CP.PCM.PN ---
Subjective - Date & Time of Evaluation Date of Evaluation: 09/10/17 Time of Evaluation: 09:38 - Subjective Subjective: Surgery Progress Note - Dr. Howard Patient seen and examined at bedside. Patient states her pain is better. Denies nausea vomiting diarrhea no further complaints at this time. Objective - Vital Signs/Intake and Output Vital Signs (last 24 hours): Temp Pulse Resp BP Pulse Ox 98.8 F 80 18 107/59 L 98 09/10/17 06:00 09/10/17 09:11 09/10/17 06:00 09/10/17 06:00 09/10/17 06:00 Intake and Output: 09/10/17 09/10/17 06:59 18:59 Intake Total 4060 Output Total 3100 Balance 960 - Medications Medications: Current Medications Albuterol/Ipratropium (Duoneb 3 Mg/0.5 Mg (3 Ml) Ud) 3 ml IH QIDRESP [facility] Last Admin: 09/10/17 09:09 Dose: 3 ml Heparin Sodium (Porcine) (Heparin) 5,000 units SC Q12 [facility] PRN Reason: Protocol Last Admin: 09/09/17 22:13 Dose: 5,000 units Potassium Chloride 30 meq/ (Sodium Chloride) 1,015 mls @ 125 mls/hr IV .Q8H8M [facility] Last Admin: 09/10/17 06:04 Dose: 125 mls/hr Insulin Human Regular (Humulin R Low) 0 units SC ACHS [facility] PRN Reason: Protocol Last Admin: 09/09/17 21:49 Dose: Not Given Morphine Sulfate (Morphine) 2 mg IVP Q4 PRN PRN Reason: Pain, moderate (4-7) Last Admin: 09/10/17 06:04 Dose: 2 mg Pantoprazole Sodium (Protonix Inj) 40 mg IVP DAILY [facility] Last Admin: 09/09/17 14:24 Dose: 40 mg Senna/Docusate Sodium (Senokot S 50 Mg-8.6 Mg) 1 tab PO TID [facility] Sodium Bicarbonate (Sodium Bicarbonate Tab) 650 mg PO TID [facility] Last Admin: 09/09/17 22:13 Dose: 650 mg - Labs Labs: 09/10/17 07:00 09/10/17 07:00 - Constitutional Appears: Well - Head Exam Head Exam: ATRAUMATIC, NORMAL INSPECTION, NORMOCEPHALIC - Eye Exam Eye Exam: EOMI, Normal appearance, PERRL Pupil Exam: NORMAL ACCOMODATION, PERRL - ENT Exam ENT Exam: Mucous Membranes Moist, Normal Exam - Neck Exam Neck Exam: Full ROM, Normal Inspection. absent: Lymphadenopathy - Respiratory Exam Respiratory Exam: Clear to Ausculation Bilateral, NORMAL BREATHING PATTERN - Cardiovascular Exam Cardiovascular Exam: REGULAR RHYTHM, +S1, +S2. absent: Murmur - GI/Abdominal Exam GI & Abdominal Exam: Soft, Normal Bowel Sounds. absent: Tenderness Additional comments: Tenderness (epigastrium>RUQ>LUQ), Mass (round mass in the right tristen-umbilical area) - Extremities Exam Extremities Exam: Full ROM, Normal Capillary Refill, Normal Inspection. absent : Joint Swelling, Pedal Edema - Back Exam Back Exam: NORMAL INSPECTION - Neurological Exam Neurological Exam: Alert, Awake, CN II-XII Intact, Normal Gait, Oriented x3 - Psychiatric Exam Psychiatric exam: Normal Affect, Normal Mood - Skin Skin Exam: Dry, Intact, Normal Color, Warm Assessment and Plan - Assessment and Plan (Free Text) Assessment: 57F with abdominal pain and influenza. Pancreatitis vs. Gastroenteritis Elevated lipase, elevated Cr CT: no pancreatitis Plan: -Aggressive IV hydration--elevated lipase may be due to AB -Follow up GI recs -May advance diet as tolerated from a surgical standpoint -Trend labs including lipase and amylase: 954 and 111, trending down -Patient has a seroma from remnant hernia sac from hernia repair which resolve with time without intervention -No surgical intervention indicated at this time -Recs per Dr. Howard
[2017-09-10] MEDS ORDERED: Magnesium Sulfate 2 GM in Sodium Chloride 0.9% 100 ML IVPB ONE (10:40)
[2017-09-10] MEDS: Insulin Reg-LOW-Coverage SC SCH ×4 (10:48→22:33)
[2017-09-10] MEDS: Magnesium Oxide 400 mg Tab UD PO SCH ×2 (10:51→18:39)
--- NOTE | 2017-09-10 11:35 | CON ---
DATE: HISTORY OF PRESENT ILLNESS: This patient was seen and evaluated earlier in the emergency room. This 57-year-old patient with a past medical history of COPD, dyslipidemia, diabetes mellitus, now presented with abdominal pain, nausea, vomiting and renal failure, acute kidney injury. GI consult was requested to evaluate. This 57-year-old patient with above past medical history, history of coronary artery disease, still smokes about half a packet per day, has epigastric pain intermittently. She has episodes of vomiting. She started taking p.o. liquids. This patient has episodes of nausea, vomiting. She stopped drinking, felt weak, dizzy. In the ER, she was found to be dehydrated with acute kidney injury. Her BUN was 83 when she came in, with creatinine was 4.3. She is now slowly improving. PAST MEDICAL HISTORY: Her other past medical history is significant as above. PAST SURGICAL HISTORY: History of neck and back surgery, tubal ligation, partial diskectomy, ventral hernia repair done. FAMILY HISTORY: Noncontributory. SOCIAL HISTORY: Positive for half a pack per day smoking, denies alcohol use. REVIEW OF SYSTEMS: Positive as above. Other systems reviewed. PHYSICAL EXAMINATION: VITAL SIGNS: Temperature afebrile, blood pressure 114/69, pulse 62, respirations 18, on room O2 saturation 100%. HEENT: Atraumatic, anicteric. NECK: Supple. HEART: S1, S2 heard. LUNGS: Bilateral air entry present. ABDOMEN: Soft. There is no tenderness EXTREMITIES: No edema. No cyanosis. NEUROLOGICAL: Alert, oriented. Moves all extremities. LABORATORY DATA: Abdominal ultrasound done showed a mild hepatomegaly. No CBD stones. The patient had also CT scan of abdomen and pelvis done. IMPRESSION: Status post ventral hernia repair, there was a large ventral hernia . RECOMMENDATION: We will slowly advance the diet. Patient would benefit from elective endoscopy and colonoscopic evaluation. We will slowly advance the diet as tolerated. Acute kidney injury seems slowly improving. Other comorbidities include diabetes mellitus, asthma. Differential diagnosis for this should also include gastroparesis. We will continue to closely follow up her care and suggest further management based on the clinical course. Cloette Dukes MD
[2017-09-10] MEDS: Docusate-Senna 50 mg-8.6 mg Tab PO SCH ×3 (15:09→18:44)
--- NOTE | 2017-09-10 17:32 | CP.PCM.PN ---
Subjective - Date & Time of Evaluation Date of Evaluation: 09/10/17 Time of Evaluation: 10:50 - Subjective Subjective: S&E at bedside, chart reviewed. Feeling better this am, No N/V. Pain better. No acute overnight events reported. Objective - Vital Signs/Intake and Output Vital Signs (last 24 hours): Temp Pulse Resp BP Pulse Ox 97.9 F 78 20 111/70 98 09/10/17 12:00 09/10/17 12:00 09/10/17 12:00 09/10/17 12:00 09/10/17 06:00 Intake and Output: 09/10/17 09/10/17 06:59 18:59 Intake Total 4060 Output Total 3100 Balance 960 - Medications Medications: Current Medications Albuterol/Ipratropium (Duoneb 3 Mg/0.5 Mg (3 Ml) Ud) 3 ml IH QIDRESP [facility] Last Admin: 09/10/17 14:57 Dose: 3 ml Atorvastatin Calcium (Lipitor) 10 mg PO DIN [facility] Docusate Sodium (Colace) 100 mg PO BID [facility] Last Admin: 09/10/17 10:46 Dose: 100 mg Heparin Sodium (Porcine) (Heparin) 5,000 units SC Q12 [facility] PRN Reason: Protocol Last Admin: 09/10/17 10:47 Dose: 5,000 units Insulin Human Regular (Humulin R Low) 0 units SC ACHS [facility] PRN Reason: Protocol Last Admin: 09/10/17 12:03 Dose: Not Given Levothyroxine Sodium (Synthroid) 25 mcg PO QAM [facility] Magnesium Oxide (Mag-Ox) 400 mg PO BID [facility] Last Admin: 09/10/17 10:51 Dose: 400 mg Morphine Sulfate (Morphine) 2 mg IVP Q4 PRN PRN Reason: Pain, moderate (4-7) Last Admin: 09/10/17 15:09 Dose: 2 mg Breo Ellipta 100-25 Mcg Inh (Home Med ) 1 inh INH DAILY [facility] Pantoprazole Sodium (Protonix Inj) 40 mg IVP DAILY [facility] Last Admin: 09/10/17 10:46 Dose: 40 mg Potassium Phos/Sodium Phos (Neutra-Phos) 1 pkt PO DAILY [facility] Pregabalin (Lyrica) 150 mg PO BID [facility] Last Admin: 09/10/17 10:46 Dose: 150 mg Senna/Docusate Sodium (Senokot S 50 Mg-8.6 Mg) 1 tab PO TID [facility] Last Admin: 09/10/17 15:09 Dose: 1 tab Sodium Bicarbonate (Sodium Bicarbonate Tab) 650 mg PO TID [facility] Last Admin: 09/10/17 15:09 Dose: 650 mg Tizanidine HCl (Zanaflex) 4 mg PO HS [facility] - Labs Labs: 09/10/17 07:00 09/10/17 07:00 - Constitutional Appears: No Acute Distress - Head Exam Head Exam: NORMOCEPHALIC - Eye Exam Eye Exam: Normal appearance. absent: Scleral icterus - ENT Exam ENT Exam: Mucous Membranes Moist - Neck Exam Neck Exam: Normal Inspection - Respiratory Exam Respiratory Exam: NORMAL BREATHING PATTERN. absent: Respiratory Distress - Cardiovascular Exam Cardiovascular Exam: +S1, +S2 - GI/Abdominal Exam GI & Abdominal Exam: Soft, Normal Bowel Sounds. absent: Guarding, Tenderness, Rebound - Extremities Exam Extremities Exam: absent: Calf Tenderness - Neurological Exam Neurological Exam: Alert, Awake, Oriented x3 - Skin Skin Exam: Dry, Warm Assessment and Plan - Assessment and Plan (Free Text) Assessment: ASSESSMENT: N/V, improved, differential Gastroparesis S/p Ventral hernia repair Acute RF, improving DM Obesity Asthma PLAN: advance diet as tolerated slowly, soft/puree diet may benefit from elective outpatient EGD/COLON continue PPI DVT prophylaxsis on bowel regemin Seen and discussed w/ Dr. Dukes.
[2017-09-10] MEDS: Potassium & Sodium Phosphate PO SCH (18:44)
--- NOTE | 2017-09-10 21:02 | PN ---
DATE: SUBJECTIVE: Patient is currently seen lying comfortable, supine in bed. She no longer has any abdominal pain. Her potassium level had normalized. Her BUN and creatinine have fallen to normal with adequate IV fluid hydration. She was noted to have a low magnesium level earlier today and this was supplemented. Her phosphorus level is low. MEDICATIONS: Medication list reviewed. Patient is currently on Breo Ellipta, Colace, DuoNeb, heparin, sliding scale insulin, Lipitor, Lyrica, mag oxide, morphine, Protonix, Senokot, sodium bicarbonate tablets, Synthroid, and Zanaflex. OBJECTIVE: INTAKE AND OUTPUT: Intake 4060, output 3100. VITAL SIGNS: Blood pressure 111/70, temperature 97.9, respiratory rate is 20, pulse is 78. Pulse ox is 98% on room air. HEENT: Exam shows her to be normocephalic, atraumatic. Conjunctiva are pink. Sclerae are nonicteric. NECK: Supple. No neck vein distention. CHEST: Clear to auscultation and percussion. No rales, no rhonchi or wheezing noted. CARDIOVASCULAR: Regular rate and rhythm without audible murmurs, rubs, or gallops. ABDOMEN: Soft. Bowel sounds normal. No tenderness on palpation of any of the four quadrants. No suprapubic tenderness. No rebound or guarding. EXTREMITIES: Show no cyanosis, clubbing, or edema. LABORATORY DATA AND IMAGING STUDIES: Labs: CBC today, white blood cell count down to 6.5, hemoglobin with hydration is down to 10.7 from 15.6, platelet count is normal at 212,000. Chemistry showed a CO2 level which is up to 19 from 13, chloride is 115, sodium 142, potassium 3.8, BUN is down to 21 from a high of 83, creatinine is down to 0.7 from a high of 4.3, glucose is 112. Calcium normal at 9.1. Albumin is 2.9. Phosphorus is 2.2. Magnesium level is low at 1.4. Liver enzymes were normal. Amylase is now normal at 111. It was 328 on admission. Lipase is down from 4450 to 954, normal being up to 300. Serology is positive for influenza A. Microbiology, urine cultures show polymicrobial growth. Blood cultures are negative at 24 hours. ASSESSMENT: 1. Status post acute renal failure. Patient is back to baseline level. She has no history of chronic kidney disease. This is all felt to be secondary to acute pancreatitis with volume depletion and decreased oral fluid intake. 2. Status post hypokalemia. Patient is noted to be hypomagnesemic. She had received IV mag riders and oral magnesium supplements; this should correct her magnesium deficiency. Patient may, on a p.r.n. basis, receive continued potassium supplements. 3. Anion gap metabolic acidosis. This is rapidly resolving as renal failure has resolved. Patient does not require any sodium bicarbonate therapy. 4. Mild hypophosphatemia. I will start patient on Neutra-Phos. Patient may increase protein and dairy products in her diet. 5. History of chronic obstructive pulmonary disease secondary to continued cigarette smoking. 6. History of atherosclerotic heart disease with a past history of an myocardial infarction. No ongoing issues. 7. History of hypothyroidism. Patient will continue thyroid replacement therapy. 8. History of diabetes mellitus. Patient will continue sliding scale insulin. 9. History of cervical spine and lumbar spine degenerative disk disease, status post surgeries. Patient will try and limit her dependency on narcotic analgesics. 10. Pyuria. We will try and obtain another urine culture which is a clean-catch. At present, patient is receiving no antibiotic therapy. 11. Pancreatitis, exact etiology is unclear. Amylases has returned to normal. Lipase is falling rapidly. We will repeat on the lipase level tomorrow. PLAN: 1. Okay from renal standpoint to discontinue IV fluid hydration. 2. Agree with magnesium supplements. 3. Supplement phosphorus as noted above. 4. Re-attempt to obtain a urine culture and sensitivity, which is a clean-catch. 5. Once again get a lipase level tomorrow with her usual blood work. Kaushal Farley MD
[2017-09-10] MEDS: oxyCODONE 5 mg Immediate Release Tab PO PRN (22:33)
[2017-09-11] MEDS: BREO ELLIPTA INH SCH ×2 (00:53→09:54)
[2017-09-11] MEDS: oxyCODONE 5 mg Immediate Release Tab PO PRN ×2 (04:32→10:49)
[2017-09-11] MEDS ORDERED: Pantoprazole 40 mg EC Tab PO SCH (06:00)
[2017-09-11 06:45] VITALS: RESP 20
[2017-09-11] MEDS: Albuterol-Ipratrop 3 mg / 0.5 (3 ml) UD IH SCH ×3 (06:54→16:36)
[2017-09-11 07:44] LABS: ALB/GLOB RATIO 1.2 (1.1-1.8); ALT/SGPT 17 U/L (7-56); AST/SGOT 22 U/L (14-36); BLOOD UREA NITROGEN 17 mg/dL (7-21); CALCIUM 9.8 mg/dL (8.4-10.5); GFR AFRICAN-AMERICAN > 60; GFR NON-AFRICAN AMERICAN > 60; LIPASE 842 U/L (23-300); MAGNESIUM 1.3 mg/dL (1.7-2.2)
[2017-09-11] MEDS: Insulin Reg-LOW-Coverage SC SCH ×2 (08:16→12:08)
[2017-09-11] MEDS: Potassium & Sodium Phosphate PO SCH (09:53)
[2017-09-11] MEDS: Magnesium Oxide 400 mg Tab UD PO SCH (09:54)
[2017-09-11] MEDS: Docusate-Senna 50 mg-8.6 mg Tab PO SCH ×2 (09:54→14:53)
[2017-09-11] MEDS ORDERED: Levothyroxine 25 MCG TAB PO SCH (10:00)
--- NOTE | 2017-09-11 11:11 | RAD ---
HISTORY: abnormal lung sounds COMPARISON: 08/02/2017 FINDINGS: LUNGS: There is moderate peribronchial thickening. There is no evidence of pneumonia PLEURA: No significant pleural effusion identified, no pneumothorax apparent. CARDIOVASCULAR: Normal. OSSEOUS STRUCTURES: No significant abnormalities. VISUALIZED UPPER ABDOMEN: Normal. OTHER FINDINGS: None. IMPRESSION: There is moderate peribronchial thickening. There is no evidence of pneumonia
--- NOTE | 2017-09-11 11:44 | CP.PCM.PN ---
Subjective - Date & Time of Evaluation Date of Evaluation: 09/11/17 Time of Evaluation: 11:38 - Subjective Subjective: Surgery: Dr. Howard Patient doing well today. Abdominal pain resolved. Denies n/v/f/c. For endoscopy with GI. Objective - Vital Signs/Intake and Output Vital Signs (last 24 hours): Temp Pulse Resp BP Pulse Ox 97.8 F 72 20 130/75 98 09/11/17 06:00 09/11/17 06:00 09/11/17 06:00 09/11/17 06:00 09/11/17 06:00 Intake and Output: 09/11/17 09/11/17 06:59 18:59 Intake Total 300 Output Total 400 Balance -100 - Medications Medications: Current Medications Albuterol/Ipratropium (Duoneb 3 Mg/0.5 Mg (3 Ml) Ud) 3 ml IH QIDRESP [facility] Last Admin: 09/11/17 11:10 Dose: 3 ml Atorvastatin Calcium (Lipitor) 10 mg PO DIN [facility] Last Admin: 09/10/17 20:05 Dose: 10 mg Docusate Sodium (Colace) 100 mg PO BID [facility] Last Admin: 09/11/17 09:54 Dose: 100 mg Heparin Sodium (Porcine) (Heparin) 5,000 units SC Q12 [facility] PRN Reason: Protocol Last Admin: 09/11/17 09:54 Dose: 5,000 units Insulin Human Regular (Humulin R Low) 0 units SC ACHS [facility] PRN Reason: Protocol Last Admin: 09/11/17 08:16 Dose: Not Given Levothyroxine Sodium (Synthroid) 25 mcg PO QAM [facility] Last Admin: 09/11/17 09:54 Dose: 25 mcg Magnesium Oxide (Mag-Ox) 400 mg PO BID [facility] Last Admin: 09/11/17 09:54 Dose: 400 mg Breo Ellipta 100-25 Mcg Inh (Home Med ) 1 inh INH DAILY [facility] Last Admin: 09/11/17 09:54 Dose: Not Given Oseltamivir Phosphate (Tamiflu Cap) 75 mg PO BID [facility] PRN Reason: Protocol Stop: 09/16/17 09:42 Last Admin: 09/11/17 09:54 Dose: 75 mg Oxycodone HCl (Oxycodone Immediate Release Tab) 5 mg PO Q6H PRN PRN Reason: Pain, moderate (4-7) Last Admin: 09/11/17 10:49 Dose: 5 mg Pantoprazole Sodium (Protonix Ec Tab) 40 mg PO 0600 [facility] Last Admin: 09/11/17 05:38 Dose: 40 mg Potassium Phos/Sodium Phos (Neutra-Phos) 1 pkt PO DAILY [facility] Last Admin: 09/11/17 09:53 Dose: 1 pkt Pregabalin (Lyrica) 150 mg PO BID [facility] Last Admin: 09/11/17 09:54 Dose: 150 mg Senna/Docusate Sodium (Senokot S 50 Mg-8.6 Mg) 1 tab PO TID [facility] Last Admin: 09/11/17 09:54 Dose: 1 tab Sodium Bicarbonate (Sodium Bicarbonate Tab) 650 mg PO TID [facility] Last Admin: 09/11/17 09:54 Dose: 650 mg Tizanidine HCl (Zanaflex) 4 mg PO HS [facility] Last Admin: 09/10/17 22:01 Dose: 4 mg - Labs Labs: 09/10/17 07:00 09/11/17 06:30 - Constitutional Appears: Non-toxic, No Acute Distress - Head Exam Head Exam: ATRAUMATIC, NORMOCEPHALIC - Eye Exam Eye Exam: EOMI, Normal appearance - ENT Exam ENT Exam: Mucous Membranes Moist - Respiratory Exam Respiratory Exam: NORMAL BREATHING PATTERN. absent: Respiratory Distress - Cardiovascular Exam Cardiovascular Exam: REGULAR RHYTHM. absent: Tachycardia - GI/Abdominal Exam GI & Abdominal Exam: Soft. absent: Distended, Guarding, Tenderness - Neurological Exam Neurological Exam: Alert, Awake Assessment and Plan - Assessment and Plan (Free Text) Assessment: 57 y/o female w/ abdominal pain 2/2/ pancreatitis, resolved Plan: -seroma formation at post op site will resolve over time -pancreatitis clinically resolved -cont reg diet -no surgical intervention at this time -f/u prn -d/w Dr. Lee Morrow PGY3
[2017-09-11 12:35] VITALS: BP 130/106; PULSE 77; TEMP 99
--- NOTE | 2017-09-11 12:52 | PN ---
DATE: 09/10/2017 SUBJECTIVE: Patient is comfortable, tolerating liquid diet, pureed diet. No vomiting. Abdominal pain seems resolving. No fever. No chills. No coughing. PHYSICAL EXAMINATION VITAL SIGNS: Patient on 09/10 is as follows: Temperature is 97.9, heart rate 78, blood pressure 111/70, respirations 20 and saturation 98% on room air. HEAD AND NECK: Normal. No JVD. No thyromegaly. CHEST: Clear. Good air entry. CARDIAC: First sound and second sound are normal. ABDOMEN: Soft, nontender. EXTREMITIES: No edema. NEUROLOGIC: Normal. LABORATORY DATA: White count 6.5, hemoglobin 10.7, hematocrit 31.9 and platelets 212. Chemistry noted for sodium 142, potassium 3.8, chloride 111, bicarbonate 19, BUN 21 and creatinine 0.7. Liver function test noted for phosphorus 2.2, which is low; magnesium 1.4, which is low and liver enzymes seems normal. Albumin is 2.9, little bit low and total protein is 5.5, little bit low. Her lipase is 954. Amylase is normal. IMPRESSION AND PLAN: 1. Acute pancreatitis, etiology unclear. Continue IV fluid. Patient seems tolerating p.o. diet without any worsening pain. We will continue current therapy and may advance diet as tolerated. 2. Acute renal failure, resolved. 3. Electrolyte abnormality, we will replace potassium and phosphorous. 4. Hypertension, stable. 5. Diabetes, stable. Continue current regimen. 6. Hypothyroidism. Plan, continue current therapy. Patient seems getting Tamiflu, although the patient has improved and she got the medicine before. 7. Hypercholesterolemia and chronic obstructive pulmonary disease. Continue nebulizer treatment. Continue high cholesterol therapy and Lipitor 10. We will follow up clinically. 8. Chronic back pain and neck pain. Continue oxycodone p.r.n. We will discontinue morphine. CURRENT MEDICATIONS: Breo Ellipta 100/25 once a day, Colace, DuoNeb, heparin subcu, insulin coverage, Lipitor 10, Lyrica 150 twice a day, mag oxide 400 b.i.d., Neutra-Phos 1 pack daily has been given, oxycodone 1 q.6 hour 5 mg, Protonix 40, Senokot tablet t.i.d. p.r.n., Synthroid 25, Tamiflu b.i.d. 75 and Zanaflex at bedtime p.r.n. Continue current therapy. Follow up clinically. Ricardo Tobias MD
[2017-09-11] MEDS ORDERED: Magnesium Sulfate 2 GM in Sodium Chloride 0.9% 100 ML IVPB ONE (13:07)
[2017-09-11] MEDS ORDERED: Magnesium Oxide 400 mg Tab UD PO SCH (14:00)
--- NOTE | 2017-09-11 15:41 | CP.PCM.PN ---
Subjective - Date & Time of Evaluation Date of Evaluation: 09/11/17 Time of Evaluation: 10:55 - Subjective Subjective: Seen and examined at the bedside earlier today, chart review. Patient reports improvement of nausea, no abdominal pain or vomiting. Tolerating solids with no problems. No reports of diarrhea had formed stool. No reports of melena or bright red blood per rectum. Patient complaining of coughing, chest x-ray was done. No acute findings. Objective - Vital Signs/Intake and Output Vital Signs (last 24 hours): Temp Pulse Resp BP Pulse Ox 99 F 77 20 130/106 H 98 09/11/17 12:00 09/11/17 14:00 09/11/17 12:00 09/11/17 12:00 09/11/17 06:00 Intake and Output: 09/11/17 09/11/17 06:59 18:59 Intake Total 300 Output Total 400 Balance -100 - Medications Medications: Current Medications Albuterol/Ipratropium (Duoneb 3 Mg/0.5 Mg (3 Ml) Ud) 3 ml IH QIDRESP [facility] Last Admin: 09/11/17 11:10 Dose: 3 ml Atorvastatin Calcium (Lipitor) 10 mg PO DIN [facility] Last Admin: 09/10/17 20:05 Dose: 10 mg Docusate Sodium (Colace) 100 mg PO BID [facility] Last Admin: 09/11/17 09:54 Dose: 100 mg Heparin Sodium (Porcine) (Heparin) 5,000 units SC Q12 [facility] PRN Reason: Protocol Last Admin: 09/11/17 09:54 Dose: 5,000 units Insulin Human Regular (Humulin R Low) 0 units SC ACHS [facility] PRN Reason: Protocol Last Admin: 09/11/17 12:08 Dose: 2 units Levothyroxine Sodium (Synthroid) 25 mcg PO QAM [facility] Last Admin: 09/11/17 09:54 Dose: 25 mcg Magnesium Oxide (Mag-Ox) 400 mg PO TID [facility] Last Admin: 09/11/17 14:53 Dose: 400 mg Breo Ellipta 100-25 Mcg Inh (Home Med ) 1 inh INH DAILY [facility] Last Admin: 09/11/17 09:54 Dose: Not Given Oxycodone HCl (Oxycodone Immediate Release Tab) 5 mg PO Q6H PRN PRN Reason: Pain, moderate (4-7) Last Admin: 09/11/17 10:49 Dose: 5 mg Pantoprazole Sodium (Protonix Ec Tab) 40 mg PO 0600 [facility] Last Admin: 09/11/17 05:38 Dose: 40 mg Potassium Phos/Sodium Phos (Neutra-Phos) 1 pkt PO DAILY [facility] Last Admin: 09/11/17 09:53 Dose: 1 pkt Pregabalin (Lyrica) 150 mg PO BID [facility] Last Admin: 09/11/17 09:54 Dose: 150 mg Senna/Docusate Sodium (Senokot S 50 Mg-8.6 Mg) 1 tab PO TID [facility] Last Admin: 09/11/17 14:53 Dose: 1 tab Tizanidine HCl (Zanaflex) 4 mg PO HS [facility] Last Admin: 09/10/17 22:01 Dose: 4 mg - Labs Labs: 09/10/17 07:00 09/11/17 06:30 APTT 28.2 Seconds (25.1-36.5) 09/11/17 11:50 - Constitutional Appears: No Acute Distress - Eye Exam Eye Exam: Normal appearance. absent: Scleral icterus - ENT Exam ENT Exam: Mucous Membranes Moist - Neck Exam Neck Exam: Normal Inspection - Respiratory Exam Respiratory Exam: NORMAL BREATHING PATTERN. absent: Respiratory Distress - Cardiovascular Exam Cardiovascular Exam: +S1, +S2 - GI/Abdominal Exam GI & Abdominal Exam: Soft, Normal Bowel Sounds. absent: Guarding, Tenderness, Rebound - Extremities Exam Extremities Exam: absent: Calf Tenderness, Pedal Edema - Neurological Exam Neurological Exam: Alert, Awake, Oriented x3 - Skin Skin Exam: Dry, Warm Assessment and Plan - Assessment and Plan (Free Text) Assessment: ASSESSMENT: N/V, improved, differential Gastroparesis S/p Ventral hernia repair Influenza Acute RF, improving DM Obesity Asthma PLAN: continue diet as tolerated, soft diet continue PPI DVT prophylaxsis on bowel regemin Discussed with patient regarding endoscopy patient agreed initially but now reluctant, patient can follow up in our outpatient office and do elective outpatient endoscopy and may also benefit from colonoscopy. Seen and discussed w/ Dr. Dukes.
--- NOTE | 2017-09-11 15:46 | PN ---
DATE: 09/11/2017 SUBJECTIVE: The patient is seen lying in bed. She is awake. She is alert. She is comfortable. She denies any pain. She denies any shortness of breath. She denies any nausea or vomiting. PHYSICAL EXAMINATION GENERAL: Morbidly obese, middle-aged lady, lying in bed. VITAL SIGNS: Blood pressure 130/106?, heart rate 77, respiratory rate 20, temperature 99, T-max 99.8. HEENT: Normocephalic, atraumatic. NECK: Supple, no JVD. LUNGS: Bilateral equal air entry, no rales. CARDIAC: S1 and S2, regular rate and rhythm, no murmur, no rub. ABDOMEN: Obese, distended, soft, nontender, bowel sounds present. EXTREMITIES: No lower extremity edema. INTAKE AND OUTPUT: 1500/400? LABORATORY DATA: WBC 6.5, hemoglobin 10.7, hematocrit 32, platelets 212. Sodium 141, potassium 4.3, chloride 112, CO2 of 24, BUN 17, creatinine 0.7, glucose 128, calcium 9.8, phosphorus 3.4, magnesium 1.3, albumin 3.0. Lipase 842. Urinalysis from specific gravity was 1.020. CURRENT MEDICATIONS: Colace, DuoNeb, heparin, insulin, Lipitor, Lyrica, mag oxide, Neutra-Phos, oxycodone, Protonix, Senokot, sodium bicarbonate, Synthroid. ASSESSMENT: 1. Acute kidney injury, resolved. 2. Acute pancreatitis, resolving. 3. Hypomagnesemia. 4. Low-grade fever. PLAN: 1. Discontinue sodium bicarbonate. 2. Replace magnesium IV. 3. Check WBC count. 4. The patient is stable for discharge from the renal standpoint, but I am concerned about her low-grade fever. Ernestina Li MD
[2017-09-11 16:00] LABS: BASO # 0.02 K/mm3 (0.0-2.0); BASO % 0.2 % (0.0-3.0); EOS # 0.5 (0.0-0.7); EOS % 5.5 % (1.5-5.0); GRAN # 5.14 (1.4-6.5); GRAN % 58.9 % (50.0-68.0); HEMOGLOBIN 10.5 g/dL (12.0-16.0); LYMPH # 2.5 (1.2-3.4); LYMPH % 28.9 % (22.0-35.0); MEAN CELL VOLUME 76.5 fl (80.0-105.0); MEAN PLATELET VOLUME 10.9 fl (7.0-11.0); MONO # 0.6 (0.1-0.6); MONO % 6.5 % (1.0-6.0); RBC 4.04 10^6/uL (3.5-6.1); RED CELL DISTRIBUTION WIDTH 15.4 % (11.5-14.5); WHITE BLOOD COUNT 8.7 10^3/ul (4.5-11.0)
--- NOTE | 2017-09-12 04:15 | DS ---
HISTORY OF PRESENT ILLNESS: The patient was admitted with abdominal pain, vomiting, acute renal failure, and severe dehydration. The patient was given IV fluid. She was also found to have high amylase and lipase. CT abdomen and ultrasound did not show any findings or radiological signs of pancreatitis. The patient improved clinically better, tolerated diet. She is to advance her diet as tolerated. She seems doing very well. She will be discharged home and followed up as outpatient by Gastroenterology for endoscopic evaluation, upper and lower colonoscopy. The patient is stable. PHYSICAL EXAMINATION: VITAL SIGNS: Stable. Temperature 97.8, heart rate 69, blood pressure 130/75, respiration 20, saturation 98% on room air. HEAD AND NECK: Normal. No JVD. No thyromegaly. CHEST: Clear. Good air entry. CARDIAC: First sound and second sound are normal. There is mild wheeze. ABDOMEN: Soft, nontender. EXTREMITIES: No edema. NEUROLOGIC: Normal. LABORATORY DATA: Last lab shows white count 6.5, hemoglobin 10.7, hematocrit 31.9, platelets 212. Chemistry showed sodium 141, potassium 4.3, chloride 112, bicarbonate 24, BUN 17, creatinine 0.7. The patient's blood sugar is 128, magnesium is low at 1.4, and phosphorus also is low. The patient is otherwise stable. We will discharge the patient home. She was seen by surgeon, Dr. Howard, who cleared her. If there is no surgery, no complication of the hernia surgery, we will discharge her home. DISCHARGE DIAGNOSES: 1. Acute pancreatitis. 2. Acute renal failure. 3. Severe dehydration. 4. Abdominal pain due to pancreatitis due to recent surgery, seems stable now. 5. Hypothyroidism. 6. Hypertension. 7. Diabetes type 2. 8. Chronic obstructive pulmonary disease. PLAN: Discharge the patient home. We will give her Medrol Dosepak. Continue Protonix and Pepcid. Also magnesium oxide. We will also discharge the patient with nebulizer treatment, to use Breo, she had at home 100/25 once a day. Continue nebulizer treatment. Lipitor 10 mg at night, Lyrica 150 mg b.i.d., magnesium oxide 400 mg b.i.d., Neutra-Phos one packet daily, oxycodone 5 mg q. 6 hours p.r.n., Protonix 40 once a day, Senokot for constipation mg t.i.d. p.r.n., Synthroid 25 mcg p.o. daily, Zanaflex 4 mg at night. Continue all these medications. See in the office within a week. Ricardo Tobias MD
== END 2017-09-11 16:56 | disposition home or self-care (01) | DRG 682 ==
LOC: ED 11:33 → ERH 14:41 → 3RSO 09-09 20:49
PROVIDERS: ADMIT Internal Medicine; ATTEND Internal Medicine
DX: N17.9 Acute kidney failure, unspecified (principal); K85.90 Acute pancreatitis without necrosis or infection, unspecified; E87.2 Acidosis; N39.0 Urinary tract infection, site not specified; K91.872 Postprocedural seroma of a digestive system organ or structure following a digestive system procedure; K31.84 Gastroparesis; E11.43 Type 2 diabetes mellitus with diabetic autonomic (poly)neuropathy; E83.39 Other disorders of phosphorus metabolism; E83.42 Hypomagnesemia; E86.0 Dehydration; J11.1 Influenza due to unidentified influenza virus with other respiratory manifestations; K52.9 Noninfective gastroenteritis and colitis, unspecified; E87.6 Hypokalemia; J44.9 Chronic obstructive pulmonary disease, unspecified; F17.210 Nicotine dependence, cigarettes, uncomplicated; E03.9 Hypothyroidism, unspecified; M51.36 Other intervertebral disc degeneration, lumbar region; I25.10 Atherosclerotic heart disease of native coronary artery without angina pectoris; G89.29 Other chronic pain; E66.9 Obesity, unspecified; M50.30 Other cervical disc degeneration, unspecified cervical region; I10 Essential (primary) hypertension; E78.00 Pure hypercholesterolemia, unspecified; F41.9 Anxiety disorder, unspecified; F32.9 Major depressive disorder, single episode, unspecified; Y83.4 Other reconstructive surgery as the cause of abnormal reaction of the patient, or of later complication, without mention of misadventure at the time of the procedure; I25.2 Old myocardial infarction; Z68.31 Body mass index [BMI] 31.0-31.9, adult; Z79.84 Long term (current) use of oral hypoglycemic drugs; Z87.01 Personal history of pneumonia (recurrent)

== ENCOUNTER 2017-09-23 20:30 | Emergency (ER) | payer MEDICARE, OTHER ==
[2017-09-23 20:30] VITALS: BMI 31.7
[2017-09-23] MEDS ORDERED: Oxycodone/Acetaminophen 5/325 mg Tab PO STA (21:28)
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
[2017-09-23 21:31] VITALS: BP 145/99; PULSE 60; RESP 18; TEMP 97.6; O2SAT 95
== END 2017-09-23 21:59 | disposition home or self-care (01) ==
LOC: ED 20:30
DX: K02.9 Dental caries, unspecified (principal); E03.9 Hypothyroidism, unspecified; E11.9 Type 2 diabetes mellitus without complications; E78.5 Hyperlipidemia, unspecified; J44.9 Chronic obstructive pulmonary disease, unspecified; F17.210 Nicotine dependence, cigarettes, uncomplicated

== ENCOUNTER 2017-10-25 13:40 | Emergency (ER) | payer MEDICARE ==
[2017-10-25 13:40] VITALS: BMI 31.7
[2017-10-25] MEDS: Albuterol-Ipratrop 3 mg / 0.5 (3 ml) UD IH SCH ×4 (14:29→15:59)
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
[2017-10-25 14:55] LABS: BASO # 0.04 K/mm3 (0.0-2.0); BASO % 0.4 % (0.0-3.0); EOS # 0.4 (0.0-0.7); EOS % 4.6 % (1.5-5.0); GRAN # 6.25 (1.4-6.5); GRAN % 66.8 % (50.0-68.0); HEMOGLOBIN 12.3 g/dL (12.0-16.0); LYMPH % 21.7 % (22.0-35.0); MEAN CELL VOLUME 77.8 fl (80.0-105.0); MEAN CORPUSCULAR HEMOGLOBIN 25.5 pg (25.0-35.0); MEAN CORPUSCULAR HGB CONC 32.8 g/dl (31.0-37.0); MEAN PLATELET VOLUME 10.5 fl (7.0-11.0); MONO # 0.6 (0.1-0.6); MONO % 6.5 % (1.0-6.0); RBC 4.82 10^6/uL (3.5-6.1); RED CELL DISTRIBUTION WIDTH 16.3 % (11.5-14.5); WHITE BLOOD COUNT 9.4 10^3/ul (4.5-11.0)
[2017-10-25 15:02] LABS: BLOOD UREA NITROGEN 10 mg/dL (7-21); CALCIUM 11.1 mg/dL (8.4-10.5); GFR AFRICAN-AMERICAN > 60; GFR NON-AFRICAN AMERICAN > 60
--- NOTE | 2017-10-25 15:35 | RAD ---
HISTORY: cough r/o pna COMPARISON: 09/11/2017 TECHNIQUE: Chest PA and lateral FINDINGS: LUNGS: No active pulmonary disease. PLEURA: No significant pleural effusion identified. No pneumothorax apparent. CARDIOVASCULAR: Normal. OSSEOUS STRUCTURES: No significant abnormalities. VISUALIZED UPPER ABDOMEN: Normal. OTHER FINDINGS: None. IMPRESSION: No active disease.
[2017-10-25] MEDS ORDERED: Albuterol 0.083% Inhal Sol (2.5 mg/3 mL) UD IH STA (15:43)
[2017-10-25 16:49] VITALS: BP 136/84; PULSE 82; RESP 22; TEMP 98.8; O2SAT 98
--- NOTE | 2017-10-25 21:27 | CARD ---
APPROVED REPORT EKG Measurement Heart [id number] <Conclusion> Normal sinus rhythm Normal ECG
== END 2017-10-25 16:48 | disposition home or self-care (01) ==
LOC: ED 13:40
DX: J44.9 Chronic obstructive pulmonary disease, unspecified (principal); E11.9 Type 2 diabetes mellitus without complications; F17.210 Nicotine dependence, cigarettes, uncomplicated
CPT/HCPCS: 71046; 80048; 85025; 87804; 93005; 94640; 96374; 99283; J2930

== ENCOUNTER 2017-10-26 19:06 | Inpatient (IN) | payer MEDICARE, OTHER ==
[2017-10-26 19:32] VITALS: BMI 37.1
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
[2017-10-26] MEDS: Albuterol-Ipratrop 3 mg / 0.5 (3 ml) UD IH SCH ×3 (20:00→20:28)
[2017-10-26] MEDS: Sodium Chloride 0.9% 1,000 ML IV SCH (20:00)
[2017-10-26 20:11] LABS: BASO # 0.01 K/mm3 (0.0-2.0); BASO % 0.1 % (0.0-3.0); EOS % 0.1 % (1.5-5.0); GRAN # 12.66 (1.4-6.5); GRAN % 84.9 % (50.0-68.0); HEMOGLOBIN 11.6 g/dL (12.0-16.0); LYMPH # 1.2 (1.2-3.4); LYMPH % 8.3 % (22.0-35.0); MEAN CELL VOLUME 78.2 fl (80.0-105.0); MEAN CORPUSCULAR HEMOGLOBIN 25.6 pg (25.0-35.0); MEAN CORPUSCULAR HGB CONC 32.7 g/dl (31.0-37.0); MEAN PLATELET VOLUME 10.8 fl (7.0-11.0); MONO % 6.6 % (1.0-6.0); RBC 4.54 10^6/uL (3.5-6.1); RED CELL DISTRIBUTION WIDTH 16.9 % (11.5-14.5); WHITE BLOOD COUNT 14.9 10^3/ul (4.5-11.0)
[2017-10-26 20:34] LABS: ALB/GLOB RATIO 1.4 (1.1-1.8); ALBUMIN 4.3 g/dL (3.0-4.8); ALT/SGPT 22 U/L (7-56); AST/SGOT 26 U/L (14-36); BLOOD UREA NITROGEN 16 mg/dL (7-21); CALCIUM 11.4 mg/dL (8.4-10.5); GFR AFRICAN-AMERICAN > 60; GFR NON-AFRICAN AMERICAN 57
[2017-10-26 20:35] LABS: B-TYPE NATRIURETIC PEPTIDE 44.7 pg/mL (0-450); TROPONIN I < 0.01 ng/mL
[2017-10-26] MEDS ORDERED: Iohexol 350 MG/100 ML VIAL ONE (20:58)
[2017-10-26 22:13] LABS: VENOUS BLOOD GAS BASE EXCESS 1.9 mmol/L (0.0-2.0); VENOUS BLOOD GAS PO2 56 mm/Hg (30-55); VENOUS BLOOD PH 7.42 (7.32-7.43)
[2017-10-26] MEDS ORDERED: cefTRIAXone 1 gm 1 GM/100 ML BAG IVPB STA (22:27)
[2017-10-26] MEDS ORDERED: Azithromycin 500MG/NS 250ml 500 MG/250 ML BAG IVPB STA (22:27)
[2017-10-26 22:52] LABS: PH,URINE 6.5 (4.7-8.0); URINE BILIRUBIN NEGATIVE (NEGATIVE); URINE BLOOD NEGATIVE (NEGATIVE); URINE GLUCOSE (UA) 250 mg/dL (NEGATIVE); URINE LEUKOCYTE ESTERASE NEGATIVE Leu/uL (NEGATIVE); URINE PROTEIN NEGATIVE mg/dL (<30 mg/dL); URINE UROBILINOGEN 0.2 E.U./dL (<1 E.U./dL)
[2017-10-26 22:53] LABS: URINE APPEARANCE CLEAR (CLEAR); URINE COLOR YELLOW (YELLOW)
[2017-10-26] MEDS ORDERED: Oxycodone/Acetaminophen 2.5/325 mg Tab PO STA (23:00)
[2017-10-26] MEDS ORDERED: Oxycodone/Acetaminophen 5/325 mg Tab PO STA (23:00)
[2017-10-26] MEDS ORDERED: Oxycodone/Acetaminophen 5/325 mg Tab ONE (23:07)
[2017-10-26] MEDS ORDERED: Oxycodone/Acetaminophen 2.5/325 mg Tab ONE (23:07)
[2017-10-27 00:02] LABS: VENOUS BLOOD GAS BASE EXCESS -2.3 mmol/L (0.0-2.0); VENOUS BLOOD GAS PO2 43 mm/Hg (30-55); VENOUS BLOOD PH 7.38 (7.32-7.43)
[2017-10-27] MEDS ORDERED: oxyCODONE 5 mg Immediate Release Tab PO PRN (00:30)
[2017-10-27] MEDS ORDERED: Albuterol-Ipratrop 3 mg / 0.5 (3 ml) UD IH PRN (00:39)
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
[2017-10-27] MEDS ORDERED: Sodium Chloride 0.9% 1,000 ML IV STA (01:00)
--- NOTE | 2017-10-27 01:25 | PCM.SEPTIC ---
Sepsis Progress Note - Reassessment Type Date of Evaluation: 10/27/17 Time of Evaluation: 01:24 Reassessment Type: Non-invasive reassessment - Non Invasive Reassessment Were the most recent vital sign reviewed: Yes Vital Sign (Latest): Temp Pulse Resp BP Pulse Ox 98.6 F 90 20 164/81 H 92 L 10/26/17 19:34 10/26/17 23:15 10/26/17 23:15 10/26/17 23:15 10/26/17 23:15 Cardiovascular: Yes: Regular Rate, Rhythm Respiratory: Yes: Wheezing Capillary Refill: Normal (Less than 2 sec) Pulses: Normal Radial, Normal Dorsalis Pedis, Normal Posterior Tibialis Skin: Normal Color, Warm, Dry
[2017-10-27] MEDS: Sodium Chloride 0.9% 1,000 ML IV SCH (02:30)
--- NOTE | 2017-10-27 02:53 | CT ---
EXAM: CT Chest With Intravenous Contrast EXAM DATE/TIME: 10/26/2017 8:45 PM CLINICAL HISTORY: 57 years old, female; Signs and symptoms; Cough and other: Coughing, pneumonia? ; Symptoms not specified; Additional info: Coughing, pneumonia? TECHNIQUE: Axial computed tomography images of the chest with intravenous contrast. All CT scans at this facility use one or more dose reduction techniques, viz.: automated exposure control; ma/kV adjustment per patient size (including targeted exams where dose is matched to indication; i.e. head); or iterative reconstruction technique. Coronal and sagittal reformatted images were created and reviewed. CONTRAST: 100 mL of [id number] administered intravenously. COMPARISON: CT - CHEST W/O CONTRAST 2017-05-05 16:11 FINDINGS: There is a stimulator device in the thoracic spine with subcutaneous component in the right posterior-lateral abdomen. Pulmonary embolism cannot be excluded secondary to suboptimal bolus timing. No aortic dissection or aneurysm. No pleural or pericardial effussions. There is platelike atelectasis in the lingula and left lung base. Minimal bilateral perinephric stranding. Mild fatty infiltration of the liver. IMPRESSION: No acute findings.
[2017-10-27] MEDS ORDERED: Albuterol HFA 90 mcg/actuation (8 g) IH SCH (04:00)
[2017-10-27] MEDS: Albuterol-Ipratrop 3 mg / 0.5 (3 ml) UD IH SCH ×6 (05:00→23:56)
[2017-10-27] MEDS: Levothyroxine 25 MCG TAB PO SCH (05:55)
[2017-10-27] MEDS ORDERED: Pantoprazole 40 mg EC Tab PO SCH (06:00)
[2017-10-27] MEDS ORDERED: oxyCODONE 5 mg Immediate Release Tab PO STA (06:15)
[2017-10-27 07:04] LABS: BASO # 0.01 K/mm3 (0.0-2.0); BASO % 0.1 % (0.0-3.0); GRAN # 11.88 (1.4-6.5); GRAN % 90.6 % (50.0-68.0); HEMOGLOBIN 9.9 g/dL (12.0-16.0); LYMPH # 0.9 (1.2-3.4); LYMPH % 7.2 % (22.0-35.0); MEAN CELL VOLUME 77.6 fl (80.0-105.0); MEAN CORPUSCULAR HEMOGLOBIN 24.6 pg (25.0-35.0); MEAN CORPUSCULAR HGB CONC 31.7 g/dl (31.0-37.0); MONO # 0.3 (0.1-0.6); MONO % 2.1 % (1.0-6.0); PLATELET COUNT 244 10^3/uL (120.0-450.0); RBC 4.02 10^6/uL (3.5-6.1); WHITE BLOOD COUNT 13.1 10^3/ul (4.5-11.0)
[2017-10-27 07:14] LABS: FREE T4 0.7 ng/dL (0.78-2.19)
[2017-10-27 07:39] LABS: ALB/GLOB RATIO 1.3 (1.1-1.8); ALBUMIN 3.7 g/dL (3.0-4.8); ALT/SGPT 23 U/L (7-56); AST/SGOT 16 U/L (14-36); BLOOD UREA NITROGEN 18 mg/dL (7-21); CALCIUM 10.7 mg/dL (8.4-10.5); GFR AFRICAN-AMERICAN > 60; GFR NON-AFRICAN AMERICAN > 60
[2017-10-27 08:05] LABS: LYMPHOCYTE 11 % (22.0-35.0); MONOCYTE 3 % (1.0-6.0); NEUTROPHIL 86 % (50.0-70.0)
[2017-10-27 08:06] LABS: PLATELET ESTIMATE NORMAL (NORMAL)
[2017-10-27] MEDS: Insulin Lispro (humaLOG) MEDIUM Coverage SC SCH ×4 (08:29→21:46)
--- NOTE | 2017-10-27 09:11 | RAD ---
HISTORY: evaluate for PNA COMPARISON: 10/25/2017 FINDINGS: LUNGS: There is a minimal infiltrate at the left lung base PLEURA: No significant pleural effusion identified, no pneumothorax apparent. CARDIOVASCULAR: Normal. OSSEOUS STRUCTURES: No significant abnormalities. VISUALIZED UPPER ABDOMEN: Normal. OTHER FINDINGS: None. IMPRESSION: Minimal infiltrate at the left lung base
[2017-10-27] MEDS ORDERED: Naproxen 550 mg Tab PO PRN (10:00)
[2017-10-27] MEDS: Magnesium Oxide 400 mg Tab UD PO SCH ×3 (10:05→17:48)
[2017-10-27] MEDS: MethylPREDNISolone 40 mg Vial IVP SCH ×2 (10:05→21:30)
[2017-10-27] MEDS: VILANTEROL INH SCH (10:06)
[2017-10-27] MEDS: FLUTICASONE INH SCH (10:06)
[2017-10-27] MEDS: Azithromycin 500MG/NS 250ml 500 MG/250 ML BAG IVPB SCH (10:06)
[2017-10-27] MEDS: cefTRIAXone 1 gm 1 GM/100 ML BAG IVPB SCH (12:54)
--- NOTE | 2017-10-27 14:22 | CARD ---
APPROVED REPORT EKG Measurement Heart [id number] <Conclusion> Normal sinus rhythm Normal ECG
[2017-10-27] MEDS: Oxycodone/Acetaminophen 5/325 mg Tab PO PRN ×2 (15:50→21:29)
[2017-10-27] MEDS ORDERED: TIZANIDINE HCL 4 MG PO SCH (22:00)
[2017-10-28] MEDS: Albuterol-Ipratrop 3 mg / 0.5 (3 ml) UD IH SCH ×4 (04:05→14:49)
[2017-10-28] MEDS: Oxycodone/Acetaminophen 5/325 mg Tab PO PRN ×2 (04:13→09:58)
[2017-10-28] MEDS: Levothyroxine 25 MCG TAB PO SCH (06:10)
[2017-10-28 06:53] LABS: BASO # 0.01 K/mm3 (0.0-2.0); BASO % 0.1 % (0.0-3.0); GRAN # 10.21 (1.4-6.5); GRAN % 83.9 % (50.0-68.0); HEMOGLOBIN 10.7 g/dL (12.0-16.0); LYMPH # 1.5 (1.2-3.4); LYMPH % 12.5 % (22.0-35.0); MEAN CELL VOLUME 78.1 fl (80.0-105.0); MEAN CORPUSCULAR HEMOGLOBIN 24.9 pg (25.0-35.0); MEAN CORPUSCULAR HGB CONC 31.8 g/dl (31.0-37.0); MEAN PLATELET VOLUME 10.2 fl (7.0-11.0); MONO # 0.4 (0.1-0.6); MONO % 3.5 % (1.0-6.0); RBC 4.3 10^6/uL (3.5-6.1); RED CELL DISTRIBUTION WIDTH 17.2 % (11.5-14.5); WHITE BLOOD COUNT 12.2 10^3/ul (4.5-11.0)
--- NOTE | 2017-10-28 06:58 | CP.PCM.PN ---
Subjective - Date & Time of Evaluation Date of Evaluation: 10/28/17 Objective - Vital Signs/Intake and Output Vital Signs (last 24 hours): Temp Pulse Resp BP Pulse Ox 98.2 F 54 L 20 129/64 97 10/28/17 06:00 10/28/17 06:00 10/28/17 06:00 10/28/17 06:00 10/28/17 06:00 Intake and Output: 10/27/17 10/28/17 18:59 06:59 Intake Total 1200 480 Output Total 6 Balance 1194 480 - Medications Medications: Current Medications Albuterol/Ipratropium (Duoneb 3 Mg/0.5 Mg (3 Ml) Ud) 3 ml IH [id number] ROBERTA Last Admin: 10/28/17 04:05 Dose: Not Given Albuterol/Ipratropium (Duoneb 3 Mg/0.5 Mg (3 Ml) Ud) 3 ml IH [id number] PRN PRN Reason: Wheezing Last Admin: 10/27/17 01:34 Dose: 3 ml Atorvastatin Calcium (Lipitor) 10 mg PO DIN ROBERTA Last Admin: 10/27/17 17:48 Dose: 10 mg Famotidine (Pepcid) 20 mg PO HS ROBERTA Last Admin: 10/27/17 21:28 Dose: 20 mg Gabapentin (Neurontin) 300 mg PO HS ROBERTA PRN Reason: Protocol Last Admin: 10/27/17 21:28 Dose: 300 mg Ceftriaxone Sodium (Rocephin 1 Gram Ivpb) 1 gm in 100 mls @ 100 mls/hr IVPB DAILY ROBERTA PRN Reason: Protocol Last Admin: 10/27/17 12:54 Dose: 100 mls/hr Azithromycin (Zithromax 500mg In Ns) 500 mg in 250 mls @ 167 mls/hr IVPB DAILY ROBERTA PRN Reason: Protocol Last Admin: 10/27/17 10:06 Dose: 167 mls/hr Insulin Human Lispro (Humalog Med) 0 units SC ACHS ROBERTA PRN Reason: Protocol Last Admin: 10/27/17 21:46 Dose: Not Given Levothyroxine Sodium (Synthroid) 25 mcg PO 0600 ROBERTA Last Admin: 10/28/17 06:10 Dose: 25 mcg Magnesium Oxide (Mag-Ox) 400 mg PO TID ROBERTA Last Admin: 10/27/17 17:48 Dose: 400 mg Methylprednisolone (Solu-Medrol) 40 mg IVP Q12 [facility] Last Admin: 10/27/17 21:30 Dose: 40 mg Naproxen (Anaprox Ds) 550 mg PO BID PRN PRN Reason: Pain, moderate (4-7) Nicotine (Nicoderm Cq) 1 patch TD DAILY [facility] Last Admin: 10/27/17 10:05 Dose: 1 patch Fluticasone/Vilanterol [Breo Ellipta 100-25 Mcg Inh] (Home Med) 1 inh INH DAILY [facility] Last Admin: 10/27/17 10:06 Dose: Not Given Oxycodone/Acetaminophen (Percocet 5/325 Mg Tab) 1 tab PO Q6H PRN PRN Reason: Pain, severe (8-10) Stop: 10/30/17 15:42 Last Admin: 10/28/17 04:13 Dose: 1 tab Pantoprazole Sodium (Protonix Inj) 40 mg IVP DAILY [facility] Last Admin: 10/27/17 10:05 Dose: 40 mg Pregabalin (Lyrica) 150 mg PO BID [facility] Last Admin: 10/27/17 17:48 Dose: 150 mg - Labs Labs: 10/27/17 06:00 10/27/17 06:00
[2017-10-28 07:29] LABS: ALB/GLOB RATIO 1.3 (1.1-1.8); ALBUMIN 3.8 g/dL (3.0-4.8); ALT/SGPT 17 U/L (7-56); AST/SGOT 17 U/L (14-36); BLOOD UREA NITROGEN 18 mg/dL (7-21); CALCIUM 11.1 mg/dL (8.4-10.5); GFR AFRICAN-AMERICAN > 60; GFR NON-AFRICAN AMERICAN > 60
[2017-10-28] MEDS: Insulin Lispro (humaLOG) MEDIUM Coverage SC SCH ×2 (07:50→12:51)
[2017-10-28] MEDS: MethylPREDNISolone 40 mg Vial IVP SCH (09:57)
[2017-10-28] MEDS: cefTRIAXone 1 gm 1 GM/100 ML BAG IVPB SCH (09:57)
[2017-10-28] MEDS: Magnesium Oxide 400 mg Tab UD PO SCH ×2 (09:59→14:47)
[2017-10-28] MEDS: VILANTEROL INH SCH (09:59)
[2017-10-28] MEDS: FLUTICASONE INH SCH (09:59)
[2017-10-28] MEDS: Azithromycin 500MG/NS 250ml 500 MG/250 ML BAG IVPB SCH (10:08)
[2017-10-28] MEDS ORDERED: Sodium Chloride 0.9% 100 ML IV SCH (11:15)
[2017-10-28] MEDS ORDERED: Sodium Chloride 0.9% 1,000 ML IV ONE (11:45)
--- NOTE | 2017-10-28 12:19 | PN ---
DATE: 10/27/2017 SUBJECTIVE: Nannette Gandara is a 57-year-old female, seen on 10/27/2017. The patient was admitted for acute COPD exacerbation. She seems comfortable, no distress. No chest pain and seems to be doing very well. PHYSICAL EXAMINATION VITAL SIGNS: Temperature 98.4, heart rate 89, blood pressure 105/89, respirations 20. HEAD AND NECK: Normal. No JVD. No thyromegaly. CHEST: Clear. Good air entry. CARDIAC: First sound and second sound normal. ABDOMEN: Soft, obese, nontender. EXTREMITIES: No edema. NEUROLOGIC: Normal. LABORATORY DATA: On 10/27/2017, white count 16.1, hemoglobin 9.9, hematocrit 31.2, platelets 244. Chemistry: Sodium 143, potassium 4.8, chloride 110, bicarbonate 20, BUN 18, creatinine 0.7, blood sugar is 236, and hemoglobin A1c is 6.8. Lactic acid 0.5. Calcium 10.7 and liver function test is normal. The patient also has procalcitonin, which is negative. Her TSH was 0.23. IMPRESSION: Acute chronic obstructive pulmonary disease with exacerbation, continue on her steroids, continue nebulizer treatment, follow up with other consultants. The patient also actively smoking, replaced with NicoDerm. We will continue all other medications. The patient has also hypothyroidism, diabetes type 2, chronic back pain, morbid obesity. PLAN: Continue current medications, follow up clinically. CURRENT MEDICATIONS: She is on Flonase, Naprosyn, DuoNeb, Humalog insulin coverage, Lipitor 10, Lyrica 150 b.i.d., Neurontin 300 p.o. at bedtime, NicoDerm, Pepcid, Percocet 5/325 every 6 hours, Protonix 40 daily, Rocephin 1 g, Zithromax 100 mg IV daily. Continue steroids, Solu-Medrol 40 mg IV every 12 hours. The patient also getting Synthroid 25 mcg everyday. Continue current therapy. We will follow up with other consultants. Ricardo Tobias MD
[2017-10-28] MEDS ORDERED: Sodium Chloride 0.9% 1,000 ML IV SCH (13:15)
[2017-10-28 14:47] VITALS: PULSE 91; RESP 18
[2017-10-28 15:22] VITALS: BP 139/87; TEMP 98
[2017-10-28 15:54] VITALS: O2SAT 94
[2017-10-29] MEDS ORDERED: Sodium Chloride 0.9% 1,000 ML IV SCH (10:00)
--- NOTE | 2017-10-29 17:13 | DS ---
HISTORY OF PRESENT ILLNESS: The patient is a 57-year-old female, admitted with acute COPD exacerbation. The patient was given IV Solu-Medrol. She will start feeling better in a couple of days. Her symptoms improves significantly and she wants to go home. The patient has no chest pain, no short of breath, and maintained on her diabetic and pain medications. She was given Z-Musa, Zithromax, azithromycin IV in the hospital and IV Solu-Medrol. The patient clinically improved and she wants to go home. Previous discharge summary here is dated 10/28/2017. PHYSICAL EXAMINATION: VITAL SIGNS: Her temperature is afebrile 98, heart rate 91, blood pressure is 139/87, saturating 95% on 2 L. HEAD AND NECK: Normal. No JVD. No thyromegaly. CHEST: Clear. Good air entry. CARDIAC: First sound and second sound normal. ABDOMEN: Soft, nontender. EXTREMITIES: No edema. NEUROLOGICAL: Normal. LABORATORY DATA: White count 12.2, hemoglobin 10.7, hematocrit 33.6, platelets 243. Chemistry, sodium 142, potassium 4.6, chloride 108, bicarb 28, BUN 18, creatinine 0.7, blood sugar 135, calcium 11.1, magnesium 2.3, bilirubin 0.1. Liver function test is normal. Albumin-globulin ratio was normal. DISCHARGE DIAGNOSES: 1. Acute chronic obstructive pulmonary disease exacerbation. 2. Diabetes type 2, on medications. 3. Hypertension. 4. Morbid obesity. 5. Chronic neck pain and chronic back pain, who has previous multiple surgeries. Continue oxycodone 5 mg every 6. 6. Peripheral neuropathy, chronic pain, continue Lyrica. 7. Hypothyroidism, continue levothyroxine. PLAN: We will continue to give the patient Z-Musa and Medrol Dosepak. Continue all other medications, diabetic medications, and her chronic pain medications. Continue current medications, Medrol pack, Z-Musa plus continue diabetic and all other medications. Ricardo Tobias MD
== END 2017-10-28 18:36 | disposition home or self-care (01) | DRG 192 ==
LOC: ED 19:06 → ERH 23:31 → 3RSO 10-27 00:46
PROVIDERS: ADMIT Internal Medicine; ATTEND Hospitalist
PROC: 3E0F7GC Introduction of Other Therapeutic Substance into Respiratory Tract, Via Natural or Artificial Opening (ICD-10-PCS; principal; 2017-10-27)
DX: J44.1 Chronic obstructive pulmonary disease with (acute) exacerbation (principal); E11.9 Type 2 diabetes mellitus without complications; E03.9 Hypothyroidism, unspecified; E78.5 Hyperlipidemia, unspecified; G89.29 Other chronic pain; M54.9 Dorsalgia, unspecified; R09.02 Hypoxemia; E66.01 Morbid (severe) obesity due to excess calories; Z68.38 Body mass index [BMI] 38.0-38.9, adult; F17.210 Nicotine dependence, cigarettes, uncomplicated

== ENCOUNTER 2018-08-04 07:15 | Outpatient (CLI) | payer MEDICARE, MEDICAID | END 2018-08-04 07:16 | disposition home or self-care (01) | LOC: LAB 07:15 ==

== ENCOUNTER 2018-09-19 17:31 | Observation (INO) | payer MEDICARE, MEDICAID ==
[2018-09-19 17:37] VITALS: BMI 40.9
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
[2018-09-19] MEDS ORDERED: Sodium Chloride 0.9% 1,000 ML IV STA ×2 (18:16→23:04)
[2018-09-19 18:59] LABS: BASO # 0.04 K/mm3 (0.0-2.0); BASO % 0.3 % (0.0-3.0); EOS # 0.2 (0.0-0.7); EOS % 1.6 % (1.5-5.0); HEMOGLOBIN 12.9 g/dL (12.0-16.0); LYMPH # 3.2 (1.2-3.4); LYMPH % 27.7 % (22.0-35.0); MEAN CELL VOLUME 83.1 fl (80.0-105.0); MEAN CORPUSCULAR HEMOGLOBIN 26.6 pg (25.0-35.0); MEAN PLATELET VOLUME 10.9 fl (7.0-11.0); MONO # 0.7 (0.1-0.6); MONO % 6.3 % (1.0-6.0); RBC 4.85 10^6/uL (3.5-6.1); RED CELL DISTRIBUTION WIDTH 15.2 % (11.5-14.5); WHITE BLOOD COUNT 11.5 10^3/uL (4.5-11.0)
[2018-09-19 19:11] LABS: INR 0.94; PARTIAL THROMBOPLASTIN TIME 30.2 Seconds (26.9-38.3); PROTHROMBIN TIME 10.4 SECONDS (9.4-12.5)
[2018-09-19 19:43] LABS: ALB/GLOB RATIO 1.5 (1.1-1.8); ALBUMIN 4.4 g/dL (3.0-4.8); ALT/SGPT 36 U/L (7-56); AST/SGOT 37 U/L (14-36); BLOOD UREA NITROGEN 15 mg/dL (7-21); CALCIUM 10.5 mg/dL (8.4-10.5); GFR NON-AFRICAN AMERICAN > 60
[2018-09-19] MEDS ORDERED: Iohexol 350 MG/100 ML VIAL ONE (19:47)
[2018-09-19 20:07] LABS: TROPONIN I 0.01 ng/mL
--- NOTE | 2018-09-19 21:45 | ED PDOC ---
Physical Exam Vital Signs Pulse Resp BP Pulse Ox 09/19/18 18:56 108 H 18 125/72 99 09/19/18 17:58 115 H 18 128/79 98 Medical Decision Making ED Course and Treatment: 09/19/18 21:00 Case endorsed to me by Dr. Boyle, pending CTA, re-evaluation, and disposition. Pt presented for low oxygen level at her PMD's office and advised to come to the ED. 09/19/18 22:20 CTA Chest: PULMONARY ARTERIES No evidence of central or segmental pulmonary embolism is seen. AORTA There is no evidence for aneurysm or dissection of the thoracic aorta. LUNGS There are subtle scattered zones of hazy airspace opacity throughout both lung boyd noted thought compatible with multifocal pneumonitis. PLEURAL SPACES No pleural effusion seen. No pneumothorax evident. HEART Normal heart size. No pericardial effusion. LYMPH NODES No lymphadenopathy is evident. BONES No focal osseous abnormality or acute fracture. There is noted to have been prior anterior surgical fusion at the cervical-thoracic junction. Spinal stimulation electrodes are seen within the posterior spinal canal with their tip terminating at the level of T6. UPPER ABDOMEN Images of the upper abdomen demonstrate mild hepatomegaly. The liver measured an estimated 17.0 cm in the midclavicular line. There is also associated hepatic steatosis noted. IMPRESSION: 1. No identification of PE. 2. Subtle scattered zones of hazy airspace opacity throughout both lung boyd thought compatible with multifocal pneumonitis. 3. Spinal stimulation electrodes noted within the posterior spinal canal terminating at the level of T6. 4. Status post anterior surgical fusion of the cervical-thoracic junction. 5. Evidence of hepatomegaly with associated steatosis. Electronically signed on Sep 19, 2018 9:22:04 PM EST by: Dwain Kunz M.D., BARBRA Certified By [facility] Fellowship Trained MRI and CT Specialist 09/20/18 00:[address] Tobias, who is aware and agrees with plan. Accepts pt in to his service. Pt will go to [facility] observation for pneumonia. - Lab Interpretations Lab Results: PT 10.4 SECONDS (9.4-12.5) 09/19/18 18:52 INR 0.94 09/19/18 18:52 APTT 30.2 Seconds (26.9-38.3) 09/19/18 18:52 Troponin I 0.01 ng/mL 09/19/18 19:20 Total Bilirubin 0.2 mg/dL (0.2-1.3) 09/19/18 19:20 AST 37 U/L (14-36) H D 09/19/18 19:20 ALT 36 U/L (7-56) 09/19/18 19:20 Alkaline Phosphatase 96 U/L (38-126) 09/19/18 19:20 Total Protein 7.3 g/dL (5.8-8.3) 09/19/18 19:20 Albumin 4.4 g/dL (3.0-4.8) 09/19/18 19:20 Globulin 2.9 gm/dL 09/19/18 19:20 Albumin/Globulin Ratio 1.5 (1.1-1.8) 09/19/18 19:20 - RAD Interpretation Radiology Orders: 09/19/18 18:15 ANGIO CHEST PE PROTOCOL [CT] Stat Cocktail Server: Radiologist - Medication Orders Current Medication Orders: Discontinued Medications Sodium Chloride (Sodium Chloride 0.9%) 1,000 mls @ 999 mls/hr IV .Q1H1M STA Stop: 09/19/18 19:16 Last Admin: 09/19/18 18:58 Dose: 999 mls/hr eMAR Start Stop Document 09/19/18 18:58 EQ (Rec: 09/19/18 18:58 EQ [id number]) Intravenous Solution Start Date 09/19/18 Start Time 18:58 Disposition/Present on Arrival - Present on Arrival Any Indicators Present on Arrival: No History of DVT/PE: No History of Uncontrolled Diabetes: No Urinary Catheter: No History of Decub. Ulcer: No History Surgical Site Infection Following: None - Disposition Have Diagnosis and Disposition been Completed?: Yes Diagnosis: Pneumonia Disposition: HOSPITALIZED Disposition Time: 23:03 Patient Problems: Current Active Problems Problem Status Onset Pneumonia Acute Condition: STABLE
[2018-09-19] MEDS ORDERED: cefTRIAXone 1 gm 1 GM/100 ML BAG IV STA (22:32)
[2018-09-19] MEDS ORDERED: Azithromycin 500MG/NS 250ml 500 MG/250 ML BAG IV STA (22:32)
[2018-09-20] MEDS: Insulin Reg-LOW-Coverage SC SCH ×3 (08:54→18:08)
[2018-09-20] MEDS: Oxycodone/Acetaminophen 5/325 mg Tab PO PRN ×3 (09:40→21:51)
[2018-09-20] MEDS: Levothyroxine 25 MCG TAB PO SCH (09:41)
[2018-09-20] MEDS: cefTRIAXone 1 gm 1 GM/100 ML BAG IVPB SCH (09:41)
--- NOTE | 2018-09-20 09:44 | CT ---
Date of service: 09/19/2018 CTA chest PE protocol Indication: pulmonary embolism Technique: Contiguous axial images were obtained through the chest with intravenous contrast enhancement. Sagittal and coronal reconstructions were generated and reviewed. This CT exam was performed using 1 or more of the following dose reduction techniques: Automated exposure control, adjustment of the MAA and/or kV according to patient size, and/or use of iterative reconstruction technique. IV contrast: 100 mL Omnipaque 350 Radiation dose (DLP): 448.78 MGy-cm. Comparison: Contrast-enhanced chest CT performed 10/26/17 Findings: Visualized portions of the inferior thyroid gland appear unremarkable. The mediastinal and hilar vascular structures appear within normal limits. The heart appears within normal limits of size. There is suboptimal opacification of the pulmonary arteries limiting evaluation for pulmonary embolus. Given this limitation, there are no visible intraluminal filling defects within the central pulmonary arteries to suggest central pulmonary embolism. No focal consolidation. No pleural effusion. No pneumothorax. Limited visualized portions of the upper abdomen: Partially imaged hepatomegaly. Hypoattenuation of the liver compatible with hepatic steatosis. Partially imaged cervical fusion hardware. Dorsal stimulator leads with neurostimulator pack seen best on [employer] at the right posterior soft tissues. Impression: There is suboptimal opacification of the pulmonary arteries limiting evaluation for pulmonary embolus. Given this limitation, there are no visible intraluminal filling defects within the central pulmonary arteries to suggest central pulmonary embolism. No focal consolidation. Limited visualization of the upper abdomen reveals partially imaged hepatomegaly. Hepatic steatosis. Additional findings as above. Preliminary impression was provided by [employer]. Study marked for PA review.
[2018-09-20] MEDS: Azithromycin 250 MG in Sodium Chloride 0.9% 250 ML IVPB SCH (10:00)
[2018-09-20] MEDS ORDERED: PREGABALIN 150 MG PO SCH (10:00)
[2018-09-20] MEDS: Albuterol-Ipratrop 3 mg / 0.5 (3 ml) UD IH SCH ×2 (10:24→20:09)
--- NOTE | 2018-09-20 16:36 | CON ---
DATE OF CONSULTATION: 09/20/2018 REFERRING PHYSICIAN: Ricardo Tobias MD REASON FOR CONSULTATION: Cough, shortness of breath, exacerbation of COPD, may have sleep apnea syndrome. HISTORY OF PRESENT ILLNESS: This is a 58-year-old female seen at Dr. Tobias's office, found to have a cough, shortness of breath, hypoxemia, sent to emergency room where she had a CTA done, which was unremarkable for any significant PE. She did have a cough and shortness of breath. She is active smoker. No nausea, no vomiting, no diarrhea. No leg pain or leg swelling. PAST MEDICAL HISTORY: Chronic obstructive lung disease, diabetes, hyperlipidemia, hypothyroid, anxiety disorder, depression. FAMILY HISTORY: No significant cardiopulmonary disease reported. SOCIAL HISTORY: She is active smoker. Denied any alcohol use. MEDICATIONS: She is on glimepiride 4 mg a.c. b.d. p.r.n., Zithromax 250 mg IV daily, DuoNeb 4 times a day., Ecotrin 81 mg daily, insulin coverage, Lipitor 10 mg daily, Lyrica 100 mg three times a day, Pepcid 20 mg h.s., Percocet 5/325 one tablet every 4 hours p.r.n., Rocephin 1 g IV daily, Synthroid 25 mcg daily, Tenormin 12.5 mg daily, Zestril 2.5 mg daily. ALLERGIES: NONE KNOWN. REVIEW OF SYSTEMS: No headache or rhinitis. Admits to have snoring, daytime sleepy and tired, cough, shortness of breath. No chest pain, nausea, vomiting, diarrhea, leg pain or leg swelling. PHYSICAL EXAMINATION: GENERAL: No acute distress. VITAL SIGNS: Temperature is 98, heart rate is 82, respiratory rate is 20, blood pressure 110/71, pulse ox 96% on room air. HEENT: Moist mucous membranes. Crowded airway. Mallampati score is 4. NECK: Short thick neck. LUNGS: Have bilateral expiratory wheezing and rhonchi. HEART: S1 and S2. ABDOMEN: Soft, nontender. No organomegaly. EXTREMITIES: No edema. NEUROLOGIC: Awake and alert. Follows simple commands. LABORATORY DATA: Hemoglobin 12.9, hematocrit 40.3, WBC 11.5, platelets 211,000. INR 0.94. PTT is 30. Sodium 139, potassium 4.3, chloride 105, bicarbonate 28, BUN 15, creatinine 0.5, glucose 153, calcium 10.5, magnesium 1.9, AST 37, ALT 36, alk phos is 96. Albumin is 4.4 TSH is 1.53. CAT scan of the chest was done, which was unremarkable for any pulmonary embolism. IMPRESSION: Exacerbation of chronic obstructive lung disease, diabetes, hyperlipidemia, hypothyroid, morbid obesity, may have sleep apnea syndrome. PLAN: Agree with Dr. Tobias and with the present management. Continue Zithromax. Add Solu-Medrol, inhaled bronchodilator, gastric prophylaxis, deep vein thrombosis prophylaxis, sleep apnea precaution. Outpatient, will need PFTs and attended sleep study. The patient has to stop smoking. We will place her on Nicoderm patch. Fall precautions. Thank you and we will follow with you. Mirlande Reis MD
[2018-09-20] MEDS ORDERED: Non Formulary Medication (Simvastatin [Zocor] 20 MG) PO SCH (18:00)
[2018-09-20] MEDS: buPROPion 150 mg/24 Hours XL Tab PO SCH (18:00)
[2018-09-20] MEDS: Arformoterol 15 mcg/2 ml Inh Sol IH SCH (20:08)
[2018-09-20] MEDS: Budesonide 0.5 mg/2 ml Inhal Susp UD IH SCH (20:09)
[2018-09-20] MEDS: MethylPREDNISolone 40 mg Vial IVP SCH (21:16)
[2018-09-21] MEDS: Insulin Reg-LOW-Coverage SC SCH ×4 (01:53→16:23)
[2018-09-21] MEDS: Oxycodone/Acetaminophen 5/325 mg Tab PO PRN ×4 (05:35→21:43)
--- NOTE | 2018-09-21 07:49 | CARD ---
APPROVED REPORT Date of service: 09/19/2018 EKG Measurement Heart [id number] <Conclusion> Sinus tachycardia Otherwise normal ECG
[2018-09-21] MEDS: cefTRIAXone 1 gm 1 GM/100 ML BAG IVPB SCH (09:51)
[2018-09-21] MEDS: Azithromycin 250 MG in Sodium Chloride 0.9% 250 ML IVPB SCH (09:52)
[2018-09-21] MEDS: MethylPREDNISolone 40 mg Vial IVP SCH ×2 (09:52→21:32)
[2018-09-21] MEDS: Levothyroxine 25 MCG TAB PO SCH (09:53)
[2018-09-21] MEDS: Arformoterol 15 mcg/2 ml Inh Sol IH SCH ×2 (09:53→20:43)
[2018-09-21] MEDS: Budesonide 0.5 mg/2 ml Inhal Susp UD IH SCH ×2 (09:54→20:43)
[2018-09-21] MEDS: Albuterol-Ipratrop 3 mg / 0.5 (3 ml) UD IH SCH ×3 (09:54→20:43)
[2018-09-21] MEDS: Enoxaparin 40 mg Syringe SC SCH (09:54)
[2018-09-21] MEDS: buPROPion 150 mg/24 Hours XL Tab PO SCH (09:54)
--- NOTE | 2018-09-21 20:09 | HP ---
DATE OF EXAM: 09/20/2018 HISTORY OF PRESENT ILLNESS: The patient came in because of cough and short of breath. The patient was saturating in the office at 91% and she was tachycardic once at 130. She was short of breath, was admitted for acute COPD exacerbation. She was coughing. She was short of breath and a CT was done to rule out PE and which was negative and that showed some emphysematous changes. PAST MEDICAL HISTORY: Obstructive lung disease, morbid obesity, chronic back pain, hypothyroidism, chronic anxiety, depression, possible obstructive sleep apnea, gastroparesis, chronic osteoarthritis of the knees and back, and also shoulder. FAMILY HISTORY: None significant for any cardiopulmonary. SOCIAL HISTORY: She still smokes a pack a day. No alcohol. MEDICATIONS: She did get glimepiride 4 mg at breakfast, also she is getting Ventolin 2 puffs t.i.d., aspirin 81 mg, she is getting Lipitor 10 mg, Lyrica 100 mg three times a day, Pepcid 20 mg at bedtime. She also takes Percocet at home every 6 hours 5 mg and Synthroid 25 mcg daily, Tenormin 12.5 mg p.o. daily, and Zestril 2.5 mg daily. ALLERGIES: NO KNOWN ALLERGIES. REVIEW OF SYSTEMS: She does complain of neck pain, back pain, knee pain, and shoulder pain. She also sometimes complain of dyspepsia and dyspnea on exertions. Otherwise negative. PHYSICAL EXAMINATION: On 09/20/2018; VITAL SIGNS: Temperature is 97.8, heart rate is 86, blood pressure 104/66, respirations 20, and saturations 92% on room air. HEAD AND NECK: Normal. No JVD. No thyromegaly. CHEST: Diminished air bilaterally. Few rhonchi. CARDIAC: First sound and second sound normal. No murmur, rub, or gallop. ABDOMEN: Soft, obese, and nontender. EXTREMITIES: No edema. NEUROLOGIC: Normal. LABORATORY DATA: White count 11.5, hemoglobin 12.9, hematocrit 40.3, and platelets 211. Chemistry; sodium 139, potassium 4.3, chloride 105, bicarb 28, BUN 15, creatinine 0.5, blood sugar 133, calcium 10.5, magnesium 1.9, and total bilirubin 0.2. AST 37, ALT 36, and alkaline phosphatase 96. TSH 1.5. The patient also had PT/PTT, which was normal. CT scan of the lung did not show any PE and no pneumonia. IMPRESSION AND PLAN: 1. This is a 58-year-old female with history of chronic obstructive pulmonary disease on multiple inhalers, obese, possible obstructive sleep apnea. She came in with dyspnea, low saturation, tachycardia. We will admit the patient for acute chronic obstructive pulmonary disease exacerbation. We will consult Dr. Reis to look at the CT and the patient's recommendations and we will follow up on the labs including blood cultures. The patient is currently on intravenous steroids Solu-Medrol IV. We will continue inhaled bronchodilators. She is getting Brovana and Pulmicort plus albuterol p.r.n. for chronic obstructive pulmonary disease. We will start the patient on Rocephin and Zithromax. We will continue current regimen and we will see how the patient does. 2. Chronic back pain. 3. Smoker, nicotine and tobacco addiction. We will give the patient Nicoderm patch and resume all the rest of her medications including diabetic medications. We will put the patient on sliding scale and continue Synthroid and NicoDerm CQ 21 mg plus Wellbutrin 150 mg once a day. Continue Zestril. Continue Tenormin 12.5 mg. Continue Lyrica and Lipitor 10 mg. Followup clinically. Ricardo Tobias MD
--- NOTE | 2018-09-22 01:34 | PN ---
DATE: 09/21/2018 REFERRING PHYSICIAN: Ricardo Tobias MD SUBJECTIVE: The patient is lying in the bed, head at 45 degrees. Night was unremarkable. Feels little better. Decreased cough and shortness of breath. No nausea, vomiting, or diarrhea. No leg pain or leg swelling. OBJECTIVE: GENERAL: No acute distress. VITAL SIGNS: Temperature is 98, heart rate 67, respiratory rate is 18, blood pressure 137/73, pulse of 94%, 2 liters nasal cannula. HEENT: Moist mucous membrane. Crowded airway. Mallampati score is 4. NECK: Supple. No JVD. LUNGS: Prolonged expiratory phase with rhonchi. HEART: S1, S2. ABDOMEN: Soft, nontender. No organomegaly. EXTREMITIES: No edema. NEUROLOGIC: Awake, alert, follows simple commands. MEDICATIONS: She is on glimepiride 4 mg before meals p.r.n., Zithromax 250 mg daily, Brovana inhaled twice a day, DuoNeb four times a day, Ecotrin 81 mg daily, insulin coverage, Lipitor 10 mg daily, Lovenox 40 mg subcu daily, Lyrica 150 mg three times a day, NicoDerm patch daily, Pepcid 20 mg daily, Percocet one tablet every 4 hours p.r.n., Rocephin 1 g IV daily, Solu-Medrol 20 mg every 12 hours, Synthroid 25 mcg daily, Tenormin 12.5 mg daily, Wellbutrin XL 150 mg daily, Zestril 2.5 mg daily. LABORATORY DATA: Reviewed. Blood sugar this morning 217. Microbiology, blood culture has been negative. IMPRESSION AND PLAN: Exacerbation of chronic obstructive lung disease, diabetes, hypertension, hypothyroid, morbid obesity, may have sleep apnea syndrome. Pulmonary point of view, continue inhaled bronchodilator, intravenous bronchodilator, gastric prophylaxis, deep venous thrombosis prophylaxis, antibiotics, out of bed to chair, sleep apnea precaution, NicoDerm patch, outpatient pulmonary function test and sleep study. Thank you and we will follow with you. Mirlande Reis MD
[2018-09-22] MEDS: Oxycodone/Acetaminophen 5/325 mg Tab PO PRN ×2 (03:45→11:49)
[2018-09-22] MEDS: Albuterol-Ipratrop 3 mg / 0.5 (3 ml) UD IH SCH ×2 (07:43→11:44)
[2018-09-22] MEDS: Arformoterol 15 mcg/2 ml Inh Sol IH SCH (07:43)
[2018-09-22] MEDS: Budesonide 0.5 mg/2 ml Inhal Susp UD IH SCH (07:44)
[2018-09-22] MEDS: Insulin Reg-LOW-Coverage SC SCH ×2 (08:35→11:57)
[2018-09-22 08:47] VITALS: RESP 18; TEMP 98; O2SAT 94
[2018-09-22] MEDS: buPROPion 150 mg/24 Hours XL Tab PO SCH (10:38)
[2018-09-22] MEDS: Levothyroxine 25 MCG TAB PO SCH ×2 (10:38→11:07)
[2018-09-22] MEDS: cefTRIAXone 1 gm 1 GM/100 ML BAG IVPB SCH (10:39)
[2018-09-22] MEDS: MethylPREDNISolone 40 mg Vial IVP SCH (10:39)
[2018-09-22] MEDS: Enoxaparin 40 mg Syringe SC SCH (10:39)
[2018-09-22] MEDS: Azithromycin 250 MG in Sodium Chloride 0.9% 250 ML IVPB SCH (10:52)
[2018-09-22 11:01] VITALS: BP 119/75; PULSE 85
--- NOTE | 2018-09-22 15:15 | PN ---
DATE: 09/22/2018 PULMONARY PROGRESS NOTE REFERRING PHYSICIAN: Ricardo Tobias MD SUBJECTIVE: The patient is seen sitting up in bed. No acute distress. No overnight events reported. Reports feeling well today. Cough and shortness of breath have improved. No headache, rhinitis, chest pain, abdominal pain, nausea, vomiting, diarrhea, leg pain, leg swelling reported. OBJECTIVE: GENERAL: No acute distress. VITAL SIGNS: Blood pressure 119/75, pulse 85, temperature 98, oxygen saturation 94% on room air. HEENT: Moist mucous membrane. Mallampati score is 4. Crowded airway. NECK: Supple. No JVD. LUNGS: Fair airflow bilaterally. CARDIOVASCULAR: S1 and S2. ABDOMEN: Soft and nontender. No distention. No organomegaly. EXTREMITIES: No bilateral lower extremity edema. NEUROLOGIC: Awake, alert and verbal. Follows commands. MEDICATIONS: Reviewed. DuoNeb 3 mL inhalation four times a day, Brovana 15 mcg every 12 hours, aspirin 81 mg daily, atenolol 12.5 mg daily, Lipitor 10 mg at dinner, azithromycin 250 mg daily, Pulmicort 0.5 mg inhalation every 12 hours, Wellbutrin 150 mg daily, Rocephin 1 g daily, Lovenox 40 mg daily, Pepcid 20 mg at bedtime, glimepiride 4 mg a.c. as needed, Humulin R sliding scale a.c. and at bedtime, Synthroid 25 mcg daily, Lisinopril 2.5 mg daily, Solu-Medrol 20 mg IV push every 12 hours, nicotine patch transdermal daily, Percocet 5/325 mg one tablet every 4 hours p.r.n., Lyrica 100 mg three times a day and Lyrica 50 mg three times a day. LABORATORY DATA: Reviewed. Blood cultures preliminary no growth after 48 hours. IMPRESSION AND PLAN: Exacerbation of chronic obstructive lung disease, diabetes, hypertension, hypothyroidism, morbid obesity, suspect sleep apnea syndrome. Pulmonary point of view, continue inhaled bronchodilator, gastric prophylaxis, deep venous thrombosis prophylaxis, sleep apnea precaution. Head of bed elevated at 45 degrees. Continue NicoDerm patch. We recommend this patient has sleep study and full pulmonary function test as outpatient. This patient was seen and examined with Dr. Reis. Discussed assessment and plan as described above. This patient seen and examined by Jc Winter, nurse practitioner. Discussed assessment and plan as described above. Thank you for this consult. We will follow with you. Jc Winter APN Mirlande Reis MD
--- NOTE | 2018-09-24 00:23 | DS ---
HISTORY OF PRESENT ILLNESS: A 58-year-old female, history of COPD, diabetes, obesity, hypertension, probably obstructive sleep apnea and hypercholesteremia. The patient was admitted to the hospital because of dyspnea, cough, hypoxemia, short of breath and tachycardia of 130 . The patient was admitted to Medical Floor seen by Pulmonary consult, steroids IV was given, antibiotic Rocephin and Zithromax was given the patient Her CT angio was negative for PE and also for any pneumonia. The patient was treated, seems doing well and was discharged on p.o., Medrol Dosepak and Z-Musa to be followed up in the office. She has no chest pain. When I saw her, she was comfortable, no distress, wants to go home, and seems doing well. PHYSICAL EXAMINATION: VITAL SIGNS: Temperature 98, heart rate 76, blood pressure 111/69, respiration 18, and saturation 95% on 2 liters. HEAD AND NECK: Normal. No JVD. No thyromegaly. CHEST: Clear bilaterally. CARDIAC: First sound and second sound normal. No murmur, rub or gallop. ABDOMEN: Soft, nontender, and obese, EXTREMITIES: No edema. NEUROLOGIC: Normal. LABORATORY DATA: On admission; white count 11.5, hemoglobin 12.9, hematocrit 40.3 and platelets 211. Her chemistry; blood sugar was 150 and 160 on steroids, sodium 139, potassium 4.3, chloride 102, bicarb 28, BUN 15, creatinine 0.5, blood sugar 133 and ALT normal, alk phos is normal slightly elevation of AST. TSH 1.53. The patient seems stable. DISCHARGE DIAGNOSES: 1. Acute chronic obstructive pulmonary disease exacerbation. 2. Morbid obesity with possible obstructive sleep apnea. 3. Chronic back pain and chronic neck pain. 4. Diabetes type II, on insulin. 4. Hypertension. PLAN: Discharge the patient home on Medrol Dosepak, Z-Musa and Nicorette patch once a day. The patient and I did discuss in detail risk of smoking and she plans to quit. I will see her on the office within a few days. Continue current medications that she takes at home. Ricardo Tobias MD [facility] # [id number]
== END 2018-09-22 13:53 | disposition home or self-care (01) ==
LOC: ED 17:31 → ERH 23:03 → 5RSO 09-20 → ERH 09-20 00:01 → 5RSO 09-20 02:20
PROVIDERS: ADMIT Internal Medicine; ATTEND Internal Medicine
DX: J44.1 Chronic obstructive pulmonary disease with (acute) exacerbation (principal); I10 Essential (primary) hypertension; E11.9 Type 2 diabetes mellitus without complications; E03.9 Hypothyroidism, unspecified; E66.01 Morbid (severe) obesity due to excess calories; F17.210 Nicotine dependence, cigarettes, uncomplicated; E78.5 Hyperlipidemia, unspecified; G89.29 Other chronic pain; M54.2 Cervicalgia; M54.9 Dorsalgia, unspecified; F41.9 Anxiety disorder, unspecified; R09.02 Hypoxemia; Z79.4 Long term (current) use of insulin; Z79.82 Long term (current) use of aspirin; Z79.890 Hormone replacement therapy
CPT/HCPCS: 36415; 71275; 80053; 82948; 83735; 84443; 84484; 85025; 85610; 85730; 87040; 93005; 94640; 96365; 96366; 96367; 96372; 96375; 96376; 99283; G0378; J0456; J0696; J1650; J2920; J7030; Q9967